=== PATIENT | female | born 1945 | race Caucasian/White ===

== ENCOUNTER 2018-02-12 21:34 | Emergency (ER) | payer OTHER, SELFPAY ==
[2018-02-03 10:49] VITALS: BMI 36.1
[2018-02-12 21:35] VITALS: BP 192/82; PULSE 92; RESP 23; TEMP 36.4; O2SAT 97; BMI 34.9
[2018-02-12 21:42] VITALS: PULSE 92; RESP 48; O2SAT 97
--- NOTE | 2018-02-12 21:53 | EKG12_ITS ---
Test Reason : PALPITATIONS Blood Pressure : / mmHG Vent. Rate : 086 BPM Atrial Rate : 086 BPM P-R Int : 160 ms QRS Dur : 092 ms QT Int : 368 ms P-R-T Axes : 036 021 067 degrees QTc Int : 440 ms Normal sinus rhythm Normal ECG Confirmed by ANEL TERRELL ([id number]), editor publications MICHAEL TAY ([id number]) on 02/15/2018 1:02:49 PM Referred By: ANGIE Confirmed By:ANEL TERRELL
[2018-02-12 22:05] VITALS: O2SAT 97
[2018-02-12 22:24] LABS: Absolute Lymphocyte Count 1.95 X10^3/ul (0.83-4.51); Absolute Neutrophil Count 3.9 X10^3/uL (2.0-7.7); Basophil# 0.03 X10^3/uL; Basophil% 0.4 % (0-1); Eosinophil# 0.37 X10^3/uL; Eosinophils% 5.4 % (0-5); Hematocrit 36.1 % (37-47); Hemoglobin 11.6 g/dl (12.0-15.0); Lymphocyte # 1.95 X10^3/ul (4.0); Lymphocyte % 28.5 % (19-41); Mean Corp Hgb Conc 32.1 g/gl (32-36); Mean Corpuscular Hgb 28.4 pg (27.0-32.0); Mean Corpuscular Volume 88.3 fL (81-99); Mean Platelet Vol. 9.9 fl (6.2-12.0); Monocyte# 0.64 X10^3/uL; Monocyte% 9.3 % (0-10); Neutrophil # 3.86 X10^3/uL (2.7-7.7); Neutrophil % 56.4 % (47-70); POSITIVE COUNT NO; POSITIVE DIFFERENTIAL NO; POSITIVE MORPHOLOGY NO; Platelet Count 215 K/mm3 (150-450); RBC Distribution Width SD 45.2 fl (35.1-43.9); Red Blood Count 4.09 M/mm3 (4.2-5.4); White Blood Count 6.9 K/mm3 (4.4-11.0)
[2018-02-12 22:40] LABS: Anion Gap 8 (5-15); BUN 35 mg/dL (7-18); BUN/Creat Ratio 29.4 RATIO (10-20); Calcium,Total 9.2 mg/dL (8.5-10.1); Chloride 106 mmol/L (98-107); Creatinine, Serum 1.19 mg/dL (0.55-1.02); EST Glomerular Filtration Rate 47 mL/min (>60); Est Glom Filt Rate - Afr Amer 57 mL/min (>60); Estimated Creatinine Clearance 42.17 ml/min; Glucose 139 mg/dL (74-106); Potassium 4.3 mmol/L (3.5-5.1); Sodium Level 138 mmol/L (136-145)
--- NOTE | 2018-02-12 23:18 | ED.DCSUM_ITS ---
- ER Visit Summary Date of Service: 02/12/18 Chief Complaint: Palpitations, weakness History of Present Illness: The patient is a 72 F who presents with the above symptoms. She has been feeling this way all day today. She went into atrial fibrillation which she has had in the past. She had an ablation done 9 years ago. She takes 1 pill of 120 mg of Cardizem per day. She did have some chest pain at home but now it is gone. She feels weak and run down which she attributes to her Cardizem as she is felt this way ever since she has been on it. She denies any shortness of breath. EMS was called because of her symptoms. She was found to be in atrial fibrillation with RVR. In route the patient converted to a sinus rhythm with no medications. Physical Examination: Vital signs reviewed. HEENT exam unremarkable. Heart is regular rate and rhythm without murmurs. Lungs are clear to auscultation. Abdomen is soft and nontender. Extremities reveal no edema. Skin exam normal. Neurologic exam feels that she is diffusely weak overall but there are no lateralizing symptoms. Test Results: EKG is now sinus rhythm with no ST changes. Hemoglobin 11.6. Creatinine 1.19. Troponin normal. Emergency Department Course and Treatment: The patient's rhythm maintained sinus throughout her ER stay. The rate was between 80 and 90. I discussed with Dr. Dewitt applications tester for Dr. Montelongo. He recommended increasing her Cardizem to 240 mg daily. I will write her a prescription with this. She will follow-up with Dr. Montelongo when he is back in [facility] Treatment Plan: [] Disposition: Discharge Impression: A. fib with RVR, resolved This note was generated with its learning dictation software. It may contain incorrect words, spelling, and punctuation that were not noted in review of the chart prior to signing ED Disposition - Plan for ED Patient: Chief Complaint: Palpitations Referrals: Kurt Moreno MD [Primary Care Provider] -
--- NOTE | 2018-02-12 23:19 | ED.DEP ---
ED Disposition - Plan for ED Patient: Disposition: Home or Assisted Living Chief Complaint: Palpitations Instructions: ED Afib Prescriptions: Diltiazem HCl [Cardizem Cd] 240 mg PO DAILY #30 cap.er.24h Referrals: Kurt Moreno MD [Primary Care Provider] -
[2018-02-12 23:27] VITALS: BP 136/64; PULSE 88; RESP 16; O2SAT 98
== END 2018-02-12 23:36 | disposition home or self-care (01) ==
PROVIDERS: Emergency Provider Emergency Medicine; Family Provider Family Medicine; PCP Family Medicine
DX: I48.91 Unspecified atrial fibrillation (principal); I47.1 Supraventricular tachycardia; I10 Essential (primary) hypertension; Z79.899 Other long term (current) drug therapy
CPT/HCPCS: 80048; 84484; 85025; 93005; 99285; A4216

== ENCOUNTER → 2018-12-08 13:16 | Outpatient (REF) | payer OTHER, SELFPAY ==
[2018-12-08 10:33] VITALS: BMI 32.1
== END ==
LOC: CVS 13:16
PROVIDERS: Family Provider Family Medicine; PCP Family Medicine; Referring Provider Nurse Practitioner Family; Visit Provider Nurse Practitioner Family
DX: I48.0 Paroxysmal atrial fibrillation (principal)
CPT/HCPCS: 93270

== ENCOUNTER 2019-02-01 19:08 | Emergency (ER) | payer OTHER, SELFPAY ==
[2018-12-28 14:19] VITALS: BMI 32.7
[2019-02-01 19:09] VITALS: BP 182/87; PULSE 125; RESP 16; TEMP 36.6; O2SAT 97; BMI 32.5
--- NOTE | 2019-02-01 19:17 | ED.RN ---
CALLED FOR EKG PER RN REQUEST, PULLED OLD EKGS FOR
--- NOTE | 2019-02-01 19:21 | EKG12_ITS ---
Test Reason : DYSRHYTHMIA Blood Pressure : / mmHG Vent. Rate : 120 BPM Atrial Rate : 120 BPM P-R Int : 160 ms QRS Dur : 092 ms QT Int : 310 ms P-R-T Axes : 065 034 062 degrees QTc Int : 438 ms Sinus tachycardia with Premature supraventricular complexes Otherwise normal ECG Confirmed by BOB MCGUIRE, JUDITH ([id number]), editor department MICHAEL TAY ([id number]) on 02/02/2019 11:22:38 AM Referred By: ANDRES Confirmed By:JUDITH ROJAS MD
--- NOTE | 2019-02-01 19:23 | RAD_ITS ---
STUDY: X-RAY CHEST REASON FOR EXAM: Female, 73 years old. Atrial fibrillation. TECHNIQUE: Single AP portable view of the chest. COMPARISON: None. FINDINGS: The lungs are clear and expanded. There is no demonstrated pleural abnormality. Normal size heart. Normal mediastinum and praveen. Normal visualized pulmonary arteries. There is atherosclerotic calcification of the aortic arch with tortuosity. Normal visualized thoracic spine. Normal visualized ribs, clavicles, and shoulders. There is no demonstrated abnormality of the visualized soft tissue structures of the upper abdomen. RAD/Chest 1 View (Portable) IMPRESSION: No definite acute or significant abnormality seen. Electronically Signed: Sanket Wyatt MD at 19:42 EST , Service support ,
--- NOTE | 2019-02-01 19:23 | ED.VIS.GEN ---
History of Present Illness Chief Complaint: Palpitations Informant: Patient Onset: Today Context: Gradual Onset Timing: Continuous Current Severity: Moderate Maximum Severity: Moderate Narrative: The patient is a 73-year-old female with medical history significant for paroxysmal atrial fibrillation status post ablation 9 years ago, [place] Subu cardiomyopathy, and hypertension who presents to the emergency department with palpitations. Patient states she felt like she went into A. fib at about noon today. States feeling her heart was racing. She states it will wax and wane, but is never fully gone away. She has been compliant with her diltiazem. She denies any chest pain. She does admit to some dyspnea with her heart rate. Prior similar symptoms: Yes Recent Illness/Hospitalization: No Past Medical History - Allergies and Home Meds Allergies/Adverse Reactions: Allergies latex Allergy (Verified 02/01/19 19:13) Unknown Penicillins Allergy (Verified 02/01/19 19:13) Unknown Primary Care Physician: Al Montelongo MD [STAFF PHYSICIAN] - Prior records reviewed: Yes Past Medical History: - - Paroxysmal A. fib, cardiomyopathy Surgical History: cholecystectomy, hysterectomy, - - ablation,tonsils, partial thyroidectemy due to nodules Smoking Status: Never smoker - Family History Maternal Family History: Family History (Last Reviewed 12/28/18 @ 14:54 by Al Montelongo MD) Mother CAD (coronary artery disease) Brother CAD (coronary artery disease) Sister CAD (coronary artery disease) Family History: Reports: Heart Disease Review of Systems General: Denies: Chills, Fever, Sweats Eyes: Denies: Visual changes - bilaterally, Diplopia ENT: Denies: Rhinorrhea, Sore throat Cardiovascular: Reports: Palpitations. Denies: Chest pain Respiratory: Denies: Dyspnea, Cough, Dyspnea on exertion Gastrointestinal: Denies: Abdominal pain, Nausea, Vomiting, Diarrhea, Melena, Hematochezia Genitourinary: Denies: Dysuria, Hematuria, Frequency Musculoskeletal: Denies: Back pain, Extremity Pain Skin: Denies: Rash, Wounds Neurological: Denies: Headache, Weakness, Numbness Physical Exam Vital Signs/Narrative: Vital Signs Temp Pulse Resp BP Pulse Ox 02/01/19 19:09 97.9 F 125 H 16 182/87 H 97 Inital Vital Signs reviewed: Yes General: Well nourished, Well developed, No Acute Distress Head: Normocephalic, Atraumatic Eyes: Perrl, EOMI ENT: Moist mucous membranes, No rhinorrhea Neck: Supple, Nontender Cardiovascular: Regular rhythm, No murmurs, Tachycardia Respiratory: No distress, CTA bilaterally, Chest nontender Abdomen: Soft, Nontender, Nondistended, Normal bowel sounds Back: Nontender, Normal Inspection Extremities: Nontender, No edema Skin: Normal color, No rash Neurological: Alert, Oriented x3, Cranial nerves II-XII grossly intact, Normal Strength, Normal Sensation Psychological: Normal affect, Normal Mood Diagnostic/Tx/Re-eval Chest X-Ray - ED: 1 View, Read by ED Physician, Read by Radiologist, Normal, Heart, Lungs, Mediastinum Clinical Impression(s) from Imaging Studies Chest X-Ray 02/01/19 19:23 IMPRESSION: No definite acute or significant abnormality seen. Electronically Signed: Sanket Wyatt MD at 19:42 EST , Service support , Abnormal Lab Results 02/01/19 02/01/19 19:40 19:40 WBC 8.8 RBC 4.58 Hgb 13.4 Hct 39.6 MCV 86.5 MCH 29.3 MCHC 33.8 RDW Std Deviation 42.8 RDW Coeff of Mehdi 13.7 Plt Count 209 MPV 10.4 Immature Gran % (Auto) 0.100 Neut % (Auto) 66.9 Lymph % (Auto) 22.4 [place] % (Auto) 9.7 Eos % (Auto) 0.8 Baso % (Auto) 0.1 Absolute Neuts (auto) 5.9 Absolute Lymphs (auto) 1.96 Nucleated RBC % 0 Sodium 132 L Potassium 4.5 Chloride 100 Carbon Dioxide 25.0 Anion Gap 7 BUN 22 H Creatinine 0.98 Estim Creat Clear Calc 46.69 Est GFR (MDRD) Af Amer 71 Est GFR (MDRD) Non-Af 59 L BUN/Creatinine Ratio 22.4 H Glucose 104 Calcium 9.2 Total Bilirubin 0.40 AST 30 ALT 27 Alkaline Phosphatase 81 Troponin I 0.031 Total Protein 8.5 H Albumin 3.7 Globulin 4.8 H Albumin/Globulin Ratio 0.8 L - Rhythm Strip Rhythm Strip: Sinus Tach Rate: 120 Ectopy: None - EKG Initial EKG Interpretation: No Acute Injury Pattern, Sinus Tachycardia, Non-Specific ST Changes Prior: Unchanged - Medical Decision Making The patient presents with symptomatic tachycardia. EKG was obtained. It demonstrates sinus rhythm. There is P waves before every QRS. She did have an occasional PAC. Given her history of A. fib, I did want to make sure that this was not a flutter through an apparent pathway especially since she is had an ablation. She was given 10 mg of diltiazem. Her heart rate had decreased to about 100 and there was still the same variability of the P waves. There was no definitive flutter. Metabolic work-up was pursued. Chest x-ray was unremarkable. Prior to discharge, the patient had spontaneously changed to a heart rate of 80. It still having normal P waves to QRS complex. I did discuss her care with Dr. Dewitt who is covering for Dr. Jaramillo. At this point, we are going to increase her diltiazem for rate control. She will be seen in the office. Impression 1. Palpitations-resolved ED Disposition - Plan for ED Patient: Instructions: Palpitations Referrals: Al Montelongo MD [STAFF PHYSICIAN] - Additional Instructions: Increase your diltiazem dose from 120 mg to 240 mg.
[2019-02-01] MEDS: dilTIAZem 25 MG/5 ML Vial 10 MG IV BOLUS (19:43)
[2019-02-01 19:58] LABS: Absolute Lymphocyte Count 1.96 X10^3/uL (0.83-4.51); Absolute Neutrophil Count 5.9 X10^3/uL (2.0-7.7); Basophil# 0.01 X10^3/uL; Basophil% 0.1 % (0-1); Eosinophil# 0.07 X10^3/uL; Eosinophils% 0.8 % (0-5); Hematocrit 39.6 % (37-47); Hemoglobin 13.4 g/dL (12.0-15.0); Lymphocyte # 1.96 X10^3/ul (4.0); Lymphocyte % 22.4 % (19-41); Mean Corp Hgb Conc 33.8 g/dL (32-36); Mean Corpuscular Hgb 29.3 pg (27.0-32.0); Mean Corpuscular Volume 86.5 fL (81-99); Mean Platelet Vol. 10.4 fl (6.2-12.0); Monocyte# 0.85 X10^3/uL; Monocyte% 9.7 % (0-10); NRBC Flagged by Analyzer 0 % (0-5); Neutrophil # 5.85 X10^3/uL (2.7-7.7); Neutrophil % 66.9 % (47-70); Platelet Count 209 K/mm3 (150-450); RBC Distribution Width CV 13.7 % (11.6-14.6); RBC Distribution Width SD 42.8 fl (35.1-43.9); Red Blood Count 4.58 M/mm3 (4.2-5.4); White Blood Count 8.8 K/mm3 (4.4-11.0)
[2019-02-01 20:13] VITALS: BMI 32.6
[2019-02-01 20:24] LABS: ALB/GLOB Ratio 0.8 RATIO (0.9-2.4); AST(SGOT) 30 U/L (15-37); Alanine Aminotransfer ALT/SGPT 27 U/L (13-56); Albumin, Serum 3.7 g/dL (3.2-5.0); Alkaline Phosphatase 81 U/L (45-117); Anion Gap 7 (5-15); BUN 22 mg/dL (7-18); BUN/Creat Ratio 22.4 RATIO (10-20); Calcium,Total 9.2 mg/dL (8.5-10.1); Chloride 100 mmol/L (98-107); Creatinine, Serum 0.98 mg/dL (0.55-1.02); EST Glomerular Filtration Rate 59 mL/min (>60); Est Glom Filt Rate - Afr Amer 71 mL/min (>60); Estimated Creatinine Clearance 46.69 ml/min; Globulin 4.8 g/dL (2.2-4.2); Glucose 104 mg/dL (74-106); Potassium 4.5 mmol/L (3.5-5.1); Protein, Total 8.5 g/dL (6.4-8.2); Sodium Level 132 mmol/L (136-145)
[2019-02-01] MEDS: dilTIAZem CD 240 MG Capsule PO (20:44)
[2019-02-01 21:10] VITALS: BP 152/80; PULSE 83; RESP 16; O2SAT 98
== END 2019-02-01 21:22 | disposition home or self-care (01) ==
LOC: ED 19:46
PROVIDERS: Emergency Provider Emergency Medicine; Family Provider Family Medicine; PCP Family Medicine
DX: R00.2 Palpitations (principal); I48.0 Paroxysmal atrial fibrillation; I42.9 Cardiomyopathy, unspecified; I10 Essential (primary) hypertension; Z79.899 Other long term (current) drug therapy
CPT/HCPCS: 71045; 80053; 84484; 85025; 93005; 96374; 99285; A4216

== ENCOUNTER → 2020-11-05 13:38 | Outpatient (CLI) | payer SELFPAY, OTHER ==
--- NOTE | 2020-11-05 13:41 | ECHOD_ITS ---
Reason For Study: Dyspnea/SOB Procedure This was a 2D Doppler, Color Flow transthoracic echocardiogram. Exam performed in department. Left Ventricle Normal LV size. Mild concentric left ventricular hypertrophy. Left ventricular systolic function is normal. The estimated ejection fraction is 60 %. No regional wall motion abnormalities noted. Right Ventricle Normal RV size. Normal systolic function. Atria Normal left atrium. Normal right atrium. Mitral Valve Normal mitral valve. Tricuspid Valve Normal tricuspid valve. Aortic Valve Normal aortic valve. Pulmonic Valve Normal pulmonic valve. Great Vessels Moderate atherosclerosis of the ascending aorta. The pulmonary artery is normal size. Normal inferior vena cava. Pericardium/Pleural No pericardial effusion. MMode/2D Measurements & Calculations LVIDd: 4.5 cm IVSd: 1.2 cm Ao root diam: 2.9 cm LVIDs: 3.0 cm LVPWd: 1.2 cm RVDd: 3.5 cm FS: 33.4 % LAV(MOD-bp): 43.1 ml LVAd ap4: 24.5 cm2 SV(MOD-sp4): 45.2 ml LAV(MOD-bp) Indexed: 21.9 ml/m2 LVLd ap4: 7.4 cm LAV(MOD-sp2): 38.9 ml EDV(MOD-sp4): 68.0 ml LAV(MOD-sp4): 41.6 ml EDV(sp4-el): 68.5 ml LVAs ap4: 12.9 cm2 LVLs ap4: 6.5 cm ESV(MOD-sp4): 22.9 ml ESV(sp4-el): 21.6 ml EF(MOD-sp4): 66.4 % EF(sp4-el): 68.5 % SV(sp4-el): 46.9 ml LA A4 area: 16.8 cm2 LA dimension(2D): 3.7 cm RA A4 area: 15.6 cm2 Doppler Measurements & Calculations MV E max miguel ángel: 84.9 cm/sec Lat Peak E' Miguel Ángel: 10.5 cm/sec Med Peak E' Miguel Ángel: 6.5 cm/sec MV A max miguel ángel: 68.7 cm/sec E/E' lat: 8.1 E/E' med: 13.2 MV E/A: 1.2 Ao V2 max: 156.3 cm/sec LV V1 max: 97.0 cm/sec PA V2 max: 80.9 cm/sec Ao max P.8 mmHg LV V1 max P.8 mmHg Ao V2 mean: 111.2 cm/sec Ao mean P.4 mmHg Ao V2 VTI: 38.6 cm TR max miguel ángel: 233.4 cm/sec TR max P.8 mmHg ECHO/Echo Complete Interpretation Summary Normal LV size. Left ventricular systolic function is normal. Mild concentric left ventricular hypertrophy. The estimated ejection fraction is 60 %. Moderate atherosclerosis of the ascending aorta. Ordering Physician: Rosmery Faustin Referring Physician: Rosmery Faustin Performed By: Luisa Bowen, REVA, RVT
== END ==
PROVIDERS: Referring Provider Nurse Practitioner Gerontology; Visit Provider Nurse Practitioner Gerontology
DX: I51.81 Takotsubo syndrome (principal); R06.02 Shortness of breath
CPT/HCPCS: 93306

== ENCOUNTER 2021-10-08 14:04 | Observation (INO) | payer OTHER, SELFPAY ==
[2021-10-08] VITALS (9 sets, daily range): BP systolic 122–194; BP diastolic 58–89; PULSE 62–113; RESP 16–30; TEMP 36.4–36.7; O2SAT 96–98; BMI 36.7; BMI 34.5
--- NOTE | 2021-10-08 14:32 | EKG12_ITS ---
Test Reason : REPEAT Blood Pressure : / mmHG Vent. Rate : 064 BPM Atrial Rate : 241 BPM P-R Int : 000 ms QRS Dur : 088 ms QT Int : 418 ms P-R-T Axes : 000 020 052 degrees QTc Int : 431 ms Probable Atrial Flutter Abnormal ECG Confirmed by BOB MCGUIRE, JUDITH ([id number]), magazine editor ELLA WILEY ([id number]) on 10/10/2021 10:05:22 AM Referred By: IVETH Confirmed By:JUDITH ROJAS MD
--- NOTE | 2021-10-08 14:58 | RAD_ITS ---
INDICATION: chest pain EXAMINATION/TECHNIQUE: X-RAY - XR Chest 1 View COMPARISON: 02/01/2019. FINDINGS: LINES/DEVICES: None. LUNGS: Peribronchial cuffing and mild perihilar prominence is seen that demonstrates no change in comparison to the prior study. No consolidation, edema or effusion. No pneumothorax. MEDIASTINUM AND CARDIOVASCULAR STRUCTURES: Cardiac silhouette not enlarged. BONES AND SOFT TISSUES: Degenerative changes.. RAD/Chest 1 View (Portable) IMPRESSION: No radiographic evidence of acute cardiopulmonary disease. Electronically Signed: Saul Crane MD at 15:27 EDT ,
--- NOTE | 2021-10-08 14:59 | EX.ED.DYSGE1 ---
HPI History of Present Illness Chief Complaint: Palpitations Narrative Narrative: Patient with past medical history of paroxysmal atrial fibrillation presents with palpitations and fatigue consistent with her previous atrial fibrillation episodes. She states this episode started this morning at 5 AM, and is more stubborn and not resolving. She relates history of remote ablation 9 years ago, but then started having atrial fibrillation episodes again. She is not on any anticoagulation. She denies any chest pain or shortness of breath but states she feels fatigued and her heart racing, which is typical of when she is in atrial fibrillation. She takes Cardizem daily. She took an extra dose this morning to see if it would resolve her symptoms. She denies any leg swelling. She did note that her blood pressure was excessively elevated when EMS was called. [facility] Medical History (Updated 10/08/21 @ 16:42 by Cesar Baltazar MD) Cardiomyopathy Edema leg Essential (primary) hypertension Hypothyroidism Obesity Paroxysmal atrial fibrillation Pure hypercholesterolemia Supraventricular tachycardia Takotsubo cardiomyopathy Home Medications thyroid (pork) 60 mg tablet 60 mg PO DAILY 06/16/13 [History Last Taken 10/08/21] diltiazem HCl 120 mg capsule,extended release 24 hr 120 mg PO DAILY heart #90 caps 03/11/21 [Rx Last Taken 10/08/21] soybean, fermented 50 mg capsule (Nattokinase) 100 mg PO DAILY 07/31/21 [History Last Taken 10/08/21] soybean, fermented 50 mg capsule (Nattokinase) 50 mg PO QHS 10/08/21 [History Last Taken 10/07/21] Allergy/AdvReac Type Severity Reaction Status Date / Time latex Allergy Unknown Verified 07/31/21 13:49 Penicillins Allergy Unknown Verified 07/31/21 13:49 Family History Mother CAD (coronary artery disease) Brother CAD (coronary artery disease) Sister CAD (coronary artery disease) Surgical History H/O cardiac radiofrequency ablation (12/29/07) History of hysterectomy History of left heart catheterization (06/23/07) Hx of cholecystectomy Social History Smoking Status: Never smoker alcohol intake: never ROS ROS ED ROS Narrative Constitutional: No fever, no chills. Positive fatigue HEENT: No sore throat. No neck pain. No loss of vision. No rhinorrhea. Cardiovascular: No chest pain. Positive palpitations. No pedal edema. Respiratory: No cough, no shortness of breath. Abdominal: No abdominal pain. No nausea. No vomiting. Genitourinary: No dysuria. No hematuria. Musculoskeletal: No myalgias. No arthralgias. Neurologic: No headaches. No dizziness. No lightheadedness. Skin: No rash. No change in color. Psychiatric: No depression. No anxiety. EXAM Physical Exam Narrative Exam Narrative: Afebrile. Vital signs noted. HEENT: Normocephalic. Atraumatic. PERRL, EOMI. Neck soft and supple. No point tenderness or step off. Cardiovascular: Irregularly irregular tachycardia in the 120s, no murmurs, rubs, or gallops appreciated. Respiratory: No tachypnea. Lungs clear to auscultation bilaterally. Gastrointestinal: Abdomen soft, nontender, with normoactive bowel sounds. No rebound or guarding. Neurological: Awake. Alert. Nonfocal, nonlateralizing. Skin: No rash. Normal color. No pallor. Musculoskeletal: No pedal edema. Full range of motion extremities. Const Vital Signs: 10/08/21 14:00 10/08/21 15:02 10/08/21 15:13 Temperature 97.6 F L Temperature Source Temporal Pulse Rate 113 H 82 68 Respiratory Rate 30 H 18 Blood Pressure 194/89 H 128/58 H Blood Pressure Mean 124 81 Pulse Ox 98 98 Oxygen Delivery Method Room Air Room Air 10/08/21 15:46 Temperature Temperature Source Pulse Rate 62 Respiratory Rate 17 Blood Pressure 122/69 H Blood Pressure Mean 86 Pulse Ox 96 Oxygen Delivery Method Room Air MDM MDM MDM Narrative Medical decision making narrative: I reviewed her prior records. In the past she had received diltiazem intravenously with good reduction in her heart rate. Her EKG here demonstrates what is being read as atrial flutter with AV block at 99 bpm, but on the monitor there are no flutter waves and her heart rate ranges from 1 15-1 26. Comprehensive work-up was pursued. She was administered 10 mg of intravenous Cardizem. Lab Data Labs: Laboratory Results - last 24 hr 10/08/21 10/08/21 14:22 14:22 WBC 7.1 RBC 4.75 Hgb 13.8 Hct 42.5 MCV 89.5 MCH 29.1 MCHC 32.5 RDW Std Deviation 48.1 H RDW Coeff of Mehdi 14.7 H Plt Count 211 MPV 10.1 Immature Gran % (Auto) 0.300 Neut % (Auto) 52.7 Lymph % (Auto) 35.7 [place] % (Auto) 9.0 Eos % (Auto) 1.7 Baso % (Auto) 0.6 Absolute Neuts (auto) 3.8 Absolute Lymphs (auto) 2.54 Nucleated RBC % 0 Sodium 137 Potassium 4.0 Chloride 109 H Carbon Dioxide 23.0 Anion Gap 5 BUN 26 H Creatinine 1.10 H Estim Creat Clear Calc 38.16 Est GFR (MDRD) Af Amer 62 Est GFR (MDRD) Non-Af 51 L BUN/Creatinine Ratio 23.6 H Glucose 121 H Calcium 9.9 Troponin I High Sens 78 H Radiography Diagnostic Testing: Clinical Impression(s) from Imaging Studies Chest X-Ray 10/08/21 14:58 IMPRESSION: No radiographic evidence of acute cardiopulmonary disease. Electronically Signed: Saul Crane MD at 15:27 EDT , Discharge Plan Dx/Rx/DC Orders Clinical Impression: Anemia requiring transfusions, Pneumonia, Neutropenia, Thrombocytopenia, Small cell carcinoma of lung Disposition Disposition: Acute Care Hospital [facility]
[2021-10-08] MEDS: dilTIAZem 25 MG/5 ML Vial 10 MG IV BOLUS (15:08)
[2021-10-08 15:11] LABS: Absolute Lymphocyte Count 2.54 X10^3/uL (0.83-4.51); Absolute Neutrophil Count 3.8 X10^3/uL (2.0-7.7); Basophil# 0.04 X10^3/uL; Basophil% 0.6 % (0-1); Eosinophil# 0.12 X10^3/uL; Eosinophils% 1.7 % (0-5); Hematocrit 42.5 % (37-47); Hemoglobin 13.8 g/dL (12.0-15.0); Lymphocyte # 2.54 X10^3/ul (0.83-4.51); Lymphocyte % 35.7 % (19-41); Mean Corp Hgb Conc 32.5 g/dL (32-36); Mean Corpuscular Hgb 29.1 pg (27.0-32.0); Mean Corpuscular Volume 89.5 fL (81-99); Mean Platelet Vol. 10.1 fl (6.2-12.0); Monocyte# 0.64 X10^3/uL; NRBC Flagged by Analyzer 0 % (0-5); Neutrophil # 3.76 X10^3/uL (2.7-7.7); Neutrophil % 52.7 % (47-70); Platelet Count 211 K/mm3 (150-450); RBC Distribution Width CV 14.7 % (11.6-14.6); RBC Distribution Width SD 48.1 fl (35.1-43.9); Red Blood Count 4.75 M/mm3 (4.2-5.4); White Blood Count 7.1 K/mm3 (4.4-11.0)
[2021-10-08 15:29] LABS: Anion Gap 5 (5-15); BUN 26 mg/dL (7-18); BUN/Creat Ratio 23.6 RATIO (10-20); Calcium,Total 9.9 mg/dL (8.5-10.1); Chloride 109 mmol/L (98-107); EST Glomerular Filtration Rate 51 mL/min (>60); Est Glom Filt Rate - Afr Amer 62 mL/min (>60); Estimated Creatinine Clearance 38.16 ml/min; Glucose 121 mg/dL (74-106); Sodium Level 137 mmol/L (136-145); Troponin-I HS 78 pg/mL (3.0-54.0)
--- NOTE | 2021-10-08 16:17 | EKG12_ITS ---
Test Reason : A-FIB Blood Pressure : / mmHG Vent. Rate : 099 BPM Atrial Rate : 249 BPM P-R Int : 000 ms QRS Dur : 086 ms QT Int : 338 ms P-R-T Axes : 000 034 071 degrees QTc Int : 433 ms Atrial flutter with variable A-V block Abnormal ECG Confirmed by BOB MCGUIRE, JUDITH ([id number]), health editor ELLA WILEY ([id number]) on 10/10/2021 10:05:37 AM Referred By: GENEVA Confirmed By:JUDITH ROJAS MD
--- NOTE | 2021-10-08 17:03 | NURSING ---
HOSPITALIST FOR DR LAZARO
--- NOTE | 2021-10-08 17:11 | NURSING ---
PCU OBS ZAHIRA ELEVATED TROP, ATRIAL FIBULATION
--- NOTE | 2021-10-08 17:33 | PCM.HP.STD ---
Documented by User: ZOHAIB Mcgee 10/08/21 17:51 HPI - General General Date of Admission: 10/08/21 Date of Service: 10/08/21 Chief Complaint: Chest Pain HPI Narrative VERONA TAY, is a 76 F who presents with complaints of chest pain and shortness of breath with exertion. Patient states that she has had chest pain and tightness since 5 AM this morning and decided that she needed to be seen. Patient states that she has a history of an ablation which kept her out of A. fib for approximately 9 years but she has no longer been effective. Patient also reports a medical history of hypothyroidism status post partial thyroidectomy and hyperlipidemia for which she takes a all-natural supplement. [facility] Medical History Cardiomyopathy Edema leg Essential (primary) hypertension Hypothyroidism Obesity Paroxysmal atrial fibrillation Pure hypercholesterolemia Stage 3a chronic kidney disease (CKD) Supraventricular tachycardia Takotsubo cardiomyopathy Home Medications thyroid (pork) 60 mg tablet 60 mg PO DAILY 06/16/13 [History Last Taken 10/08/21] diltiazem HCl 120 mg capsule,extended release 24 hr 120 mg PO DAILY heart #90 caps 03/11/21 [Rx Last Taken 10/08/21] soybean, fermented 50 mg capsule (Nattokinase) 100 mg PO DAILY 07/31/21 [History Last Taken 10/08/21] soybean, fermented 50 mg capsule (Nattokinase) 50 mg PO QHS 10/08/21 [History Last Taken 10/07/21] Allergy/AdvReac Type Severity Reaction Status Date / Time latex Allergy Unknown Verified 07/31/21 13:49 Penicillins Allergy Unknown Verified 07/31/21 13:49 Family History Mother CAD (coronary artery disease) Brother CAD (coronary artery disease) Sister CAD (coronary artery disease) Surgical History H/O cardiac radiofrequency ablation (12/29/07) History of hysterectomy History of left heart catheterization (06/23/07) Hx of cholecystectomy Social History (Updated 10/08/21 @ 20:[address] Joanne Melvin DO) household members: spouse housing: house current occupation: [employer] Smoking Status: Never smoker alcohol intake: never substance use type: does not use ROS Constitutional Constitutional: Denies anorexia, chills, fatigue, fever(s), malaise or weakness Cardiovascular Cardiovascular: Reports chest pain and palpitations; Denies edema Respiratory/Chest Respiratory/Chest: Reports shortness of breath with exertion; Denies cough, shortness of breath at rest or wheezing Gastrointestinal Gastrointestinal: Denies abdominal pain, constipation, diarrhea, nausea or vomiting Genitourinary Genitourinary: Denies dysuria Musculoskeletal Musculoskeletal: Denies back pain, extremity pain, joint pain or joint stiffness Integumentary Integumentary: Denies dry skin Neurologic Neurologic: Denies abnormal gait, abnormal speech, confusion, dizziness or focal weakness Psychiatric Psychiatric: Denies anxiety or depression Endocrine Endocrinology: Denies change in body appearance Hematologic/Lymphatic Hematologic/Lymphatic: Denies anemia Vital Signs Vital Signs Vital Signs: 10/08/21 14:00 10/08/21 15:02 10/08/21 15:13 Temperature 97.6 F L Temperature Source Temporal Pulse Rate 113 H 82 68 Respiratory Rate 30 H 18 Blood Pressure 194/89 H 128/58 H Blood Pressure Mean 124 81 Pulse Ox 98 98 Oxygen Delivery Method Room Air Room Air 10/08/21 15:46 10/08/21 17:32 Temperature 98 F Temperature Source Temporal Pulse Rate 62 73 Respiratory Rate 17 19 H Blood Pressure 122/69 H 152/67 H Blood Pressure Mean 86 95 Pulse Ox 96 98 Oxygen Delivery Method Room Air Room Air Weight Weight: 214 lb 1.102 oz Body Mass Index (BMI) 36.7 Physical Exam Const alert, oriented x3 and no apparent distress General Appearance: cooperative HEENT normocephalic, head/scalp atraumatic and moist oral mucous membranes Eyes conjunctivae normal and no scleral icterus Neck no lymphadenopathy and supple General: trachea midline Lymph Lymphatic: no lymphadenopathy noted Resp normal respiratory effort, normal air movement and clear to auscultation bilaterally Cardio S1 normal heart sound, S2 normal heart sound and peripheral pulses 2+ throughout Rhythm: abnormal rhythm GI normal to inspection, nondistended, normoactive bowel sounds, soft to palpation and non-tender Extremity normal capillary refill and no clubbing, cyanosis or edema Skin General Skin Exam: no breakdown Lesions: no lesions Rashes: no rashes Neuro oriented x3, moves all extremities, no focal motor deficits and no sensory deficits noted Sensorium / Orientation: awake and alert Speech: speech normal Results Lab / Micro Data Result Diagrams: 10/08/21 14:22 10/08/21 14:22 Labs: Laboratory Results - last 24 hr 10/08/21 14:22: Sodium 137, Potassium 4.0, Chloride 109 H, Carbon Dioxide 23.0, Anion Gap 5, BUN 26 H, Creatinine 1.10 H, Estim Creat Clear Calc 38.16, Est GFR (MDRD) Af Amer 62, Est GFR (MDRD) Non-Af 51 L, BUN/Creatinine Ratio 23.6 H, Glucose 121 H, Calcium 9.9, Troponin I High Sens 78 H 10/08/21 14:22: WBC 7.1, RBC 4.75, Hgb 13.8, Hct 42.5, MCV 89.5, MCH 29.1, MCHC 32.5, RDW Std Deviation 48.1 H, RDW Coeff of Mehdi 14.7 H, Plt Count 211, MPV 10.1, Immature Gran % (Auto) 0.300, Neut % (Auto) 52.7, Lymph % (Auto) 35.7, [place] % (Auto) 9.0, Eos % (Auto) 1.7, Baso % (Auto) 0.6, Absolute Neuts (auto) 3.8, Absolute Lymphs (auto) 2.54, Nucleated RBC % 0 Radiology Impression Chest X-Ray 10/08/21 14:58 IMPRESSION: No radiographic evidence of acute cardiopulmonary disease. Electronically Signed: Saul Crane MD at 15:27 EDT Reading Location ID and State: [facility] / MD Tel , Service support , Assessment & Plan Assessment/Plan (1) Elevated troponin: (2) Paroxysmal atrial fibrillation with RVR: (3) Stage 3a chronic kidney disease (CKD): PLAN: Plan 1. Elevated troponin secondary to paroxysmal atrial fibrillation -Admit to PCU -Trend cardiac enzymes -Cardiac diet -Case discussed with Dr. Ma, Cardizem increased from 120 mg daily to 120 mg twice daily -Echocardiogram ordered for a.m. -Oxygen protocol -CBC, BMP, magnesium, phosphorus, TSH ordered for a.m. -Patient not currently anticoagulated 2. Hypothyroidism secondary to partial thyroidectomy -Continue thyroid 60 mg p.o. daily -TSH ordered for a.m. 3. Hyperlipidemia -Continue fermented soybean nightly DVT prophylaxis-SCDs and subcu Lovenox This patient was seen by Violetta Villavicencio NP-C under the supervision of Dr. Melvin. 29 minutes spent in clinical coordination of patient's plan of care. Documented by User: Dr. Joanne Melvin DO 10/08/21 20:45 HPI - General General Date of Admission: 10/08/21 HPI Narrative Patient was seen in conjunction with Violetta Villavicencio NP. The following represents my independent history physical examination. Please see below for addendum the above. VERONA TAY, is a 76 F who presented to the emergency department [facility] on 10/08/2021 secondary to palpitations. Patient reported she has a history of atrial fibrillation which usually resolves on its own. She states her last episode was a few months ago and that lasted 5 hours but resolved. She reported that she woke up this morning at 5 AM and had some fluttering in her chest associated with fatigue and some shortness of breath with exertion. She waited a while as this usually resolves independently but this persisted for approximately 10 hours so she decided to present to the emergency department. She has history of ablation 9 years ago. She is anticoagulated at baseline with fermented soybean. She is on Cardizem 120 mg daily and has not missed any doses and in fact took an extra dose this morning. Vital signs on presentation showed a temperature of 97.6, documented heart rate was 113 however per discussion with the ER heart rates had been higher, blood pressure was 194/89 but improved to 128/58, respiratory rate was initially 30 but resolved to normal and oxygen saturation was 98% on room air. Her CBC is unremarkable. Chemistry panel shows mild CKD stage IIIa with a baseline serum creatinine anywhere from 0.9-1.2. Current serum creatinine is 1.1. Her initial troponin was 78. Her chest x-ray showed no acute cardiopulmonary disease. Initial EKG showed A. fib with RVR. The emergency department she was treated with IV Cardizem x1 dose 10 mg and eventually spontaneously converted out of A. fib with RVR. The case was discussed with with cardiology by the ER physician and given her troponin elevation we will admit her to make sure that this was just demand related from her tachycardia and trends down. [facility] Medical History Cardiomyopathy Edema leg Essential (primary) hypertension Hypothyroidism Obesity Paroxysmal atrial fibrillation Pure hypercholesterolemia Stage 3a chronic kidney disease (CKD) Supraventricular tachycardia Takotsubo cardiomyopathy Home Medications thyroid (pork) 60 mg tablet 60 mg PO DAILY 06/16/13 [History Last Taken 10/08/21] diltiazem HCl 120 mg capsule,extended release 24 hr 120 mg PO DAILY heart #90 caps 03/11/21 [Rx Last Taken 10/08/21] soybean, fermented 50 mg capsule (Nattokinase) 100 mg PO DAILY 07/31/21 [History Last Taken 10/08/21] soybean, fermented 50 mg capsule (Nattokinase) 50 mg PO QHS 10/08/21 [History Last Taken 10/07/21] Allergy/AdvReac Type Severity Reaction Status Date / Time latex Allergy Unknown Verified 07/31/21 13:49 Penicillins Allergy Unknown Verified 07/31/21 13:49 Family History Mother CAD (coronary artery disease) Brother CAD (coronary artery disease) Sister CAD (coronary artery disease) Surgical History H/O cardiac radiofrequency ablation (12/29/07) History of hysterectomy History of left heart catheterization (06/23/07) Hx of cholecystectomy Social History (Updated 10/08/21 @ 20:[address] Joanne Melvin DO) household members: spouse housing: house current occupation: [employer] Smoking Status: Never smoker alcohol intake: never substance use type: does not use ROS Constitutional Constitutional: Denies anorexia, change in weight, chills, fatigue, fever(s), malaise, night sweats, weakness, weight gain or weight loss Eyes Eyes: Denies blurry vision, change in vision, discharge from eye(s), double vision, erythema, eye pain, irritation or itchy eyes ENT HEENT: Denies abnormal hearing, dysphagia, ear pain, epistaxis, headache(s), hearing loss, loss taste/smell, nasal congestion, nasal discharge, post nasal drip, sinus pain, sinus pressure, sore throat or throat swelling Cardiovascular Cardiovascular: Reports chest pain, dyspnea, flutter in chest, irregular heart rhythm and palpitations; Denies edema Respiratory/Chest Respiratory/Chest: Reports shortness of breath with exertion; Denies cough, hemoptysis, shortness of breath at rest or wheezing Gastrointestinal Gastrointestinal: Denies abdominal pain, constipation, diarrhea, dyspepsia, hematemesis, hematochezia, melena, nausea or vomiting Genitourinary Genitourinary: Denies dysuria, hematuria, nocturia, oliguria, polyuria, urinary frequency, urinary hesitancy, urinary incontinence or urinary urgency Musculoskeletal Musculoskeletal: Denies back pain, extremity pain, joint pain, joint stiffness, joint swelling, limited range of motion, muscle weakness, neck pain or stiffness Integumentary Integumentary: Denies dry skin, jaundice, lesions, pruritus, rash or wounds Neurologic Neurologic: Denies abnormal gait, abnormal speech, confusion, dizziness, focal weakness, headache(s), lack of coordination, numbness, seizures, sensory deficit, tingling, tremor(s) or weakness Psychiatric Psychiatric: Denies anxiety, depression, homicidal ideation or suicidal ideation Endocrine Endocrinology: Denies change in body appearance, cold intolerance, heat intolerance, polydipsia or polyuria Hematologic/Lymphatic Hematologic/Lymphatic: Denies anemia, easy bleeding, easy bruising or lymphadenopathy Physical Exam Const alert, oriented x3, no apparent distress and well nourished Constitutional Narrative: Elderly white female sitting up in bed, at bedside, appears comfortable nontoxic General Appearance: cooperative HEENT normocephalic, head/scalp atraumatic and moist oral mucous membranes HEENT Narrative: Mallampati is 2-3, no thrush, dentition is poor Resp normal respiratory effort, normal air movement and clear to auscultation bilaterally Auscultation: Negative for rales, rhonchi, wheezes or diminished lung sounds Cardio regular rate, regular rhythm, S1 normal heart sound, S2 normal heart sound, no murmurs, no rub, no gallops and peripheral pulses 2+ throughout Cardio Narrative: Currently normal sinus rhythm with few ectopic beats Extremity normal capillary refill and no clubbing, cyanosis or edema Neuro CN's II-XII intact bilaterally, no focal motor deficits and no sensory deficits noted Neuro Narrative: Generalized weakness is mild and proximal greater than distal Speech: speech normal Motor Exam: general weakness Psych thought process normal, cooperative and affect normal Results Lab / Micro Data Attestation: I reviewed the patient's lab results. Result Diagrams: 10/08/21 14:22 10/08/21 14:22 Assessment & Plan Assessment/Plan (1) Elevated troponin: (2) Paroxysmal atrial fibrillation with RVR: (3) Stage 3a chronic kidney disease (CKD): PLAN: Plan Assessment: A. fib with RVR Troponin elevation Fatigue CKD stage IIIa History of Takotsubo cardiomyopathy Hypertension Hyperlipidemia Hypothyroidism Obesity Plan: -Discussed case with Dr. Ma and he recommended we increase her diltiazem from 125 mg daily to 125 mg twice daily -Was given 10 mg of diltiazem in the emergency department -Appears to now be in normal sinus rhythm -Patient is anticoagulated with natural soybean extract -Continue thyroid medication -Check a.m. TSH -Suspect troponin elevation is reactive secondary to her A. fib for an extended period of time -We will cycle -Check echocardiogram in a.m. Charges/Coding Visit Charges Inpatient E&M: 78177 Init Hosp L2
[2021-10-08 17:52] LABS: Troponin-I HS 75 pg/mL (3.0-54.0)
--- NOTE | 2021-10-08 18:05 | ECHOD_ITS ---
Reason For Study: ATRIAL FIB/FLUTTER Procedure This was a 2D Doppler, Color Flow transthoracic echocardiogram. Exam performed portable in patient room. Left Ventricle Normal LV size. Left ventricular systolic function is normal. The estimated ejection fraction is 55 %. Stage 2 diastolic dysfunction. No regional wall motion abnormalities noted. Right Ventricle Normal RV size. Normal systolic function. Atria Normal left atrium. Normal right atrium. Mitral Valve Normal mitral valve. Tricuspid Valve Normal tricuspid valve. Aortic Valve Normal aortic valve. Pulmonic Valve Normal pulmonic valve. Great Vessels Normal aortic root. The pulmonary artery is normal size. Normal inferior vena cava. Pericardium/Pleural No pericardial effusion. MMode/2D Measurements & Calculations LVIDd: 4.9 cm IVSd: 0.90 cm LVOT diam: 2.0 cm LVIDs: 3.4 cm LVPWd: 0.92 cm LVOT area: 3.2 cm2 RVDd: 3.5 cm FS: 29.9 % Ao root diam: 3.0 cm LAV(MOD-bp): 74.9 ml LA A4 area: 21.8 cm2 LAV(MOD-bp) Indexed: 38.0 ml/m2 LAV(MOD-sp2): 68.1 ml LAV(MOD-sp4): 75.3 ml LA dimension(2D): 3.3 cm RA A4 area: 14.6 cm2 Time Measurements MV dec time: 0.13 sec Doppler Measurements & Calculations MV E max miguel ángel: 89.6 cm/sec Lat Peak E' Miguel Ángel: 10.0 cm/sec Med Peak E' Miguel Ángel: 8.9 cm/sec MV A max miguel ángel: 58.9 cm/sec E/E' lat: 9.0 E/E' med: 10.0 MV E/A: 1.5 MV dec slope: 676.0 cm/sec2 Ao V2 max: 149.7 cm/sec LV V1 max: 93.0 cm/sec Ao max P.0 mmHg LV V1 max P.5 mmHg Ao V2 mean: 106.0 cm/sec LV V1 mean P.2 mmHg Ao mean P.0 mmHg LV V1 mean: 69.6 cm/sec Ao V2 VTI: 36.3 cm LV V1 VTI: 23.3 cm EDDI(I,D): 2.1 cm2 EDDI(V,D): 2.0 cm2 SV(LVOT): 74.7 ml PA V2 max: 73.6 cm/sec ECHO/Echo Complete Interpretation Summary Normal LV size. Left ventricular systolic function is normal. The estimated ejection fraction is 55 %. Stage 2 diastolic dysfunction. Ordering Physician: Joanne Melvin Referring Physician: Alec Fernandez Performed By: Lizeth Gotti REVA, RVT
[2021-10-08] MEDS: dilTIAZem CD 120 MG Capsule PO (21:14)
[2021-10-08 21:35] LABS: Troponin-I HS 77 pg/mL (3.0-54.0)
[2021-10-09] VITALS: BP 137/68; PULSE 68; RESP 14; TEMP 36.6; O2SAT 95
[2021-10-09 03:00] VITALS: PULSE 67
[2021-10-09 05:26] LABS: Absolute Lymphocyte Count 2.93 X10^3/uL (0.83-4.51); Absolute Neutrophil Count 2.8 X10^3/uL (2.0-7.7); Basophil# 0.04 X10^3/uL; Basophil% 0.6 % (0-1); Eosinophil# 0.22 X10^3/uL; Eosinophils% 3.3 % (0-5); Hematocrit 37.7 % (37-47); Hemoglobin 12.6 g/dL (12.0-15.0); Lymphocyte # 2.93 X10^3/ul (0.83-4.51); Lymphocyte % 44.3 % (19-41); Mean Corp Hgb Conc 33.4 g/dL (32-36); Mean Corpuscular Hgb 29.5 pg (27.0-32.0); Mean Corpuscular Volume 88.3 fL (81-99); Mean Platelet Vol. 10.3 fl (6.2-12.0); Monocyte# 0.62 X10^3/uL; Monocyte% 9.4 % (0-10); NRBC Flagged by Analyzer 0 % (0-5); Neutrophil % 42.2 % (47-70); Platelet Count 200 K/mm3 (150-450); RBC Distribution Width CV 14.8 % (11.6-14.6); RBC Distribution Width SD 47.8 fl (35.1-43.9); Red Blood Count 4.27 M/mm3 (4.2-5.4); White Blood Count 6.6 K/mm3 (4.4-11.0)
[2021-10-09 06:00] VITALS: BP 149/75; PULSE 67; RESP 16; TEMP 36.6; O2SAT 96
[2021-10-09 06:01] LABS: Anion Gap 4 (5-15); BUN 22 mg/dL (7-18); BUN/Creat Ratio 25.9 RATIO (10-20); Calcium,Total 8.9 mg/dL (8.5-10.1); Chloride 107 mmol/L (98-107); Creatinine, Serum 0.85 mg/dL (0.55-1.02); EST Glomerular Filtration Rate 69 mL/min (>60); Est Glom Filt Rate - Afr Amer 84 mL/min (>60); Estimated Creatinine Clearance 51.46 ml/min; Glucose 99 mg/dL (74-106); Phosphorus 3.1 mg/dL (2.5-4.9); Potassium 3.8 mmol/L (3.5-5.1); Sodium Level 138 mmol/L (136-145); Thyroid Stim Hormone (TSH) 3.16 uIU/mL (0.358-3.74)
[2021-10-09] MEDS: Thyroid 60 MG Tablet PO (06:24)
[2021-10-09 07:04] VITALS: PULSE 70
[2021-10-09 07:18] VITALS: O2SAT 94
[2021-10-09] MEDS: Enoxaparin 40 MG/0.4 ML Syringe SC (09:00)
[2021-10-09] MEDS: dilTIAZem CD 120 MG Capsule PO (09:00)
[2021-10-09 10:42] LABS: Mucous, Urine 0 SEEN /hpf (<or=2+); Red Blood Cells-Urine 0 SEEN /hpf (0-5)
[2021-10-09 10:47] LABS: Color, Urine Yellow (Yellow); Glucose, Dipstick Normal (Normal); Ketone-Dipstick Negative (Negative); Leukocyte Esterase-Dipstick 500 /ul (Negative); Nitrite-Dipstick Negative (Negative); Occult Blood-Urine 10 /ul (Negative); Protein-Dipstick Negative (Negative); Specific Gravity, Urine 1.005 (1.002-1.030); Urine Bilirubin Dipstick Negative (Negative); Urine Clarity Clear (Clear); Urine Urobilinogen Normal (Normal)
[2021-10-09 10:52] LABS: Bacteria 1+ /hpf (None Seen); Squamous Epithelial Cells - UA 0-5 SEEN /hpf (5-10); White Blood Cells 25-50 SEEN /hpf (0-5)
[2021-10-09 11:12] VITALS: BP 135/65; PULSE 64; RESP 18; TEMP 36.7; O2SAT 97
--- NOTE | 2021-10-09 14:12 | DCINST_ITS ---
Discharge Instructions Diet Discharge Diet: Low fat / Low cholesterol Activity Discharge Activity: Return to Normal Activity Dressing / Incision Call your doctor if you observe: Shortness of breath, Dizziness, Chest pain and Increased palpitations (irregular heartbeat) Follow Up Care Test Results: Test results from this visit will be discussed in further detail at your follow- up appointment, if applicable. Discharge Plan Admission Admit Date/Time: 10/08/21 17:15 Primary Reason for Your Visit: Chest Pain Attending Provider: Walter Dickson Primary Care Provider: Alec Fernandez Consulting Providers: Joanne Melvin Discharge Orders/Prescriptions Prescriptions: New sulfamethoxazole-trimethoprim 800-160 mg Tablet 1 tab PO BID 7 Days Qty: 14 0RF Continued Nattokinase 50 mg capsule 100 mg PO DAILY thyroid (pork) 60 MG tablet 60 mg PO DAILY Label Comments: thyroid Nattokinase 50 mg Capsule 50 mg PO QHS diltiazem HCl 120 mg capsule,extended release 24hr 120 mg PO DAILY Qty: 90 3RF Referrals / Follow Up: Steven SALMON [Other] Onofre Ma MD [Med Staff - Active Staff] - Within 2 Weeks Alec Fernandez PA [Primary Care Provider] - Within 2 Weeks Disposition Disposition (needs filled in before D/C Order can be placed): Home, Self Care
--- NOTE | 2021-10-09 14:16 | PCM.DC.SUM ---
Documented by User: ZOHAIB Mcgee 10/09/21 14:36 Providers Date of Admission: 10/08/21 Date of Discharge: 10/09/21 Primary Care Physician: ROSAURA Wilson Reason For Visit: AFIB WITH RVR Diagnosis Discharge Diagnosis (1) Elevated troponin: Status: Acute Code(s): R77.8 - Other specified abnormalities of plasma proteins (2) Paroxysmal atrial fibrillation with RVR: Status: Acute Code(s): I48.0 - Paroxysmal atrial fibrillation Plan 1. Elevated troponin secondary to paroxysmal atrial fibrillation -Admit to PCU -Trend cardiac enzymes -Cardiac diet -Case discussed with Dr. Ma, Cardizem increased from 120 mg daily to 120 mg twice daily -Echocardiogram ordered for a.m. -Oxygen protocol -CBC, BMP, magnesium, phosphorus, TSH ordered for a.m. -Patient not currently anticoagulated 2. Hypothyroidism secondary to partial thyroidectomy -Continue thyroid 60 mg p.o. daily -TSH ordered for a.m. 3. Hyperlipidemia -Continue fermented soybean nightly DVT prophylaxis-SCDs and subcu Lovenox This patient was seen by ZOHAIB Mcgee under the supervision of Dr. Melvin. 29 minutes spent in clinical coordination of patient's plan of care. Medications at Discharge Home Medications thyroid (pork) 60 mg tablet 60 mg PO DAILY 06/16/13 soybean, fermented 50 mg capsule (Nattokinase) 100 mg PO DAILY 07/31/21 soybean, fermented 50 mg capsule (Nattokinase) 50 mg PO QHS 10/08/21 diltiazem HCl 120 mg capsule,extended release 24 hr 120 mg PO BID heart #90 caps 10/09/21 sulfamethoxazole 800 mg-trimethoprim 160 mg tablet 1 tab PO BID 7 days #14 tabs 10/09/21 Hospital Course Operations None Procedures 2-D Echocardiogram Summary of Care Provided Minutes Spent on Discharge: 35 Hospital Course: Patient is a 76-year-old female who originally presented to the ER with chest pain which had started morning of presentation. Patient has a history of proximal atrial fibrillation and has a history of ablation however she said that a stopped working after approximately 9 years and she now has paroxysmal atrial fibrillation. Upon evaluation in ER it was noted that patient was in atrial fibrillation with RVR. Case was discussed with Dr. Ma who is patient's senior field engineer and he advised observing the patient overnight to ensure that her heart rate stays stable. Patient's heart rate is stable in the 60s to 70s overnight. Echocardiogram within normal limits and patient discharged home. Patient to follow-up with Dr. Ma and with patient's PCP. Physical Exam Const alert, oriented x3, no apparent distress and well nourished General Appearance: cooperative HEENT normocephalic, head/scalp atraumatic and moist oral mucous membranes Eyes conjunctivae normal and no scleral icterus Neck no lymphadenopathy and supple General: trachea midline Lymph Lymphatic: no lymphadenopathy noted Resp normal respiratory effort, normal air movement and clear to auscultation bilaterally Cardio regular rate, regular rhythm, S1 normal heart sound, S2 normal heart sound and peripheral pulses 2+ throughout Rhythm: abnormal rhythm GI normal to inspection, nondistended, normoactive bowel sounds, soft to palpation and non-tender Extremity normal capillary refill and no clubbing, cyanosis or edema Skin General Skin Exam: no breakdown Lesions: no lesions Rashes: no rashes Neuro oriented x3, moves all extremities, no focal motor deficits and no sensory deficits noted Sensorium / Orientation: awake and alert Speech: speech normal Motor Exam: general weakness Psych thought process normal, cooperative and affect normal Weight / BMI Weight Weight: 207 lb 10.807 oz Body Mass Index (BMI) 34.5 ABG / Lab / Microbiology Data Result Diagrams: 10/09/21 04:35 10/09/21 04:35 Laboratory: Laboratory Results - last 24 hr 10/08/21 14:22: Sodium 137, Potassium 4.0, Chloride 109 H, Carbon Dioxide 23.0, Anion Gap 5, BUN 26 H, Creatinine 1.10 H, Estim Creat Clear Calc 38.16, Est GFR (MDRD) Af Amer 62, Est GFR (MDRD) Non-Af 51 L, BUN/Creatinine Ratio 23.6 H, Glucose 121 H, Calcium 9.9, Troponin I High Sens 78 H 10/08/21 14:22: WBC 7.1, RBC 4.75, Hgb 13.8, Hct 42.5, MCV 89.5, MCH 29.1, MCHC 32.5, RDW Std Deviation 48.1 H, RDW Coeff of Mehdi 14.7 H, Plt Count 211, MPV 10.1, Immature Gran % (Auto) 0.300, Neut % (Auto) 52.7, Lymph % (Auto) 35.7, Bartholomew % (Auto) 9.0, Eos % (Auto) 1.7, Baso % (Auto) 0.6, Absolute Neuts (auto) 3.8, Absolute Lymphs (auto) 2.54, Nucleated RBC % 0 10/08/21 17:10: Troponin I High Sens 75 H 10/08/21 20:45: Troponin I High Sens 77 H 10/09/21 04:35: WBC 6.6, RBC 4.27, Hgb 12.6, Hct 37.7, MCV 88.3, MCH 29.5, MCHC 33.4, RDW Std Deviation 47.8 H, RDW Coeff of Mehdi 14.8 H, Plt Count 200, MPV 10.3, Immature Gran % (Auto) 0.200, Neut % (Auto) 42.2 L, Lymph % (Auto) 44.3 H, Bartholomew % (Auto) 9.4, Eos % (Auto) 3.3, Baso % (Auto) 0.6, Absolute Neuts (auto) 2.8, Absolute Lymphs (auto) 2.93, Nucleated RBC % 0 10/09/21 04:35: Sodium 138, Potassium 3.8, Chloride 107, Carbon Dioxide 27.0, Anion Gap 4 L, BUN 22 H, Creatinine 0.85, Estim Creat Clear Calc 51.46, Est GFR (MDRD) Af Amer 84, Est GFR (MDRD) Non-Af 69, BUN/Creatinine Ratio 25.9 H, Glucose 99, Calcium 8.9, Phosphorus 3.1, Magnesium 2.0, TSH 3.16 10/09/21 10:35: Urine Color Yellow, Urine Clarity Clear, Urine pH 7.0, Ur Specific [place] 1.005, Urine Protein Negative, Urine Glucose (UA) Normal, Urine Ketones Negative, Urine Occult Blood 10 H, Urine Nitrite Negative, Urine Bilirubin Negative, Urine Urobilinogen Normal, Ur Leukocyte Esterase 500 H, Urine RBC 0 SEEN, Urine WBC 25-50 SEEN, Ur Squamous Epith Cells 0-5 SEEN, Urine Bacteria 1+, Urine Mucus 0 SEEN Radiography Diagnostic Testing: Radiology Impression Chest X-Ray 10/08/21 14:58 IMPRESSION: No radiographic evidence of acute cardiopulmonary disease. Electronically Signed: Saul Crane MD at 15:27 EDT , D/C Instructions Discharge Diet: Low fat / Low cholesterol Call your doctor if you observe: Shortness of breath, Dizziness, Chest pain and Increased palpitations (irregular heartbeat) Meaningful Use Info Meaningful Use Diagnoses (Choose all that apply): None applicable Discharge Plan Admission Admit Date/Time: 10/08/21 17:15 Primary Reason for Your Visit: Chest Pain Attending Provider: Walter Dickson Primary Care Provider: Alec Fernandez Consulting Providers: Joanne Melvin Discharge Orders/Prescriptions Prescriptions: New sulfamethoxazole-trimethoprim 800-160 mg Tablet 1 tab PO BID 7 Days Qty: 14 0RF Continued Nattokinase 50 mg capsule 100 mg PO DAILY thyroid (pork) 60 MG tablet 60 mg PO DAILY Label Comments: thyroid Nattokinase 50 mg Capsule 50 mg PO QHS Changed diltiazem HCl 120 mg capsule,extended release 24hr 120 mg PO BID Qty: 90 3RF Referrals / Follow Up: Steven SALMON [Other] Onofre Ma MD [Med Staff - Active Staff] - Within 2 Weeks Alec Fernandez PA [Primary Care Provider] - Within 2 Weeks Disposition Disposition (needs filled in before D/C Order can be placed): Home, Self Care Documented by User: Dr. Walter Dickson DO 10/09/21 14:55 Providers Date of Admission: 10/08/21 Reason For Visit: AFIB WITH RVR Diagnosis Discharge Diagnosis (1) Elevated troponin: Status: Acute Code(s): R77.8 - Other specified abnormalities of plasma proteins (2) Paroxysmal atrial fibrillation with RVR: Status: Acute Code(s): I48.0 - Paroxysmal atrial fibrillation Medications at Discharge Home Medications thyroid (pork) 60 mg tablet 60 mg PO DAILY 06/16/13 soybean, fermented 50 mg capsule (Nattokinase) 100 mg PO DAILY 07/31/21 soybean, fermented 50 mg capsule (Nattokinase) 50 mg PO QHS 10/08/21 diltiazem HCl 120 mg capsule,extended release 24 hr 120 mg PO BID heart #90 caps 10/09/21 sulfamethoxazole 800 mg-trimethoprim 160 mg tablet 1 tab PO BID 7 days #14 tabs 10/09/21 ABG / Lab / Microbiology Data Result Diagrams: 10/09/21 04:35 10/09/21 04:35 Discharge Plan Admission Admit Date/Time: 10/08/21 17:15 Primary Reason for Your Visit: Chest Pain Attending Provider: Walter Dickson Primary Care Provider: Alec Fernandez Consulting Providers: Joanne Melvin Discharge Orders/Prescriptions Prescriptions: New sulfamethoxazole-trimethoprim 800-160 mg Tablet 1 tab PO BID 7 Days Qty: 14 0RF Continued Nattokinase 50 mg capsule 100 mg PO DAILY thyroid (pork) 60 MG tablet 60 mg PO DAILY Label Comments: thyroid Nattokinase 50 mg Capsule 50 mg PO QHS Changed diltiazem HCl 120 mg capsule,extended release 24hr 120 mg PO BID Qty: 90 3RF Referrals / Follow Up: Steven SALMON [Other] Onofre Ma MD [Med Staff - Active Staff] - Within 2 Weeks Alec Fernandez PA [Primary Care Provider] - Within 2 Weeks Disposition Disposition (needs filled in before D/C Order can be placed): Home, Self Care Charges/Coding Addendum Addendum: Patient seen and examined independently. Data and vitals reviewed. I agree with the above note by the nurse practitioner. This is a 76-year-old female presents with atrial fibrillation with RVR. She had previously had ablations about 9 years prior. Heart rate improved and patient was observed overnight given elevated troponins. Patient remained stable and had an echocardiogram that was within normal limits. Patient was discharged home. Physical exam: Patient is no acute distress and afebrile. Heart rate regular rate and rhythm plus S1-S2 with a murmurs Rubs. Lungs Are Clear to Auscultation Bilaterally. Visit Charges OBSV E&M: [id number] Observation care discharge
--- NOTE | 2021-10-09 14:34 | PHA.DC.MC ---
Pharmacy Service has performed discharge medication reconciliation and counseling for this patient. 1. BACTRIM DS 1T PO BID X 7 DAYS The patient's discharge medication list was reviewed for discrepancies and discrepancies were resolved. Home Medications thyroid (pork) 60 mg tablet 60 mg PO DAILY 06/16/13 soybean, fermented 50 mg capsule (Nattokinase) 100 mg PO DAILY 07/31/21 soybean, fermented 50 mg capsule (Nattokinase) 50 mg PO QHS 10/08/21 diltiazem HCl 120 mg capsule,extended release 24 hr 120 mg PO BID heart #90 caps 10/09/21 sulfamethoxazole 800 mg-trimethoprim 160 mg tablet 1 tab PO BID 7 days #14 tabs 10/09/21 The patient was counseled on the following discharge medications and changes in medications for homegoing were reviewed. The Reason for Use, instructions for use, and potential side effects were reviewed for all new medications. The patient's questions regarding all of their medications were answered. The patient was able to verbally demonstrate an understanding of their discharge medications. Patient counseled by manager pharmacyWyatt.
--- NOTE | 2021-10-09 14:51 | CHAPLAIN ---
Type of Pastoral Visit _x__ Initial Visit ___ Follow-up Visit ___ On-call Visit ___ General Patient Visit ___ Spiritual Assessment ___ Family Conference ___ Bereavement ___ Rapid Response ___ Code Blue ___ Other (describe below) Pastoral Care Referral From _x__ Patient ___ Family ___ Nurse ___ Physician ___ Label Operator ___ Physics And Astronomy Professor ___ Other (describe below) Sacrament/Intervention _x__ Active listening ___ Anointing ___ Alevism ___ Bereavement ___ Communion ___ Bailey exploration ___ ___ Life review _x__ Prayer ___ Reconciliation ___ Sacrament of Sick _x__ Supportive presence ___ Wedding ___ Other (describe below) Pastoral Comments patient was here for testing and will be discharged today; pt had asked for spiritual care support and questioned why there were no Bibles in the rooms; 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
== END 2021-10-09 14:15 | disposition home or self-care (01) ==
LOC: ED 16:42 → PCU 17:30
PROVIDERS: Nurse Practitioner Family; Admitting Provider Internal Medicine; Emergency Provider Emergency Medicine; PCP Physician Assistant
DX: I48.0 Paroxysmal atrial fibrillation (principal); C34.90 Malignant neoplasm of unspecified part of unspecified bronchus or lung; D70.9 Neutropenia, unspecified; I42.9 Cardiomyopathy, unspecified; I48.92 Unspecified atrial flutter; D69.6 Thrombocytopenia, unspecified; N18.31 Chronic kidney disease, stage 3a; E03.9 Hypothyroidism, unspecified; R77.8 Other specified abnormalities of plasma proteins; I12.9 Hypertensive chronic kidney disease with stage 1 through stage 4 chronic kidney disease, or unspecified chronic kidney disease; I44.30 Unspecified atrioventricular block; E78.00 Pure hypercholesterolemia, unspecified; R53.83 Other fatigue; E66.9 Obesity, unspecified; Z68.36 Body mass index [BMI] 36.0-36.9, adult; Z79.899 Other long term (current) drug therapy; Z79.890 Hormone replacement therapy
CPT/HCPCS: 36415; 71045; 80048; 81001; 83735; 84100; 84443; 84484; 85025; 87086; 87088; 87186; 93005; 93306; 96372; 96374; 99218; 99285; A4216; G0378

== ENCOUNTER 2023-06-12 02:00 | Emergency (ER) | payer OTHER, SELFPAY ==
[2023-06-12 02:03] VITALS: BP 202/81; PULSE 80; RESP 16; TEMP 36.4; O2SAT 98; BMI 35.9
--- NOTE | 2023-06-12 02:05 | EKG12_ITS ---
Test Reason : DYSRHYTHMIA Blood Pressure : / mmHG Vent. Rate : 075 BPM Atrial Rate : 075 BPM P-R Int : 174 ms QRS Dur : 094 ms QT Int : 382 ms P-R-T Axes : 043 024 066 degrees QTc Int : 426 ms Sinus rhythm with occasional Premature ventricular complexes Otherwise normal ECG Confirmed by BOB MCGUIRE, JUDITH ([id number]), editorial writer MADY ORELLANA ([id number]) on 06/12/2023 8:23:44 AM Referred By: Confirmed By:JUDITH ROJAS MD
--- NOTE | 2023-06-12 02:31 | EX.ED.DYSGE1 ---
HPI History of Present Illness Chief Complaint: Palpitations Informant: patient, spouse/S.O. and EMS Narrative Narrative: Patient is a 78-year-old female with past medical history of paroxysmal atrial fibrillation and hypertension and Takotsubo cardiomyopathy. She previously underwent an ablation in 2007 at [facility]. She states that she has been getting bouts of an elevated heart rate and sensation of fatigue that will occur during the daytime or at night and will typically last 10 to 15 minutes. She states that she is on Cardizem secondary to this. She reports that she woke this evening with a sensation of a elevated heart rate. She reported fatigue with this but denied any chest pain shortness of breath nausea vomiting or diaphoresis. She states she took an extra Cardizem but the symptoms were lasting longer than her standard 10 to 15 minutes and therefore she called EMS. She does state that by the time EMS arrived the symptoms had spontaneously resolved [facility] Medical History Edema leg Essential (primary) hypertension Hypothyroidism Obesity Paroxysmal atrial fibrillation Pure hypercholesterolemia Stage 3a chronic kidney disease (CKD) Supraventricular tachycardia Takotsubo cardiomyopathy Home Medications thyroid (pork) 60 mg tablet 60 mg PO DAILY 06/16/13 [History Last Taken 10/08/21] diltiazem HCl 120 mg capsule,extended release 24 hr 120 mg PO DAILY heart #90 caps 09/05/22 [Rx Last Taken Unknown] Allergy/AdvReac Type Severity Reaction Status Date / Time latex Allergy Unknown Verified 06/01/23 10:11 Penicillins Allergy Unknown Verified 06/01/23 10:11 Family History Mother CAD (coronary artery disease) Brother CAD (coronary artery disease) Sister CAD (coronary artery disease) Surgical History H/O cardiac radiofrequency ablation (12/29/07) History of hysterectomy History of left heart catheterization (06/23/07) Hx of cholecystectomy Social History household members: spouse housing: house 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 Smoking Status: Never smoker alcohol intake: never substance use type: does not use ROS ROS ED Constitutional Constitutional ED: Reports other Details: Positive fatigue ; Denies chills or fever(s) Eyes Eyes: Denies blurry vision or change in vision ENT ENT ED: Denies sore throat Cardiovascular Cardiovascular: Reports palpitations and racing heartbeat; Denies chest pain Respiratory/Chest Respiratory/Chest: Denies cough or dyspnea Gastrointestinal Gastrointestinal: Denies abdominal pain, diarrhea, nausea or vomiting Genitourinary Genitourinary ED: Denies dysuria Musculoskeletal Musculoskeletal: Denies myalgias Integumentary Denies rash Neurologic Neurologic: Denies headache(s) Hematologic/Lymphatic Hematologic/Lymphatic: Denies easy bleeding or easy bruising EXAM Physical Exam Const Vital Signs: 06/12/23 02:03 06/12/23 02:06 06/12/23 02:57 Temperature 97.6 F L Temperature Source Temporal Pulse Rate 80 78 Respiratory Rate 16 19 H Respiratory Effort Normal Non-Labored Blood Pressure 202/81 H 151/134 H Blood Pressure Mean 121 139 Pulse Ox 98 99 Oxygen Delivery Method Room Air Positive well nourished, well developed and obese General Appearance ED: well developed; Negative for pallor Nutritional Appearance: obese HEENT HEENT Narrative: Normocephalic atraumatic Eyes PERRL and EOMs intact bilaterally General Eye ED: Negative for pale conjunctiva or scleral icterus Neck supple and no JVD Neck Narrative: No nuchal rigidity or meningeal signs Chest Wall palpation of chest normal Resp normal respiratory effort and clear to auscultation bilaterally Cardio regular rate and regular rhythm Rate: other Other Details: Heart is regular rate and rhythm Radial and carotid pulses are equal and symmetric GI normal to inspection, nondistended, normoactive bowel sounds, non-tender, non-distended and no masses GI Narrative: No pulsatile mass or fluid wave noted Auscultation: normoactive bowel sounds Palpation: soft Extremity Extremity Narrative: +1-2 pitting edema to the bilateral lower extremities that is equal and symmetric. This is also chronic per patient Negative Homans' sign bilaterally Neuro oriented x3, CN's II-XII intact bilaterally and no sensory deficits noted Sensorium / Orientation: alert Motor Exam: strength 5/5 throughout Psych mental status grossly normal Skin no rashes or lesions noted, no wounds and skin turgor normal General Skin Exam: Negative for jaundice or pallor MDM MDM MDM Narrative Medical decision making narrative: Patient arrived to the ER hypertensive otherwise with stable vitals and had spontaneous resolution of her reported elevated heart rate. History confirmed she has known paroxysmal atrial fibrillation but she states this resolved with her ablation in 2007. Based on this history and her report of symptoms this is most likely breakthrough A-fib. In order to assure there is no secondary cause for it such as acute blood loss anemia or electrolyte abnormality or acute kidney injury basic labs were obtained. Labs revealed no clinically significant findings. Patient was kept on the professor of theater and there was an occasional PVC but no true cardiac dysrhythmia. Therefore at this time as she does not have an active cardiac dysrhythmia no need for electrolyte supplementation/replacement and no signs of endorgan damage based on her hypertension status there is no need for further workup and she is otherwise safe for discharge. History & Record Review Discussion w/independent historian: Patient and Significant other Lab Data Attestation: I reviewed the patient's lab results. Labs: Laboratory Results - last 24 hr 06/12/23 02:30 WBC 6.3 RBC 4.30 Hgb 12.3 Hct 37.9 MCV 88.1 MCH 28.6 MCHC 32.5 RDW Std Deviation 46.5 H RDW Coeff of Mehdi 14.5 Plt Count 214 MPV 10.1 Immature Gran % (Auto) 0.300 Neut % (Auto) 39.7 L Lymph % (Auto) 40.1 Weld % (Auto) 11.8 H Eos % (Auto) 7.3 H Baso % (Auto) 0.8 Absolute Neuts (auto) 2.5 Absolute Lymphs (auto) 2.51 Nucleated RBC % 0 Sodium 138 Potassium 4.1 Chloride 107 Carbon Dioxide 27.0 Anion Gap 4 L BUN 30 H Creatinine 0.99 Estim Creat Clear Calc 55.14 Est GFR (MDRD) Af Amer 70 Est GFR (MDRD) Non-Af 58 L BUN/Creatinine Ratio 30.2 H Glucose 118 H Calcium 9.7 Magnesium 2.3 TSH 3.31 Discharge Plan Triage Chief Complaint: Palpitations ED Provider: Juan Franco Dx/Rx/DC Orders Clinical Impression: Heart palpitations, Essential (primary) hypertension, PVC (premature ventricular contraction) Instructions: ED About Arrhythmias, ED Palpitations Prescriptions: No Action diltiazem HCl 120 mg capsule,extended release 24hr 120 mg PO DAILY Qty: 90 3RF thyroid (pork) 60 MG tablet 60 mg PO DAILY Patient Comments: thyroid Primary Care Provider: Alec Fernandez Referrals: Alec Fernandez PA [Primary Care Provider] - Activity Restrictions/Additional Instructions: Your history indicates you are having breakthrough bouts of atrial fibrillation and therefore continue your Cardizem to keep your heart rate under control. Keep the Holter monitor on as directed to further assess for any abnormal heart rhythms. Follow-up with your family doctor and/or bench worker apprentice for repeat evaluation. Also if you have breakthrough events follow your action plan as directed by your bench worker apprentice and return to the ER should you have any further concerns. Disposition Disposition: Home, Self Care
[2023-06-12] MEDS: hydrALAZINE 20 MG/ML Vial 10 MG IV (02:34)
[2023-06-12 02:35] LABS: Absolute Lymphocyte Count 2.51 X10^3/uL (0.83-4.51); Absolute Neutrophil Count 2.5 X10^3/uL (2.0-7.7); Basophil# 0.05 X10^3/uL; Basophil% 0.8 % (0-1); Eosinophil# 0.46 X10^3/uL; Eosinophils% 7.3 % (0-5); Hematocrit 37.9 % (37-47); Hemoglobin 12.3 g/dL (12.0-15.0); Lymphocyte # 2.51 X10^3/ul (0.83-4.51); Lymphocyte % 40.1 % (19-41); Mean Corp Hgb Conc 32.5 g/dL (32-36); Mean Corpuscular Hgb 28.6 pg (27.0-32.0); Mean Corpuscular Volume 88.1 fL (81-99); Mean Platelet Vol. 10.1 fl (6.2-12.0); Monocyte# 0.74 X10^3/uL; Monocyte% 11.8 % (0-10); NRBC Flagged by Analyzer 0 % (0-5); Neutrophil # 2.48 X10^3/uL (2.7-7.7); Neutrophil % 39.7 % (47-70); Platelet Count 214 K/mm3 (150-450); RBC Distribution Width CV 14.5 % (11.6-14.6); RBC Distribution Width SD 46.5 fl (35.1-43.9); White Blood Count 6.3 K/mm3 (4.4-11.0)
[2023-06-12 02:57] VITALS: BP 151/134; PULSE 78; RESP 19; O2SAT 99
[2023-06-12 03:00] LABS: Anion Gap 4 (5-15); BUN 30 mg/dL (7-18); BUN/Creat Ratio 30.2 RATIO (10-20); Calcium,Total 9.7 mg/dL (8.5-10.1); Chloride 107 mmol/L (98-107); Creatinine, Serum 0.99 mg/dL (0.55-1.02); EST Glomerular Filtration Rate 58 mL/min (>60); Est Glom Filt Rate - Afr Amer 70 mL/min (>60); Estimated Creatinine Clearance 55.14 ml/min; Glucose 118 mg/dL (74-106); Magnesium 2.3 mg/dL (1.6-2.6); Potassium 4.1 mmol/L (3.5-5.1); Sodium Level 138 mmol/L (136-145); Thyroid Stim Hormone (TSH) 3.31 uIU/mL (0.358-3.74)
[2023-06-12 03:27] VITALS: BP 174/77; PULSE 80; RESP 20; TEMP 36.3; O2SAT 97
== END 2023-06-12 03:55 | disposition home or self-care (01) ==
PROVIDERS: Emergency Provider Emergency Medicine; PCP Physician Assistant; Visit Provider Emergency Medicine
DX: I49.3 Ventricular premature depolarization (principal); I48.0 Paroxysmal atrial fibrillation; N18.30 Chronic kidney disease, stage 3 unspecified; I12.9 Hypertensive chronic kidney disease with stage 1 through stage 4 chronic kidney disease, or unspecified chronic kidney disease; E66.9 Obesity, unspecified; Z68.36 Body mass index [BMI] 36.0-36.9, adult; Z79.899 Other long term (current) drug therapy
CPT/HCPCS: 80048; 83735; 84443; 85025; 93005; 96374; 99283; A4216

== ENCOUNTER → 2023-06-12 | Outpatient (REF) | payer OTHER, SELFPAY | LOC: CVS 03:07 | PROVIDERS: PCP Physician Assistant; Visit Provider Physician Assistant Medical | DX: I48.0 Paroxysmal atrial fibrillation (principal) | CPT/HCPCS: 93225; 93226 ==

== ENCOUNTER 2024-08-11 01:44 | Emergency (ER) | payer OTHER, SELFPAY ==
[2024-08-11 01:45] VITALS: BP 171/106; PULSE 117; RESP 16; TEMP 36.6; O2SAT 95
--- NOTE | 2024-08-11 01:50 | EKG12_ITS ---
Test Reason : DYSRHYTHMIA Blood Pressure : */* mmHG Vent. Rate : 93 BPM Atrial Rate : * BPM P-R Int : * ms QRS Dur : 90 ms QT Int : 344 ms P-R-T Axes : * 14 51 degrees QTcB Int : 427 ms Atrial fibrillation Nonspecific ST abnormality Abnormal ECG Confirmed by QUYEN MCGUIRE, DONNY ([id number]), editor continuity and script MADY ORELLANA ([id number]) on 08/12/2024 1:03:09 PM Referred By: EL Confirmed By: DONNY NAPIER MD
[2024-08-11 02:48] VITALS: BP 152/107; PULSE 88; RESP 17; TEMP 36.7; O2SAT 95
[2024-08-11 02:52] LABS: Absolute Lymphocyte Count 3.66 X10^3/uL (0.83-4.51); Absolute Neutrophil Count 2.8 X10^3/uL (2.0-7.7); Basophil# 0.05 X10^3/uL; Basophil% 0.6 % (0-1); Eosinophils% 6.4 % (0-5); Hematocrit 37.3 % (37-47); Hemoglobin 12.7 g/dL (12.0-15.0); Lymphocyte # 3.66 X10^3/ul (0.83-4.51); Lymphocyte % 47.2 % (19-41); Mean Corpuscular Hgb 28.9 pg (27.0-32.0); Mean Corpuscular Volume 84.8 fL (81-99); Mean Platelet Vol. 9.8 fl (6.2-12.0); Monocyte# 0.72 X10^3/uL; Monocyte% 9.3 % (0-10); NRBC Flagged by Analyzer 0 % (0-5); Neutrophil # 2.82 X10^3/uL (2.7-7.7); Neutrophil % 36.4 % (47-70); Platelet Count 202 K/mm3 (150-450); RBC Distribution Width CV 14.4 % (11.6-14.6); RBC Distribution Width SD 44.6 fl (35.1-43.9); White Blood Count 7.8 K/mm3 (4.4-11.0)
--- OUTSIDE RECORDS SUMMARY | 2024-08-11 03:17 | XMS RPT_ITS | CCD ---
Author Organization [facility] CliniSynm Care Team Providers Care Oxygen Equipment Preparer Name Role Phone RITESH Lopes, Diana Hinton Unavailable Unavailabl e DeFinis, Harumi Y Unavailable Unavailable RITESH Lopes, Diana Hinton Unavailable Unavailabl e Jun, Harumi Y Unavailable Unavailable RITESH Lopes, Diana Hinton Unavailable Unavailcasper Lopes RN, Diana Hinton Unavailable UnavailDr. Kurt Painter Referring Provider Ramin HAND COLLATOR, HAND COLLATORJose Botello Attending Provider Care Physician, No Primary Primary Care Provider Unavailable Unavailable Primary Care Provider Unavailcasper Aiken PA-C, Alec Luna Unavailable [phone] Jeni MCGUIRE, Dr. Wyatt Unavailable Candi SWING DRIVER, Malou Unavailable Saundra Hunt PA-C Unavailable Santiago MCGUIRE, David Wolf Unavailable Jaky Castillo MA Unavailable Unavailable Gogoi (scribe), Hemanta Unavailable Unavailbairon Moreno MD, Kurt Henriquez Unavailable Attila AWAD, Eliz Blanchard Unavailable Unavail able Isrrael MORALES, Margret Unavailable Unavailable Jt VASQUEZN, Kellee Unavailable Unavailable Kyleigh AWAD, Adela Henriquez Unavailable Unavaila ble Van SWING DRIVER, Horacio Unavailable Unavailable [place]augh SWING DRIVER, Autumn K Unavailable Unavai kortney Sifuentes (Scribe), Garrett Unavailable Unavailab le Frank SWING DRIVER, Vandana Hinton Unavailable Unavailab le [place] SWING DRIVER, Nhung Epperson Unavailable Unavailab mackenzie Feliciano MA, Kellee Unavailable Unavailable Tam Fuller MD Unavailable Claudia VASQUEZN, Dorota Unavailable UnavailAlondra Regalado LPN Unavailable Unavaila ble Unavailable Unavailable ROSAURA Aiken Luhuey Primary Care Provider [phone] ROSAURA Aiken Referring Provider ROSAURA Damon Attending Provider Attila, Luke Primary Care Unavailable Juan Franco Attending Unavailable Attila, Luke Primary Care Unavailable Kellee Damon Attending Unavail able Attila, Luke Primary Care Unavailable Kellee Damon Attending Unavail able Kellee Damon Referring Unavail able Attila, Luke Referring Unavailable Attila, Luke Primary Care Unavailable Tam Bowen NP Attending Unavailable Attila, Luke Referring Unavailable Attila, Luke Primary Care Unavailable Kellee Damon Attending Unavail able Kellee Damon Referring Unavail able Al Montelongo Attending Unavailable Attila, Luke Referring Unavailable Attila, Luke Primary Care Unavailable Kellee Damon Attending Unavail able Attila, Luke Primary Care Unavailable Kellee Damon Attending Unavail able Attila, Luke Referring Unavailable NEVILLE SANTIAGO Admitting Unavailable NEVILLE SANTIAGO Primary Care Unavailable NEVILLE SANTIAGO Attending Unavailable ATTILA, LUKE E Consulting Unavailable ATTILA, LUKE E Referring Unavailable PROVIDER, UNKNOWN Consulting Unavailable ATTILA, LUKE E Consulting Unavailable ATTILA, LUKE E Attending Unavailable ATTILA, LUKE E Admitting Unavailable ATTILA, LUKE E Primary Care Unavailable PROVIDER, UNKNOWN Consulting Unavailable ATTILA, LUKE E Consulting Unavailable ATTILA, LUKE E Attending Unavailable ATTILA, LUKE E Admitting Unavailable ATTILA, LUKE E Primary Care Unavailable PROVIDER, UNKNOWN Consulting Unavailable CHEYENNE COOK MD Admitting Unavailable CHEYENNE COOK MD Primary Care Unavailable CHEYENNE COOK MD Attending Unavailable ATTILA, LUKE E Referring Unavailable TATILA, LUKE E Consulting Unavailable PROVIDER, UNKNOWN Consulting Unavailable Allergies Allergy Classification Reported Allergen(s) Allergy Type Date of Onset Reaction(s) Facility Penicillins (antibiotic) (1 source) Amoxicillin Drug Allergy [facility] (6 sources) penicillin drug allergy 05-13-2010 Joint aches [facility] Work Phone: (6 sources) simvastatin drug allergy 05-13-2010 Nausea [facility] Work Phone: (4 sources) Latex Allergy to substance 01-07-2006 Rash [facility] Work Phone: (5 sources) Penicillins; Translations: [Penicillins] Allergy to substance 07-14-2006 Intolerance [facility] Work Phone: (20 sources) Amoxicillin Drug Allergy [employer] [employer] [employer] (1 source) Latex Drug allergy (disorder) 01-27-2024 [facility] Repository (1 source) Penicillins Drug allergy (disorder) [facility] Repository Medications Current Medications Medication Drug Class(es) Dates Sig (Normalized) Sig (Original) 24 hr dilTIAZem hydrochloride 240 mg extended release oral capsule (20 sources) Calcium Channel Ameya Start: 06-18-2023 take 240 mg by mouth once daily Diltiazem Hcl Active 240 MG PO DAILY June 18, 2023 2:21pm Start: 09-05-2022 End: 06-18-2023 take 120 mg by mouth once daily Diltiazem Hcl Discontinued 120 MG PO DAILY September 05, 2022 1:36pm June 18, 2023 2:21pm Start: 10-09-2021 End: 09-05-2022 take 120 mg by mouth twice daily Diltiazem Hcl Discontinued 120 MG PO TWICE A DAY October 09, 2021 2:23pm September 05, 2022 1:13pm Start: 02-01-2019 End: 10-09-2021 take 120 mg by mouth once daily Diltiazem Hcl Discontinued 120 MG PO DAILY March 11, 2021 11:00am October 09, 2021 2:23pm Start: 02-12-2018 End: 02-24-2018 take 240 mg by mouth once daily Diltiazem Hcl Discontinued 240 MG PO DAILY February 12, 2018 1:00am February 24, 2018 5:20pm Start: 02-03-2018 End: 12-28-2018 take 120 mg by mouth once daily Diltiazem Hcl Discontinued 120 MG PO DAILY December 08, 2018 10:53am December 28, 2018 3:57pm Thyroid (Pork) (2 sources) Start: 06-16-2013 take 60 mg by mouth once daily Thyroid (Pork) Active 60 MG PO DAILY June 16, 2013 12:00am thyroid (retirement) 60 mg oral tablet (20 sources) Start: 06-03-2024 [place] Thyroid 60 mg tablet ; 1 (one) Tablet daily for 0 days Quantity: 90 {Tablet} Refills: 0 Ordered: 03-Jun-2024 REYES Aiken Start: 03-Jun-2024 Start: 05-23-2024 [place] Thyroid 60 mg tablet ; 1 (one) Tablet daily for 0 days Quantity: 90 {Tablet} Refills: 0 Ordered: 23-May-2024 REYES Aiken Start: 23-May-2024 Start: 11-30-2023 [place] Thyroid 60 mg tablet ; 1 (one) Tablet daily for 0 days Quantity: 90 {Tablet} Refills: 1 Ordered: 30-Nov-2023 REYES Aiken Start: 30-Nov-2023 Start: 08-28-2023 [place] Thyroid 60 mg tablet ; 1 (one) Tablet daily for 0 days Quantity: 90 {Tablet} Refills: 1 Ordered: 28-Aug-2023 REYES Aiken Start: 28-Aug-2023 Start: 08-25-2023 [place] Thyroid 60 mg tablet ; 1 (one) Tablet daily for 0 days Quantity: 90 {Tablet} Refills: 0 Ordered: 25-Aug-2023 REYES Aiken Start: 25-Aug-2023 Start: 06-02-2023 [place] Thyroid 60 mg tablet ; 1 (one) Tablet daily for 0 days Quantity: 90 {Tablet} Refills: 0 Ordered: 02-Jun-2023 REYES Aiken Start: 02-Jun-2023 Start: 11-28-2011 take 1 tablet by ivana once daily thyroid, pork, (ARMOUR THYROID) 60 mg tab Indications: Hypothyroidism, postsurgical Take 1 tablet by mouth once daily. 90 tablet 0 10/10/2014 Active Comment on above: Take 1 tablet by [facility] once daily. Completed/Discontinued Medications Medication Drug Class(es) Dates Sig (Normalized) Sig (Original) acetaminophen 325 mg / oxyCODONE hydrochloride 5 mg oral tablet (20 sources) Opioid Agonist Start: 12-25-2021 End: 09-22-2022 Percocet 5 mg-325 mg tablet ; 1 (one) Tablet Q 6 hours PRN pain for 0 days Quantity: 10 {Tablet} Refills: 0 Ordered: 22-Sep-2022 RITESH Arizmendi Start: 25-Dec-2021 End: 22-Sep-2022 Status: Inactive Comments: No OARRS acute treatment Comment on above: No OARRS acute treat ment [id number] 200 actuat albuterol 0.09 mg/actuat metered dose inhaler (20 sources) beta2-Adrenergic Agonist Start: 01-23-2023 End: 01-01-2024 take 2 puff(s) by inhalation every four to six hours as needed for cough albuterol sulfate HFA 90 mcg/actuation aerosol inhaler ; 2 (two) puffs Q4-6 hours PRN cough/wheeze for 0 days Quantity: 1 {Each} Refills: 0 Ordered: 01-Jan-2024 RITESH Arizmendi Start: 23-Jan-2023 End: 01-Jan-2024 Status: Inactive Comments: inhaler Comment on above: inhaler amLODIPine 5 mg oral tablet (12 sources) Dihydropyridine Calcium Channel Ameya Start: 06-29-2012 End: 12-28-2012 take 1 tablet by mouth once daily NORVASC 5 MG TABS One tablet by mouth daily AMLODIPINE BESYLATE [id number] Al Montelongo MD Ascorbic Acid (1 source) Vitamin C ASCORBIC ACID (VITAMIN C ORAL) Take by mouth once daily. 0 Active Comment on above: Take by mouth once d aily. aspirin 81 mg delayed release oral tablet (19 sources) Nonsteroidal Anti-inflammatory Drug Start: 02-25-2018 End: 06-10-2018 Aspirin (Adult Low Dose Aspirin) 81 mg tablet,delayed release (DR/EC) Discontinued 81 MG PO DAILY February 25, 2018 1:00am June 10, 2018 12:06pm Start: 11-28-2011 End: 08-15-2016 take 1 tablet by mouth once daily ASPIRIN 81 MG TABS One tablet by mouth daily ASPIRIN [id number] Kellee Matos PA-C Start: 06-04-2009 End: 08-15-2016 take 1 tablet by mouth once daily ASPIRIN 81 MG TABS One tablet by mouth daily ASPIRIN [id number] Kellee Matos PA-C Comment on above: Take one(1) tablet d aily. azithromycin 250 mg oral tablet (20 sources) Macrolide Antimicrobial Start: 01-23-2023 End: 01-28-2023 azithromycin 250 mg tablet ; 2 (two) tablet on day 1 then 1 tablet daily on days 2-5 for 5 days Quantity: 6 {Tablet} Refills: 0 Ordered: 23-Jan-2023 REYES Aiken Start: 23-Jan-2023 End: 28-Jan-2023 Status: Inactive Start: 02-06-2020 End: 02-14-2020 Azithromycin 250 MG Oral Tab let ; 2 (two) Tablets today 1/dx4d for 0 days Quantity: 6 {Tablet} Refills: 0 Ordered: 14-Feb-2020 JAQUELINE Waters Start: 06-Feb-2020 End: 14-Feb-2020 Status: Inactive Start: 02-01-2018 End: 03-10-2018 take 1 tablet by mouth once daily Azithromycin 500 MG Oral Tablet ; 1 (one) Tablet daily for 0 days Quantity: 3 {Tablet} Refills: 0 Ordered: 10-Mar-2018 JAQUELINE Delgado Nhung Epperson Start: 01-Feb-2018 End: 10-Mar-2018 Status: Inactive calcium, elemental, Tab (1 source) Start: 03-24-2012 take 1 tablet by mouth once daily calcium, elemental, Tab Take 1 tablet by mouth once daily. 0 03/24/2012 Active Comment on above: Take 1 tablet by ivana once daily. cephalexin 500 mg oral capsule (7 sources) Cephalosporin Antibacterial Start: 02-29-2024 End: 03-10-2024 cephALEXin 500 mg capsule ; 2 (two) capsule bid for 10 days Quantity: 40 {Capsule} Refills: 0 Ordered: 29-Feb-2024 MD David Henderson Start: 29-Feb-2024 End: 10-Mar-2024 Status: Inactive ciprofloxacin 250 mg oral tablet (20 sources) Quinolone Antimicrobial Start: 06-26-2015 End: 07-03-2015 take 1 tablet by mouth twice daily CIPROFLOXACIN HCL, 250MG (Oral Tablet) ; 1 (one) Tablet two times daily for 7 days Quantity: 14 {Tablet} Refills: 0 Ordered: 26-Jun-2015 MD Kurt Moreno Start: 26-Jun-2015 End: 03-Jul-2015 Status: Inactive codeine phosphate 2 mg/ml / promethazine hydrochloride 1.25 mg/ml oral solution (20 sources) Opioid Agonist, Phenothiazine Start: 02-06-2020 End: 12-04-2020 take 10 mL by mouth once daily at bedtime Promethazine-Codei ne 6.25-10 MG/5ML Oral Solution ; 10 Milliliter qhs for 0 days Quantity: 70 {Milliliter} Refills: 0 Ordered: 04-Dec-2020 JAQUELINE Waters Start: 06-Feb-2020 End: 04-Dec-2020 Status: Inactive Start: 02-01-2018 End: 02-06-2018 take 1 mL by mouth every four hours as needed for cough Promethazine-Codeine 6.25-10 MG/5ML Oral Syrup ; 10(ten) Milliliter every four hours prn cough for 5 days Quantity: 120 {Milliliter} Refills: 0 Ordered: 01-Feb-2018 MD Kurt Moreno Start: 01-Feb-2018 End: 06-Feb-2018 Status: Inactive Comments: Premier Comment on above: Premier DOCOSAHEXANOIC ACID/EPA (FISH OIL ORAL) (1 source) DOCOSAHEXANOIC A MICHELLE/EPA (FISH OIL ORAL) Take by mouth twice daily. 0 Active Comment on above: Take by mouth twice daily. furosemide 20 mg oral tablet (20 sources) Loop Diuretic Start: 2017 End: 2018 take 1 tablet by mouth once daily as needed Furosemide 20 MG Oral Tablet ; 1 (one) Tablet daily PRN swelling for 0 days Quantity: 30 {Tablet} Refills: 2 Ordered: 27-Jul-2018 JAQUELINE Delgado Nhung Epperson Start: 27-Oct-2017 End: 27-Jul-2018 Status: Inactive Garlic preparation (1 source) Non-Standardized Food Allergenic Extract take 4 tablets by mouth twice daily Garlic tab Take 4 tablets by mouth twice daily. Forever living Garlic Time capsule. Has other ingredients with garlic. 0 Active Comment on above: Take 4 tablets by mo uth twice daily. Forever living Garlic Time capsule. Has other ingredients with garlic. hydroCHLOROthiazide 25 mg oral tablet (1 source) Thiazide Diuretic Start: 2014 take 1 tablet by mouth once daily hydrochlorothiazide (HYDRODIURIL, ESIDRIX) 25 mg tablet Take 1 tablet by mouth once daily. 90 tablet 1 03/03/2014 Active Comment on above: Take 1 tablet by ivana th once daily. lisinopril 10 mg oral tablet (20 sources) Angiotensin Converting Enzyme Inhibitor Start: 2013 End: 2020 take 1 tablet by mouth once daily Lisinopril 10 MG Oral Tablet ; 1 (one) Tablet Tablet once daily for 0 days Quantity: 90 {Tablet} Refills: 3 Ordered: 05-Aug-2016 JAQUELINE Delgado Start: 25-Dec-2014 End: 05-Aug-2016 Status: Inactive Start: 11-28-2011 End: 01-01-2012 take 1 tablet by mouth once daily LISINOPRIL 10 MG TABS One tablet by mouth daily LISINOPRIL [id number] Nhung Andres RN Comment on above: Take 1 tablet by ivana once daily. losartan potassium 50 mg oral tablet (20 sources) Angiotensin 2 Receptor Ameya Start: 02-03-2018 End: 12-28-2018 take 50 mg by mouth once daily Losartan Discontinued 50 MG PO DAILY December 08, 2018 12:00am December 28, 2018 3:57pm Start: 01-01-2012 End: 06-29-2012 take 1 tablet by mouth once daily LOSARTAN POTASSIUM 50 MG TABS One tablet by mouth daily LOSARTAN POTASSIUM [id number] DENI JacksonC metoprolol tartrate 25 mg oral tablet (20 sources) beta-Adrenergic Ameya Start: 08-14-2016 take 1 tablet by mouth twice daily METOPROLOL TARTRATE 25 MG TABS One half tablet by mouth twice daily METOPROLOL TARTRATE [id number] Diana Lopes RN Start: 07-22-2016 End: 02-03-2018 take 12.5 mg by mouth twice daily Metoprolol Tartrate Discontinued 12.5 MG PO TWICE A DAY July 22, 2016 12:00am February 03, 2018 12:57pm take 0.5 tablet by m outh twice daily Metoprolol Tartrate 25 MG Oral Tablet ; 1/2 tab two times daily (25 MG) Status: Inactive nitrofurantoin, macrocrystals 25 mg / nitrofurantoin, monohydrate 75 mg oral capsule (20 sources) Nitrofuran Antibacterial Start: 11-01-2021 End: 09-05-2022 take 100 mg by mouth twice daily Nitrofurantoin Monohyd/M-Cryst Discontinued 100 MG PO TWICE A DAY November 01, 2021 12:00am September 05, 2022 1:12pm Start: 10-24-2021 End: 10-29-2021 take 1 capsule by mouth twice daily Nitrofurantoin Monohyd Macro 100 MG Oral Capsule ; 1 (one) Capsule twice a day for 5 days Quantity: 10 {Capsule} Refills: 0 Ordered: 24-Oct-2021 REYES Aiken Start: 24-Oct-2021 End: 29-Oct-2021 Status: Inactive omeprazole 20 mg delayed release oral capsule (20 sources) Proton Pump Inhibitor Start: 07-27-2018 End: 08-26-2018 take 1 capsule by mouth once daily Omeprazole 20 MG Oral Capsule Delayed Release ; 1 (one) Capsule qd for 30 days Quantity: 30 {Capsule} Refills: 0 Ordered: 27-Jul-2018 MD David Henderson Start: 27-Jul-2018 End: 26-Aug-2018 Status: Inactive ondansetron 4 mg oral tablet (1 source) Serotonin-3 Receptor Antagonist Start: 06-27-2013 take 1 tablet by mouth every eight hours as needed ondansetron 4 mg tablet Take 1 tablet by mouth every 8 hours as needed. 20 tablet 0 06/27/2013 Active Comment on above: Take 1 tablet by ivana every 8 hours as needed. OTC PRODUCT (1 source) Start: 07-14-2006 OTC PRODUCT he rbal laxative with cascaria, 1 capsule daily 0 07/14/2006 Active Comment on above: herbal laxative with cascaria, 1 capsule daily Soybean, Fermented (Nattokinase) 50 mg capsule (5 sources) Start: 09-05-2022 End: 06-01-2023 take 1 capsule by mouth twice daily Soybean, Fermented (Nattokinase) 50 mg capsule Discontinued 150 MG PO TWICE A DAY September 05, 2022 1:13pm June 01, 2023 10:13am Start: 07-31-2021 End: 09-05-2022 take 1 capsule by mouth once daily Soybean, Fermented (Nattokinase) 50 mg capsule Discontinued 100 MG PO DAILY July 31, 2021 12:00am September 05, 2022 1:13pm Start: 07-31-2021 take 1 capsule by mo uth once daily Soybean, Fermented (Nattokinase) 50 mg capsule Active 100 MG PO DAILY July 31, 2021 12:00am Soybean, Fermented (Nattokinase) 50 mg Capsule (3 sources) Start: 10-08-2021 End: 09-05-2022 take 1 capsule by mouth at bedtime Soybean, Fermented (Nattokinase) 50 mg Capsule Discontinued 50 MG PO AT BEDTIME October 08, 2021 12:00am September 05, 2022 1:13pm Start: 10-08-2021 take 1 capsule by mo uth at bedtime Soybean, Fermented (Nattokinase) 50 mg Capsule Active 50 MG PO AT BEDTIME October 08, 2021 12:00am sulfamethoxazole 800 mg / trimethoprim 160 mg oral tablet (20 sources) Dihydrofolate Reductase Inhibitor Antibacterial, Sulfonamide Antimicrobial Start: 01-04-2024 End: 01-09-2024 sulfamethoxazole 800 mg-trimethoprim 160 mg tablet ; 1 (one) tablet two times daily for 5 days Quantity: 10 {Tablet} Refills: 0 Ordered: 04-Jan-2024 JAQUELINE Araujo Start: 04-Jan-2024 End: 09-Jan-2024 Status: Inactive Start: 09-26-2022 End: 10-01-2022 Bactrim DS 800 mg-160 mg tab let ; 1 Tab two times daily for 5 days Quantity: 10 {Tablet} Refills: 0 Ordered: 26-Sep-2022 REYES Hunt Start: 26-Sep-2022 End: 01-Oct-2022 Status: Inactive Start: 10-09-2021 End: 11-01-2021 take 1 tablet by mouth twice daily Sulfamethoxazole-Trimethoprim Discontinued 1 TABLET PO TWICE A DAY 14 7 October 09, 2021 12:00am November 01, 2021 2:19pm thyroxine (6 sources) l-Thyroxine Start: 05-13-2010 take 1 tablet by mouth once daily LEVOTHROID 100 MCG TABS One tablet by mouth daily LEVOTHYROXINE SODIUM [id number] Yoselin Reddy Vitamin B Complex (1 source) Start: 08-21-2008 vitamin b comp mirtha(B COMPLEX-VITAMIN B12 TAB) Take one(1) tablet daily. 0 08/21/2008 Active Comment on above: Take one(1) tablet d aily. Problems Active Problems Problem Classification Problem Date Documented Da te Episodic/Chronic Abdominal hernia (20 sources) Hiatal hernia; Translations: [Diaphragmatic hernia without obstruction or gangrene] 01-23-2023 Episodic Acute bronchitis (20 sources) Acute bronchitis; Translations: [Acute bronchitis, unspecified] 02-06-2020 Episodic Administrative/social admission (20 sources) Issue of repeat prescriptions 03-22-2016 Episodic Cardiac dysrhythmias (20 sources) Paroxysmal atrial fibrillation; Translations: [Supraventricular tachycardia] Onset: 1 08-14-2016 Chronic Cardiac dysrhythmias (20 sources) Palpitations - rapid; Translations: [Palpitations] Onset: 4 Episodic Chronic kidney disease (2 sources) Chronic kidney disease stage 3A ; Translations: [Stage 3a chronic kidney disease] 10-08-2021 Chronic Chronic obstructive pulmonary disease and bronchiectasis (20 sources) Bronchitis; Translations: [Bronchitis, not specified as acute or chronic] 01-23-2023 Episodic Complications of surgical procedures or medical care (1 source) Postoperative hypothyroidism; Translations: [Postprocedural hypothyroidism] Onset: 0 03-23-2009 Chronic Coronary atherosclerosis and other heart disease (20 sources) Old myocardial infarction 01-23-2023 Chronic Disorders of lipid metabolism (4 sources) Pure hypercholesterolemia; Translations: [Pure hypercholesterolemia, unspecified] Chronic Essential hypertension (20 sources) Hypertensive disorder; Translations: [Essential hypertension] Onset: 7 08-14-2016 Chronic Genitourinary symptoms and ill-defined conditions (20 sources) Urinary symptoms ; Translations: [Unspecified symptoms and signs involving the genitourinary system] 01-23-2023 Episodic Heart valve disorders (20 sources) Heart murmur; Translations: [Cardiac murmur, unspecified] 01-23-2023 Episodic Malaise and fatigue (3 sources) Fatigue; Translations: [Other fatigue] 10-22-2020 Episodic Nonspecific chest pain (4 sources) Chest pain; Translations: [Chest pain, unspecified] Episodic Osteoarthritis (20 sources) Arthritis; Translations: [Unspecified osteoarthritis, unspecified site] 01-23-2023 Chronic Other aftercare (20 sources) Post-discharge follow-up; Translations: [Encounter for follow-up examination after completed treatment for conditions other than malignant neoplasm] 09-22-2022 Episodic Other and ill-defined heart disease (3 sources) Takotsubo cardiomyopathy; Translations: [Takotsubo syndrome] 12-27-2018 Chronic Other and ill-defined heart disease (4 sources) Takotsubo syndrome; Translations: [Takotsubo syndrome] Onset: Chronic Other ear and sense organ disorders (20 sources) Impacted cerumen; Translations: [Impacted cerumen, unspecified ear] 01-23-2023 Episodic Other ear and sense organ disorders (20 sources) Pain in pinna; Translations: [Otalgia, right ear] 01-23-2023 Episodic Other ear and sense organ disorders (20 sources) Tinnitus; Translations: [Tinnitus, unspecified ear] 01-23-2023 Episodic Other hematologic conditions (3 sources) Raised cardiac enzyme or marker; Translations: [Other specified abnormalities of plasma proteins] 10-17-2021 Episodic Other hematologic conditions (1 source) Other specified abnormalities of plasma proteins; Translations: [Other abnormal blood chemistry] Episodic Other infections; including parasitic (20 sources) Personal history of other infectious and parasitic diseases 01-23-2023 Episodic Other injuries and conditions due to external causes (20 sources) At risk for falls ; Translations: [History of falling] 01-23-2023 Episodic Other lower respiratory disease (3 sources) Dyspnea on exertion; Translations: [Shortness of breath] 10-22-2020 Episodic Other lower respiratory disease (20 sources) Cough; Translations: [Cough] 01-23-2023 Episodic Other nervous system disorders (20 sources) Paresthesia of left upper limb; Translations: [Paresthesia of skin] 01-23-2023 Episodic Other non-traumatic joint disorders (20 sources) Pain of left wrist; Translations: [Pain in left wrist] 01-23-2023 Episodic Other nutritional; endocrine; and metabolic disorders (6 sources) Body mass index (BMI) 34.0-34.9, adult; Translations: [Body mass index (BMI) 34.0-34.9, adult] Onset: 3 12-28-2012 Chronic Other nutritional; endocrine; and metabolic disorders (20 sources) Obesity; Translations: [Obesity, unspecified] 01-23-2023 Chronic Other nutritional; endocrine; and metabolic disorders (20 sources) Morbid obesity; Translations: [Morbid (severe) obesity due to excess calories] 10-27-2017 Chronic Iveth-; endo-; and myocarditis; cardiomyopathy (9 sources) Cardiomyopathy in diseases classified elsewhere; Translations: [Cardiomyopathy] Onset: 3 06-29-2012 Chronic Phlebitis; thrombophlebitis and thromboembolism (20 sources) Thrombophlebitis of superficial vein of right lower limb; Translations: [Phlebitis and thrombophlebitis of superficial vessels of right lower extremity] 09-14-2015 Episodic Prolapse of female genital organs (20 sources) Midline cystocele; Translations: [Cystocele, midline] 01-23-2023 Chronic Residual codes; unclassified (3 sources) Edema of lower extremity; Translations: [Localized edema] 02-03-2018 Episodic Residual codes; unclassified (20 sources) Influenza vaccination declined; Translations: [Immunization not carried out because of patient refusal] 01-23-2023 Episodic Residual codes; unclassified (20 sources) Edema of foot; Translations: [Localized edema] 01-23-2023 Episodic Residual codes; unclassified (18 sources) Edema of right lower limb; Translations: [Localized edema] 01-25-2024 Episodic Screening and history of mental health and substance abuse codes (20 sources) Patient encounter status; Translations: [Encounter for screening for depression] 08-09-2019 Episodic Spondylosis; intervertebral disc disorders; other back problems (20 sources) Lumbar radiculopathy; Translations: [Radiculopathy, lumbar region] 01-23-2023 Episodic Thyroid disorders (20 sources) Non-toxic multinodular goiter; Translations: [Nontoxic multinodular goiter] Onset: 9 08-21-2008 Chronic Unclassified (20 sources) Number of Children 10-24-2021 Comment on above: 6. Unclassified (20 sources) Number of Pregnancies 10-24-2021 Comment on above: 7. Unclassified (20 sources) Vaginal deliveries 10-24-2021 Comment on above: 6. Unclassified (20 sources) Follow up for multiple chronic conditions - The patient is here for follow-up of a-fib, arthritis, hypertension, hypothyroidism and obesity. The patient always takes the prescribed medications. No side effects noted. The patient engages in regular exercise program 1-3 times per week. The patient states that the disease has no overall impact. Note for Multiple chronic conditions follow-up: Patient notes mild discomfort of her external right ear persistent for several weeks. Patient admits to scratching the ear resulting in a scab formation which she believes may have started her current symptoms. Patient denies internal ear pain, ear discharge, and difficulty hearing. 01-08-2023 Unclassified (11 sources) Transition into care - The patient is transitioning into care from an emergency room and a summary of care was reviewed. 12-25-2021 Unclassified (11 sources) [ADDITIONAL REASON] Follow up from hospital stay - Name of Hospital: [facility]. Date of Admission: 12/22/21. Date of Discharge: 12/22/21. The patient was hospitalized for left wrist pain. New medications include percocet and prednisone. No post hospital therapies were ordered. Patient was discharged to home. Note for Follow up from hospital stay: pain is tolerable with the pain pills 12-25-2021 Unclassified (20 sources) Follow up consultation - The patient is here to follow-up after Emergency Room/Urgent Care (pt was in ER for AFIB) on : (10/08/2021). Follow up visit with no current symptoms. Note for Consultation follow-up: wants left ear checked uti? 10-24-2021 Unclassified (11 sources) Transition into care - The patient is transitioning into care from another physician (cardio 10/22/20) and a summary of care was reviewed. 12-04-2020 Unclassified (11 sources) [ADDITIONAL REASON] Follow up for multiple chronic conditions - The patient is here for follow-up of a-fib, arthritis, hypertension, hypothyroidism and obesity. The patient always takes the prescribed medications. No side effects noted. The patient engages in regular exercise program 1-3 times per week (rides bike). The patient's out of office blood pressure checks occur occasionally (pt says its good 130/70-80) and dietary compliance is fairly good usually adhering to recommendations (pt said she tries to eat healthy but does cheat at times). The patient states that there is no recent angina or dyspnea, weight has increased (up 10 lbs) and headaches are rarely noted. Note for Multiple chronic conditions follow-up: last tsh 12/201912-04-2020 Unclassified (20 sources) [facility] Routine follow-up - The patient is here for follow-up of hypertension, obesity, arthritis, a-fib and hypothyroidism. The patient always takes the prescribed medications. No side effects noted. The patient has low activity level and no regular program (not much now). The patient's out of office blood pressure checks occur rarely (she normally does- but has not recently) and dietary compliance is fairly good usually adhering to recommendations (pt tries to eat healthy). The patient states that there is no recent angina or dyspnea, weight has increased (up 2 lbs) and headaches are rarely noted (not often and if so its a dull ache- she thinksits normally due to sinuses). Note for Routine chronic follow-up: ALLISON 02/06/20LROV 08/15/19last labs 01/06/20 tsh10/2017 [facility] 02-14-2020 Unclassified (20 sources) Follow Up for Multiple Chronic Conditions - The patient is here for follow-up of a-fib, arthritis, hypertension, hypothyroidism and obesity. The patient always takes the prescribed medications. No side effects noted (does not need refills). The patient engages in regular exercise program 3-5 times per week (strengthening and stretching exercises.). The patient's out of office blood pressure checks occur rarely and dietary compliance is fairly good usually adhering to recommendations. The patient states that there is no recent angina or dyspnea, weight has decreased (down 4 pounds) and headaches are rarely noted. Note for Multiple chronic conditions follow-up: Last routine office visit 12/2018. Last TSH 10/2018. 08-15-2019 Unclassified (20 sources) [facility] Routine follow-up - The patient is here for follow-up of hypertension, a-fib, hypothyroidism and morbid obesity. The patient always takes the prescribed medications. No side effects noted. The patient has an active lifestyle but no regular program. The patient's out of office blood pressure checks occur occasionally (been kind of [id number] at home last time) and dietary compliance is fairly good usually adhering to recommendations. The patient states that there is no recent angina or dyspnea, weight has decreased (down 9 lbs) and they are still having trouble sleeping. Note for Routine chronic follow-up: allison 07/27/18last labs 10/27/18 tsh10/30/17 bmpp[facility] is having sciatica pain 01-06-2019 Unclassified (20 sources) [facility] Routine Follow up - The patient is here for follow-up of hypertension, obesity, a-fib and hypothyroidism. The patient always takes the prescribed medications. No side effects noted. The patient has an active lifestyle but no regular program. The patient's out of office blood pressure checks occur rarely and dietary compliance is fairly good usually adhering to recommendations. The patient states that there is no recent angina or dyspnea, there are no vision changes or weakness, weight has increased (13 pounds) and they do not have headaches. Note for Routine chronic follow-up: ALLISON 08/05/16. Last TSH 06/2016. 10-27-2017 Unclassified (20 sources) Follow up consultation - The patient is here to follow-up after hospitalization ([facility] with diagnosis of Atrial fibrillation) on : (07-20-16 to 07-22-16). Note for Consultation follow-up: Has occasional palpitations and continues with fatigue. 08-05-2016 Unclassified (20 sources) New Patient 12-26-2014 Unclassified (20 sources) [ADDITIONAL REASON] [facility] Routine Follow up - The patient is here for follow-up of hypertension, arthritis and hypothyroidism. The patient always takes the prescribed medications. No side effects noted. The patient engages in regular program 1-3 time(s) per week. The patient's out of office blood pressure checks occur occasionally and dietary compliance is fairly good usually adhering to recommendations. The patient states that breathing effort is stable, there is no recent angina or dyspnea, there are no vision changes or weakness (Patient does have cataracts.), mood is unchanged, they are still having trouble sleeping (on occasion) and they do not have headaches. Note for Routine chronic follow-up: Patient declines flu shot. 12-26-2014 Unclassified (15 sources) Follow up from hospital stay - Name of Hospital: [facility]. Date of Admission: 12/22/21. Date of Discharge: 12/22/21. The patient was hospitalized for left wrist pain. New medications include percocet and prednisone. No post hospital therapies were ordered. Patient was discharged to home. Note for Follow up from hospital stay: pain is tolerable with the pain pills 12-25-2021 Unclassified (15 sources) [ADDITIONAL REASON] Transition into care - The patient is transitioning into care from an emergency room and a summary of care was reviewed. 12-25-2021 Unclassified (15 sources) Follow up for multiple chronic conditions - The patient is here for follow-up of a-fib, arthritis, hypertension, hypothyroidism and obesity. The patient always takes the prescribed medications. No side effects noted. The patient engages in regular exercise program 1-3 times per week (rides bike). The patient's out of office blood pressure checks occur occasionally (pt says its good 130/70-80) and dietary compliance is fairly good usually adhering to recommendations (pt said she tries to eat healthy but does cheat at times). The patient states that there is no recent angina or dyspnea, weight has increased (up 10 lbs) and headaches are rarely noted. Note for Multiple chronic conditions follow-up: last tsh 12/201912-04-2020 Unclassified (15 sources) [ADDITIONAL REASON] Transition into care - The patient is transitioning into care from another physician (cardio 10/22/20) and a summary of care was reviewed. 12-04-2020 Unclassified (16 sources) Rapid heart rate - The rapid heart rate has been occurring in an episodic pattern for 1 day. Each episode lasts minutes. The course has been recurrent. The rapid heart rate is characterized as skipped beats, short bursts of rapid beating and increased awareness of heart beats. There have been no precipitating factors. The symptoms have no aggravating factors. The symptoms are relieved by rest. The symptoms have been associated with chest pain (she currently has a dull ache of the left side of the chest, is decreasing today.) and weakness (she feels very tired and exhausted), but have not been associated with syncope. Note for Rapid heart rate: Patient states that in the past she was diagnosed with AFib. 01-01-2024 Unclassified (2 sources) [facility] Routine Follow up - The patient is here for follow-up of hypertension, arthritis and hypothyroidism. The patient always takes the prescribed medications. No side effects noted. The patient engages in regular program 1-3 time(s) per week. The patient's out of office blood pressure checks occur occasionally and dietary compliance is fairly good usually adhering to recommendations. The patient states that breathing effort is stable, there is no recent angina or dyspnea, there are no vision changes or weakness (Patient does have cataracts.), mood is unchanged, they are still having trouble sleeping (on occasion) and they do not have headaches. Note for Routine chronic follow-up: Patient declines flu shot. 12-26-2014 Unclassified (2 sources) [ADDITIONAL REASON] New Patient 12-26-2014 Urinary tract infections (20 sources) Urinary tract infectious disease; Translations: [Urinary tract infection, site not specified] 06-26-2015 Episodic Past or Other Problems Problem Classification Problem Date Documented Da te Episodic/Chronic Other bone disease and musculoskeletal deformities (1 source) Disorder of skeletal system; Translations: [Disorder of bone, unspecified] Onset: 04-07-2007 04-07-2007 Episodic Other connective tissue disease (1 source) Calcaneal spur; Translations: [Calcaneal spur, unspecified foot] Onset: 07-27-2006 07-27-2006 Episodic Unclassified (20 sources) Cold Symptoms - Symptoms include nasal congestion, runny nose, sore throat (did have but has improved), dry cough, productive cough, wheezing (very wheezy last night, last night she felt very full in her chest and heart went wild, heart was racing. Denies chest pain. Chest feels sore from coughing so much), fever (possibly did have, did not check temp), chills (did have chills, did not check her temp), general malaise (body aches), headache and facial pain, but do not include ear pain. The onset was 1 week(s) ago. The symptoms occur constantly. The patient describes this as unchanged (she feels worse at night). Current treatment includes Elderberry cough syrup, Vicks rub, Garlic jose (SuperTonic). The patient has been exposed to an individual with an upper respiratory infection (thanksgiving). Medical history includes tonsillectomy, but patient denies history of seasonal allergies, recurrent sinusitis or asthma. 01-23-2023 Unclassified (20 sources) UTI - Symptoms include dysuria, urinary frequency, urinary urgency (she feels that she can not empty bladder completely), malodorous urine and back pain (lower back on the right side currently but wonders if related to sciatica), but do not include hematuria, dark urine, flank pain or abdominal pain. The pain is located in the back. There is no radiation. The patient describes the pain as dull. Onset was gradual 2 month(s) ago. There is no known event that preceded symptom onset. The symptoms occur frequently. The patient describes this as mild and unchanged (Azo cranberry supplement helps to relieve symptoms but patient does not feel that her symptoms are fully going away. Symptoms return if she does not take Azo.). Associated symptoms include urinary incontinence (at night when she wakes up), but do not include fever, chills, nausea, vomiting, urethral discharge or vaginal discharge. Note for UTI: She had a complete hysterectomy years ago.She would like to have pelvic area checked today, she feels there is protruding of the vaginal area. She has noted this for the last week. 09-22-2022 Unclassified (20 sources) Cold Symptoms - Symptoms include nasal congestion, runny nose, productive cough, fever and general malaise, but do not include ear pain or sore throat (mild at onset). The onset was gradual 10 day(s) ago. The patient describes this as moderate in severity and worsening. Current treatment includes home remedies. Risk factors do not include smoking. The patient has not been exposed to secondhand smoke. Note for Upper respiratory infection: -States spouse hospitalized with covid 19 in November and she had same sx at that time but was not tested. 02-06-2020 Unclassified (20 sources) Abdominal pain - The onset of the abdominal pain has been acute and has been occurring in an intermittent pattern for 2 weeks. The course has been recurrent. The pain is described as a moderate cramping. The pain is located in the epigastrium and radiates to the right upper quadrant and left upper quadrant. The symptoms have no aggravating factors. The symptoms have been associated with constipation (occasionally) and nausea, while the symptoms have not been associated with vomiting. Note for Abdominal pain: Had gallbladder 40 years ago. reviewed by [facility] 07-27-2018 Unclassified (20 sources) Cold Symptoms - Symptoms include sneezing, sore throat (Last week.), productive cough, fever (did not take temperature but felt like she was running a fever.) and chills, but do not include nasal congestion, runny nose, ear pain, ear fullness, general malaise or headache. The onset was sudden 1 week(s) ago. The symptoms occur constantly. The patient describes this as moderate in severity and unchanged. The patient is not currently being treated for this problem. 02-01-2018 Unclassified (20 sources) Leg pain - The leg pain began suddenly and has been occurring for 1 week. The symptoms have been occurring in an increasing pattern. The symptoms are described as a burning sensation and dull ache and are moderate in severity. The symptoms occur on exertion. There is involvement of the right calf. There are no precipitating factors. Aggravating factors include exertion. Relief is provided by rest. The symptoms have been associated with calf swelling. 09-14-2015 Unclassified (20 sources) UTI - Symptoms include dysuria, urinary frequency, urinary urgency and back pain. The pain is located in the back. There is no radiation. The patient describes the pain as dull and aching. Onset was gradual 1 week(s) ago. There is no known event that preceded symptom onset. The symptoms occur intermittently. The patient describes this as moderate in severity and improving. Symptoms are relieved by cranberry juice (home remedies). Associated symptoms include fever (resolved) and chills (resolved), but do not include nausea or vomiting. 06-26-2015 Unclassified (9 sources) Edema - The edema has been occurring in a persistent pattern for 3 days . The edema is characterized as severe , and the course of the edema has been increasing. It affects the right lower extremity. The symptoms have not been relieved by any method. Note for Edema: Patient was recently in hospital for wrist pain, given prednisone and has noted increased swelling of the right lower extremity since. Patient of the lower extremity start within the past 3 days and she notes an area of warmth and tenderness along the medial aspect, patient does indicate pain throughout the entirety of the lower leg. Patient notes a history of phlebitis but denies history of DVT. Patient denies recent trauma or travel. 01-25-2024 Results Test Name Value Interpretation Reference Range Facility CBC + DIFFon 03-12-2024 Baso # 0.03 x10EE3/UL Normal 0.00 - 0.10 [facility] Comment on above: Performed By: #### 2 [id number] #### [facility],[address] [place] [address] Basophils/100 WBC (Bld) 0.3 % Normal 0.0 - 2.0 [facility] Comment on above: Performed By: #### 2 [id number] #### [facility],[address] [place] [address] CBC + DIFF Normal [facility] Comment on above: Result Comment: CBC- COMPLETE BLOOD COUNT Performed By: #### 2 03329 #### [facility],[address] [place] [address] EO # 0.04 x10EE3/UL Normal 0.00 - 0.50 [facility] Comment on above: Performed By: #### 2 16043 #### [facility],[address] [place], [place] [id number] Eosinophils/100 WBC (Bld) 0.4 % Normal 0.0 - 7.0 [facility] Comment on above: Performed By: #### 2 93982 #### [facility],[address] [place], [place] [id number] Erythrocyte distribution width (RBC) [Ratio] 13.9 % Normal 12.0 - 15.6 [facility] Comment on above: Performed By: #### 2 35988 #### [facility],[address] [place] [address] Hematocrit (Bld) [Volume fraction] 42.7 % Normal 34.0 - 46.0 [facility] Comment on above: Performed By: #### 2 39989 #### [facility],[address] [place] [address] 21756 Hemoglobin (Bld) [Mass/Vol] 14.4 g/dL Normal 12.0 - 16.0 [facility] Comment on above: Performed By: #### 2 56141 #### [facility],[address] [place] [address] 60395 Lymph # 4.65 x10EE3/UL High 0.80 - 2.80 [facility] Comment on above: Performed By: #### 2 77918 #### [facility],[address] [place], [place] [id number] Lymphocytes/100 WBC (Bld) 47.8 % High 20.0 - 45.0 [facility] Comment on above: Performed By: #### 2 97618 #### [facility],[address] [place] [address] 98053 MANUAL DIFF N/A Normal [facility] Comment on above: Performed By: #### 2 58128 #### [facility],[address] [place] [address] 65653 MCH (RBC) [Entitic mass] 30 pg Normal 27 - 33 [facility] Comment on above: Performed By: #### 2 69639 #### [facility],[address] [place] [address] 11506 MCHC 34 X10 3 Normal 32 - 36 [facility] Comment on above: Performed By: #### 2 63294 #### [facility],[address] [place] [address] 09972 MCV (RBC) [Entitic vol] 87 fL Normal 80 - 99 [facility] Comment on above: Performed By: #### 2 99304 #### [facility],[address] [place] [address] 29706 [place] # 0.77 x10EE3/UL Normal 0.20 - 1.00 [facility] Comment on above: Performed By: #### 2 76878 #### [facility],[address] [place] [address] 33364 MONOS % 8.0 % Normal 0.0 - 10.0 [facility] Comment on above: Performed By: #### 2 37468 #### [facility],[address] [place] [address] 90907 Morphology Landry (Bld) [Interp] N/A Normal [facility] Comment on above: Performed By: #### 2 73651 #### [facility],[address] [place] [address] 92693 Neut # 4.25 x10EE3/UL Normal 1.50 - 7.10 [facility] Comment on above: Performed By: #### 2 16043 #### [facility],[address] [place] [address] 54899 Neutrophils/100 WBC (Bld) 43.6 % Low 46.0 - 76.0 [facility] Comment on above: Performed By: #### 2 78697 #### [facility],[address] [place] [address] 65391 PLATELET 215 x10EE3/UL Normal 150 - 450 [facility] Comment on above: Performed By: #### 2 33199 #### [facility],[address] [place] [address] 14460 Platelet mean volume (Bld) [Entitic vol] 7.9 fL Normal 6.6 - 10.5 [facility] Comment on above: Result Comment: AUTO MATED DIFFERENTIAL Performed By: #### 2 26557 #### [facility],[address] [place] [address] 80899 RBC 4.88 x 10EE6/UL Normal 4.10 - 5.30 [facility] Comment on above: Performed By: #### 2 25479 #### [facility],[address] [place] [address] 70018 WBC 9.7 x 10EE3/UL Normal 4.5 - 10.8 [facility] Comment on above: Performed By: #### 2 43440 #### [facility],[address] [place] [address] 50335 CMP with eGFRon 03-12-2024 AGE 79 years Normal [facility] Comment on above: Performed By: #### 2 04471 #### [facility],[address] [place] [address] 84677 Albumin [Mass/Vol] 2.7 g/dL Low 3.4 - 5.0 [facility] Comment on above: Performed By: #### 2 72692 #### [facility],[address] [place] [address] 86970 Albumin/Globulin [Mass ratio] 0.6 {ratio} Low 0.9 - 1.6 [facility] Comment on above: Performed By: #### 2 05404 #### [facility],[address] [place] [address] 70005 ALK PHOS 79 U/L Normal 46 - 116 [facility] Comment on above: Performed By: #### 2 49081 #### [facility],[address] [place] [address] 01579 ALT [Catalytic activity/Vol] 15 U/L Low 16 - 63 [facility] Comment on above: Performed By: #### 2 45735 #### [facility],[address] [place] [address] 71011 Anion gap [Moles/Vol] 11 mmol/L Normal 10 - 20 [facility] Comment on above: Performed By: #### 2 29465 #### [facility],[address] [place] [address] 19275 AST [Catalytic activity/Vol] 26 U/L Normal 13 - 39 [facility] Comment on above: Performed By: #### 2 97564 #### [facility],[address] [place] [address] 40437 B/C RATIO 11 ratio Normal 0 - 30 [facility] Comment on above: Performed By: #### 2 01668 #### [facility],[address] [place] [address] 09752 Bilirubin [Mass/Vol] 0.4 mg/dL Normal 0.2 - 1.0 [facility] Comment on above: Performed By: #### 2 21295 #### [facility],[address] [place] [address] 71468 Calcium [Mass/Vol] 8.9 mg/dL Normal 8.5 - 10.1 [facility] Comment on above: Performed By: #### 2 59280 #### [facility],[address] [place] [address] 77250 Chloride [Moles/Vol] 100 mmol/L Normal 98 - 107 [facility] Comment on above: Performed By: #### 2 78145 #### [facility],[address] [place] [address] 39860 CMP with eGFR Normal [facility] Comment on above: Result Comment: COMP REHENSIVE METABOLIC PANEL Performed By: #### 2 60395 #### [facility],[address] [place] [address] 98710 CO2 [Moles/Vol] 28.1 mmol/L Normal 21.0 - 32.0 [facility] Comment on above: Performed By: #### 2 06307 #### [facility],[address] [place] [address] 78521 Creatinine [Mass/Vol] 0.89 mg/dL Normal 0.55 - 1.02 [facility] Comment on above: Performed By: #### 2 04876 #### [facility],[address] [place] [address] 14487 GFR/1.73 sq M.predicted among non-blacks MDRD (S/P/Bld) [Vol rate/Area] mL/min/{1.73_m2} Normal 60 - 999 [facility] Comment on above: Performed By: #### 2 00809 #### [facility],[address] [place] [address] 88068 Result Comment: ACCO RDING TO THE NATIONAL KIDNEY DISEASE EDUCATION PROGRAM(NKDE), A NORMAL eGFR IS A VALUE GREATER THAN OR EQUAL TO 60 ML/MIN/1.73 SQ METERS. CHRONIC KIDNEY DISEASE: <60mL/MIN/1.73 SQ METERS KIDNEY FAILURE: <15mL/MIN/1.73 SQ METERS THIS TEST SHOULD ONLY BE USED FOR PATIENTS 18 YEARS OF AGE AND OLDER. Globulin (S) [Mass/Vol] 4.3 g/dL High 1.5 - 3.8 [facility] Comment on above: Performed By: #### 2 84745 #### [address] [address] Glucose [Mass/Vol] 99 mg/dL Normal 74 - 106 [facility] Comment on above: Performed By: #### 2 94648 #### [address] [address] Potassium [Moles/Vol] 3.9 mmol/L Normal 3.5 - 5.1 [facility] Comment on above: Performed By: #### 2 35531 #### [facility],[address] [place] [address] 40536 Protein [Mass/Vol] 7.0 g/dL Normal 6.4 - 8.2 [facility] Comment on above: Performed By: #### 2 77142 #### [facility],[address] [place] [address] 65147 Sodium [Moles/Vol] 135 mmol/L Low 136 - 145 [facility] Comment on above: Performed By: #### 2 71912 #### [facility],[address] [place] [address] 51872 Urea nitrogen [Mass/Vol] 10 mg/dL Normal 7 - 18 [facility] Comment on above: Performed By: #### 2 12097 #### [facility],[address] [place] [address] 18986 ED MED ADMINISTRATION DETAIL on 03-12-2024 ED MED ADMINISTRATION DETAIL Post Framer Medication Administration Record [facility] [address] [place] [address] [id number] 03/11/2024 Patient: JANET TAY Sex: Female : 1945 Age: 79y MEASUREMENTS: Wt: 92.1 kg, Ht/Cedrick: 64.0 in, BMI: 34.84 ALLERGIES: Penicillins Medication Ordered Medication Administration Date/Time IV NS 0.9 % 1000 12:03/11 IV NS 0.9 % 1000 mL started in bag#1 1000 mL at Started mL at 999 mL/hr 999 mL/hr via Site# 1. Allergies verified and confirmed 5 rights. Via 12:03/11/2024 (NOW x1) IV pump. IV patency established. IV site checked: no pain, redness, Varsha Light R.N. or swelling. IV flushed thoroughly pre-medication administration. Stopped Information reviewed with patient including reason for taking this 13:03/11/2024 medication, signs of allergic reaction and precautions. Verbalizes Varsha Light R.N. understanding. - 12:23 Varsha Light R.N. Scanned 13:03/11 Medication Discontinued: bag #1 infused. Total amount infused: 1000 mL. IV patency established. IV site checked: no pain, redness, or swelling. IV flushed thoroughly post-medication administration. - 13:19 Varsha Light R.N. 1 of 2 Post Framer Medication Ordered Medication Administration Date/Time cefTRIAXone 15:03/11 cefTRIAXone (Rocephin) IVPB 1gm/50ml NS 1 g Started (Rocephin) IVPB started at 100 mL/hr diluted in sodium chloride IVPB 0.9 % 15:03/11/2024 1gm/50ml NS 1 g Minibag+ 50 mL via Site# 1. Allergies verified and confirmed 5 Varsha Light R.N. diluted in sodium rights. Via IV pump. IV patency established. IV site checked: no Stopped chloride IVPB 0.9 % pain, redness, or swelling. IV flushed thoroughly pre-medication 15:41 03/11/2024 Minibag+ 50 mL at administration. Information reviewed with patient including reason Varsha Light R.N. 100 mL/hr (NOW x1) for taking this medication, signs of allergic reaction and precautions. Scanned Verbalizes understanding. - 15:07 Varsha Light R.N. 15:41 03/11 Medication Discontinued: IV infused. Total amount infused: 50 mL. IV patency established. IV site checked: no pain, redness, or swelling. IV flushed thoroughly post-medication administration. - 15:41 Varsha Light R.N. Azithromycin 15:07 03/11 Azithromycin (Zithromax) IVPB 500 mg started at 250 Started (Zithromax) IVPB mL/hr diluted in dextrose 5 % in water IVPB 250 mL and VIAL 15:03/11/2024 500 mg diluted in MATE 1 ea via Site# 1. Allergies verified and confirmed 5 rights. Via Varsha Light R.N. dextrose 5 % in IV pump. IV patency established. IV site checked: no pain, redness, Scanned water IVPB 250 mL, or swelling. IV flushed thoroughly pre-medication administration. VIAL MATE 1 ea at Information reviewed with patient including reason for taking this 250 mL/hr (NOW x1) medication, signs of allergic reaction and precautions. Verbalizes understanding. - 15:08 Varsha Light R.N. 16:42 03/11 Medication Continued: upon admission at the rate of 250 mL/hr. 100 mL remaining in bag. IV patency established. IV site checked: no pain, redness, or swelling. - 16:42 Varsha Light R.N. Tamiflu PO 75 mg 15:36 03/11 Tamiflu PO 75 mg given. Allergies verified and Given (NOW x1) confirmed 5 rights. Information reviewed with patient including 15:36 03/11/2024 reason for taking this medication, signs of allergic reaction and Varsha Light R.N. precautions. Verbalizes understanding. - 15:38 Varsha Light R.N. Scanned 2 of 2 Normal [facility] ED NURSES CLINICAL NOTEon ED NURSES CLINICAL NOTE Nurse Narrative Nurse Clinical [address] [place] [address] [phone] 03/11/2024 [id number] Sex: Female : 1945 Age: 79y Disposition: Admit to [facility] Disposition Decision Time: 16:00 03/11/2024 Departure Time: 16:30 03/11/2024 TRIAGE Arrived by EMS. Historian: patient. Patient has a primary care physician. Primary physician (Alec). Triage time: 11:29 03/11/2024. Acuity: LEVEL 3. Chief Complaint: NAUSEA, VOMITING and DIARRHEA and FEVER. ( Pt has complaints of a bad cough as well). SEPSIS SCREEN: NEGATIVE. SIRS criteria negative. No possible sources of infection. -- 11:35 03/11/24 JOSELINE Macias R.N. 11:34 03/11/24. BP: 142/76 MAP: 98. HR: 78. RR: 18. O2 saturation: 89% on room air. Temperature: 98.2 F. Pain level now 0/10. -- 11:35 03/11/24 JOSELINE Macias R.N. Measurements: 11:34 03/11/24 Wt: 92.1 kg, Ht/Cedrick: 64.0 in, BMI: 34.84 -- 11:34 03/11/24 JOSELINE Macias R.N. Medications: diltiazem CD 240 mg capsule,extended release 24 hr: TAKE ONE CAPSULE BY MOUTH DAILY FOR heart -- 11:39 03/11/24 JOSELINE Macias R.N. [place] Thyroid 60 mg tablet: TAKE ONE TABLET BY MOUTH ONCE DAILY -- 11:39 03/11/24 JOSELINE Macias R.N. 1 of 4 Nurse Narrative Allergies: Penicillins -- 11:32 03/11/24 JOSELINE Macias R.N. Problems: Atrial Fibrillation -- 11:32 03/11/24 JOSELINE Macias R.N. Hypothyroidism -- 11:33 03/11/24 JOSELINE Macias R.N. ADDITIONAL SURGERIES: Hysterectomy -- 11:32 03/11/24 JOSELINE Macias R.N. Thyroidectomy -- 11:32 03/11/24 JOSELINE Macias R.N. Tonsillectomy Adenoidectomy -- 11:32 03/11/24 JOSELINE Macias R.N. History 11:03/11/24. SOCIAL HX: Never smoker. No alcohol use or drug use. The patient has not traveled outside the [place] Infectious disease exposure: No infectious disease exposure. ABUSE ASSESSMENT: The patient answered yes to the question(s) Do you feel safe in your home? and no to the question(s) Are you afraid to go home?. SELF HARM ASSESSMENT: Self harm assessment was performed. The patient answered no to the question(s) Have you recently felt down, depressed, or hopeless? and Do you have thoughts of harming or killing yourself?. FALL RISK ASSESSMENT: Fall risk assessment completed. Risk factors identified include patient age greater than 65 years. Fall interventions initiated. Side rails up x2. Bed in low position. Brakes on. Patient identified as a fall risk. -- 11:03/11/24 JOSELINE Macias R.N. Interventions 11:03/11/24. Advanced care plan discussed with patient. Patient does not have advanced directive. -- 11:03/11/24 JOSELINE Macias R.N. 2 of 4 Nurse Narrative PHYSICAL ASSESSMENT 11:03/11/24. GENERAL / NEURO / PSYCH: Alert. Oriented X 4. Appears in no acute distress. RESPIRATORY: Mild respiratory distress (Intermittent SOB). The patient can speak in full sentences. Cough productive of yellow sputum. Expiratory wheezes in the right mid-lung anteriorly and upper lung anteriorly. CVS: Normal sinus rhythm noted. Capillary refill less than 2 seconds. GI / : The patient has had nausea. Bilious emesis noted. (yesterday). Abdomen soft and nontender. Bowel sounds within normal limits. EXTREMITIES: Bilateral 2+ edema of the lower extremities involving both lower legs. SKIN: Skin is warm and dry. -- 12:03/11/24 JOSELINE Light R.N. 11:40 03/11/24. Pain level now 0/10. -- 12:03/11/24 JOSELINE Light R.N. NURSING PROGRESS NOTES 11:40 03/11/24. Patient ID band checked. Flu swab obtained by nurse via nasal swab. Labeled in the presence of the patient and sent to lab. Patient ID band checked. COVID-19 specimen obtained by nurse via nasal specimen. Labeled in the presence of the patient. -- 12:16 03/11/24 JOSELINE Light R.N. 12:10 03/11/24. Site #1 started via IV in the left antecubital space with a 20g angiocath with aseptic technique, ultrasound guidance and good blood return; 1 attempt. Blood drawn: rainbow set tube(s). Labeled in the presence of the patient and sent to the lab. Saline lock flushed with 5 mL saline. -- 12:15 03/11/24 JOSELINE Light R.N. 12:22 03/11/24. IV NS 0.9 % 1000 mL started in bag#1 1000 mL at 999 mL/hr via Site# 1. Allergies verified and confirmed 5 rights. Via IV pump. IV patency established. IV site checked: no pain, redness, or swelling. IV flushed thoroughly pre-medication administration. Information reviewed with patient including reason for taking this medication, signs of allergic reaction and precautions. Verbalizes understanding. -- 12:23 03/11/24 JOSELINE Light R.N. 12:03/11/24. 12-LEAD EKG: EKG time: (12:29 03/11/2024). 12-Lead EKG was ordered, performed by me and shown to the ED physician. NSR. -- 12:31 03/11/24 Tanja Barrientos (more content not included)... Normal [facility] ED ORDER SHEET ([facility] ONLY)on 03-12-2024 ED ORDER SHEET ([facility] ONLY) Order Sheet Order Sheet [facility] [address] [place] [address]. [place] [address] [phone] 03/11/2024 Patient: JANET TAY Sex: Female : 1945 Age: 79y MEASUREMENTS: Wt: 92.1 kg, Ht/Cedrick: 64.0 in, BMI: 34.84 ALLERGIES: Penicillins MEDICATION/IV/DRIP/FLUI D ORDERS Order Description Priority Entered Acknowledged Completed IV NS 0.9 %1000 mL at 999 11:50 03/11/2024 12:14 12:23 mL/hr (NOW x1) Isaiah Mayorga M.D. 03/11/2024 03/11/2024 Varsha Deras, R.N. R.N. cefTRIAXone (Rocephin) IVPB 14:55 03/11/2024 14:57 15:07 1gm/50ml NS1 g diluted in Isaiah Mayorga M.D. 03/11/2024 03/11/2024 sodium chloride IVPB 0.9 % Varsha Deras, Minibag+ 50 mL at 100 mL/hr R.N. R.N. (NOW x1) Reason for ordering with alerts: Clinical consideration given --14:55 03/11/2024 Isaiah Mayorga M.D. Azithromycin (Zithromax) 14:55 03/11/2024 14:57 15:08 [id number] mg diluted in dextrose 5 Isaiah Mayorga M.D. 03/11/2024 03/11/2024 % in water IVPB 250 mL, VIAL Varsha Deras, MATE 1 ea at 250 mL/hr (NOW R.N. R.N. x1) Tamiflu PO75 mg (NOW x1) 15:13 03/11/2024 15:15 15:38 Isaiah Mayorga M.D. 03/11/2024 03/11/2024 Varsha Deras, 1 of 3 Order Sheet R.N. R.N. LAB ORDERS Order Description Priority Entered Acknowledged Collected Completed CBC w Diff Stat Stat 11:50 03/11/2024 12:13 03/11/2024 12:16 03/11/2024 Varsha Salinas Katelyn Horst, M.D. R.N. R.N. CMP Stat Stat 11:50 03/11/2024 12:13 03/11/2024 12:16 03/11/2024 Varsha Salinas Katelyn Horst, M.D. R.N. R.N. Lipase Stat Stat 11:50 03/11/2024 12:13 03/11/2024 12:16 03/11/2024 Isaiah ShVarsha laguna Katelyn Horst, M.D. R.N. R.N. EKG - ED Stat Stat 11:50 03/11/2024 12:13 03/11/2024 12:29 03/11/2024 Varsha Salinas Katelyn Horst, M.D. R.N. R.N. Troponin-I Stat Stat 13:54 03/11/2024 14:11 03/11/2024 14:11 03/11/2024 Varsha Salinas Katelyn Horst, M.D. R.N. R.N. Flu Swab (Influenzae Stat 13:54 03/11/2024 14:11 03/11/2024 14:11 03/11/2024 AAg) Stat Varsha Salinas Katelyn Horst, M.D. R.N. R.N. Rapid COVID (SARS) Stat 13:54 03/11/2024 14:11 03/11/2024 14:11 03/11/2024 ANTIGEN TEST Stat Varsha Salinas Katelyn Horst, M.D. R.N. R.N. 2 of 3 Order Sheet D-Dimer Stat Stat 13:55 03/11/2024 14:11 03/11/2024 14:11 03/11/2024 Varsha Salinas Katelyn Horst, M.D. R.N. R.NLinda DIAGNOSTIC STUDY ORDERS Order Description Priority Entered Acknowledged Completed Chest 1V Stat Stat 13:54 03/11/2024 14:11 14:57 Isaiah Mayorga M.D. 03/11/2024 03/11/2024 Varsha Deras, R.N. R.N. Reason for Study: Shortness of Breath STAFF ORDERS Order Description Priority Entered Acknowledged Collected Completed [Electronically signed by Isaiah Mayorga M.D. (03/12/2024 11:16 EST)] 3 of 3 Normal [facility] ED PHYSICIAN CLINICAL REPORT on 03-12-2024 ED PHYSICIAN CLINICAL REPORT Narrative Physician Clinical Narrative [address] [place] [address] [phone] 03/11/2024 [id number] Sex: Female : 1945 Age: 79y Disposition: Admit to [facility] Disposition Decision Time: 16:00 03/11/2024 Departure Time: 16:30 03/11/2024 Measurements Wt: 92.1 kg, Ht/Cedrick: 64.0 in, BMI: 34.84 Initial Vital Sign Measured Time BP MAP HR RR O2Sat ETCO2 Temp Pain GCS RTS 11:30 03/11/2024 91% Time Seen: late entry - 12:03 03/11/2024. HISTORY OF PRESENT ILLNESS Chief Complaint: DYSPNEA. The patient has had sputum production, a cough and chills. No fever or wheezing. (Patient presents from home with progressively worsening shortness of breath over the last few days. She was found to be hypoxic on evaluation by EMS and placed on oxygen. When she was transitioned to our oxygen her level already dropped to 89% no fast heart rate. No previous leg swelling. States she has had viral symptoms never had a history of a blood clot. No recent long distance travel. She has had progressively worsening symptoms but they immediately improved with oxygen. States she feels much better now. Has felt short of breath and she does not usually have this. It is with ambulation but then developed also when she was just laying down. She has had a mildly productive cough. No one else at home is sick. No reported high fevers.). REVIEW OF SYSTEMS See HPI. 1 of 14 Narrative PAST HISTORY See nurses notes. Atrial Fibrillation Hypothyroidism Surgeries: Hysterectomy Thyroidectomy Tonsillectomy Adenoidectomy Medications: [place] Thyroid 60 mg tablet: TAKE ONE TABLET BY MOUTH ONCE DAILY diltiazem CD 240 mg capsule,extended release 24 hr: TAKE ONE CAPSULE BY MOUTH DAILY FOR heart Allergies: Penicillins ADDITIONAL NOTES The nursing notes have been reviewed. PHYSICAL EXAM Vital Signs: Have been reviewed. ENT: Nose normal. Pharynx normal. No nasal discharge. The mucous membranes are not dry. CVS: Normal heart rate and rhythm. Heart sounds normal. Pulses normal. Respiratory: No respiratory distress. Painless inspiration. Breath sounds normal. No accessory muscle use, retractions, wheezes, crackles or rhonchi. Abdomen: Soft and nontender. Skin: Skin warm. Normal skin color. Normal skin turgor. Extremities: Extremities exhibit normal ROM. No lower extremity edema. Neuro: Oriented X 3. No weakness. Sensory deficit noted. LABS, X-RAYS, AND EKG 2 of Narrative 12-LEAD EKG: Rhythm is sinus with 1 P wave for every QRS 1 QRS for every P wave. CO, QRS, QT intervals are unremarkable. No axis deviation noted. No ST segment elevation or depression. Unremarkable T waves. Unremarkable EKG. Laboratory Tests: CBC + DIFF Final DAVID: 03/11/2024 12:10:00 EST MsgRcvd: 03/11/2024 12:58 EST Lab Test Result Reference Status Received Comments 03/11/2024 12:58 CBC-COMPLETE CBC + DIFF Final EST BLOOD COUNT 03/11/2024 12:58 WBC 8.3 x 10/UL 4.5 - 10.8 Final EST 03/11/2024 12:58 RBC 5.11 x 10/UL 4.10 - 5.30 Final EST 03/11/2024 12:58 HEMOGLOBIN 14.8 g/dl 12.0 - 16.0 Final EST 03/11/2024 12:58 HEMATOCRIT 44.3 % 34.0 - 46.0 Final EST 03/11/2024 12:58 MCV 87 fl 80 - 99 Final EST 03/11/2024 12:58 MCH 29 pg 27 - 33 Final EST 03/11/2024 12:58 MCHC 33 X10 3 32 - 36 Final EST 03/11/2024 12:58 RDW/CV 14.1 % 12.0 - 15.6 Final EST 03/11/2024 12:58 PLATELET 217 x10/UL 150 - 450 Final EST 3 of 14 Narrative 03/11/2024 12:58 AUTOMATED MPV 7.6 fl 6.6 - 10.5 Final EST DIFFERENTIAL 03/11/2024 12:58 NEUT % 68.4 % 46.0 - 76.0 Final EST 03/11/2024 12:58 LYMPH % 21.8 % 20.0 - 45.0 Final EST 03/11/2024 12:58 MONOS % 9.1 % 0.0 - 10.0 Final EST 03/11/2024 12:58 EO % 0.5 % 0.0 - 7.0 Final EST 03/11/2024 12:58 BASO % 0.3 % 0.0 - 2.0 Final EST 03/11/2024 12:58 Lymph # 1.81 x10/UL 0.80 - 2.80 Final EST 03/11/2024 12:58 Neut # 5.68 x10/UL 1.50 - 7.10 Final EST 03/11/2024 12:58 [place] # 0.76 x10/UL 0.20 - 1.00 Final EST 03/11/2024 12:58 EO # 0.04 x10/UL 0.00 - 0.50 Final EST 03/11/2024 12:58 Baso # 0.02 x10/UL 0.00 - 0.10 Final EST 03/11/2024 12:58 MANUAL DIFF N/A New Order EST 03/11/2024 12:58 MORPHOLOGY N/A New Order EST CMP with eGFR Final Narrative DAVID: 03/11/2024 12:10:00 EST MsgRcvd: 03/11/2024 12:58 EST Lab Test Result Reference Status Received Comments COMPREHENSIVE 03/11/2024 CMP with eGFR Final METABOLIC 12:58 EST PANEL 134 mmol/l 03/11/2024 SODIUM 136 - 145 Final Below low normal 12:58 EST 03/11/2024 POTASSIUM 3.6 mmol/L 3.5 - 5.1 Final 12:58 EST 93 mmol/L 03/11/2024 CHLORIDE 98 - 107 Final Below low normal 12:58 EST 03/11/2024 CO2 29.3 mmol/L 21.0 (more content not included)... Normal [facility] ED SUPER BILLon 03-12-2024 ED SUPER BILL [place] [address] [place] [address] [phone] 03/11/2024 Patient: JANET TAY Sex: Female : 1945 Age: 79y Item Facility Professional Category Description Code Code Quantity Fee Total Nurse/E/M EMERGENCY 990510 1 $0.00 $0.00 DEPARTMENT VISIT HIGH/URGENT SEVERITY (82359-74) Nurse/IV/IM/Infusions Drip/IVPB 712949 1 $0.00 $0.00 concurrent (64081) Nurse/IV/IM/Infusions Drip/IVPB initial 592213 1 $0.00 $0.00 (43588) Nurse/IV/IM/Infusions Hydration 080699 1 $0.00 $0.00 additional hour (15117) Grand Total $0.00 Providers Isaiah Mayorga M.D. 1 of 2 Superbill Chief Complaint DYSPNEA. Principal Diagnosis Pneumonia, Influenza A. 2 of 2 Normal [facility] ED VISIT SUMMARYon ED VISIT SUMMARY Visit Overview Visit Overview [facility] [address] [place] [address] [phone] 03/11/2024 Patient: JANET TAY Sex: Female : 1945 Age: 79y 03/12/2024 11:16 AM EST ED Arrival:11:26 03/11/2024 EST Status: Recent Travel:no Language:eng Adv Directive:No Isolation Status: Ethnicity:N Fall Risk:risk Infectious Disease Exposure:no Measurements:5'4 / 162.6 Self-Harm Status:risk Sepsis Screen:negative cm 203.0 lb / 92.1 kg Chief Complaint:DIARRHEA, FEVER, NAUSEA, VOMITING, (Luke), and (Pt has complaints of a bad cough as well) ALLERGIES Penicillins HOME MEDICATIONS [place] Thyroid 60 mg tablet: TAKE ONE TABLET BY MOUTH ONCE DAILY diltiazem CD 240 mg capsule,extended release 24 hr: TAKE ONE CAPSULE BY MOUTH DAILY FOR heart 1 of 3 Visit Overview PAST MEDICAL HISTORY / PROBLEMS Atrial Fibrillation Hypothyroidism See nurses notes PAST SURGICAL HISTORY Hysterectomy Thyroidectomy Tonsillectomy Adenoidectomy SOCIAL HISTORY Smoking status: No Alcohol use: No Drug use: No ED COURSE MEDICATIONS GIVEN IN EMERGENCY DEPARTMENT 12:22 03/11/24 IV NS 0.9 % 1000 mL 999 mL/hr cefTRIAXone (Rocephin) IVPB 1gm/50ml NS 1 g diluted in sodium chloride IVPB 0.9 % 15:05 03/11/24 Minibag+ 50 mL 100 mL/hr Azithromycin (Zithromax) IVPB 500 mg diluted in dextrose 5 % in water IVPB 250 mL 15:07 03/11/24 and VIAL MATE 1 ea 250 mL/hr 15:36 03/11/24 Tamiflu PO 75 mg IV SITE INFORMATION 12:10 03/11/24 Site #1 left AC, 20g. Saline lock. INTAKE OUTPUT REASSESMENT (most recent) 12:59 03/11/24. ( Ambulated patient to restroom. SpO2 decreased to 87% on room air with exertion. Patient placed back on 2L NC and SpO2 increased to 92%.). VITAL SIGNS 2 of 3 Visit Overview First Vitals Last Vitals Temp 11:30 03/11/24 Temp 16:30 03/11/24 BP 11:30 03/11/24 BP 16:30 03/11/24 HR 11:30 03/11/24 HR 16:30 03/11/24 74 RR 11:30 03/11/24 RR 16:30 03/11/24 O2 Sat 11:30 03/11/24 91% O2 Sat 16:30 03/11/24 95% Pain 11:30 03/11/24 Pain 16:30 03/11/24 ETCO2 11:30 03/11/24 ETCO2 16:30 03/11/24 GCS 11:30 03/11/24 GCS 16:30 03/11/24 RTS 11:30 03/11/24 RTS 16:30 03/11/24 PROCEDURES NURSING INTERVENTIONS LABS / STUDIES LABS / STUDIES ORDERED CBC w Diff Chest 1V CMP D-Dimer EKG - ED Flu Swab (Influenzae AAg) Lipase Rapid COVID (SARS) ANTIGEN TEST Troponin-I CLINICAL IMPRESSION 3 of 3 Normal [facility] ED VITALS FLOW SHEETon 03-12 ED VITALS FLOW SHEET Vitals Vital Sign Flow Sheet [address] [place] [address] [phone] 03/11/2024 Patient: JANET TAY Sex: Female : 1945 Age: 79y Measurements Wt: 92.1 kg, Ht/Cedrick: 64.0 in, BMI: 34.84 Measured Time BP MAP HR RR O2Sat ETCO2 Temp Pain GCS RTS 16:30 03/11/2024 74 95% 16:25 03/11/2024 71 93% 16:20 03/11/2024 71 94% 16:18 03/11/2024 151/68 91 72 16:15 03/11/2024 70 93% 16:10 03/11/2024 87 94% 16:05 03/11/2024 86 94% 16:03 03/11/2024 169/78 98 90 16:00 03/11/2024 86 95% 15:55 03/11/2024 75 95% 15:50 03/11/2024 72 94% 15:48 03/11/2024 172/76 91 74 15:45 03/11/2024 75 95% 15:40 03/11/2024 82 97% 15:35 03/11/2024 73 95% 1 of 4 Vitals Measured Time BP MAP HR RR O2Sat ETCO2 Temp Pain GCS RTS 15:33 03/11/2024 158/69 98 71 15:30 03/11/2024 73 95% 15:25 03/11/2024 70 95% 15:20 03/11/2024 71 94% 15:18 03/11/2024 165/72 103 74 15:15 03/11/2024 74 93% 15:10 03/11/2024 76 94% 15:05 03/11/2024 73 95% 15:02 03/11/2024 156/79 104 75 15:00 03/11/2024 74 92% 14:55 03/11/2024 79 95% 14:50 03/11/2024 72 93% 14:48 03/11/2024 148/65 115 71 14:45 03/11/2024 69 90% 14:40 03/11/2024 71 91% 14:35 03/11/2024 75 94% 14:33 03/11/2024 160/70 105 69 14:30 03/11/2024 73 93% 14:25 03/11/2024 72 90% 14:24 03/11/2024 159/76 100 71 14:20 03/11/2024 74 88% 14:00 03/11/2024 71 94% 13:55 03/11/2024 65 92% 13:50 03/11/2024 67 94% 13:45 03/11/2024 73 93% 2 of 4 Vitals Measured Time BP MAP HR RR O2Sat ETCO2 Temp Pain GCS RTS 13:40 03/11/2024 71 95% 13:35 03/11/2024 68 94% 13:30 03/11/2024 70 96% 13:25 03/11/2024 68 91% 13:20 03/11/2024 76 96% 13:15 03/11/2024 71 95% 13:10 03/11/2024 68 95% 13:05 03/11/2024 72 94% 13:00 03/11/2024 71 93% 12:50 03/11/2024 67 92% 12:45 03/11/2024 71 94% 12:40 03/11/2024 72 94% 12:35 03/11/2024 70 93% 12:30 03/11/2024 75 94% 12:25 03/11/2024 74 93% 12:15 03/11/2024 75 93% 12:05 03/11/2024 75 92% 12:00 03/11/2024 76 90% 11:55 03/11/2024 74 94% 11:47 03/11/2024 133/70 100 76 11:45 03/11/2024 77 94% 11:40 03/11/2024 78 92% 11:40 03/11/2024 0 11:35 03/11/2024 80 89% 11:34 03/11/2024 142/76 98 78 18 89% RA 98.2 F 0 3 of 4 Vitals Measured Time BP MAP HR RR O2Sat ETCO2 Temp Pain GCS RTS 11:32 03/11/2024 142/76 97 79 11:30 03/11/2024 91% 4 of 4 Normal [facility] CBC + DIFFon 03-11-2024 Baso # 0.02 x10EE3/UL Normal 0.00 - 0.10 [facility] Comment on above: Performed By: #### 2 [id number] #### [facility],[address] [place] [address] Basophils/100 WBC (Bld) 0.3 % Normal 0.0 - 2.0 [facility] Comment on above: Performed By: #### 2 [id number] #### [facility],[address] [place] [address] CBC + DIFF Normal [facility] Comment on above: Result Comment: CBC- COMPLETE BLOOD COUNT Performed By: #### 2 [id number] #### [facility],[address] [place] [id number] EO # 0.04 x10EE3/UL Normal 0.00 - 0.50 [facility] Comment on above: Performed By: #### 2 [id number] #### [facility],[address] [place], [place] [id number] Eosinophils/100 WBC (Bld) 0.5 % Normal 0.0 - 7.0 [facility] Comment on above: Performed By: #### 2 32952 #### [place] [address] Erythrocyte distribution width (RBC) [Ratio] 14.1 % Normal 12.0 - 15.6 [facility] Comment on above: Performed By: #### 2 [id number] #### [facility],[address] [place] [address] Hematocrit (Bld) [Volume fraction] 44.3 % Normal 34.0 - 46.0 [facility] Comment on above: Performed By: #### 2 [id number] #### [facility],[address] [place] [address] Hemoglobin (Bld) [Mass/Vol] 14.8 g/dL Normal 12.0 - 16.0 [facility] Comment on above: Performed By: #### 2 [id number] #### [facility],[address] [place] [address]46 Lymph # 1.81 x10EE3/UL Normal 0.80 - 2.80 [facility] Comment on above: Performed By: #### 2 36243 #### [facility],[address] [place] [address] Lymphocytes/100 WBC (Bld) 21.8 % Normal 20.0 - 45.0 [facility] Comment on above: Performed By: #### 2 60276 #### [facility],[address] [place] [address] MANUAL DIFF N/A Normal [facility] Comment on above: Performed By: #### 2 [id number] #### [facility],[address] [place] [address] MCH (RBC) [Entitic mass] 29 pg Normal 27 - 33 [facility] Comment on above: Performed By: #### 2 [id number] #### [facility],[address] [place] [address] MCHC 33 X10 3 Normal 32 - 36 [facility] Comment on above: Performed By: #### 2 [id number] #### [facility],[address] [place] [address] MCV (RBC) [Entitic vol] 87 fL Normal 80 - 99 [facility] Comment on above: Performed By: #### 2 11394 #### [facility],[address] [place] [address] [place] # 0.76 x10EE3/UL Normal 0.20 - 1.00 [facility] Comment on above: Performed By: #### 2 25491 #### [facility],[address] [place] [address] MONOS % 9.1 % Normal 0.0 - 10.0 [facility] Comment on above: Performed By: #### 2 63512 #### [facility],[address] [place] [address] Morphology [place] (Bld) [Interp] N/A Normal [facility] Comment on above: Performed By: #### 2 [id number] #### [facility],[address] [place] [address] Neut # 5.68 x10EE3/UL Normal 1.50 - 7.10 [facility] Comment on above: Performed By: #### 2 [id number] #### [facility],[address],[place] [address] Neutrophils/100 WBC (Bld) 68.4 % Normal 46.0 - 76.0 [facility] Comment on above: Performed By: #### 2 [id number] #### [facility],[address] [place] [address] PLATELET 217 x10EE3/UL Normal 150 - 450 [facility] Comment on above: Performed By: #### 2 55763 #### [facility],[address] [place] [address] 10124 Platelet mean volume (Bld) [Entitic vol] 7.6 fL Normal 6.6 - 10.5 [facility] Comment on above: Result Comment: AUTO MATED DIFFERENTIAL Performed By: #### [id number] #### [facility],[address] [place] [address] [id number] RBC 5.11 x 10EE6/UL Normal 4.10 - 5.30 [facility] Comment on above: Performed By: #### [id number] #### [facility],[address] [place] [id number] WBC 8.3 x 10EE3/UL Normal 4.5 - 10.8 [facility] Comment on above: Performed By: #### [id number] #### [facility],[address] [place] [id number] CHEST 1 VIEWon 03-11-2024 CHEST 1 VIEW [place] [address] Patient: JANET TAY Phone#: : 1945 Age: 79 Gender: F Pt. Type: ER Account: [id number] Location: [facility] Ordering: DR. ISAIAH MAYORGA Exam Date: 03/11/2024/13:56 Family Phys: ALEC AIKEN Charge Code: 690752 Physician: Harney Order #: [id number] Dose#: PROCEDURE: X-RAY CHEST 1 VIEW COMPARISON: None. INDICATIONS: Shortness of breath. FINDINGS: LUNGS: Right infrahilar infiltrate VASCULATURE: Normal. Unremarkable pulmonary vasculature. CARDIAC: Cardiomegaly MEDIASTINUM: Aortic arch calcification PLEURA: Normal. No effusion or pleural thickening. BONES: Ossification adjacent to the left humeral head may represent calcific . Degenerative changes of the spine tendinitis or calcific bursitis OTHER: Negative. CONCLUSION: 1. Right infrahilar infiltrate Dictated by: Jordyn Johnson MD on 03/11/2024 at 14:19 Approved by: Jordyn Johnson MD on 03/11/2024 at 14:21 Normal [facility] CMP with eGFRon 03-11-2024 AGE 79 years Normal [facility] Comment on above: Performed By: #### 2 63145 #### [facility],[address] [place] [address] 01898 Albumin [Mass/Vol] 3.3 g/dL Low 3.4 - 5.0 [facility] Comment on above: Performed By: #### 2 83578 #### [facility],[address] [place] [address] 67579 Albumin/Globulin [Mass ratio] 0.7 {ratio} Low 0.9 - 1.6 [facility] Comment on above: Performed By: #### 2 92981 #### [facility],[address] [place] [address] 59778 ALK PHOS 94 U/L Normal 46 - 116 [facility] Comment on above: Performed By: #### 2 16679 #### [facility],[address] [place] [address] 24198 ALT [Catalytic activity/Vol] 25 U/L Normal 16 - 63 [facility] Comment on above: Performed By: #### 2 31366 #### [facility],[address] [place] [address] 77045 Anion gap [Moles/Vol] 15 mmol/L Normal 10 - 20 [facility] Comment on above: Performed By: #### 2 45344 #### [facility],[address] [place] [address] 38411 AST [Catalytic activity/Vol] 31 U/L Normal 13 - 39 [facility] Comment on above: Performed By: #### 2 52188 #### [facility],[address] [place] [address] 01105 B/C RATIO 11 ratio Normal 0 - 30 [facility] Comment on above: Performed By: #### 2 41675 #### [facility],[address] [place] [address] 35039 Bilirubin [Mass/Vol] 0.5 mg/dL Normal 0.2 - 1.0 [facility] Comment on above: Performed By: #### 2 85950 #### [facility],[address] [place] [address] 44146 Calcium [Mass/Vol] 9.5 mg/dL Normal 8.5 - 10.1 [facility] Comment on above: Performed By: #### 2 04031 #### [facility],[address] [place] [address] 72701 Chloride [Moles/Vol] 93 mmol/L Low 98 - 107 [facility] Comment on above: Performed By: #### 2 17888 #### [facility],[address] [place] [address] 30490 CMP with eGFR Normal [facility] Comment on above: Result Comment: COMP REHENSIVE METABOLIC PANEL Performed By: #### 2 07583 #### [facility],[address] [place] [address] 25673 CO2 [Moles/Vol] 29.3 mmol/L Normal 21.0 - 32.0 [facility] Comment on above: Performed By: #### 2 85444 #### [facility],[address] [place] [address] 82084 Creatinine [Mass/Vol] 1.12 mg/dL High 0.55 - 1.02 [facility] Comment on above: Performed By: #### 2 41813 #### [facility],[address] [place] [address] 44485 eGFR 47 ML/MINUTE Low 60 - 999 [facility] Comment on above: Performed By: #### 2 42347 #### [facility],[address] [place] [address] 75222 eGFR(AA) 57 ML/MINUTE Low 60 - 999 [facility] Comment on above: Result Comment: ACCO RDING TO THE NATIONAL KIDNEY DISEASE EDUCATION PROGRAM(NKDE), A NORMAL eGFR IS A VALUE GREATER THAN OR EQUAL TO 60 ML/MIN/1.73 SQ METERS. CHRONIC KIDNEY DISEASE: <60mL/MIN/1.73 SQ METERS KIDNEY FAILURE: <15mL/MIN/1.73 SQ METERS THIS TEST SHOULD ONLY BE USED FOR PATIENTS 18 YEARS OF AGE AND OLDER. Performed By: #### 2 57676 #### [facility],[address] [place] [address] 34202 Globulin (S) [Mass/Vol] 5.0 g/dL High 1.5 - 3.8 [facility] Comment on above: Performed By: #### 2 42482 #### [facility],[address] [place] [address] 81087 Glucose [Mass/Vol] 113 mg/dL High 74 - 106 [facility] Comment on above: Performed By: #### 2 99393 #### [facility],[address] [place] [address] 60116 Potassium [Moles/Vol] 3.6 mmol/L Normal 3.5 - 5.1 [facility] Comment on above: Performed By: #### 2 60842 #### [facility],[address] [place] [address] 67461 Protein [Mass/Vol] 8.3 g/dL High 6.4 - 8.2 [facility] Comment on above: Performed By: #### 2 34469 #### [facility],[address] [place] [address] 72521 Sodium [Moles/Vol] 134 mmol/L Low 136 - 145 [facility] Comment on above: Performed By: #### 2 33779 #### [facility],[address] [place] [address] Urea nitrogen [Mass/Vol] 12 mg/dL Normal 7 - 18 [facility] Comment on above: Performed By: #### 2 91252 #### [facility],[address] [place] [address] CORONAVIRUS (SARS) ANTIGEN T ESTon 03-11-2024 EXTERNAL QC DONE? YES Normal [facility] Comment on above: Performed By: #### 2 62656 #### [facility],[address] [place] [address] INTERNAL CONTROL PASS Normal [facility] Comment on above: Performed By: #### 2 62730 #### [facility],[address] [place] [address] SARS ANTIGEN Negative Normal NORMAL: NEGATIVE [facility] Comment on above: Performed By: #### 2 73032 #### [facility],[address] [place] [address] SEND TO ? NO Normal [facility] Comment on above: Result Comment: SARS -CoV-2 THIS TEST IS BEING USED UNDER THE FDA EUA PROCEDURE. THIS ASSAY HAS BEEN VALIDATED AT [facility] FOR USE WITH NASAL AND NASOPHARYNGEAL SWAB SPECIMENS. INTERPRETIVE DATA TEST RESULTS SHOULD ALWAYS BE CONSIDERED IN THE CONTEXT OF CLINICAL OBSERVATIONS AND EPIDEMIOLOGICAL DATA IN MAKING FINAL DIAGNOSIS AND PATIENT MANAGEMENT DECISIONS. PATIENT MANAGEMENT SHOULD FOLLOW CURRENT CDC GUIDELINES. THE DOREEN SARS ANTIGEN AUGUSTIN DOES NOT DIFFERENTIATE BETWEEN SARS-CoV & SARS-CoV-2. A POSITIVE TEST RESULT INDICATES THE PRESENCE OF SARS-CoV-2 NUCLEOCAPSID PROTEIN ANTIGEN, AND THE PATIENT IS INFECTED WITH THE VIRUS AND PRESUMED TO BE CONTAGIOUS. A NEGATIVE TEST RESULT FOR THIS TEST MEANS THAT SARS-CoV-2 NUCLEOCAPSID PROTEIN ANTIGEN WAS NOT PRESENT IN THE SPECIMEN ABOVE THE LIMIT OF DETECTION. HOWEVER, A NEGATIVE RESULT DOES NOT RULE OUT COVID-19 AND SHOULD NOT BE USED THE SOLE BASIS FOR TREATMENT OR PATIENT MANAGEMENT DECISIONS. A NEGATIVE RESULT DOES NOT EXCLUDE THE POSSIBILITY OF COVID-19. NEGATIVE RESULTS, FROM PATIENTS WITH SYMPTOM ONSET BEYOND FIVE DAYS, SHOULD BE TREATED PRESUMPTIVE AND CONFIRMATION WITH A MOLECULAR ASSAY, IF NECESSARY, FOR PATIENT MANAGEMENT, MAY BE PERFORMED. WHEN DIAGNOSTIC TESTING IS NEGATIVE, THE POSSIBLILTY OF A FALSE NEGATIVE RESULT SHOULD BE CONSIDERED IN THE CONTEXT OF A PATIENT'S RECENT EXPOSURES AND THE PRESENCE OF CLINICAL SIGNS AND SYMPTOMS CONSISTENT WITH COVID-19. THE POSSIBILITY OF A FALSE NEGATIVE RESULT SHOULD ESPECIALLY BE CONSIDERED IF THE PATIENT'S RECENT EXPOSURES OR CLINICAL PRESENTATION INDICATE THAT COVID-19 IS LIKELY, AND DIAGNOSTIC TESTS FOR OTHER CAUSES OF ILLNESS (e.g., OTHER RESPIRATORY ILLNESS) ARE NEGATIVE. IF COVID-19 IS STILL SUSPECTED BASED ON EXPOSURE HISTORY TOGETHER WITH OTHER CLINICAL FINDINGS, RE-TESTING SHOULD BE CONSIDERED BY HEALTHCARE PROVIDERS IN CONSULTATION WITH PUBLIC HEALTH AUTHORITIES. Performed By: #### 2 59385 #### [facility],[address] [place] [address] 64376 D-DIMER, QUANTITATIVEon 02-23 D-DIMER QUANT 420 ng/ml High 0 - 230 [facility] Comment on above: Performed By: #### 2 44914 #### [facility],[address] [place] [address] 71998 D-DIMER, QUANTITATIVE Normal [facility] Comment on above: Result Comment: EDWIN T D-DIMER Performed By: #### 2 55090 #### [facility],[address] [place] [address] 03246 INFLUENZA VIRUS RAPID A/Bon 03-11-2024 INFLUENZA VIRUS RAPID A/B INFLUENZA A POSITIVE INFLUENZA B NEGATIVE INTERNAL NEG QC PASS INTERNAL POS QC PASS EXTERNAL QC DONE? YES SEND TO IC? YES A NEGATIVE TEST RESULT DOES NOT EXCLUDE INFECTION WITH INFLUENZA A OR B. THEREFORE, THE RESULTS OBTAINED FROM THIS FLU TEST SHOULD BE USED IN CONJUCTION WITH CLINICAL FINDINGS TO MAKE AN ACCURATE DIAGNOSIS. A POSITIVE RESULT DOES NOT RULE OUT CO-INFECTIONS WITH OTHER PATHOGENS OR IDENTIFY ANY SPECIFIC INFLUENZA A VIRUS SUBTYPE.CO-INFECTION WITH INFLUENZA A AND B IS RARE. IT IS RECOMMENDED THAT DUAL POSITIVE RESULTS BE CONFIRMED BY VIRAL CULTURE OR AN FDA-CLEARED INFLUENZA A AND B MOLECULAR ASSAY. INDIVIDUALS WHO HAVE RECEIVED NASALLY ADMINISTERED INFLUENZA A VACCINE MAY TEST POSITIVE IN COMMERCIALLY AVAILABLE INFLUENZA RAPID DIAGNOSTIC TESTS FOR UP TO THREE DAYS. RESULT CRITICAL? YES { CALLED TO .RN { READ BACK BY .RN Normal [facility] Comment on above: Performed By: #### 2 39616 #### [facility],[address] [place], [place] [id number] LIPASEon 03-11-2024 Lipase [Catalytic activity/Vol] 18.0 U/L Normal 15.0 - 78.0 [facility] Comment on above: Result Comment: *PLE ASE NOTE THAT RANGES FOR LIPASE HAVE CHANGED OF 02/20/23 DUE TO AN ASSAY UPDATE BY THE TABULAR TYPIST.THE NEW ASSAY RANGE IS 6-250 U/L, WITH A REFERENCE RANGE OF 16-77 U/L. Performed By: #### 2 92697 #### [place] [id number] TROPONINon 03-11-2024 HS TROPONIN 48.1 pg/mL Normal 0.0 - 51.4 [facility] Comment on above: Performed By: #### 2 01556 #### [facility],[address] [place], [place] [id number] Cardiology Visit Reporton Cardiology Visit Report [facility] [address] [place] [address] OFFICE VISIT Date of Service: 01/27/24 MR#: [id number] Acct: [id number] Name: JANET TAY Rep #: [id number] : 1945 Provider: ZOHAIB wolf Age/Sex: 78/F Location: [facility] Status: Signed HPI HPI History of Present Illness Details: JANET TAY, is a 78 F who presents to the office today for a cardiovascular outpatient follow-up. She has a history of paroxysmal atrial fibrillation/flutter status post radiofrequency ablation on 12/29/2007 at [facility] with Dr. Day. She also has a history of hypertension as well as stress- induced cardiomyopathy/Takotsub o cardiomyopathy. Her echocardiogram done in September 2021 demonstrated an ejection fraction of 55% with stage II diastolic dysfunction. She denies chest, arm, jaw, or neck discomfort. She continues with palpitations. This is unchanged from previous and does not affect her activity. She denies bilateral lower extremity edema. She denies claudication. She states shortness of breath with activity such as going up stairs. She denies shortness of breath at rest, orthopnea, or PND. She denies chronic cough. She denies significant, sudden weight gain. She denies lightheadedness, dizziness, near-syncope, or syncope. She denies blood in urine, blood in stool, or epistaxis. He denies fever with chills. She denies myalgia. She states fatigue. Her exercise level has remained stable. Intake Vital Signs 08/18/23 10:25 01/27/24 10:59 Height 5 ft 5 in 5 ft 5 in Weight: 214 lb 211 lb BMI 35.6 35.1 BP 163/84 H 160/81 H Blood Pressure Location Lt brachial Lt brachial Position Sitting Sitting Respiration 20 H 16 Pulse 74 71 Pulse Source Monitor NIBP Pulse Oximetry (%) 97 Intake Visit Reasons: 6 M [employer] Required: No Accompanied by: Is patient in pain?: No Allergies latex Allergy (Verified 01/27/24 11:08) Unknown Penicillins Allergy (Verified 01/27/24 11:08) Unknown Medications ???Medication ???Instructions ???Recorded ???Confirmed ???Type thyroid (pork) 60 mg tablet 60 mg PO DAILY 06/16/13 01/27/24 History diltiazem HCl 240 mg 240 mg PO DAILY heart #90 caps 06/18/23 01/27/24 Rx capsule,extended release 24 hr Ejection fraction %: 55 Have you fallen in the past year?: No PFSH Medical History Stage 3a chronic kidney disease (CKD) Obesity Takotsubo cardiomyopathy Hypothyroidism Essential (primary) hypertension Edema leg Supraventricular tachycardia Paroxysmal atrial fibrillation Pure hypercholesterolemia Surgical History History of left heart catheterization (06/23/07) Hx of cholecystectomy History of hysterectomy H/O cardiac radiofrequency ablation (12/29/07) Family History Mother CAD (coronary artery disease) Brother CAD (coronary artery disease) Sister CAD (coronary artery disease) Social History household members: spouse housing: house current occupation: [employer] Smoking Status: Never smoker alcohol intake: never substance use type: does not use ROS Const Const: Positive for fatigue (Relates to recent course of prednisone 40 mg); Negative for weakness Eyes Eyes: Negative for change in vision ENT ENT: Negative for dizziness or balance problems Cardio Chest Pain: No Palpitations: Yes feels like its: fast Edema: Bilateral (Right greater than left. Relates to prednisone ) Resp Respiratory: Positive for SOB with activity (Only with stairs); Negative for SOB at rest or SOB orthopnea SOB lying down GI GI: Negative nausea or heartburn Musc Musc: Negative for balance problems Neuro Neuro: Negative for dizziness, lightheadedness, near syncope, syncope or weakness Endo Endo: Positive for fatigue (Relates to recent course of prednisone 40 mg) Supplemental Info Supplemental Information ECHOCARDIOGRAM 10/09/2021 Interpretation Summary Normal LV size. Left ventricular systolic function is normal. The estimated ejection fraction is 55 %. Stage 2 diastolic dysfunction. ??? ECHOCARDIOGRAM 11/05/2020: Interpretation Summary Normal LV size. Left ventricular systolic function is normal. Mild concentric left ventricular hypertrophy. The estimated ejection fraction is 60 %. Moderate atherosclerosis of the ascending aorta. Assessment and Plan Assessment and Plan (1) Paroxysmal atrial fibrillation: Status: Chronic Comment: Status post radiofrequency ablation on 12/29/2007 Plan: Her last Holter monitor showed no atrial fibrillation in May 2023. At this time we will continue diltiazem and continue to monitor. If reoccurring atrial fibrilla (more content not included)... Normal [facility] CV VENOUS LEG RTon CV VENOUS LEG RT [address] [address] Patient: JANET TAYLinda Phone#: : 1945 Age: 78 Gender: F Pt. Type: Out Account: [id number] Location: [facility] Ordering: ALEC AIKEN Exam Date: 01/25/2024/13:46 Family Phys: Charge Code: [id number] Physician: Harney Order #: [id number] Dose#: PROCEDURE: VENOUS DOPPLER RT LEG COMPARISON: None. INDICATIONS: EDEMA, pain TECHNIQUE: Color duplex Doppler ultrasound evaluation analysis was performed in the usual manner. LASER CUTTER: DOROTA CARRILLO RISK FACTORS FOR VENOUS DISEASE: Varicose veins EXAMINATION: RIGHT +Present -Reduced o Absent LEFT SPONT PHASIC AUG REFLUX COMP SPONT PHASIC AUG REFLUX COMP + + + o + CFV + SFJ + + + o + FV (prox) + FV (mid) + FV (dist) + + + o + POP V + + + o + T/P TRUNK + + + o + PTV + + + o + PERONEAL V + GSV GASTROC SOLEAL V LASER CUTTER'S NOTES: Multiple thrombus filled varicosities are noted in the right medial calf. FINDINGS: THROMBI: No deep vein thrombus. Thrombosed varicosities in the right medial calf. Continued Report - Page 2 of 2 Patient: JANET TAY Phone#: : 1945 Age: 78 Gender: F Pt. Type: Out Account: [id number] Location: [facility] Ordering: ALEC AIKEN Exam Date: 01/25/2024/13:46 Family Phys: Charge Code: 100953 Physician: Harney Order #: [id number] Dose#: COMPRESSIBILITY: Deep veins are compressible. Noncompressible varicosities of the right medial calf. OTHER: Negative. CONCLUSION: 1. No deep vein thrombus 2. Thrombosed varicosities of the right medial calf Dictated by: Jordyn Johnson MD on 01/25/2024 at 16:28 Approved by: Jordyn Johnson MD on 01/25/2024 at 16:30 Normal [facility] C-REACTIVE PROTEINon 024 CRP 1.40 mg/dl High 0.00 - 0.90 [facility] Comment on above: Performed By: #### 2 99092 #### [facility],[address] [place] [address] CBC + DIFFon 01-03-2024 Baso # 0.05 x10EE3/UL Normal 0.00 - 0.10 [facility] Comment on above: Performed By: #### 2 34447 #### [facility],[address] [place] [address] Basophils/100 WBC (Bld) 0.7 % Normal 0.0 - 2.0 [facility] Comment on above: Performed By: #### 2 49465 #### [facility],[address] [place] [address] CBC + DIFF Normal [facility] Comment on above: Result Comment: CBC- COMPLETE BLOOD COUNT Performed By: #### 2 99382 #### [place] [address] EO # 0.07 x10EE3/UL Normal 0.00 - 0.50 [facility] Comment on above: Performed By: #### 2 26908 #### [place] [address] Eosinophils/100 WBC (Bld) 1.0 % Normal 0.0 - 7.0 [facility] Comment on above: Performed By: #### 2 08661 #### [place] [address] Erythrocyte distribution width (RBC) [Ratio] 14.0 % Normal 12.0 - 15.6 [facility] Comment on above: Performed By: #### 2 15730 #### [place] [address] Hematocrit (Bld) [Volume fraction] 40.7 % Normal 34.0 - 46.0 [facility] Comment on above: Performed By: #### 2 33642 #### [place] [address] Hemoglobin (Bld) [Mass/Vol] 14.0 g/dL Normal 12.0 - 16.0 [facility] Comment on above: Performed By: #### 2 01155 #### [facility],[address] [place] [address] Lymph # 2.43 x10EE3/UL Normal 0.80 - 2.80 [facility] Comment on above: Performed By: #### 2 95327 #### [facility],[address] [place] [address] Lymphocytes/100 WBC (Bld) 33.5 % Normal 20.0 - 45.0 [facility] Comment on above: Performed By: #### 2 93339 #### [facility],[address] [place] [address] MANUAL DIFF N/A Normal [facility] Comment on above: Performed By: #### 2 43534 #### [place] [address] MCH (RBC) [Entitic mass] 30 pg Normal 27 - 33 [facility] Comment on above: Performed By: #### 2 28697 #### [place] [address] MCHC 34 X10 3 Normal 32 - 36 [facility] Comment on above: Performed By: #### 2 41041 #### [place] [address] MCV (RBC) [Entitic vol] 88 fL Normal 80 - 99 [facility] Comment on above: Performed By: #### 2 84258 #### [facility],[address] [place] [address] [place] # 0.59 x10EE3/UL Normal 0.20 - 1.00 [facility] Comment on above: Performed By: #### 2 29560 #### [place] [address] MONOS % 8.2 % Normal 0.0 - 10.0 [facility] Comment on above: Performed By: #### 2 00129 #### [facility],[address] [place] [address] Morphology [place] (Bld) [Interp] N/A Normal [facility] Comment on above: Performed By: #### 2 71647 #### [facility],[address] [place] [address] 07696 Neut # 4.11 x10EE3/UL Normal 1.50 - 7.10 [facility] Comment on above: Performed By: #### 2 79343 #### [facility],[address] [place] [address] Neutrophils/100 WBC (Bld) 56.7 % Normal 46.0 - 76.0 [facility] Comment on above: Performed By: #### 2 75810 #### [facility],[address] [place] [address] PLATELET 193 x10EE3/UL Normal 150 - 450 [facility] Comment on above: Performed By: #### 2 51653 #### [facility],[address] [place] [address] Platelet mean volume (Bld) [Entitic vol] 8.0 fL Normal 6.6 - 10.5 [facility] Comment on above: Result Comment: AUTO MATED DIFFERENTIAL Performed By: #### 2 18826 #### [facility],[address] [place] [address] RBC 4.64 x 10EE6/UL Normal 4.10 - 5.30 [facility] Comment on above: Performed By: #### 2 96593 #### [facility],[address] [place], [place] [id number] WBC 7.3 x 10EE3/UL Normal 4.5 - 10.8 [facility] Comment on above: Performed By: #### 2 27866 #### [facility],[address] [place], [place] [id number] CMP with eGFRon 01-03-2024 AGE 78 years Normal [facility] Comment on above: Performed By: #### 2 41167 #### [facility],[address],[place] [address] Albumin [Mass/Vol] 3.5 g/dL Normal 3.4 - 5.0 [facility] Comment on above: Performed By: #### 2 91440 #### [facility],[address] [place] [address] 19112 Albumin/Globulin [Mass ratio] 0.7 {ratio} Low 0.9 - 1.6 [facility] Comment on above: Performed By: #### 2 35146 #### [facility],[address] [place] [address] 56602 ALK PHOS 95 U/L Normal 46 - 116 [facility] Comment on above: Performed By: #### 2 33694 #### [facility],[address] [place] [address] 86236 ALT [Catalytic activity/Vol] 26 U/L Normal 16 - 63 [facility] Comment on above: Performed By: #### 2 86236 #### [facility],[address] [place] [address] 93477 Anion gap [Moles/Vol] 12 mmol/L Normal 10 - 20 [facility] Comment on above: Performed By: #### 2 98789 #### [facility],[address] [place] [address] 38006 AST [Catalytic activity/Vol] 21 U/L Normal 13 - 39 [facility] Comment on above: Performed By: #### 2 62350 #### [facility],[address] [place] [address] 09052 B/C RATIO 23 ratio Normal 0 - 30 [facility] Comment on above: Performed By: #### 2 73702 #### [facility],[address] [place] [address] 21695 Bilirubin [Mass/Vol] 0.4 mg/dL Normal 0.2 - 1.0 [facility] Comment on above: Performed By: #### 2 38751 #### [facility],[address] [place] [address] 73995 Calcium [Mass/Vol] 9.6 mg/dL Normal 8.5 - 10.1 [facility] Comment on above: Performed By: #### 2 59353 #### [facility],[address] [place] [address] 23058 Chloride [Moles/Vol] 101 mmol/L Normal 98 - 107 [facility] Comment on above: Performed By: #### 2 50954 #### [facility],[address] [place] [address] 56082 CMP with eGFR Normal [facility] Comment on above: Result Comment: COMP REHENSIVE METABOLIC PANEL Performed By: #### 2 05333 #### [facility],[address] [place] [address] 66444 CO2 [Moles/Vol] 29.5 mmol/L Normal 21.0 - 32.0 [facility] Comment on above: Performed By: #### 2 79355 #### [facility],[address] [place] [address] 11220 Creatinine [Mass/Vol] 1.05 mg/dL High 0.55 - 1.02 [facility] Comment on above: Performed By: #### 2 74497 #### [facility],[address] [place] [address] 25809 eGFR 51 ML/MINUTE Low 60 - 999 [facility] Comment on above: Performed By: #### 2 17117 #### [facility],[address] [place] [address] 56809 GFR/1.73 sq M.predicted among non-blacks MDRD (S/P/Bld) [Vol rate/Area] mL/min/{1.73_m2} Normal 60 - 999 [facility] Comment on above: Result Comment: ACCO RDING TO THE NATIONAL KIDNEY DISEASE EDUCATION PROGRAM(NKDE), A NORMAL eGFR IS A VALUE GREATER THAN OR EQUAL TO 60 ML/MIN/1.73 SQ METERS. CHRONIC KIDNEY DISEASE: <60mL/MIN/1.73 SQ METERS KIDNEY FAILURE: <15mL/MIN/1.73 SQ METERS THIS TEST SHOULD ONLY BE USED FOR PATIENTS 18 YEARS OF AGE AND OLDER. Performed By: #### 2 96649 #### [facility],[address] [place] [address] 08288 Globulin (S) [Mass/Vol] 5.0 g/dL High 1.5 - 3.8 [facility] Comment on above: Performed By: #### 2 59377 #### [facility],[address] [place] [address] 90079 Glucose [Mass/Vol] 107 mg/dL High 74 - 106 [facility] Comment on above: Performed By: #### 2 35011 #### [facility],[address] [place] [address] 85977 Potassium [Moles/Vol] 4.3 mmol/L Normal 3.5 - 5.1 [facility] Comment on above: Performed By: #### 2 88479 #### [facility],[address] [place] [address] 87989 Protein [Mass/Vol] 8.5 g/dL High 6.4 - 8.2 [facility] Comment on above: Performed By: #### 2 48502 #### [facility],[address] [place] [address] 57208 Sodium [Moles/Vol] 138 mmol/L Normal 136 - 145 [facility] Comment on above: Performed By: #### 2 00606 #### [facility],[address] [place] [address] 20966 Urea nitrogen [Mass/Vol] 24 mg/dL High 7 - 18 [facility] Comment on above: Performed By: #### 2 32605 #### [facility],[address] [place] [address] 18676 CULTURE, URINE, ROUTINEon CULTURE, URINE, ROUTINE SEE NOTE Abnormal [facility] Comment on above: Result Comment: CULTURE, URINE, ROUTINE Micro Number: [id number] Test Status: Final Specimen Source: Urine Specimen Quality: Adequate Result: Greater than 100,000 CFU/mL of Escherichia coli E.coli INT BRETT AMOX/CLAVULANATE S <=2 AMPICILLIN S <=2 AMP/SULBACTAM S <=2 CEFAZOLIN NR <=4 2 CEFEPIME S <=1 CEFTAZIDIME S <=1 CEFTRIAXONE S <=1 CIPROFLOXACIN S <=0.25 GENTAMICIN S <=1 IMIPENEM S <=0.25 LEVOFLOXACIN S <=0.12 NITROFURANTOIN S 32 PIP/TAZOBACTAM S <=4 TOBRAMYCIN S <=1 TRIMETHOPRIM/SULFA S <=20 S = Susceptible I = Intermediate R = Resistant NS = Not susceptible SDD = Susceptible Dose Dependent * = Not Tested NR = Not Reported NN = See Therapy Comments THERAPY COMMENTS Note 1: For infections other than uncomplicated UTI caused by E. coli, K. pneumoniae or P. mirabilis: Cefazolin is resistant if BRETT > or = 8 mcg/mL. (Distinguishing susceptible versus intermediate for isolates with BRETT < or = 4 mcg/mL requires additional testing.) Note 2: For uncomplicated UTI caused by E. coli, K. pneumoniae or P. mirabilis: Cefazolin is susceptible if BRETT <32 mcg/mL and predicts susceptible to the oral agents cefaclor, cefdinir, cefpodoxime, cefprozil, cefuroxime, cephalexin and loracarbef. Performed By: #### 3 95 #### [facility] [address], [address] [place] [phone] [employer] [facility] Specialists: Chris Beck MD ED MED ADMINISTRATION DETAIL on 01-03-2024 ED MED ADMINISTRATION DETAIL Post Framer Medication Administration Record [address] [place] [id number] 01/03/2024 Patient: JANET TAY Sex: Female : 1945 Age: 78y MEASUREMENTS: Wt: 93.4 kg, Ht/Cedrick: 65.0 in, BMI: 34.28 ALLERGIES: Penicillins Medication Ordered Medication Administration Date/Time Fentanyl IVP 25 11:09 01/02 Fentanyl IVP 25 mcg given via Site# 1. Allergies Given mcg (NOW x1, HIGH verified and confirmed 5 rights. IV patency established. IV site 11:01/03/2024 ALERT checked: no pain, redness, or swelling. IV flushed thoroughly Jose Salcedo R.N. MEDICATION) pre-medication administration. IVP given by nurse. Information Scanned reviewed with patient including sedative warning. Verbalizes understanding. Medication Wastage: 75 mcg wasted. - 11: Sonia MurrayN. Ondansetron IVP 4 11:01/02 Ondansetron IVP 4 mg given via Site# 1. Allergies Given mg (NOW x1) verified and confirmed 5 rights. IV patency established. IV site 11:01/03/2024 checked: no pain, redness, or swelling. IV flushed thoroughly Jose Salcedo R.N. pre-medication administration. IVP given by nurse. Information Scanned reviewed with patient. Verbalizes understanding. - 11: Sonia MurrayNLinda Fentanyl IVP 50 12:01/02 Fentanyl IVP 50 mcg given via Site# 1. Allergies Given mcg (NOW x1, HIGH verified and confirmed 5 rights. IV patency established. IV site 12:01/03/2024 ALERT checked: no pain, redness, or swelling. IV flushed thoroughly Jose Salcedo R.N. MEDICATION) pre-medication administration. IVP given by nurse. Information Scanned reviewed with patient. Verbalizes understanding. Medication Wastage: 50 mcg wasted. - 12:00 Jose Salcedo R.N. 1 of 2 Post Framer Medication Ordered Medication Administration Date/Time Ondansetron IVP 4 12:01/02 Ondansetron IVP 4 mg given via Site# 1. Allergies Given mg (NOW x1) verified and confirmed 5 rights. IV patency established. IV site 12:01/03/2024 checked: no pain, redness, or swelling. IV flushed thoroughly Jose Salcedo R.N. pre-medication administration. IVP given by nurse. Information Scanned reviewed with patient. Verbalizes understanding. - 12:00 Jose Salcedo R.N. PredniSONE PO 40 12:34 01/02 PredniSONE PO 40 mg given. Allergies verified and Given mg confirmed 5 rights. Information reviewed with patient. Verbalizes 12:34 01/03/2024 understanding. - 12:35 Shira Murray R.N. Scanned 2 of 2 Normal [facility] ED NURSES CLINICAL NOTEon ED NURSES CLINICAL NOTE Nurse Narrative Nurse Clinical Narrative [place] [address] [place] [address] [phone] 01/03/2024 Patient: JANET TAY Sex: Female : 1945 Age: 78y Disposition: Discharge to Home Disposition Decision Time: 12:38 01/03/2024 Departure Time: 13:07 01/03/2024 TRIAGE Arrived by private vehicle. Historian: patient. Accompanied by family. Primary physician (Alec Aiken). Triage time: 09:59 01/03/2024. Acuity: LEVEL 3. Chief Complaint: RIGHT UPPER EXTREMITY PAIN and SWELLING. Alert. No acute distress. An injury may have occurred. Onset. (Thursday). ( Patient had a blood draw at the Dr's office on Thursday and since then has had swelling and pain to her right wrist around the site of the draw.). The patient has had swelling. SEPSIS SCREEN: NEGATIVE. SIRS criteria negative. No possible sources of infection. -- 10:01/03/24 JOSELINE Segal R.N. 09:59 01/03/24. BP: 177/84 MAP: 115. HR: 80. RR: 16. O2 saturation: 98% Temperature: 98.4 F. Pain level now 10. Describes the pain as sharp. -- :01/03/24 JOESLINE Segal R.N. Measurements: 01/03/24 Wt: 93.4 kg, Ht/Cedrick: 65.0 in, BMI: 34.28 -- 01/03/24 JOSELINE Segal R.N. Medications: dilTIAZem CD 240 mg capsule,extended release 24 hr -- 10:05 01/03/24 JOSELINE Segal R.N. 1 of 4 Nurse Narrative Allergies: Penicillins -- 10:02 01/03/24 JOSELINE Segal R.N. Problems: Atrial Fibrillation -- 10:04 01/03/24 JOSELINE Segal R.N. ADDITIONAL SURGERIES: Hysterectomy -- 10:02 01/03/24 JOSELINE Segal R.N. Thyroidectomy -- 10:03 01/03/24 JOSELINE Segal R.N. Tonsillectomy Adenoidectomy -- 10:03 01/03/24 JOSELINE Segal R.N. History 09:59 01/03/24. SOCIAL HX: Never smoker. No alcohol use or drug use. The patient has not traveled outside the [place] Infectious disease exposure: No infectious disease exposure. ABUSE ASSESSMENT: The patient answered yes to the question(s) Do you feel safe in your home? and no to the question(s) Are you afraid to go home?, Are you afraid of your partner or someone close to you?, Has your partner or someone close to you emotionally, physically, or sexually assaulted you?, Has your partner or someone close to you threatened to harm/ kill you?, Did your partner or someone close to you cause the presenting injury(s)?, Has your partner or someone close to you ever used a weapon towards you?, Have children witnessed violence in the home? and Has your partner or someone close to you physically abused children?. No report of abuse. SELF HARM ASSESSMENT: Self harm assessment was performed. The patient answered no to the question(s) Have you recently felt down, depressed, or hopeless?, Do you have thoughts of harming or killing yourself?, Do you have a plan for harming or killing yourself?, Have you recently had thoughts about harming or killing others?, Do you have any dangerous items in your possession?, Have you noticed less interest or pleasure in doing things?, Are you here because you tried to hurt yourself? and Have you ever tried to hurt yourself before today?. NUTRITIONAL RISK ASSESSMENT: The nutritional risk assessment revealed no deficiencies. FUNCTIONAL ASSESSMENT: Functional assessment: no impairments noted. 2 of 4 Nurse Narrative LEARNING NEEDS ASSESSMENT: The learning needs assessment revealed no barriers. FALL RISK ASSESSMENT: Fall risk assessment completed. No risk factors identified. SKIN INTEGRITY ASSESSMENT: Skin integrity risk assessment completed. No skin integrity risk identified. -- 10:02 01/03/24 JOSELINE Segal R.N. Assessment 09:59 01/03/24. The patient states feels the same. -- 10:02 01/03/24 JOSELINE Segal R.N. Interventions 09:59 01/03/24. Identification band on patient. To treatment room. Advanced care plan (FULL CODE). -- 10:01/03/24 JOSELINE Segal R.N. PHYSICAL ASSESSMENT 11:18 01/03/24. Ambulatory to room. GENERAL / NEURO / PSYCH: Oriented X 4. Alert. Appears in no acute distress. EXTREMITIES: Erythema on the extremities. Right wrist: tenderness and swelling. Limited ROM secondary to pain (diminished flexion and extension). SKIN: Skin is warm and dry. -- 11:18 01/03/24 JOSELINE Salcedo R.N. NURSING PROGRESS NOTES 10:50 01/03/24. Site #1 started via IV in the left antecubital space with a 20g angiocath with aseptic technique, ultrasound guidance and good blood return; 1 attempt. Blood drawn: rainbow set tube(s). Labeled in the presence of the patient and sent to the lab. Saline lock flushed with 5 mL saline. -- 11:08 01/03/24 JOSELINE Salcedo R.N. 11:09 01/03/24. Fentanyl IVP 25 mcg given via Site# 1. Allergies verified and confirmed 5 rights. IV patency established. IV site checked: no pain, redness, or swelling. (more content not included)... Normal [facility] ED ORDER SHEET ([facility] ONLY)on 01-03-2024 ED ORDER SHEET ([facility]OE ONLY) Order Sheet Order Sheet [address] [place] [address] [id number] 01/03/2024 Patient: JANET TAY Sex: Female : 1945 Age: 78y MEASUREMENTS: Wt: 93.4 kg, Ht/Cedrick: 65.0 in, BMI: 34.28 ALLERGIES: Penicillins MEDICATION/IV/DRIP/FLUI D ORDERS Order Description Priority Entered Acknowledged Completed Fentanyl IVP25 mcg (NOW x1, 10:17 01/03/2024 10:20 11:09 HIGH ALERT MEDICATION) Neville Santiago M.D. 01/03/2024 01/03/2024 Jose Murray, Shira R.NLinda Reason for ordering with alerts: Clinical consideration given --10:17 01/03/2024 Neville Santiago M.D. Ondansetron IVP4 mg (NOW x1) 10:17 01/03/2024 10:20 11:10 Neville Santiago M.D. 01/03/2024 01/03/2024 Jose Murray, Shira RPorter Fentanyl IVP50 mcg (NOW x1, 11:49 01/03/2024 11:50 12:00 HIGH ALERT MEDICATION) Neville Santiago M.D. 01/03/2024 01/03/2024 Jose Murray R.N. RLindaNLinda Reason for ordering with alerts: Clinical consideration given --11:49 01/03/2024 Neville Santiago M.D. Ondansetron IVP4 mg (NOW x1) 11:49 01/03/2024 11:50 12:00 Neville Santiago M.D. 01/03/2024 01/03/2024 Jose Murray, 1 of 3 Order Sheet R.N. R.NLinda Reason for ordering with alerts: Clinical consideration given --11:49 01/03/2024 Neville Santiago M.D. PredniSONE PO40 mg 12:24 01/03/2024 12:24 12:35 Neville Santiago M.D. 01/03/2024 01/03/2024 Jose Murray, Tanja.NLinda R.NLinda LAB ORDERS Order Description Priority Entered Acknowledged Collected Completed CBC w Diff Stat Stat 10:17 01/03/2024 10:20 01/03/2024 11:03 01/03/2024 Paul Bartholomew Jamie Burgett, R.N. R.NLinda CMP Stat Stat 10:17 01/03/2024 10:20 01/03/2024 11:03 01/03/2024 Paul Bartholomew Jamie Burgett, R.N. R.Andrew CRP Stat Stat 10:17 01/03/2024 10:20 01/03/2024 11:03 01/03/2024 Paul Bartholomew Jamie Burgett, R.N. R.Andrew Uric Acid Stat Stat 12:24 01/03/2024 12:24 01/03/2024 12:25 01/03/2024 Paul Bartholomew Jamie Burgett, R.NLinda R.Andrew DIAGNOSTIC STUDY ORDERS Order Description Priority Entered Acknowledged Completed Wrist R 3V Stat Stat 10:17 01/03/2024 10:20 11:03 Neville Santiago M.D. 01/03/2024 01/03/2024 Jose Murray R.N. R.NLinda Reason for Study: Pain STAFF ORDERS 2 of 3 Order Sheet Order Description Priority Entered Acknowledged Collected Completed IV Saline Lock 10:17 01/03/2024 10:20 01/03/2024 11:03 01/03/2024 Paul Bartholomew Jamie Burgett, R.N. R.NLinda [Electronically signed by Neville Santiago M.D. (01/03/2024 15:08 EST)] 3 of 3 Normal [facility] ED PHYSICIAN CLINICAL REPORT on 01-03-2024 ED PHYSICIAN CLINICAL REPORT Narrative Physician Clinical [address] [address] [id number] 01/03/2024 Patient: JANET TAY Sex: Female : 1945 Age: 78y Disposition: Discharge to Home Disposition Decision Time: 12:38 01/03/2024 Departure Time: 13:07 01/03/2024 Measurements Wt: 93.4 kg, Ht/Cedrick: 65.0 in, BMI: 34.28 Initial Vital Sign Measured Time BP MAP HR RR O2Sat ETCO2 Temp Pain GCS RTS 09:57 01/03/2024 177/84 115 80 16 98% 98.4 F 10 Time Seen: 10:07 01/03/2024. Arrived- By private vehicle. Historian- patient. HISTORY OF PRESENT ILLNESS Chief Complaint: UPPER EXTREMITY PAIN and SWELLING. Severity is described as being severe. It has become recently worse. The quality is noted to be burning and aching. This started about 2 days and is still present and worsening. (since blood drawn from wrist 2 days ago). Modifying factors- worsened by movement of wrist and fingers. Made better by not moving. Symptoms located in the area of the right wrist. No chest pain, difficulty breathing, sensory loss, motor loss or repetitive hand use at work. The patient has had mild redness and swelling. Similar symptoms previously. None. REVIEW OF SYSTEMS All other systems reviewed and are negative. 1 of 9 Narrative PAST HISTORY See nurses notes. Atrial Fibrillation Surgeries: Hysterectomy Thyroidectomy Tonsillectomy Adenoidectomy Medications: dilTIAZem CD 240 mg capsule,extended release 24 hr Allergies: Penicillins SOCIAL HISTORY Does not use tobacco. No drug use. Marital status: . Orthodoxy and culture: (Druze). Advanced care plan. ADDITIONAL NOTES The nursing notes have been reviewed. PHYSICAL EXAM Vital Signs: Have been reviewed. Appearance: Alert. Oriented X3. Appears to be in pain. Eyes: Eyes normal inspection. ENT: Nose normal. Pharynx normal. Neck: Normal inspection. Neck supple. CVS: Normal heart rate and rhythm. Heart sounds normal. Respiratory: No respiratory distress. Skin: Skin warm and dry. Normal skin color. Extremities: No signs of infection present in the upper extremities. No upper extremity pulse deficit present. Upper extremity capillary refill not prolonged. No upper extremity edema. Right wrist: ecchymosis, mild erythema and swelling and moderate tenderness. Limited ROM secondary to pain. (Along proximal right thenar 2 of 9 Narrative eminence and volar aspect of wrist.). No laceration, abrasion, small ecchymosis, puncture wound or foreign body. No deformity. No avulsion. Extremities otherwise negative. Neuro: Oriented X 3. LABS, X-RAYS, AND EKG Rt Wrist X-ray: No fracture. (degenerative changes). Technique: good. The X-rays were independently viewed by me. Laboratory Tests: C-REACTIVE PROTEIN Final DAVID: 01/03/2024 10:50:00 EST MsgRcvd: 01/03/2024 11:24 EST Lab Test Result Reference Status Received Comments 1.40 mg/dl 01/03/2024 11:24 CRP 0.00 - 0.90 Final Above high normal EST CBC + DIFF Final DAVID: 01/03/2024 10:50:00 EST MsgRcvd: 01/03/2024 11:09 EST Lab Test Result Reference Status Received Comments 01/03/2024 11:09 CBC-COMPLETE CBC + DIFF Final EST BLOOD COUNT 01/03/2024 11:09 WBC 7.3 x 10/UL 4.5 - 10.8 Final EST 01/03/2024 11:09 RBC 4.64 x 10/UL 4.10 - 5.30 Final EST 01/03/2024 11:09 HEMOGLOBIN 14.0 g/dl 12.0 - 16.0 Final EST 01/03/2024 11:09 HEMATOCRIT 40.7 % 34.0 - 46.0 Final EST 3 of 9 Narrative 01/03/2024 11:09 MCV 88 fl 80 - 99 Final EST 01/03/2024 11:09 MCH 30 pg 27 - 33 Final EST 01/03/2024 11:09 MCHC 34 X10 3 32 - 36 Final EST 01/03/2024 11:09 RDW/CV 14.0 % 12.0 - 15.6 Final EST 01/03/2024 11:09 PLATELET 193 x10/UL 150 - 450 Final EST 01/03/2024 11:09 AUTOMATED MPV 8.0 fl 6.6 - 10.5 Final EST DIFFERENTIAL 01/03/2024 11:09 NEUT % 56.7 % 46.0 - 76.0 Final EST 01/03/2024 11:09 LYMPH % 33.5 % 20.0 - 45.0 Final EST 01/03/2024 11:09 MONOS % 8.2 % 0.0 - 10.0 Final EST 01/03/2024 11:09 EO % 1.0 % 0.0 - 7.0 Final EST 01/03/2024 11:09 BASO % 0.7 % 0.0 - 2.0 Final EST 01/03/2024 11:09 Lymph # 2.43 x10/UL 0.80 - 2.80 Final EST 01/03/2024 11:09 Neut # 4.11 x10/UL 1.50 - 7.10 Final EST 01/03/2024 11:09 [place] # 0.59 x10/UL 0.20 - 1.00 Final EST 4 of 9 Narrative 01/03/2024 11:09 EO # 0.07 x10/UL 0.00 - 0.50 Final EST 01/03/2024 11:09 Baso # 0.05 x10/UL 0.00 - 0.10 Final EST 01/03/2024 11:09 MANUAL DIFF N/A New Order EST 01/03/2024 11:09 MORPHOLOGY N/A New Order EST CMP with eGFR Final DAVID: 01/03/2024 10:50:00 EST MsgRcvd: 01/03/2024 11:24 EST Lab Test Result Reference Status Received Comments COMPREHENSIVE 01/03/2024 CMP with eGFR Final METABOLIC 11:24 EST PANEL 01/03/2024 (more content not included)... Normal [facility] ED SUPER BILLon 01-03-2024 ED [place] [address] [place] [address] [id number] 01/03/2024 Patient: JANET TAY Sex: Female : 1945 Age: 78y Item Facility Professional Category Description Code Code Quantity Fee Total Nurse/E/M EMERGENCY 361761 1 $0.00 $0.00 DEPARTMENT VISIT HIGH/URGENT SEVERITY (46833-11) Nurse/IV/IM/Infusions IVP additional 523929 1 $0.00 $0.00 push (39825) Nurse/IV/IM/Infusions IVP initial 177768 1 $0.00 $0.00 (12611) Nurse/IV/IM/Infusions IVP same med 724455 2 $0.00 $0.00 (31 min apart) (61166) Grand Total $0.00 Providers Neville Santiago M.D. Chief Complaint 1 of 2 [facility] UPPER EXTREMITY PAIN and SWELLING. Principal Diagnosis Acute upper extremity pain involving the right wrist (arthritis flare vs hematoma). ICD-10 Codes M25.531: Pain in right wrist 2 of 2 Normal [facility] ED VISIT SUMMARYon ED VISIT SUMMARY Visit Overview Visit Overview [facility] [address] [place] [address] [id number] 01/03/2024 Patient: JANET TAY Sex: Female : 1945 Age: 78y 01/03/2024 03:08 PM EST ED Arrival:09:48 01/03/2024 EST Status: Recent Travel:no Language:eng Adv Directive: Isolation Status: Ethnicity:N Fall Risk:no risk Infectious Disease Exposure:no Measurements:5'5 / 165.1 Self-Harm Status:risk Sepsis Screen:negative cm 206.0 lb / 93.4 kg Chief Complaint:RIGHT UPPER EXTREMITY PAIN, RIGHT UPPER EXTREMITY SWELLING, (Thursday), (Alec Aiken), and (Patient had a blood draw at the Dr's office on Thursday and since then has had swelling and pain to her right wrist around the site of the draw.) ALLERGIES Penicillins HOME MEDICATIONS 1 of 3 Visit Overview dilTIAZem CD 240 mg capsule,extended release 24 hr PAST MEDICAL HISTORY / PROBLEMS Atrial Fibrillation See nurses notes PAST SURGICAL HISTORY Hysterectomy Thyroidectomy Tonsillectomy Adenoidectomy SOCIAL HISTORY Nutritional assessment: No deficits Functional assessment: No impairments Learning needs: No barriers Smoking status: No Alcohol use: No Drug use: No ED COURSE MEDICATIONS GIVEN IN EMERGENCY DEPARTMENT 11:09 01/03/24 Fentanyl IVP 25 mcg 11:01/03/24 Ondansetron IVP 4 mg 12:00 01/03/24 Ondansetron IVP 4 mg 12:00 01/03/24 Fentanyl IVP 50 mcg 12:34 01/03/24 PredniSONE PO 40 mg IV SITE INFORMATION INTAKE OUTPUT REASSESMENT (most recent) 2 of 3 Visit Overview 11:18 01/03/24. Ambulatory to room. GENERAL / NEURO / PSYCH: Oriented X 4. Alert. Appears in no acute distress. EXTREMITIES: Erythema on the extremities. Right wrist: tenderness and swelling. Limited ROM secondary to pain (diminished flexion and extension). SKIN: Skin is warm and dry. VITAL SIGNS First Vitals Last Vitals Temp 09:57 01/03/24 98.4 F Temp 13:02 01/03/24 BP 09:57 11/10/24 177/84 BP 13:02 01/03/24 HR 09:57 01/03/24 80 HR 13:02 01/03/24 RR 09:57 01/03/24 16 RR 13:02 01/03/24 O2 Sat 09:57 01/03/24 98% O2 Sat 13:02 01/03/24 Pain 09:57 01/03/24 10 Pain 13:02 01/03/24 6 ETCO2 09:57 01/03/24 ETCO2 13:02 01/03/24 GCS 09:57 01/03/24 GCS 13:02 01/03/24 RTS 09:57 01/03/24 RTS 13:02 01/03/24 PROCEDURES NURSING INTERVENTIONS Splint LABS / STUDIES LABS / STUDIES ORDERED CBC w Diff CMP CRP Uric Acid Wrist R 3V CLINICAL IMPRESSION ACUTE UPPER EXTREMITY PAIN INVOLVING THE RIGHT WRIST (ARTHRITIS FLARE VS HEMATOMA) 3 of 3 Normal [facility] ED VITALS FLOW SHEETon 01-02 ED VITALS FLOW SHEET Vitals Vital Sign Flow Sheet [address] [place] [address] [id number] 01/03/2024 Patient: JANET TAY Sex: Female : 1945 Age: 78y Measurements Wt: 93.4 kg, Ht/Cedrick: 65.0 in, BMI: 34.28 Measured Time BP MAP HR RR O2Sat ETCO2 Temp Pain GCS RTS 13:02 01/03/2024 6 12:59 01/03/2024 69 97% 12:55 01/03/2024 186/81 118 68 12:54 01/03/2024 68 97% 12:49 01/03/2024 71 97% 12:44 01/03/2024 70 97% 12:40 01/03/2024 181/82 115 70 12:39 01/03/2024 71 97% 12:34 01/03/2024 70 95% 12:29 01/03/2024 69 98% 12:25 01/03/2024 186/81 116 71 12:24 01/03/2024 75 98% 12:19 01/03/2024 70 97% 12:14 01/03/2024 68 95% 09:59 01/03/2024 177/84 115 80 16 98% 98.4 F 10 1 of 2 Vitals Measured Time BP MAP HR RR O2Sat ETCO2 Temp Pain GCS RTS 09:57 01/03/2024 177/84 115 80 16 98% 98.4 F 10 2 of 2 Normal [facility] URIC ACIDon 01-03-2024 Urate [Mass/Vol] 3.8 mg/dL Normal 2.6 - 6.0 [facility] Comment on above: Performed By: #### 2 [id number] #### [facility],[address] [place], [place] [id number] WRIST COMPLETE RTon 01-03-20 24 WRIST COMPLETE RT [place] [address] Patient: JANET TAY Phone#: : 1945 Age: 78 Gender: F Pt. Type: ER Account: [id number] Location: [facility] Ordering: NEVILLE SANTIAGO Exam Date: 01/03/2024/10:23 Family Phys: ALEC AIKEN Charge Code: 795907 Physician: Harney Order #: [id number] Dose#: PROCEDURE: X-RAY WRIST RT COMPLETE MIN 3 VIEWS COMPARISON: None. INDICATIONS: Pain. FINDINGS: BONES: Degenerative changes are present at the 1st carpometacarpal joint. SOFT TISSUES: Chondrocalcinosis is present. EFFUSION: None visible. OTHER: Negative. CONCLUSION: 1. There is no evidence of acute bone abnormality. Degenerative changes are present. Dictated by: Isa Ness MD on 01/03/2024 at 17:51 Approved by: Isa Ness MD on 01/03/2024 at 17:52 Normal [facility] TSHon 01-02-2024 TSH Qn 2.25 m[IU]/L Normal 0.40-4.50 [facility] Comment on above: Performed By: #### 8 99 #### [facility] [address], [address] [place] [phone] [employer] [facility] Specialists: Chris Beck MD Laboratory - Chemistry and C hemistry - challengeon 01-01-2024 Bilirubin Ql (U) Negative [facility] [employer]. Ketones Ql (U) Negative Normal [facility] [employer], [employer]. pH (U) 7.0 [pH] Normal [facility] [employer].; [employer]. Specific gravity (U) [Rel density] 1.020 Normal [employer]. TSH Qn 2.25 m[IU]/L Normal 0.40 - 4.50 {mIU/L} [facility] [employer] Urobilinogen Qn (U) 0.2 mg/dL Normal [facility] [employer]. Laboratory - Hematology and Cell countson 01-01-2024 Hemoglobin Ql (U) trace, intact Normal [facility] [employer]. Laboratory - Specimen inform ationon 01-01-2024 Appearance (U) cloudy Abnormal [facility] [employer]. Color (U) Yellow Normal [employer]. Laboratory - Urinalysison Glucose Test strip (U) [Mass/Vol] Negative Normal [place] [employer]. Leukocyte esterase Test strip Ql (U) large Abnormal [employer]. Nitrite Ql (U) Positive Abnormal [facility] [employer]. Protein Ql (U) Negative Normal [facility] [employer]. No Panel Informationon 12-31 CULTURE, URINE, ROUTINE SEE NOTE Abnormal [employer]. Cardiology Visit Reporton Cardiology Visit Report [facility] [address] [place] [address]. [address] [place], [place] [address] OFFICE VISIT Date of Service: 08/18/23 MR#: [id number] Acct: [id number] Name: JANET TAY Rep #: [id number] : 1945 Provider: ROSAURA Rob Age/Sex: 78/F Location: [facility] Status: Signed [facility] History of Present Illness Details: JANET TAY is a 78 F who presents to the office today for a cardiovascular outpatient follow-up. She has a history of paroxysmal atrial fibrillation/flutter status post radiofrequency ablation on 12/29/2007 at [facility] with Dr. Day. She also has a history of hypertension as well as stress- induced cardiomyopathy/Takotsub o cardiomyopathy. Her most recent echocardiogram done in September 2021 demonstrated an ejection fraction of 55% with stage II diastolic dysfunction. She feels better since we adjusted her Pt was in the office a few weeks ago with concerns of faster HRs. Holter monitor did not demonstrate any episodes of atrial fibrillation. We had increased her Cardizem. She states that since her last office visit she does feel much better. Intake Vital Signs 06/18/23 13:51 08/18/23 10:25 08/18/23 10:46 Height 5 ft 5 in 5 ft 5 in Weight: 212 lb 214 lb BMI 35.2 35.6 BP 160/85 H 163/84 H 130/80 H Blood Pressure Location Lt brachial Lt brachial Position Sitting Sitting Respiration 20 H 20 H Pulse 81 74 Pulse Source Monitor Monitor Pulse Oximetry (%) 97 97 Intake Visit Reasons: 2 M [employer] Work[employer] Required: No Is patient in pain?: No Allergies latex Allergy (Verified 08/18/23 10:25) Unknown Penicillins Allergy (Verified 08/18/23 10:25) Unknown Medications ???Medication ???Instructions ???Recorded ???Confirmed ???Type thyroid (pork) 60 mg tablet 60 mg PO DAILY 06/16/13 08/18/23 History diltiazem HCl 240 mg 240 mg PO DAILY heart #90 caps 06/18/23 08/18/23 Rx capsule,extended release 24 hr Have you fallen in the past year?: Yes PFSH Medical History Stage 3a chronic kidney disease (CKD) Obesity Takotsubo cardiomyopathy Hypothyroidism Essential (primary) hypertension Edema leg Supraventricular tachycardia Paroxysmal atrial fibrillation Pure hypercholesterolemia Surgical History History of left heart catheterization (06/23/07) Hx of cholecystectomy History of hysterectomy H/O cardiac radiofrequency ablation (12/29/07) Family History Mother CAD (coronary artery disease) Brother CAD (coronary artery disease) Sister CAD (coronary artery disease) Social History household members: spouse housing: house current occupation: [employer] Smoking Status: Never smoker alcohol intake: never substance use type: does not use ROS Const Const: Negative for fatigue, weakness, fever(s) or headache(s) Eyes Eyes: Negative for blind spots, loss of peripheral vision or transient loss of vision ENT ENT: Negative for headache(s), dizziness, tinnitus, Nosebleed/epistaxis or balance problems Cardio Chest Pain: No Palpitations: Yes Edema: None Muscle aches with walking: None Resp Respiratory: Negative for SOB with activity, SOB at rest, SOB orthopnea SOB lying down or Cough GI GI: Negative nausea, vomiting, heartburn or vomiting blood/hematemesis : Negative for hematuria Musc Musc: Negative for muscle aches/ myalgia, muscle weakness, joint pain or balance problems Neuro Neuro: Negative for dizziness, lightheadedness, near syncope, syncope, orthostatic symptoms, headache(s) or weakness Brennon Hematologic/Lymphatic: Negative for easy bleeding Endo Endo: Negative for fatigue Cardiology Exam Const Appearance: cooperative, no acute distress and well developed Orientation: alert, awake and oriented x3 Head Head: normocephalic and atraumatic Mouth: moist mucous membranes Eyes General: appearance normal, both eyes and all related structures Conjunctivae: conjunctivae normal Pupils: PERRL EOM: EOM intact bilaterally Neck Neck: normal visual inspection, no lymphadenopathy and no JVD Carotids: Negative bruit Neck Mass: Negative Neck mass Chest Chest inspection: normal inspection of the chest and symmetric chest movement Auscultation: Bilateral: Clear to Auscultation Cardio Palpation: normal PMI Rate: regular rate Rhythm: regular rhythm and ectopic beats Heart sounds: S1 normal and S2 normal; Negative rub, gallop or murmur GI GI: normal to inspection, soft, no hepatosplenomegaly and bowel sounds present; Negative tender Neuro General: patient alert, patient awake, patient oriented x3, CN's II-XI (more content not included)... Normal [facility] Cardiology Visit Reporton Cardiology Visit Report [facility] [address] [place] [address] OFFICE VISIT Date of Service: 06/18/23 MR#: [id number] Acct: [id number] Name: JANET TAY Rep #: [id number] : 1945 Provider: ROSAURA Rob Age/Sex: 78/F Location: [facility] Status: Signed [facility] History of Present Illness Details: JANET TAY, is a 78 F who presents to the office today for a cardiovascular outpatient follow-up. She has a history of paroxysmal atrial fibrillation/flutter status post radiofrequency ablation on 12/29/2007 at [facility] with Dr. Day. She also has a history of hypertension as well as stress- induced cardiomyopathy/Takotsub o cardiomyopathy. Her most recent echocardiogram done in September 2021 demonstrated an ejection fraction of 55% with stage II diastolic dysfunction. Pt was in the office a few weeks ago with concerns of faster HRs. She had a HM done. Results are pending. She was then in the ER last week for palpitations and an elevated Bp readings. Since then she has been tired. She does still feel her heart racing. She does not have any chest pain or SOB. She does not have any edema. Intake Vital Signs 06/12/23 02:03 06/18/23 13:51 Height 5 ft 5 in 5 ft 5 in Weight: 212 lb BMI 35.2 BP 160/85 H Blood Pressure Location Lt brachial Position Sitting Respiration 20 H Pulse 81 Pulse Source Monitor Pulse Oximetry (%) 97 Intake Visit Reasons: ER visit, wore 48 hour holter [employer] Required: No Is patient in pain?: No Allergies latex Allergy (Verified 06/18/23 13:51) Unknown Penicillins Allergy (Verified 06/18/23 13:51) Unknown Medications thyroid (pork) 60 mg tablet 60 mg PO DAILY 06/16/13 [History Confirmed 06/18/23] diltiazem HCl 240 mg capsule,extended release 24 hr 240 mg PO DAILY heart #90 caps 06/18/23 [Rx Confirmed 06/18/23] PFSH Medical History Edema leg Essential (primary) hypertension Hypothyroidism Obesity Paroxysmal atrial fibrillation Pure hypercholesterolemia Stage 3a chronic kidney disease (CKD) Supraventricular tachycardia Takotsubo cardiomyopathy Surgical History H/O cardiac radiofrequency ablation (12/29/07) History of hysterectomy History of left heart catheterization (06/23/07) Hx of cholecystectomy Family History Mother CAD (coronary artery disease) Brother CAD (coronary artery disease) Sister CAD (coronary artery disease) Social History household members: spouse housing: house current occupation: [employer] Smoking Status: Never smoker alcohol intake: never substance use type: does not use ROS Const Const: Positive for fatigue and weakness; Negative for fever(s) or headache(s) Eyes Eyes: Negative for blind spots, loss of peripheral vision or transient loss of vision ENT ENT: Negative for headache(s), dizziness, tinnitus, Nosebleed/epistaxis or balance problems Cardio Chest Pain: No Palpitations: Yes Edema: None Muscle aches with walking: None Resp Respiratory: Negative for SOB with activity, SOB at rest, SOB orthopnea SOB lying down or Cough GI GI: Negative nausea, vomiting, heartburn or vomiting blood/hematemesis : Negative for hematuria Musc Musc: Negative for muscle aches/ myalgia, muscle weakness, joint pain or balance problems Neuro Neuro: Positive for weakness; Negative for dizziness, lightheadedness, near syncope, syncope, orthostatic symptoms or headache(s) Brennon Hematologic/Lymphatic: Negative for easy bleeding Endo Endo: Positive for fatigue Cardiology Exam Const Appearance: cooperative, no acute distress and well developed Orientation: alert, awake and oriented x3 Head Head: normocephalic and atraumatic Mouth: moist mucous membranes Eyes General: appearance normal, both eyes and all related structures Conjunctivae: conjunctivae normal Pupils: PERRL EOM: EOM intact bilaterally Neck Neck: normal visual inspection, no lymphadenopathy and no JVD Carotids: Negative bruit Neck Mass: Negative Neck mass Chest Chest inspection: normal inspection of the chest and symmetric chest movement Auscultation: Bilateral: Clear to Auscultation Cardio Palpation: normal PMI Rate: regular rate Rhythm: regular rhythm and ectopic beats Heart sounds: S1 normal and S2 normal; Negative rub, gallop or murmur GI GI: normal to inspection, soft, no hepatosplenomegaly and bowel sounds present; Negative tender Neuro General: patient alert, patient awake, patient oriented x3, CN's II-XI intact bilaterally and moves all extremities Extremities Pulses: Normal: R (more content not included)... Normal [facility] 12 Lead EKGon 06-12-2023 12 Lead EKG [facility] [address] [place] [address] 12 Lead EKG 06/12/23 0205 MR#: [id number] Acct: [id number] Name: JANET TAY Rep #: [id number] : 1945 78 From: Al Montelongo MD Attending Dr: Status: DEP ER Ordering Dr: Juan Franco DO Date: 06/12/23 Location: ED Sex: F C Admitted: Test Reason : DYSRHYTHMIA Blood Pressure : / mmHG Vent. Rate : 075 BPM Atrial Rate : 075 BPM P-R Int : 174 ms QRS Dur : 094 ms QT Int : 382 ms P-R-T Axes : 043 024 066 degrees QTc Int : 426 ms Sinus rhythm with occasional Premature ventricular complexes Otherwise normal ECG Confirmed by AL MONTELONGO MD ([id number]), editorial specialist MADY ORELLANA ([id number]) on 06/12/2023 8:23:44 AM Referred By: Confirmed By:AL MONTELONGO MD 06/12/23 0823 Date Al Montelongo MD CC: Juan Franco DO; ROSAURA Wilson Signed Normal [facility] Absolute lymphocyte countOrd ered By: Juan Franco on 06-12-2023 Lymphocytes Auto (Unsp spec) [#/Vol] 2.51 10*3/uL 0.83-4.51 [facility] Automated lymphocyte count a s percentage of total leukocytesOrdered By: Juan Franco on 06-12-2023 Lymphocytes/100 WBC Auto (Unsp spec) 40.1 % 19-41 [facility] Basic Metabolic Profile (BMP )on 06-12-2023 BUN/CRE 30.2 RATIO High 10-20 [facility] Comment on above: Performed By: #### L 100.0100, L500.2500, L501.5200, L501.9520 #### [facility] [address] [place], [address] CA,Total 9.7 mg/dL Normal 8.5-10.1 [facility] Comment on above: Performed By: #### L 100.0100, L500.2500, L501.5200, [id number] #### [facility] [address] [place], [address] ECRCL 55.14 ml/min Normal [facility] Comment on above: Performed By: #### L 100.0100, L500.2500, L501.5200, [id number] #### [facility] [address] [place], [address] EST GFR - AA 70 mL/min Normal >60 [facility] Comment on above: Result Comment: Afri can Montserratian GFR Calc Performed By: #### L 100.0100, L500.2500, L501.5200, [id number] #### [facility] [address] [place], [address] GAP 4 Low 5-15 [facility] Comment on above: Performed By: #### L 100.0100, L500.2500, L501.5200, [id number] #### [facility] [address] [place], [address] GFR/1.73 sq M.predicted among non-blacks MDRD (S/P/Bld) [Vol rate/Area] 58 mL/min/{1.73_m2} Low >60 [facility] Comment on above: Result Comment: Non- GFR Calc Performed By: #### L 100.0100, L500.2500, L501.5200, L501.9520 #### [facility] [address] [place], [address] Basic Metabolic Profile (BMP )Ordered By: Juan Franco on 06-12-2023 CO2 [Moles/Vol] 27.0 mmol/L Normal 21.0-32.0 [facility] Comment on above: Performed By: #### L 100.0100, L500.2500, L501.5200, L501.9520 #### [facility] [address] [place], [address] Basophil percentageOrdered B y: Juan Franco on 06-12-2023 Basophils/100 WBC (Bld) 0.8 % 0-1 [facility] Chloride [Moles/Vol] 107 mmol/L Normal 98-107 [facility] Comment on above: Performed By: #### L 100.0100, L500.2500, L501.5200, L501.9520 #### [facility] [address] [place], [address] Eosinophils/100 WBC (Bld) 7.3 % 0-5 [facility] Glucose [Mass/Vol] 118 mg/dL High 74-106 [facility] Comment on above: Fasting Glucose resu lt from 100 to 125 mg/dL suggests IMPAIRED HOMEOSTASIS per A.D.A. criteria. Result Comment: Fast ing Glucose result from 100 to 125 mg/dL suggests IMPAIRED HOMEOSTASIS per A.D.A. criteria. Performed By: #### L 100.0100, L500.2500, L501.5200, L501.9520 #### [facility] [address] [place], [address] Hemoglobin (Bld) [Mass/Vol] 12.3 g/dL 12.0-15.0 [facility] Monocytes/100 WBC (Bld) 11.8 % 0-10 [facility] Neutrophils (Bld) [#/Vol] 2.5 10*3/uL 2.0-7.7 [facility] Neutrophils/100 WBC (Bld) 39.7 % 47-70 [facility] Potassium [Moles/Vol] 4.1 mmol/L Normal 3.5-5.1 [facility] Comment on above: Performed By: #### L 100.0100, L500.2500, L501.5200, L501.9520 #### [facility] [address] [place], [address] Sodium [Moles/Vol] 138 mmol/L Normal 136-145 [facility] Comment on above: Performed By: #### L 100.0100, L500.2500, L501.5200, L501.9520 #### [facility] [address] [place], [address] WBC (Bld) [#/Vol] 6.3 10*3/uL 4.4-11.0 [facility] CBC W/Diff, Automatedon 05-24 Absolute Lymph 2.51 X10 3/uL Normal 0.83-4.51 [facility] Comment on above: Performed By: #### L 100.0100, L500.2500, L501.5200, L501.9520 #### [facility] [address] [place], [address] Absolute Neut 2.5 X10 3/uL Normal 2.0-7.7 [facility] Comment on above: Performed By: #### L 100.0100, L500.2500, L501.5200, L501.9520 #### [facility] [address] [place], [address] Basophils/100 WBC (Bld) 0.8 % Normal 0-1 [facility] Comment on above: Performed By: #### L 100.0100, L500.2500, L501.5200, L501.9520 #### [facility] [address] [place], [address] Eosinophils/100 WBC (Bld) 7.3 % High 0-5 [facility] Comment on above: Performed By: #### L 100.0100, L500.2500, L501.5200, L501.9520 #### [facility] [address] [place], [address] Erythrocyte distribution width (RBC) [Ratio] 14.5 % Normal 11.6-14.6 [facility] Comment on above: Performed By: #### L 100.0100, L500.2500, L501.5200, L501.9520 #### [facility] [address] [place], [address] Hematocrit (Bld) [Volume fraction] 37.9 % Normal 37-47 [facility] Comment on above: Performed By: #### L 100.0100, L500.2500, L501.5200, L501.9520 #### [facility] [address] [place], [address] Hemoglobin (Bld) [Mass/Vol] 12.3 g/dL Normal 12.0-15.0 [facility] Comment on above: Performed By: #### L 100.0100, L500.2500, L501.5200, L501.9520 #### [facility] [address] [place], [address] IG% 0.300 Normal 0.0-0.9 [facility] Comment on above: Result Comment: IG% - Immature Granulocytes (promyelocytes, myelocytes and metamyelocytes) > 1% indicates that a LEFT SHIFT is Present. Performed By: #### L 100.0100, L500.2500, L501.5200, L501.9520 #### [facility] [address] [place], [address] Lymphocytes/100 WBC (Bld) 40.1 % Normal 19-41 [facility] Comment on above: Performed By: #### L 100.0100, L500.2500, L501.5200, L501.9520 #### [facility] [address] [place], [address] MCH (RBC) [Entitic mass] 28.6 pg Normal 27.0-32.0 [facility] Comment on above: Performed By: #### L 100.0100, L500.2500, L501.5200, L501.9520 #### [facility] [address] [place], [address] MCHC (RBC) [Mass/Vol] 32.5 g/dL Normal 32-36 [facility] Comment on above: Performed By: #### L 100.0100, L500.2500, L501.5200, L501.9520 #### [facility] [address] [place], [address] MCV (RBC) [Entitic vol] 88.1 fL Normal 81-99 [facility] Comment on above: Performed By: #### L 100.0100, L500.2500, L501.5200, L501.9520 #### [facility] [address] [place], [address] Monocytes/100 WBC (Bld) 11.8 % High 0-10 [facility] Comment on above: Performed By: #### L 100.0100, L500.2500, L501.5200, L501.9520 #### [facility] [address] [place], [address] Neutrophils/100 WBC (Bld) 39.7 % Low 47-70 [facility] Comment on above: Performed By: #### L 100.0100, L500.2500, L501.5200, L501.9520 #### [facility] [address] [place], [address] Nucleated RBC (Bld) [#/Vol] 0 10*3/uL Normal 0-5 [facility] Comment on above: Performed By: #### L 100.0100, L500.2500, L501.5200, L501.9520 #### [facility] [address] [place], [address] Platelet mean volume (Bld) [Entitic vol] 10.1 fL Normal 6.2-12.0 [facility] Comment on above: Performed By: #### L 100.0100, L500.2500, L501.5200, L501.9520 #### [facility] [address] [place], [address] Platelets (Bld) [#/Vol] 214 10*3/uL Normal 150-450 [facility] Comment on above: Performed By: #### L 100.0100, L500.2500, L501.5200, L501.9520 #### [facility] [address] [place], [address] RBC (Bld) [#/Vol] 4.30 10*6/uL Normal 4.2-5.4 [facility] Comment on above: Performed By: #### L 100.0100, L500.2500, L501.5200, L501.9520 #### [facility] [address] [place], [address] RDW SD 46.5 fl High 35.1-43.9 [facility] Comment on above: Performed By: #### L 100.0100, L500.2500, L501.5200, L501.9520 #### [facility] [address] [place], [address] WBC (Bld) [#/Vol] 6.3 10*3/uL Normal 4.4-11.0 [facility] Comment on above: Performed By: #### L 100.0100, L500.2500, L501.5200, L501.9520 #### [facility] [address] [place], [address] Determination of erythrocyte mean corpuscular volume (MCV)Ordered By: Juan Franco on 06-12-2023 MCV (RBC) [Entitic vol] 88.1 fL 81-99 [facility] Emergency Department Summary on 06-12-2023 Emergency Department Summary [facility] Medical Records Department [address] [place] [address] Emergency Department Summary 06/12/23 MR#: [id number] Acct: [id number] Name: JANET TAY Rep #: [id number] : 1945 78 From: Juan Franco DO PCP: ROSAURA Wilson Status:REG ER Location: ED HPI History of Present Illness Chief Complaint: Palpitations Informant: patient, spouse/S.O. and EMS Narrative Narrative: Patient is a 78-year-old female with past medical history of paroxysmal atrial fibrillation and hypertension and Takotsubo cardiomyopathy. She previously underwent an ablation in 2007 at [facility]. She states that she has been getting bouts of an elevated heart rate and sensation of fatigue that will occur during the daytime or at night and will typically last 10 to 15 minutes. She states that she is on Cardizem secondary to this. She reports that she woke this evening with a sensation of a elevated heart rate. She reported fatigue with this but denied any chest pain shortness of breath nausea vomiting or diaphoresis. She states she took an extra Cardizem but the symptoms were lasting longer than her standard 10 to 15 minutes and therefore she called EMS. She does state that by the time EMS arrived the symptoms had spontaneously resolved [facility] Medical History Edema leg Essential (primary) hypertension Hypothyroidism Obesity Paroxysmal atrial fibrillation Pure hypercholesterolemia Stage 3a chronic kidney disease (CKD) Supraventricular tachycardia Takotsubo cardiomyopathy Home Medications thyroid (pork) 60 mg tablet 60 mg PO DAILY 06/16/13 [History Last Taken 10/08/21] diltiazem HCl 120 mg capsule,extended release 24 hr 120 mg PO DAILY heart #90 caps 09/05/22 [Rx Last Taken Unknown] Allergy/AdvReac Type Severity Reaction Status Date / Time latex Allergy Unknown Verified 06/01/23 10:11 Penicillins Allergy Unknown Verified 06/01/23 10:11 Family History Mother CAD (coronary artery disease) Brother CAD (coronary artery disease) Sister CAD (coronary artery disease) Surgical History H/O cardiac radiofrequency ablation (12/29/07) History of hysterectomy History of left heart catheterization (06/23/07) Hx of cholecystectomy Social History household members: spouse housing: house current occupation: [employer] Smoking Status: Never smoker alcohol intake: never substance use type: does not use ROS ROS ED Constitutional Constitutional ED: Reports other Details: Positive fatigue ; Denies chills or fever(s) Eyes Eyes: Denies blurry vision or change in vision ENT ENT ED: Denies sore throat Cardiovascular Cardiovascular: Reports palpitations and racing heartbeat; Denies chest pain Respiratory/Chest Respiratory/Chest: Denies cough or dyspnea Gastrointestinal Gastrointestinal: Denies abdominal pain, diarrhea, nausea or vomiting Genitourinary Genitourinary ED: Denies dysuria Musculoskeletal Musculoskeletal: Denies myalgias Integumentary Denies rash Neurologic Neurologic: Denies headache(s) Hematologic/Lymphatic Hematologic/Lymphatic: Denies easy bleeding or easy bruising EXAM Physical Exam Const Vital Signs: 06/12/23 02:03 06/12/23 02:06 06/12/23 02:57 Temperature 97.6 F L Temperature Source Temporal Pulse Rate 80 78 Respiratory Rate 16 19 H Respiratory Effort Normal Non-Labored Blood Pressure 202/81 H 151/134 H Blood Pressure Mean 121 139 Pulse Ox 98 99 Oxygen Delivery Method Room Air Positive well nourished, well developed and obese General Appearance ED: well developed; Negative for pallor Nutritional Appearance: obese HEENT HEENT Narrative: Normocephalic atraumatic Eyes PERRL and EOMs intact bilaterally General Eye ED: Negative for pale conjunctiva or scleral icterus Neck supple and no JVD Neck Narrative: No nuchal rigidity or meningeal signs Chest Wall palpation of chest normal Resp normal respiratory effort and clear to auscultation bilaterally Cardio regular rate and regular rhythm Rate: other Other Details: Heart is regular rate and rhythm Radial and carotid pulses are equal and symmetric GI normal to inspection, nondistended, normoactive bowel sounds, non-tender, non-distended and no masses GI Narrative: No pulsatile mass or fluid wave noted Auscultation: normoactive bowel sounds Palpation: soft Extremity Extremity Narrative: +1-2 pitting edema to the bilateral lower extremities that is equal and symmetric. This is also chronic per patient Negative Homans' sign bilaterally Neuro oriente (more content not included)... Normal [facility] Erythrocyte distribution wid th ratioOrdered By: Juan Franco on 06-12-2023 Erythrocyte distribution width (RBC) [Ratio] 14.5 % 11.6-14.6 [facility] Erythrocyte distribution wid th standard deviationOrdered By: Juan Franco on 06-12-2023 Erythrocyte distribution width (RBC) [Entitic vol] 46.5 fL 35.1-43.9 [facility] Hematocrit Auto (Bld) [Volum e fraction]Ordered By: Juan Franco on 06-12-2023 Hematocrit (Bld) [Volume fraction] 37.9 % 37-47 [facility] Immature granulocytes/100 WB C Auto (Bld)Ordered By: Juan Franco on 06-12-2023 Immature granulocytes/100 WBC (Bld) 0.300 % 0.0-0.9 [facility] Comment on above: IG% - Immature Granu locytes (promyelocytes, myelocytes and metamyelocytes) > 1% indicates that a LEFT SHIFT is Present. Laboratory - Chemistry and C hemistry - challengeOrdered By: Juan Franco on 06-12-2023 Urea nitrogen/Creatinine [Mass ratio] 30.2 mg/mg 10-20 [facility] - Hematology and Cell countsOrdered By: Juan Franco on 06-12-2023 MCH (RBC) [Entitic mass] 28.6 pg 27.0-32.0 [facility] MCHC (RBC) [Mass/Vol] 32.5 g/dL 32-36 [facility] Nucleated RBC/100 WBC (Bld) [Ratio] 0 % 0-5 [facility] Platelet mean volume (Bld) [Entitic vol] 10.1 fL 6.2-12.0 [facility] Platelets (Bld) [#/Vol] 214 10*3/uL 150-450 [facility] MagnesiumOrdered By: Juan Franco on 06-12-2023 Magnesium [Mass/Vol] 2.3 mg/dL Normal 1.6-2.6 [facility] Comment on above: Performed By: #### L 100.0100, L500.2500, L501.5200, L501.9520 #### [facility] [address] [place], [address] No Panel InformationOrdered By: Juan Franco on 06-12-2023 Estimated Creatinine Clearance Calc 55.14 ml/min [facility] Estimated GFR (MDRD) Amer 70 mL/min >60 [facility] Comment on above: GFR Calc Estimated GFR (MDRD) Non-Af Amer 58 mL/min >60 [facility] Comment on above: Non- GFR Calc RBC Auto (Bld) [#/Vol]Ordere d By: Juan Franco on 06-12-2023 RBC (Bld) [#/Vol] 4.30 10*6/uL 4.2-5.4 [facility] Serum or plasma calcium darren urement (mass/volume)Ordered By: Juan Franco on 06-12-2023 Calcium [Mass/Vol] 9.7 mg/dL 8.5-10.1 [facility] Serum or plasma creatinine m easurement (mass/volume)Ordered By: Juan Franco on 06-12-2023 Creatinine [Mass/Vol] 0.99 mg/dL Normal 0.55-1.02 [facility] Comment on above: The validity of the calculated GFR & GFRAA in patients over 70 years has not been determined. Clinical correlation is essential. Result Comment: The validity of the calculated GFR GFRAA in patients over 70 years has not been determined. Clinical correlation is essential. Performed By: #### L 100.0100, L500.2500, L501.5200, L501.9520 #### [facility] [address] [place], [address] Serum or plasma thyroid stim ulating hormone (TSH) measurement (units/volume)Ordered By: Juan Franco on 06-12-2023 TSH Qn 3.31 uIU/mL 0.358-3.74 [facility] Serum or plasma urea nitroge n measurement (mass/volume)Ordered By: Juan Franco on 06-12-2023 Urea nitrogen [Mass/Vol] 30 mg/dL High 7-18 [facility] Comment on above: Performed By: #### L 100.0100, L500.2500, L501.5200, L501.9520 #### [facility] [address] [place], [address] Thin prep Papanicolaou smear with manual screeningOrdered By: Juna Franco on 06-12-2023 Thin prep Papanicolaou smear with manual screening 4 5-15 [facility] Thyroid Stim Hormone (TSH)on 06-12-2023 TSH 3.31 uIU/mL Normal 0.358-3.74 [facility] Comment on above: Performed By: #### L 100.0100, L500.2500, L501.5200, L501.9520 #### [facility] [address] [place], [address] Cardiology Visit Reporton Cardiology Visit Report [facility] [address] [place] [address] OFFICE VISIT Date of Service: 06/01/23 MR#: [id number] Acct: [id number] Name: JANET TAY Rep #: [id number] : 1945 Provider: ROSAURA Rob Age/Sex: 78/F Location: [facility] – [place] Status: Signed HPI HPI History of Present Illness Details: JANET TAY, is a 78 F who presents to the office today for a cardiovascular outpatient follow-up. She has a history of paroxysmal atrial fibrillation/flutter status post radiofrequency ablation on 12/29/2007 at [facility] with Dr. Day. She also has a history of hypertension as well as stress- induced cardiomyopathy/Takotsub o cardiomyopathy. Her most recent echocardiogram done in September 2021 demonstrated an ejection fraction of 55% with stage II diastolic dysfunction. Pt notes that she does have faster HRs. These can occur at night or during the day. This is almost daily. They for approx 15 minutes. She does does not have any lightheadedness/dizzine ss. She does not have any chest pain or SOB. She does not have any edema. Intake Vital Signs 09/05/22 13:05 06/01/23 10:11 06/01/23 10:51 Height 5 ft 5 in 5 ft 5 in Weight: 212 lb 210 lb BMI 35.2 34.9 BP 140/77 H 171/95 H 170/85 H Blood Pressure Location Lt brachial Lt brachial Position Sitting Sitting Respiration 16 18 Pulse 75 78 Pulse Source Monitor Monitor Pulse Oximetry (%) 97 Intake Visit Reasons: 6 M [employer] Required: No Is patient in pain?: No Allergies latex Allergy (Verified 06/01/23 10:11) Unknown Penicillins Allergy (Verified 06/01/23 10:11) Unknown Medications thyroid (pork) 60 mg tablet 60 mg PO DAILY 06/16/13 [History Confirmed 06/01/23] diltiazem HCl 120 mg capsule,extended release 24 hr 120 mg PO DAILY heart #90 caps 09/05/22 [Rx Confirmed 06/01/23] PFSH Medical History Edema leg Essential (primary) hypertension Hypothyroidism Obesity Paroxysmal atrial fibrillation Pure hypercholesterolemia Stage 3a chronic kidney disease (CKD) Supraventricular tachycardia Takotsubo cardiomyopathy Surgical History H/O cardiac radiofrequency ablation (12/29/07) History of hysterectomy History of left heart catheterization (06/23/07) Hx of cholecystectomy Family History Mother CAD (coronary artery disease) Brother CAD (coronary artery disease) Sister CAD (coronary artery disease) Social History household members: spouse housing: house current occupation: [employer] Smoking Status: Never smoker alcohol intake: never substance use type: does not use ROS Const Const: Negative for fatigue, weakness, fever(s) or headache(s) Eyes Eyes: Negative for blind spots, loss of peripheral vision or transient loss of vision ENT ENT: Negative for headache(s), dizziness, tinnitus, Nosebleed/epistaxis or balance problems Cardio Chest Pain: No Palpitations: Yes Edema: None Muscle aches with walking: None Resp Respiratory: Negative for SOB with activity, SOB at rest, SOB orthopnea SOB lying down or Cough GI GI: Negative nausea, vomiting, heartburn or vomiting blood/hematemesis : Negative for hematuria Musc Musc: Negative for muscle aches/ myalgia, muscle weakness, joint pain or balance problems Neuro Neuro: Negative for dizziness, lightheadedness, near syncope, syncope, orthostatic symptoms, headache(s) or weakness Brennon Hematologic/Lymphatic: Negative for easy bleeding Endo Endo: Negative for fatigue Cardiology Exam Const Appearance: cooperative, no acute distress and well developed Orientation: alert, awake and oriented x3 Head Head: normocephalic and atraumatic Mouth: moist mucous membranes Eyes General: appearance normal, both eyes and all related structures Conjunctivae: conjunctivae normal Pupils: PERRL EOM: EOM intact bilaterally Neck Neck: normal visual inspection, no lymphadenopathy and no JVD Carotids: Negative bruit Neck Mass: Negative Neck mass Chest Chest inspection: normal inspection of the chest and symmetric chest movement Auscultation: Bilateral: Clear to Auscultation Cardio Palpation: normal PMI Rate: regular rate Rhythm: regular rhythm and ectopic beats Heart sounds: S1 normal and S2 normal; Negative rub, gallop or murmur GI GI: normal to inspection, soft, no hepatosplenomegaly and bowel sounds present; Negative tender Neuro General: patient alert, patient awake, patient oriented x3, CN's II-XI intact bilaterally and moves all extremities Extremities Pulses: Normal: Right Posterior Tibial Pulse, Left Posterior (more content not included)... Normal [facility] TSHon 01-07-2023 TSH Qn 2.31 m[IU]/L Normal 0.40-4.50 [facility] Comment on above: Performed By: #### 8 [id number] #### [facility] [address], [address] [place] [phone] [employer]: Chris Beck MD Laboratory - Chemistry and C hemistry - challengeon 01-06-2023 TSH Qn 2.31 m[IU]/L Normal 0.40 - 4.50 {mIU/L} [facility]. CULTURE, URINE, ROUTINEon CULTURE, URINE, ROUTINE SEE NOTE Abnormal [facility] Comment on above: Result Comment: CULTURE, URINE, ROUTINE Micro Number: [id number] Test Status: Final Specimen Source: Not given Specimen Quality: Adequate Result: Greater than 100,000 CFU/mL of Escherichia coli E.coli INT BRETT AMOX/CLAVULANATE S 4 AMPICILLIN R >=32 AMP/SULBACTAM S 4 CEFAZOLIN NR <=4 2 CEFEPIME S <=1 CEFTAZIDIME S <=1 CEFTRIAXONE S <=1 CIPROFLOXACIN S <=0.25 GENTAMICIN S <=1 IMIPENEM S <=0.25 LEVOFLOXACIN S <=0.12 NITROFURANTOIN S <=16 PIP/TAZOBACTAM S <=4 TOBRAMYCIN S <=1 TRIMETHOPRIM/SULFA S <=20 S=Susceptible I=Intermediate R=Resistant * = Not Tested NR = Not Reported NN = See Therapy Comments THERAPY COMMENTS Note 1: For infections other than uncomplicated UTI caused by E. coli, K. pneumoniae or P. mirabilis: Cefazolin is resistant if BRETT > or = 8 mcg/mL. (Distinguishing susceptible versus intermediate for isolates with BRETT < or = 4 mcg/mL requires additional testing.) Note 2: For uncomplicated UTI caused by E. coli, K. pneumoniae or P. mirabilis: Cefazolin is susceptible if BRETT <32 mcg/mL and predicts susceptible to the oral agents cefaclor, cefdinir, cefpodoxime, cefprozil, cefuroxime, cephalexin and loracarbef. Performed By: #### 3 95 #### [facility] [address], [address] [place] [address] [employer]: Chris Beck MD Laboratory - Chemistry and C hemistry - challengeon 09-22-2022 Bilirubin Ql (U) Negative Normal [employer] [facility] [employer], [employer]. Ketones Ql (U) Negative Normal [facility] [employer], [employer]. pH (U) 6.0 [pH] Normal [employer]. Specific gravity (U) [Rel density] 1.015 Normal [employer]. Urobilinogen Qn (U) 0.2 mg/dL Normal [facility] [employer].; [employer]. Laboratory - Hematology and Cell countson 09-22-2022 Hemoglobin Ql (U) small Abnormal [employer] Laboratory - Specimen inform ationon 09-22-2022 Appearance (U) cloudy Abnormal [facility] [employer].; [employer]. Color (U) yellow Normal [employer] Laboratory - Urinalysison Glucose Test strip (U) [Mass/Vol] Negative Normal [employer].; [employer], [employer]. Leukocyte esterase Test strip Ql (U) large Abnormal [employer].; [employer], [employer]. Nitrite Ql (U) Negative Normal [facility] [employer].; [employer]. Protein Ql (U) trace Normal [employer].; [employer], [employer]. No Panel Informationon 09-22 CULTURE, URINE, ROUTINE SEE NOTE Abnormal [employer]. Alia 12-23-2021 BERKLEYN Telephone (WALKWA) JANET TAY ([id number]) 1945 F Date Time Provider Department 12/23/21 BELEN MIRAMONTES During your visit today, we recorded the following information about you: Lynette Burnett 12/23/2021 11:28 AM Signed Received labs from Dr. Diego. Placed in provider's inbox for review. Route to MA scanning. Allergies As of Date: 12/23/2021 Noted Allergy Reaction LATEX 01/07/2006 2 - Rash PENICILLINS 07/14/2006 5 - Intolerance Comments: states ached all over and very sick when she took, denies rash, GI or SOB Date Reviewed: 06/27/2013 Reviewed by: Aida Escamilla Cma - Fully Assessed Reason for Visit: Outside Lab Results [753] Cmt: Dr. Arnulfo Diego [place], [place] Prescriptions as of 12/23/2021 - thyroid, pork, (ARMOUR THYROID) 60 mg tab Take 1 tablet by mouth once daily. - hydrochlorothiazide (HYDRODIURIL, ESIDRIX) 25 mg tablet Take 1 tablet by mouth once daily. - lisinopril (PRINIVIL) 10 mg tablet Take 1 tablet by mouth once daily. - ondansetron 4 mg tablet Take 1 tablet by mouth every 8 hours as needed. - DOCOSAHEXANOIC ACID/EPA (FISH OIL ORAL) Take by mouth twice daily. - ASCORBIC ACID (VITAMIN C ORAL) Take by mouth once daily. - Garlic tab Take 4 tablets by mouth twice daily. [employer] Garlic Time capsule. Has other ingredients with garlic. - calcium, elemental, Tab Take 1 tablet by mouth once daily. - ASPIRIN 81 MG TAB Take one(1) tablet daily. - vitamin b complex(B COMPLEX-VITAMIN B12 TAB) Take one(1) tablet daily. 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] 08/21/2008 Tracey Thyroiditis 01/09/2009 Hypothyroidism, Postsurgical [E89.0] 03/23/2009 Encounter Status:Closed by LYNETTE BURNETT on 12/23/21 Normal [facility] CULTURE, URINE, ROUTINEon CULTURE, URINE, ROUTINE SEE NOTE Abnormal [facility] Comment on above: Result Comment: CULTURE, URINE, ROUTINE Micro Number: [id number] Test Status: Final Specimen Source: Urine Specimen Quality: Adequate Result: Greater than 100,000 CFU/mL of Escherichia coli E.coli INT BRETT AMOX/CLAVULANATE S <=2 AMPICILLIN S <=2 AMP/SULBACTAM S <=2 CEFAZOLIN NR <=4 2 CEFEPIME S <=1 CEFTAZIDIME S <=1 CEFTRIAXONE S <=1 CIPROFLOXACIN R >=4 GENTAMICIN S <=1 IMIPENEM S <=0.25 LEVOFLOXACIN R >=8 NITROFURANTOIN S <=16 PIP/TAZOBACTAM S <=4 TOBRAMYCIN S <=1 TRIMETHOPRIM/SULFA R >=320 S=Susceptible I=Intermediate R=Resistant * = Not Tested NR = Not Reported NN = See Therapy Comments THERAPY COMMENTS Note 1: For infections other than uncomplicated UTI caused by E. coli, K. pneumoniae or P. mirabilis: Cefazolin is resistant if BRETT > or = 8 mcg/mL. (Distinguishing susceptible versus intermediate for isolates with BRETT < or = 4 mcg/mL requires additional testing.) Note 2: For uncomplicated UTI caused by E. coli, K. pneumoniae or P. mirabilis: Cefazolin is susceptible if BRETT <32 mcg/mL and predicts susceptible to the oral agents cefaclor, cefdinir, cefpodoxime, cefprozil, cefuroxime, cephalexin and loracarbef. Performed By: #### 3 95 #### [facility] [address], [address] [place] [phone] [employer]: Chris Beck MD Laboratory - Chemistry and C hemistry - challengeon 10-24-2021 Bilirubin Ql (U) Negative Normal [facility] Ketones Ql (U) Negative Normal [facility] [employer]. pH (U) 7.0 [pH] Normal [place] [employer]. Specific gravity (U) [Rel density] 1.015 Normal [place] [employer].; [employer] Urobilinogen Qn (U) 0.2 mg/dL Normal [facility] [employer] [facility].; [employer]. Laboratory - Hematology and Cell countson 10-24-2021 Hemoglobin Ql (U) Negative Normal [place] [employer]. Laboratory - Specimen inform ationon 10-24-2021 Appearance (U) Cloudy Abnormal [facility]; [facility] [employer] Color (U) yellow Normal [facility]; [employer]. Laboratory - Urinalysison Glucose Test strip (U) [Mass/Vol] Negative Normal [place] [employer]; [employer]. Leukocyte esterase Test strip Ql (U) moderate Abnormal [place] [employer].; [employer]. Nitrite Ql (U) Negative Normal [facility] [employer].; [employer]. Protein Ql (U) Negative Normal [facility] [employer].; [employer]. No Panel Informationon 10-24 CULTURE, URINE, ROUTINE SEE NOTE Abnormal [place] [employer] [facility].; [employer] Absolute lymphocyte counton 10-08-2021 Lymphocytes Auto (Unsp spec) [#/Vol] 2.54 10*3/uL 0.83-4.51 [facility] Work Phone: Basophil percentageon 2021 Basophils/100 WBC (Bld) 0.6 % 0-1 [facility] Work Phone: [phone] Chloride [Moles/Vol] 109 mmol/L 98-107 [facility] Work Phone: Eosinophils/100 WBC (Bld) 1.7 % 0-5 [facility] Work Phone: Glucose [Mass/Vol] 121 mg/dL 74-106 [facility] Work Phone: [phone] Comment on above: Fasting Glucose resu lt from 100 to 125 mg/dL suggests IMPAIRED HOMEOSTASIS per A.D.A. criteria. Neutrophils (Bld) [#/Vol] 3.8 10*3/uL 2.0-7.7 [facility] Work Phone: Neutrophils/100 WBC (Bld) 52.7 % 47-70 [facility] Work Phone: Potassium [Moles/Vol] 4.0 mmol/L 3.5-5.1 [facility] Work Phone: Comment on above: Slight Hemolysis, Re sult may be falsely increased. Sodium [Moles/Vol] 137 mmol/L 136-145 [facility] Work Phone: WBC (Bld) [#/Vol] 7.1 10*3/uL 4.4-11.0 [facility] Work Phone: Blood erythrocytes count (nu mber/volume)on 10-08-2021 RBC (Bld) [#/Vol] 4.75 10*6/uL 4.2-5.4 [facility] Work Phone: Blood hemoglobin measurement (mass/volume)on 10-08-2021 Hemoglobin (Bld) [Mass/Vol] 13.8 g/dL 12.0-15.0 [facility] Work Phone: Blood lymphocytes/100 leukoc yteson 10-08-2021 Lymphocytes/100 WBC (Bld) 35.7 % 19-41 [facility] Work Phone: [phone] Blood monocytes/100 leukocyt eson 10-08-2021 Monocytes/100 WBC (Bld) 9.0 % 0-10 [facility] Work Phone: [phone] Blood platelet mean volumeon 10-08-2021 Platelet mean volume (Bld) [Entitic vol] 10.1 fL 6.2-12.0 [facility] Work Phone: Determination of erythrocyte mean corpuscular volume (MCV)on 10-08-2021 MCV (RBC) [Entitic vol] 89.5 fL 81-99 [facility] Work Phone: Hematocrit Auto (Bld) [Volum e fraction]on 10-08-2021 Hematocrit (Bld) [Volume fraction] 42.5 % 37-47 [facility] Work Phone: Laboratory - Chemistry and C hemistry - challengeon 10-08-2021 CO2 [Moles/Vol] 23.0 mmol/L 21.0-32.0 [facility] Work Phone: Urea nitrogen/Creatinine [Mass ratio] 23.6 mg/mg 10-20 [facility] Work Phone: Laboratory - Hematology and Cell countson 10-08-2021 Erythrocyte distribution width (RBC) [Entitic vol] 48.1 fL 35.1-43.9 [facility] Work Phone: Erythrocyte distribution width (RBC) [Ratio] 14.7 % 11.6-14.6 [facility] Work Phone: Immature granulocytes/100 WBC (Bld) 0.300 % 0.0-0.9 [facility] Work Phone: Comment on above: IG% - Immature Granu locytes (promyelocytes, myelocytes and metamyelocytes) > 1% indicates that a LEFT SHIFT is Present. MCH (RBC) [Entitic mass] 29.1 pg 27.0-32.0 [facility] Work Phone: Nucleated RBC/100 WBC (Bld) [Ratio] 0 % 0-5 [facility] Work Phone: MCHC Auto (RBC) [Mass/Vol]on 10-08-2021 MCHC (RBC) [Mass/Vol] 32.5 g/dL 32-36 [facility] Work Phone: No Panel Informationon 10-08 Troponin I High Sensitivity 75 pg/mL 3.0-54.0 [facility] Work Phone: Comment on above: Please Note: New Jenna t Units and Gender Specific Reference Ranges. For more information see Policy Stat Procedure [place] High Sensitivity Troponin (TNIH) and attachments. Estimated Creatinine Clearance Calc 38.16 ml/min [facility] Work Phone: Estimated GFR (MDRD) Amer 62 mL/min >60 [facility] Work Phone: Comment on above: GFR Calc Estimated GFR (MDRD) Non-Af Amer 51 mL/min >60 [facility] Work Phone: Comment on above: Non- GFR Calc Platelets bldon 10-08-2021 Platelets (Bld) [#/Vol] 211 10*3/uL 150-450 [facility] Work Phone: Serum or plasma calcium darren urement (mass/volume)on 10-08-2021 Calcium [Mass/Vol] 9.9 mg/dL 8.5-10.1 [facility] Work Phone: Serum or plasma creatinine m easurement (mass/volume)on 10-08-2021 Creatinine [Mass/Vol] 1.10 mg/dL 0.55-1.02 [facility] Work Phone: Comment on above: The validity of the calculated GFR & GFRAA in patients over 70 years has not been determined. Clinical correlation is essential. Serum or plasma urea nitroge n measurement (mass/volume)on 10-08-2021 Urea nitrogen [Mass/Vol] 26 mg/dL 7-18 [facility] Work Phone: Thin prep Papanicolaou smear with manual screeningon 10-08-2021 Thin prep Papanicolaou smear with manual screening 5 5-15 [facility] Work Phone: No Panel Informationon 12-04 TSH W/REFLEX TO FT4 2.14 {mIU/L} Normal 0.40 - 4 .50 {mIU/L} [facility], [employer]. Laboratory - Chemistry and C hemistry - challengeon 01-06-2020 TSH Qn 2.17 m[IU]/L Normal 0.35 - 3.74 {uIU/ml} [place] [employer]. Laboratory - Chemistry and C hemistry - challengeon 11-02-2018 TSH Qn 2.24 m[IU]/L Normal 0.34 - 5.60 {uIU/ml} [place] [employer]. Laboratory - Chemistry and C hemistry - challengeon 10-30-2017 Anion gap [Moles/Vol] 13 mmol/L Normal 10 - 2 0 mmol/L [place] [employer].; [employer]. Basic metabolic 2000 panel BMP with eGFR Normal [place] [employer].; [employer], [employer]. Calcium [Mass/Vol] 9.9 mg/dL Normal 8.6 - 10. 2 mg/dL [place] [employer].; [employer]. Chloride [Moles/Vol] 104 mmol/L Normal 98 - 10 7 mmol/L [place] [employer].; [employer], [employer]. CO2 [Moles/Vol] 24.2 mmol/L Normal 21.0 - 31.0 mmol/L [place] [employer] [facility].; [employer], [employer]. Creatinine [Mass/Vol] 1.0 mg/dL Normal 0.6 - 1.2 mg/dL [place] [employer].; [employer], [employer]. GFR/1.73 sq M.predicted among blacks MDRD (S/P/Bld) [Vol rate/Area] mL/min/{1.73_m2} Normal 60 - 999 {ML/MINUTE} [place] [employer] [facility] [employer] GFR/1.73 sq M.predicted MDRD (S/P/Bld) [Vol rate/Area] 55 {ML/MINUTE} Abnormal 60 - 999 {ML/MINUTE} [employer] Glucose [Mass/Vol] 91 mg/dL Normal 74 - 106 mg/dL [employer].; [employer] Potassium [Moles/Vol] 3.9 mmol/L Normal 3.5 - 5.1 mmol/L [employer]; [employer] Sodium [Moles/Vol] 137 mmol/L Normal 136 - 145 mmol/L [employer]; [employer] TSH Qn 1.94 m[IU]/L Normal 0.34 - 5.60 {uIU/ml} [employer]; [employer] Urea nitrogen [Mass/Vol] 32 mg/dL Abnormal 6 - 20 mg/dL [employer]; [employer] No Panel Informationon 10-30 AGE 72 {years} Normal [employer]; [employer]. Lab Report: Basic Metabolic Profile (BMP)on 08-15-2016 Anion gap 7 mmol/L Invalid Interpretation Code - [employer] Work Phone: [phone] Anion gap molar conc 7 mmol/L 5- [employer] Work Phone: [phone] BUN/Creatinine Ratio 21.1 RATIO High 10-20 [employer] Work Phone: [phone] Calcium 9.5 mg/dL Invalid Interpretation Code 8.5-10.1 [employer] Work Phone: [phone] Chloride 104 mmol/L Invalid Interpretation Code 98-107 [employer] Work Phone: [phone] CO2 27.0 mmol/L Invalid Interpretation Code 21.0-32.0 [employer] Work Phone: [phone] CO2 ppres (BldV) 27.0 mmol/L 21.0-32.0 [employer] Work Phone: [phone] Creatinine 0.76 mg/dL Invalid Interpretation Code 0.55-1.02 [employer] Work Phone: [phone] eGFR (non-black) 80 mL/min/{1.73_m2} Invalid Interpretation Code >60 [employer] [facility] Work Phone: [phone] eGFR (non-black) 97 mL/min/{1.73_m2} Invalid Interpretation Code >60 [employer] [facility] Work Phone: [phone] EST GFR - AA 97 mL/min >60 [employer] [facility] Work Phone: [phone] Glucose 87 mg/dL Invalid Interpretation Code 70-110 [facility] Work Phone: [phone] Glucose mass conc 87 mg/dL 70-110 [facility] Work Phone: [phone] Potassium 3.8 mmol/L Invalid Interpretation Code 3.5-5.1 [facility] Work Phone: [phone] Sodium 138 mmol/L Invalid Interpretation Code 136-145 [facility] Work Phone: [phone] Urea nitrogen 16 mg/dL Invalid Interpretation Code 7-18 [facility] Work Phone: [phone] Lab Report: CBC W/Diff, Auto matedon 08-15-2016 Basophils/100 leukocytes 0.3 % Invalid Interpretation Code 0-1 [facility] Work Phone: [phone] Basophils/100 WBC (Bld) 0.3 % 0-1 [employer] Work Phone: [phone] Eosinophils/100 leukocytes 3.0 % Invalid Interpretation Code 0-5 [facility] Work Phone: [phone] Eosinophils/100 WBC (Bld) 3.0 % 0-5 [facility] Work Phone: [phone] Erythrocyte distribution width Ratio (RBC) 46.0 fL High 35.1-43.9 [facility] Work Phone: [phone] Erythrocyte distribution width Ratio (RBC) 13.9 % 11.6-14.6 [employer] Work Phone: [phone] Erythrocytes (RBC) 4.38 10*6/uL Invalid Interpretation Code 4.2-5.4 [facility] Work Phone: [phone] Hematocrit (HCT) 39.5 % Invalid Interpretation Code 37-47 [facility] Work Phone: [phone] Hematocrit Volume Fraction (Bld) 39.5 % 37-47 [facility] Work Phone: [phone] Hemoglobin (HGB) 12.9 g/dL Invalid Interpretation Code 12.0-15.0 [employer] Work Phone: [phone] Immature granulocytes #/vol (Bld) 0.000 % 0.0-0.9 [facility] Work Phone: [phone] immature granulocytes, percentage of total cells, blood 0.000 % Invalid Interpretation Code 0.0-0.9 [facility] Work Phone: [phone] Lymphocytes 3.02 X10 3/UL Invalid Interpretation Code 0.83-4.51 [facility] Work [phone] Lymphocytes #/vol (Bld) 3.02 X10 3/UL 0.83-4.51 [facility] Work Phone: [phone] Lymphocytes/100 leukocytes 41.0 % Invalid Interpretation Code 19-41 [facility] Work [phone] Lymphocytes/100 WBC (Bld) 41.0 % 19-41 [facility] Work Phone: [phone] MCH 29.5 pg Invalid Interpretation Code 27.0-32.0 [facility] Work Phone: [phone] MCH Entitic mass (RBC) 29.5 pg 27.0-32.0 [facility] Work Phone: [phone] MCHC 32.7 G/GL Invalid Interpretation Code 32-36 [facility] Work Phone: [phone] MCHC mass conc (RBC) 32.7 G/GL 32-[address] [facility] [address] [facility] Work [phone] MCV 90.2 fL Invalid Interpretation Code 81-99 [facility] Work [phone] MCV Entitic volume (RBC) 90.2 fL 81-99 [facility] Work Phone: [phone] Monocytes/100 leukocytes 9.4 % Invalid Interpretation Code 0-10 [facility] Work Phone: [phone] Monocytes/100 WBC (Bld) 9.4 % 0-10 [facility] Work Phone: [phone] neutrophil count, blood 3.4 X10 3/UL Invalid Interpretation Code 2.0-7.7 [facility] Work Phone: [phone] Neutrophils #/vol (Bld) 3.4 X10 3/UL 2.0-7.7 [facility] Work Phone: [phone] Neutrophils/100 leukocytes 46.3 % Low 47-70 [facility] Work Phone: [phone] Neutrophils/100 WBC (Bld) 46.3 % Low 47-70 [facility] Work Phone: [phone] Platelet mean volume Entitic volume (Bld) 10.2 fL 6.2-12.0 [facility] Work Phone: [phone] Platelets 223 10*3/mm3 Invalid Interpretation Code 150-450 [facility] Work Phone: [phone] Platelets #/vol (Bld) 223 10*3/mm3 150-450 [facility] Work Phone: [phone] PMV by Reese 10.2 fL Invalid Interpretation Code 6.2-12.0 [facility] Work Phone: [phone] RBC #/vol (Bld) 4.38 10*6/uL 4.2-5.4 [facility] Work Phone: [phone] RDW-CA 13.9 % Invalid Interpretation Code 11.6-14.6 [facility] Work Phone: [phone] red blood cell distribution width, size density 46.0 fL High 35.1-43.9 [facility] Work Phone: [phone] WBC #/vol (Bld) 7.4 10*3/uL 4.4-11.0 [facility] Work Phone: [phone] WBC (Leukocytes) 7.4 10*3/uL Invalid Interpretation Code 4.4-11.0 [facility] Work Phone: [phone] Office Visiton 08-15-2016 Dietary management education, guidance, and counseling (procedure) yes Invalid Interpretation Code [facility] Work Phone: [phone] Documentation of current medications (procedure) Done Invalid Interpretation Code [facility] Work Phone: [phone] Fall risk assessment No Invalid Interpretation Code [facility] Work Phone: [phone] Protein mass conc Done [facility] Work Phone: [phone] Clinical Lists Update: [employer] 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 08-14-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 Left ventricular Ejection fraction 60 % Invalid Interpretation Code [facility] Work Phone: [phone] Clinical Lists 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: [employer]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 Anion gap 12 mmol/L Invalid Interpretation Code [facility] Work Phone: [phone] Anion gap molar conc 12 mmol/L [facility] Work Phone: [phone] Calcium 9.7 mg/dL Invalid Interpretation Code [facility] Work Phone: [phone] Chloride 102 mmol/L Invalid Interpretation Code [facility] Work Phone: [phone] CO2 27.4 mmol/L Invalid Interpretation Code [facility] Work Phone: [phone] CO2 ppres (BldV) 27.4 mmol/L [facility] Work Phone: [phone] Creatinine 0.9 mg/dL Invalid Interpretation Code [facility] Work Phone: [phone] Glucose 91 mg/dL Invalid Interpretation Code [facility] Work Phone: [phone] Glucose mass conc 91 mg/dL [facility] Work Phone: [phone] Potassium 4.7 mmol/L Invalid Interpretation Code [facility] Work Phone: [phone] Sodium 137 mmol/L Invalid Interpretation Code [facility] Work Phone: [phone] Urea nitrogen 24 mg/dL High [facility] Work Phone: [phone] Laboratory - Chemistry and C hemistry - challengeon 10-31-2015 TSH Qn 1.42 m[IU]/L Normal 0.34 - 5.60 {uIU/ml} [employer] Laboratory - Chemistry and C hemistry - challengeon 06-26-2015 Bilirubin [facility]l (U) Negative [facility] [employer]. Ketones Ql (U) Negative [facility] [employer] pH (U) 5.5 [pH] Normal [employer]. Specific gravity (U) [Rel density] 1.015 Normal [employer]. Urobilinogen Qn (U) 0.2 mg/dL Normal [facility] [employer] Laboratory - Hematology and Cell countson 06-26-2015 Hemoglobin Ql (U) trace-lysed Normal [facility] [employer] Laboratory - Specimen inform ationon 06-26-2015 Appearance (U) cloudy Abnormal [facility] [employer] Color (U) yellow Normal [employer]; [employer] Laboratory - Urinalysison Glucose Test strip (U) [Mass/Vol] Negative Normal [employer]. Leukocyte esterase Test strip Ql (U) moderate Abnormal [facility] [employer]. Protein Ql (U) Negative Normal [facility] [employer] Laboratory - UrinalysisOrder ed By: Alondra Alcazar on 06-26-2015 Nitrite Ql (U) Positive Abnormal [facility] [employer] Office Visiton 12-28-2012 Documentation of current medications (procedure) Done Invalid Interpretation Code [facility] Work Phone: [phone] Protein mass conc Done [facility] Work Phone: [phone] EKG Report: [facility] ECG Obse rvationson 06-29-2012 GE use only - for [employer] import when terms are not otherwise specified 399 ms Invalid Interpretation Code [facility] Work Phone: [phone] QTc Herman 399 ms [facility] Work Phone: [phone] Replaced Document: [facility] E CG Observationson 06-29-2012 EKG QRS axis 7 deg [facility] Work Phone: [phone] electrocardiogram interpretation Sinus Rhythm WITHIN NORMAL LIMITS Invalid Interpretation Code [facility] Work Phone: [phone] Interpretation Sinus Rhythm WITHIN NORMAL LIMITS [facility] Work Phone: [phone] P Waggoner 56 deg [facility] Work Phone: [phone] P wave axis, electrocardiogram 56 deg Invalid Interpretation Code [facility] Work Phone: [phone] CO Interval 156 ms [facility] Work Phone: [phone] CO interval, electrocardiogram 156 ms Invalid Interpretation Code [facility] Work Phone: [phone] Pulse (Heart Rate) 72 /min Invalid Interpretation Code [facility] Work Phone: [phone] Pulse (Heart Rate) 400 ms Invalid Interpretation Code [facility] Work Phone: [phone] QRS axis, electrocardiogram 7 deg Invalid Interpretation Code [facility] Work Phone: [phone] QRS Duration 102 ms [facility] Work Phone: [phone] QRS duration, electrocardiogram 102 ms Invalid Interpretation Code [facility] Work Phone: [phone] QT Interval new path ms [facility] Work Phone: [phone] QT interval, electrocardiogram new path ms Invalid Interpretation Code [facility] Work Phone: [phone] T Waggoner 19 deg [facility] Work Phone: [phone] T wave axis, electrocardiogram 19 deg Invalid Interpretation Code [facility] Work Phone: [phone] Office Visiton 11-28-2011 Tobacco smoking status NHIS never smoker [facility] Work Phone: [phone] Tobacco use [facility] never smoker Invalid Interpretation Code [facility] Work Phone: [phone] Vital Signs Date Time Vital Sign Value Performing Clinician Facility 01-25-2024 09:59-0500 Body height 160.02 cm Horacio rAaujo LPN [facility], [facility].; [employer] [facility], [facility]. 01-25-2024 09:59-0500 Body mass index (BMI) [Ratio] 37.2 kg/m2 Horacio Araujo LPN [facility], [facility].; [facility], [facility]. 01-25-2024 09:59-0500 Body surface area Derived from formula 1.97 m2 Horacio Araujo LPN [facility], [facility]; [employer] [facility], [facility]. 01-25-2024 09:59-0500 Body temperature 98.3 [degF] Horacio Araujo LPN [facility], [facility].; [employer] [facility], [facility]. 01-25-2024 09:59-0500 Body weight 95.26 kg Horacio Araujo [employer] [facility].; [facility]. 01-25-2024 09:59-0500 Diastolic blood pressure 73 mm[Hg] Horacio Araujo LPN [facility].; [facility], [facility]. Comment on above: Patient Position: Sitting; Cuff Location : Left Arm; Cuff Size: Standard 01-25-2024 09:59-0500 Heart rate 70 /min Horacio Araujo SW[employer] DR[employer] [facility], [facility].; [facility], [facility]. Comment on above: Pattern: Regular 01-25-2024 09:59-0500 Inhaled oxygen concentration 21 % Horacio Van [facility], [facility].; [facility], [facility]. Comment on above: Room air 01-25-2024 09:59-0500 SaO2% (BldA) [Mass fraction] 98 % Horaciorosalia Araujo [facility], [facility].; [facility], [facility]. 01-25-2024 09:59-0500 Systolic blood pressure 131 mm[Hg] Horacio Araujo LPN [facility], [facility].; [facility], [facility]. Comment on above: Patient Position: Sitting; Cuff Location : Left Arm; Cuff Size: Standard 01-01-2024 09:29-0500 Body height 160.02 cm Adela Arizmendi RN [facility], [facility].; [facility]. 01-01-2024 09:29-0500 Body mass index (BMI) [Ratio] 37.73 kg/m2 Adela Arizmendi RN [facility], [facility].; [facility], [facility]. 01-01-2024 09:29-0500 Body surface area Derived from formula 1.99 m2 Adela Arizmendi RN [facility], [facility].; [facility], [facility]. 01-01-2024 09:29-0500 Body temperature 97.8 [degF] Adela Arizmendi RN [facility], [facility].; [place] [employer] [facility], [employer]. Comment on above: Method: Tympanic 01-01-2024 09:29-0500 Body weight 96.62 kg Adela Arizmendi RN [facility], [facility].; [facility]. 01-01-2024 09:29-0500 Diastolic blood pressure 74 mm[Hg] Adela Arizmendi RN [facility].; [facility]. Comment on above: Patient Position: Sitting; Cuff Location : Left Arm; Cuff Size: Standard 01-01-2024 09:29-0500 Heart rate 70 /min Adela Arizmendi RN [facility].; [facility]. Comment on above: Pattern: Regular 01-01-2024 09:29-0500 Systolic blood pressure 130 mm[Hg] Adela Arizmendi RN [facility].; [facility]. Comment on above: Patient Position: Sitting; Cuff Location : Left Arm; Cuff Size: Standard 06-18-2023 13:51-0400 Body height 165.1 cm PA Luke Attila Work Phone: [facility] 06-18-2023 13:51-0400 Body mass index (BMI) [Ratio] 35.2 kg/m2 PA Luke Attila Work Phone: [facility] 06-18-2023 13:51-0400 Body weight 96.16 kg PA Luke Attila Work Phone: [facility] 06-18-2023 13:51-0400 Diastolic blood pressure 85 mm[Hg] PA Luke Attila Work Phone: [facility] 06-18-2023 13:51-0400 Heart rate 81 /min PA Luke Attila Work Phone: [facility] 06-18-2023 13:51-0400 Respiratory rate 20 /min PA Luke Attila Work Phone: [facility] 06-18-2023 13:51-0400 SaO2% (BldA) [Mass fraction] 97 % PA Luke Attila Work Phone: [facility] 06-18-2023 13:51-0400 Systolic blood pressure 160 mm[Hg] PA Luke Attila Work Phone: [facility] 06-12-2023 03:27-0400 Body temperature 97.4 [degF] PA Luke Attila Work Phone: [facility] 06-12-2023 03:27-0400 Diastolic blood pressure 77 mm[Hg] PA Luke Attila Work Phone: [facility] 06-12-2023 03:27-0400 Heart rate 80 /min PA Luke Attila Work Phone: [facility] 06-12-2023 03:27-0400 Respiratory rate 20 /min PA Luke Attila Work Phone: [facility] 06-12-2023 03:27-0400 SaO2% (BldA) [Mass fraction] 97 % PA Luke Attila Work Phone: [facility] 06-12-2023 03:27-0400 Systolic blood pressure 174 mm[Hg] PA Luke Attila Work Phone: [facility] 06-12-2023 02:03-0400 Body height 165.1 cm PA Luke Attila Work Phone: [facility] 06-12-2023 02:03-0400 Body mass index (BMI) [Ratio] 35.9 kg/m2 PA Luke Attila Work Phone: [facility] 06-12-2023 02:03-0400 Body weight 98 kg PA Luke Attila Work Phone: [facility] 06-01-2023 10:51-0400 Diastolic blood pressure 85 mm[Hg] PA Luke Attila Work Phone: [facility] 06-01-2023 10:51-0400 Systolic blood pressure 170 mm[Hg] PA Luke Attila Work Phone: [facility] 06-01-2023 10:11-0400 Body mass index (BMI) [Ratio] 34.9 kg/m2 PA [employer] Work Phone: [facility] 06-01-2023 10:11040 Body weight 95.25 kg PA [employer] Work Phone: [facility] 06-01-2023 10:110400 Heart rate 78 /min PA [employer] Work Phone: [facility] 06-01-2023 10:11-0400 Respiratory rate 18 /min PA [employer] Work Phone: [facility] 06-01-2023 10:110400 SaO2% (BldA) [Mass fraction] 97 % PA [employer] Work Phone: [facility] 01-23-2023 10:40-0500 Body height 160.02 cm Adela Arizmendi RN [facility], [facility].; [place] [employer] [facility] [employer] [facility]. 01-23-2023 10:40-0500 Body mass index (BMI) [Ratio] 37.2 kg/m2 Adela Arizmendi RN [facility].; [employer] [facility] [employer] [facility]. 01-23-2023 10:40-0500 Body surface area Derived from formula 1.97 m2 Adela Arizmendi RN [facility].; [employer] [facility] [facility]. 01-23-2023 10:40-0500 Body temperature 98.4 [degF] Adela Arizmendi RN [place] [employer] [facility] [facility].; [employer] [facility] [facility] Comment on above: Method: Tympanic 01-23-2023 10:40-0500 Body weight 95.26 kg Adela Arizmendi RN [facility].; [place] [employer] [facility] [facility]. 01-23-2023 10:40-0500 Diastolic blood pressure 79 mm[Hg] Adela Arizmendi RN [facility].; [employer] [facility] [facility]. Comment on above: Patient Position: Sitting; Cuff Location : Left Arm; Cuff Size: Standard 01-23-2023 10:40-0500 Heart rate 78 /min Adela Arizmendi RN [facility], [employer] [facility] [facility]. Comment on above: Pattern: Regular 01-23-2023 10:40-0500 Inhaled oxygen concentration 21 % Adela Arizmendi RN [facility], [facility].; [employer] Comment on above: Room air 01-23-2023 10:40-0500 SaO2% (BldA) [Mass fraction] 97 % Adela Arizmendi RN [facility], [facility].; [employer] [facility]. 01-23-2023 10:40-0500 Systolic blood pressure 139 mm[Hg] Adela Arizmendi RN [facility].; [employer] [facility] [facility] Comment on above: Patient Position: Sitting; Cuff Location : Left Arm; Cuff Size: Standard 01-06-2023 09:57-0500 Body weight 96.16 kg Horacio Araujo LPN [facility], [employer].; [employer] 01-06-2023 09:57-0500 Diastolic blood pressure 83 mm[Hg] Horacio Araujo LPN [facility], [employer].; [employer]. Comment on above: Patient Position: Sitting; Cuff Location : Left Arm; Cuff Size: Standard 01-06-2023 09:57-0500 Heart rate 78 /min Horacio Araujo LPN [facility], [employer].; [employer]. Comment on above: Pattern: Regular 01-06-2023 09:57-0500 Systolic blood pressure 135 mm[Hg] Horacio Araujo LPN [facility], [employer].; [employer]. Comment on above: Patient Position: Sitting; Cuff Location : Left Arm; Cuff Size: Standard 09-22-2022 09:06-0400 Body height 160.02 cm Adela Arizmendi RN [facility], [employer].; [employer] 09-22-2022 09:06-0400 Body mass index (BMI) [Ratio] 37.2 kg/m2 Adela Arizmendi RN [facility].; [employer] 09-22-2022 09:06-0400 Body surface area Derived from formula 1.97 m2 Adela Arizmendi RN [facility].; [employer] [facility] [facility]. 09-22-2022 09:06-0400 Body temperature 97.4 [degF] Adela Arizmendi RN [facility].; [employer] Comment on above: Method: Tympanic 09-22-2022 09:060400 Body weight 95.26 kg Adela Arizmendi RN [facility].; [employer] 09-22-2022 09:06-0400 Diastolic blood pressure 73 mm[Hg] Adela Arizmendi RN [place] [employer] [facility] [employer] [facility].; [employer] Comment on above: Patient Position: Sitting; Cuff Location : Left Arm; Cuff Size: Large 09-22-2022 09:06-0400 Heart rate 73 /min Adela Arizmendi RN [facility].; [employer] Comment on above: Pattern: Regular 09-22-2022 09:06-0400 Systolic blood pressure 128 mm[Hg] Adela Arizmendi RN [place] [employer] [facility] [employer] [facility].; [employer] Comment on above: Patient Position: Sitting; Cuff Location : Left Arm; Cuff Size: Large 12-25-2021 14:280400 Body height 160.02 cm Kellee Feliciano MA [facility].; [employer] 12-25-2021 14:280400 Body mass index (BMI) [Ratio] 37.55 kg/m2 Kellee Feliciano MA [place] [employer] [facility] [employer] [facility].; [employer] 12-25-2021 14:280400 Body surface area Derived from formula 1.98 m2 Kellee Feliciano MA [place] [employer] [facility] [employer] [facility].; [employer] [facility]. 12-25-2021 14:28040 Body weight 96.16 kg Kellee Feliciano MA [facility].; [employer] 12-25-2021 14:28-0400 Diastolic blood pressure 70 mm[Hg] Kellee Feliciano MA [place] [employer] [facility] [employer] Comment on above: Patient Position: Sitting; Cuff Location : Right Arm; Cuff Size: Large 12-25-2021 14:28-0400 Heart rate 69 /min Kellee Feliciano MA [facility].; [place] [employer] Comment on above: Pattern: Regular 12-25-2021 14:28-0400 Systolic blood pressure 130 mm[Hg] Kellee Feliciano MA [facility].; [employer] Comment on above: Patient Position: Sitting; Cuff Location : Right Arm; Cuff Size: Large 10-24-2021 14:02-0400 Body weight 95.85 kg Margret Arcos MA [facility].; [employer] 10-24-2021 14:02-0400 Diastolic blood pressure 80 mm[Hg] Margret Arcos MA [facility].; [employer]. Comment on above: Patient Position: Sitting; Cuff Location : Left Arm; Cuff Size: Standard 10-24-2021 14:02-0400 Heart rate 71 /min Margret Arcos MA [facility].; [employer] Comment on above: Pattern: Regular 10-24-2021 14:02-0400 Systolic blood pressure 136 mm[Hg] Margret Arcos MA [place] [employer] [facility] [facility].; [employer] Comment on above: Patient Position: Sitting; Cuff Location : Left Arm; Cuff Size: Standard 10-08-2021 17:32-0400 Body temperature 98 [degF] Dr. Kurt Moreno Work Phone: [facility] Work Phone: 10-08-2021 17:32-0400 Diastolic blood pressure 67 mm[Hg] Dr. Kurt Moreno Work Phone: [facility] Work Phone: 10-08-2021 17:32-0400 Heart rate 73 /min Dr. Kurt Moreno Work Phone: [facility] Work Phone: 10-08-2021 17:32-0400 Respiratory rate 19 /min Dr. Kurt Moreno Work Phone: [facility] Work Phone: 10-08-2021 17:32-0400 SaO2% (BldA) [Mass fraction] 98 % Dr. Kurt Moreno Work Phone: [facility] Work Phone: 10-08-2021 17:32-0400 Systolic blood pressure 152 mm[Hg] Dr. Kurt Moreno Work Phone: [facility] Work Phone: 10-08-2021 14:00-0400 Body height 162.[address] Kurt Moreno Work Phone: [facility] Work Phone: 10-08-2021 14:00-0400 Body mass index (BMI) [Ratio] 36.7 kg/m2 Dr. Kurt Moreno Work Phone: [facility] Work Phone: 10-08-2021 14:00-0400 Body weight 97.[address] Kurt Moreno Work Phone: [facility] Work Phone: 07-31-2021 13:32-0400 Body mass index (BMI) [Ratio] 34.3 kg/m2 Dr. Kurt Moreno Work Phone: [facility] Work Phone: 07-31-2021 13:32-0400 Body weight 96.[address] Kurt Moreno Work Phone: [facility] Work Phone: 07-31-2021 13:32-0400 Diastolic blood pressure 88 mm[Hg] Dr. Kurt Moreno Work Phone: [facility] Work Phone: 07-31-2021 13:32-0400 Heart rate 71 /min Dr. Kurt Moreno Work Phone: [facility] Work Phone: 07-31-2021 13:32-0400 Respiratory rate 18 /min Dr. Kurt Moreno Work Phone: [facility] Work Phone: 07-31-2021 13:32-0400 SaO2% (BldA) [Mass fraction] 97 % Dr. Kurt Moreno Work Phone: [facility] Work Phone: 07-31-2021 13:32-0400 Systolic blood pressure 115 mm[Hg] Dr. Kurt Moreno Work Phone: [facility] Work Phone: 12-04-2020 15:05-0400 Body height 160.02 cm Kellee Waters LPN [facility], [facility].; [facility], [facility]. 12-04-2020 15:05-0400 Body mass index (BMI) [Ratio] 36.85 kg/m2 Kellee Waters LPN [facility], [facility].; [place] [employer] [facility], [facility]. 12-04-2020 15:05-0400 Body surface area Derived from formula 1.97 m2 Kellee Waters LPN [facility], [facility].; [employer] [facility], [facility]. 12-04-2020 15:05-0400 Body weight 94.35 kg Kellee Waters LPN [facility], [facility].; [employer], [facility]. 12-04-2020 15:05-0400 Diastolic blood pressure 79 mm[Hg] Kellee Waters LPN [facility], [facility].; [employer], [employer]. Comment on above: Patient Position: Sitting; Cuff Location : Left Arm; Cuff Size: Standard 12-04-2020 15:05-0400 Heart rate 68 /min Kellee Waters LPN [facility], [facility].; [employer] Comment on above: Pattern: Regular 12-04-2020 15:05-0400 Systolic blood pressure 133 mm[Hg] Kellee Waters LPN [facility], [facility].; [employer], [employer]. Comment on above: Patient Position: Sitting; Cuff Location : Left Arm; Cuff Size: Standard 02-14-2020 14:24-0500 Body height 160.02 cm Kellee Waters LPN [facility], [facility].; [employer] 02-14-2020 14:24-0500 Body mass index (BMI) [Ratio] 35.07 kg/m2 Kellee Waters LPN [facility], [facility].; [employer]. 02-14-2020 14:24-0500 Body surface area Derived from formula 1.93 m2 Kellee Waters LPN [facility], [facility].; [employer]. 02-14-2020 14:24-0500 Body weight 89.81 kg Kellee Waters LPN [facility].; [employer]. 02-14-2020 14:24-0500 Diastolic blood pressure 74 mm[Hg] Kellee Waters LPN [place] [employer] [facility], [facility].; [employer]. Comment on above: Patient Position: Sitting; Cuff Location : Left Arm; Cuff Size: Standard 02-14-2020 14:24-0500 Heart rate 86 /min Kellee Waters LPN [facility], [facility].; [employer]. Comment on above: Pattern: Regular 02-14-2020 14:24-0500 Systolic blood pressure 126 mm[Hg] Kellee Waters LPN [facility].; [employer]. Comment on above: Patient Position: Sitting; Cuff Location : Left Arm; Cuff Size: Standard 02-06-2020 16:30-0500 Body height 160.02 cm [facility] Work Phone: [place] [employer] [facility] [employer] [facility].; [employer] Work Phone: 02-06-2020 16:30-0500 Body mass index (BMI) [Ratio] 34.72 kg/m2 [facility] Work Phone: [place] [employer] [facility] [employer] [facility].; [employer] Work Phone: 02-06-2020 16:30-0500 Body surface area Derived from formula 1.92 m2 [facility] Work Phone: [place] [employer] [facility] Work Phone: 02-06-2020 16:30-0500 Body temperature 100.6 [degF] Malou Christopher LPN Work Phone: [employer]; [employer] Work Phone: Comment on above: Method: Tympanic 02-06-2020 16:30-0500 Body weight 88.91 kg Malou Christopher SWING DRIVER Work Phone: [employer]; [employer]. Work Phone: 02-06-2020 16:30-0500 Diastolic blood pressure 78 mm[Hg] Malou Christopher SWING DRIVER Work Phone: [employer]; [employer] Work Phone: Comment on above: Patient Position: Sitting; Cuff Location : Left Arm; Cuff Size: Standard 02-06-2020 16:30-0500 Heart rate 98 /min Malou Christopher LPN Work Phone: [employer]; [employer] Work Phone: Comment on above: Pattern: Regular 02-06-2020 16:30-0500 Inhaled oxygen concentration 21 % Malou Christopher SWING DRIVER Work Phone: [employer]; [employer] Work Phone: Comment on above: Room air 02-06-2020 16:30-0500 SaO2% (BldA) [Mass fraction] 95 % Malou Christopher SWING DRIVER Work Phone: [employer]; [employer] Work Phone: 02-06-2020 16:30-0500 Systolic blood pressure 161 mm[Hg] Malou Bealy SWING DRIVER Work Phone: [employer]; [employer] Work Phone: Comment on above: Patient Position: Sitting; Cuff Location : Left Arm; Cuff Size: Standard 08-15-2019 13:22-0400 Body height 160.02 cm Kurt Moreno MD Work Phone: [employer] 08-15-2019 13:22-0400 Body mass index (BMI) [Ratio] 35.78 kg/m2 Kurt Moreno MD Work Phone: [employer] 08-15-2019 13:22-0400 Body surface area Derived from formula 1.94 m2 Kurt Moreno MD Work Phone: [employer] 08-15-2019 13:22-0400 Body weight 91.63 kg Kurt Moreno MD Work Phone: [employer] 08-15-2019 13:22-0400 Diastolic blood pressure 72 mm[Hg] Kurt Mroeno MD Work Phone: [employer]. Comment on above: Patient Position: Sitting; Cuff Location : Left Arm; Cuff Size: Large 08-15-2019 13:22-0400 Heart rate 71 /min Kurt Moreno MD Work Phone: [employer]. Comment on above: Pattern: Regular 08-15-2019 13:22-0400 Systolic blood pressure 134 mm[Hg] Kurt Moreno MD Work Phone: [employer]. Comment on above: Patient Position: Sitting; Cuff Location : Left Arm; Cuff Size: Large 01-06-2019 13:17-0500 Body height 160.02 cm Kurt Moreno MD Work Phone: [employer] 01-06-2019 13:17-0500 Body mass index (BMI) [Ratio] 36.49 kg/m2 Kurt Moreno MD Work Phone: [employer] 01-06-2019 13:17-0500 Body surface area Derived from formula 1.96 m2 Kurt Moreno MD Work Phone: [employer]. 01-06-2019 13:17-0500 Body weight 93.44 kg Kurt Moreno MD Work Phone: [place] [employer]. 01-06-2019 13:17-0500 Diastolic blood pressure 82 mm[Hg] Kurt Moreno MD Work Phone: [place] [employer]. Comment on above: Patient Position: Sitting; Cuff Location : Left Arm; Cuff Size: Standard 01-06-2019 13:17-0500 Heart rate 82 /min Kurt Moreno MD Work Phone: [employer]. Comment on above: Pattern: Regular 01-06-2019 13:17-0500 Systolic blood pressure 156 mm[Hg] Kurt Moreno MD Work Phone: [employer]. Comment on above: Patient Position: Sitting; Cuff Location : Left Arm; Cuff Size: Standard 07-27-2018 13:20-0400 Body height 160.02 cm Nhung Delgado [facility] [employer] [facility], Inc.; [employer] 07-27-2018 13:20-0400 Body mass index (BMI) [Ratio] 38.09 kg/m2 AshleyZeenat Delgado [facility] [employer] [facility], Inc.; [employer] 07-27-2018 13:20-0400 Body surface area Derived from formula 1.99 m2 Ashley Danny [facility] [employer] [facility], [employer].; [employer]. 07-27-2018 13:20-0400 Body temperature 98.8 [degF] AshleyZeenat Delgado [facility] [employer]. Comment on above: Method: Tympanic 07-27-2018 13:20-0400 Body weight 97.52 kg Nhung Gomezuckey SWING DRIVER [place] [employer] [facility], Inc.; [employer] 07-27-2018 13:20-0400 Diastolic blood pressure 84 mm[Hg] Nhung Delgado LPN [facility], Inc.; [employer]. Comment on above: Patient Position: Sitting; Cuff Location : Left Arm; Cuff Size: Large 07-27-2018 13:20-0400 Heart rate 83 /min Nhung Delgado LPN [facility], Inc.; [employer], [employer]. Comment on above: Pattern: Regular 07-27-2018 13:20-0400 Systolic blood pressure 167 mm[Hg] Nhung Delgado [facility], Inc.; [employer], [employer]. Comment on above: Patient Position: Sitting; Cuff Location : Left Arm; Cuff Size: Large 02-01-2018 14:49-0500 Body height 160.02 cm Nhung Delgado [facility], Inc.; [employer], [employer]. 02-01-2018 14:49-0500 Body mass index (BMI) [Ratio] 38.44 kg/m2 Ashley Danny [facility], Inc.; [employer], [employer] 02-01-2018 14:49-0500 Body surface area Derived from formula 2 m2 Nhung Delgado [facility], Inc.; [employer], [employer]. 02-01-2018 14:49-0500 Body temperature 97.9 [degF] Nhung Delgado [facility], Inc.; [employer], [employer]. Comment on above: Method: Tympanic 02-01-2018 14:49-0500 Body weight 98.43 kg Nhung Delgado [facility], Inc.; [employer] 02-01-2018 14:49-0500 Diastolic blood pressure 85 mm[Hg] Nhung Delgado [facility], Inc.; [employer], [employer]. Comment on above: Patient Position: Sitting; Cuff Location : Left Arm; Cuff Size: Large 02-01-2018 14:49-0500 Heart rate 83 /min Nhung Delgado [facility], Inc.; [employer]. Comment on above: Pattern: Regular 02-01-2018 14:49-0500 Inhaled oxygen concentration 21 % Nhung Delgado [facility], Inc.; [employer], [employer]. Comment on above: Room air 02-01-2018 14:49-0500 SaO2% (BldA) [Mass fraction] 96 % Nhung Delgado [facility], Inc.; [employer], [employer] 02-01-2018 14:49-0500 Systolic blood pressure 171 mm[Hg] Nhung Delgado [facility] [employer], [employer]. Comment on above: Patient Position: Sitting; Cuff Location : Left Arm; Cuff Size: Large 10-27-2017 11:37-0400 Body height 160.02 cm Autumn Lisette Mutersbaugh SWING DRIVER [employer], [employer] 10-27-2017 11:37-0400 Body mass index (BMI) [Ratio] 40.03 kg/m2 Autumn K Mutersbaugh SWING DRIVER [place] [employer], [employer] 10-27-2017 11:37-0400 Body surface area Derived from formula 2.04 m2 Autumn K Mutersbaugh SWING DRIVER [employer], [employer]. 10-27-2017 11:37-0400 Body weight 102.51 kg Autumn K Mutersbaugh SWING DRIVER [employer], [employer] 10-27-2017 11:37-0400 Diastolic blood pressure 70 mm[Hg] Autumn K Mutersbaugh SWING DRIVER [employer], [employer]. Comment on above: Patient Position: Sitting; Cuff Location : Left Arm; Cuff Size: Standard 10-27-2017 11:37-0400 Heart rate 75 /min Autumn K Mutersbaugh SWING DRIVER [employer], [employer]. Comment on above: Pattern: Regular 10-27-2017 11:37-0400 Systolic blood pressure 137 mm[Hg] Autumn K Mutersbaugh SWING DRIVER [employer], [employer]. Comment on above: Patient Position: Sitting; Cuff Location : Left Arm; Cuff Size: Standard 08-15-2016 13:12-0400 BMI (Body Mass Index) 34.54 kg/m2 [facility] Work Phone: 08-15-2016 13:12-0400 BP Diastolic 80 mm[Hg] [facility] Work Phone: 08-15-2016 13:12-0400 BP Systolic 172 mm[Hg] RIT[facility] Work Phone: 08-15-2016 13:12-0400 Height 167.64 cm [facility]IT[facility] Work Phone: 08-15-2016 13:12-0400 Pulse (Heart Rate) 58 /min [facility]IT[facility] Work Phone: 08-15-2016 13:12-0400 Respiratory Rate 18 /min [facility] Work Phone: 08-15-2016 13:12-0400 Weight 97.07 kg RITESH [facility] Work Phone: 08-05-2016 11:15-0400 Body height 160.02 cm Nhung Delgado SWING DRIVER [facility], Inc.; [employer] [facility], Inc. 08-05-2016 11:15-0400 Body mass index (BMI) [Ratio] 37.73 kg/m2 [facility] Danny SWING DRIVER [facility], Inc.; [facility], Inc. 08-05-2016 11:15-0400 Body surface area Derived from formula 1.99 m2 Nhung Delgado LPN [facility], Inc.; [employer] [facility], Inc. 08-05-2016 11:15-0400 Body weight 96.62 kg Nhung Delgado SWING DRIVER [facility], Inc.; [place] [employer] [facility], Inc. 08-05-2016 11:15-0400 Diastolic blood pressure 80 mm[Hg] Nhung Delgado SWING DRIVER [facility], Inc.; [employer] [facility], Inc. Comment on above: Patient Position: Sitting; Cuff Location : Left Arm; Cuff Size: Large 08-05-2016 11:15-0400 Heart rate 60 /min Nhnug Delgado SWING DRIVER [employer]. Comment on above: Pattern: Regular 08-05-2016 11:15-0400 Systolic blood pressure 139 mm[Hg] Nhugn Delgado SWING DRIVER [employer], [employer]. Comment on above: Patient Position: Sitting; Cuff Location : Left Arm; Cuff Size: Large 09-13-2015 10:40-0400 Body height 160.02 cm Autumn K Mutersbaugh SWING DRIVER [employer] 09-13-2015 10:40-0400 Body mass index (BMI) [Ratio] 37.2 kg/m2 Autumn K Mutersbaugh SWING DRIVER [employer], [employer] 09-13-2015 10:40-0400 Body surface area Derived from formula 1.97 m2 Autumn K Mutersbaugh SWING DRIVER [employer], [employer]. 09-13-2015 10:40-0400 Body weight 95.26 kg Autumn K Mutersbaugh SWING DRIVER [employer], [employer].; [employer]. 09-13-2015 10:40-0400 Diastolic blood pressure 81 mm[Hg] Autumn K Mutersbaugh SWING DRIVER [employer], [employer].; [employer]. Comment on above: Patient Position: Sitting; Cuff Location : Left Arm; Cuff Size: Standard 09-13-2015 10:40-0400 Heart rate 76 /min Uatumn K Mutersbaugh SWING DRIVER [employer], [employer].; [employer]. Comment on above: Pattern: Regular 09-13-2015 10:40-0400 Systolic blood pressure 172 mm[Hg] Autumn K Mutersbaugh SWING DRIVER [employer].; [employer]. Comment on above: Patient Position: Sitting; Cuff Location : Left Arm; Cuff Size: Standard 06-26-2015 09:51-0400 Body height 160.02 cm Kurt Moreno MD Work Phone: [employer]; [employer] 06-26-2015 09:51-0400 Body mass index (BMI) [Ratio] 36.85 kg/m2 Kurt Moreno MD Work Phone: [employer]; [employer] 06-26-2015 09:51-0400 Body surface area Derived from formula 1.97 m2 Kurt Moreno MD Work Phone: [employer] 06-26-2015 09:51-0400 Body temperature 97.5 [degF] Kurt Moreno MD Work Phone: [employer]; [employer]. Comment on above: Method: Tympanic 06-26-2015 09:51-0400 Body weight 94.35 kg Kurt Moreno MD Work Phone: [employer]; [employer]. 06-26-2015 09:51-0400 Diastolic blood pressure 90 mm[Hg] Kurt Moreno MD Work Phone: [employer]; [employer]. Comment on above: Patient Position: Sitting; Cuff Location : Right Arm; Cuff Size: Large 06-26-2015 09:51-0400 Heart rate 72 /min Kurt Moreno MD Work Phone: [employer]; [employer]. Comment on above: Pattern: Regular 06-26-2015 09:51-0400 Systolic blood pressure 166 mm[Hg] Kurt Moreno MD Work Phone: [employer] Comment on above: Patient Position: Sitting; Cuff Location : Right Arm; Cuff Size: Large 12-25-2014 14:52-0500 Body height 160.02 cm Kurt Moreno MD Work Phone: [employer] 12-25-2014 14:52-0500 Body mass index (BMI) [Ratio] 38.26 kg/m2 Kurt Moreno MD Work Phone: [employer] 12-25-2014 14:52-0500 Body surface area Derived from formula 2 m2 Kurt Moreno MD Work Phone: [employer]; [employer] 12-25-2014 14:52-0500 Body weight 97.98 kg Kurt Moreno MD Work Phone: [employer] 12-25-2014 14:52-0500 Diastolic blood pressure 82 mm[Hg] Kurt Moreno MD Work Phone: [employer]. Comment on above: Patient Position: Sitting; Cuff Location : Right Arm; Cuff Size: Large 12-25-2014 14:52-0500 Heart rate 75 /min Kurt Moreno MD Work Phone: [employer]; [employer]. Comment on above: Pattern: Regular 12-25-2014 14:52-0500 Systolic blood pressure 170 mm[Hg] Kurt Moreno MD Work Phone: [employer]. Comment on above: Patient Position: Sitting; Cuff Location : Right Arm; Cuff Size: Large 12-28-2012 13:04-0500 BMI (Body Mass Index) 34.34 kg/m2 [facility] [employer] Work Phone: 12-28-2012 13:04-0500 BP Diastolic 80 mm[Hg] Harumi DeFinis [facility] Work Phone: 12-28-2012 13:04-0500 BP Systolic 152 mm[Hg] Harumi DeFinis [facility] Work Phone: 12-28-2012 13:04-0500 Pulse (Heart Rate) 64 /min Harumi DeFinis [facility] Work Phone: 12-28-2012 13:04-0500 Respiratory Rate 20 /min Harumi DeFinis [facility] Work Phone: 12-28-2012 13:04-0500 Weight 96.16 kg Gama Barahona [employer] [facility] Work Phone: 06-29-2012 10:11-0400 Heart rate 72 /min Diana Lopes RN [facility] Work Phone: 06-29-2012 10:11-0400 Heart rate 400 ms Diana Lopes RN [facility] [employer] Work Phone: 11-28-2011 11:42-0400 Height 167.64 cm Gama [employer] [employer] [facility] Work Phone: Encounters Encounter Date Encounter Type Care Provider Facility Start: 03-14-2024 Review Alec magallanes PA-C [facility] [employer] Start: 03-11-[facility] Start: 03-11-2024 End: 03-13-2024 ambulatory CHEYENNE MCGUIRE [facility] Start: 02-29-2024 End: 02-29-2024 Medication Amandake Attila PA-C Work [facility] [employer] [facility] Start: 01-27-2024 End: 01-27-2024 ambulatory Alec Aiekn Facility:[facility] Start: 01-25-2024 End: 01-25-2024 [facility] Start: 01-25-2024 End: 01-25-2024 Office outpatient visit 15 minutes Alec Aiken PA-C Work Phone: [employer] Start: 01-04-2024 End: 01-04-2024 Telephone follow-up Alec Aiken PA-C Work Phone: [employer] Start: 01-04-2024 End: 01-04-2024 Medication Alec Mosquedaetler PA-C Work Phone: [employer] Start: 01-03-2024 End: 01-03-2024 Emergency department patient visit NEVILLE SANTIAGO [facility] Start: 01-01-2024 Review Luhuey Mosquedaetl er PA-C [facility] [employer] [facility] Start: 01-01-2024 End: 01-01-2024 Office outpatient visit 25 minutes Alec Kaiserler PA-C Work Phone: [facility] [facility] Start: 01-01-2024 Review Amandake Yenetl er PA-C Work Phone: [facility] Start: 08-18-2023 End: 08-18-2023 ambulatory Luhuey MirandaAttila Facility:[facility] Start: 06-18-2023 Patient encounter procedure PA Alec Aiken Work Phone: [facility] Work Phone: Start: 06-18-2023 End: 06-18-2023 ambulatory Alec Mosquedaetler Facility:[facility] Start: 06-15-2023 End: 06-15-2023 Telephone follow-up Alec Aiken PA-C [facility] Start: 06-12-2023 End: 06-12-2023 ambulatory PA Alec Aiken Work Phone: [facility] Work Phone: Start: 06-12-2023 End: 06-12-2023 Departed Referred PA Alec Aiken Work Phone: [facility] Work Phone: Start: 06-12-2023 Registered Referred PA Alec starr Work Phone: [facility] Work Phone: Start: 06-12-2023 End: 06-12-2023 Emergency department patient visit ROSAURA Aiken Work Phone: [facility] Work Phone: Start: 06-12-2023 End: 06-12-2023 ambulatory Luke Attila Facility:[facility] Start: 06-01-2023 End: 06-01-2023 Patient encounter procedure PA Luke Attila Work Phone: [facility] Work Phone: Start: 06-01-2023 End: 06-01-2023 ambulatory Luke Attila Facility:[facility] Start: 01-23-2023 End: 01-23-2023 Office outpatient visit 15 minutes Luke Attila PA-C Work Phone: [employer] Start: 01-08-2023 End: 01-08-2023 Orders Luke Attila PA-C Work Phone: [employer]. Start: 01-06-2023 End: 01-08-2023 Patient encounter procedure Luke Attila PA-C Work Phone: [employer]. Start: 09-26-2022 End: 09-26-2022 Medication Luke Attila PA-C Work Phone: [employer] Start: 09-22-2022 End: 09-22-2022 Office outpatient visit 15 minutes Luke Attila PA-C Work Phone: [employer]. Start: 12-25-2021 End: 12-25-2021 Office outpatient visit 25 minutes Luke Attila PA-C Work Phone: [employer]. Start: 12-23-2021 Telephone encounter Belen Miramontes MD Work Phone: [facility] Comment on above: Outside Lab Results (Dr. Arnulfo Najera, [place]) Start: 10-24-2021 End: 10-24-2021 Office outpatient visit 25 minutes Luke Attila PA-C Work Phone: [employer] Start: 10-08-2021 Evaluation and management of inpatient Dr. Kurt Moreno Work Phone: [facility] Start: 07-31-2021 End: 07-31-[address] Kurt Moreno Work Phone: [facility] Start: 12-05-2020 End: 12-05-2020 Phone Encounter Luke Attila PA-C Work Phone: [employer] Start: 12-04-2020 End: 12-04-2020 Office outpatient visit 15 minutes Luke Attila PA-C Work Phone: [employer]. Start: 02-14-2020 End: 02-14-2020 Office outpatient visit 15 minutes Luke Attila PA-C Work Phone: [employer] Start: 02-06-2020 End: 02-06-2020 Patient encounter procedure Luke Attila PA-C Work Phone: [employer]. Start: 08-15-2019 End: 08-15-2019 Office outpatient visit 15 minutes Luke Attila PA-C Work Phone: [employer]. Start: 02-02-2019 End: 02-02-2019 Telephone follow-up Luke Attila PA-C Work Phone: [employer]. Start: 01-06-2019 End: 01-06-2019 Office outpatient visit 25 minutes Luke Attila PA-C Work Phone: [employer]. Start: 10-28-2018 End: 10-28-2018 Orders Luke Attila PA-C Work Phone: [employer]. Start: 10-04-2018 End: 10-05-2018 Orders Luke Attila PA-C Work Phone: [employer]. Start: 07-27-2018 End: 07-27-2018 Office outpatient visit 15 minutes Luke Attila PA-C Work Phone: [employer]. Start: 02-18-2018 End: 02-18-2018 Telephone follow-up Luke Attila PA-C Work Phone: [employer]. Start: 02-01-2018 End: 02-01-2018 Office outpatient visit 15 minutes Luke Attila PA-C Work Phone: [employer]. Start: 10-27-2017 End: 10-27-2017 Office outpatient visit 15 minutes Luke Attila PA-C Work Phone: [employer]. Start: 08-05-2016 End: 08-05-2016 Office outpatient visit 15 minutes Luke Attila PA-C Work Phone: [employer] Start: 03-22-2016 End: 03-22-2016 Office outpatient visit 15 minutes Luke Attila PA-C Work Phone: [employer] Start: 10-30-2015 End: 10-30-2015 Orders Luke Attila PA-C Work Phone: [employer]. Start: 09-13-2015 End: 09-14-2015 Patient encounter procedure Luke Attila PA-C Work Phone: [employer]. Start: 06-26-2015 End: 06-26-2015 Office outpatient visit 15 minutes Luke Attila PA-C Work Phone: [employer]. Start: 12-25-2014 End: 12-26-2014 Office outpatient new 30 minutes Luke Attila PA-C Work Phone: [employer]. Start: 12-22-2014 End: 12-22-2014 Historical Summary Luke Attila PA-C Work Phone: [employer]. Start: 11-07-2014 End: 11-07-2014 Medication Luke Attila PA-C Work Phone: [facility]. Procedures Date Procedure Procedure Detail Performing Clinician Start: 01-25-2024 End: 01-26-2024 Dup-scan lxtr art/artl bpgs uni/lmtd study Luke E Attila PA-C Work Phone: Start: 01-01-2024 End: 01-01-2024 Ecg routine ecg w/least 12 lds w/i&r Luke E Attila PA-C Work Phone: Start: 01-06-2023 End: 01-09-2023 Ecg routine ecg w/least 12 lds w/i&r Luke E Attila PA-C Work Phone: Start: 10-08-2021 Plain chest X-ray Dr. Tanja Moreno Work Phone: Start: 12-04-2020 End: 12-04-2020 Removal impacted cerumen instrumentation unilat Luke E Attila PA-C Work Phone: Start: 02-14-2020 End: 02-14-2020 Flu imm no admin doc monty uKrt Soares Work Phone: Start: 01-06-2019 End: 01-06-2019 Flu imm no admin doc monty Kurt Soares Work Phone: Start: 10-27-2017 End: 10-27-2017 Pt falls assess docd w/o fall/injury past year Kurt Moreno MD Work Phone: Start: 10-27-2017 End: 10-27-2017 Scr dep neg, no plan reqd Kurt Moreno MD Work Phone: Start: 10-27-2017 End: 10-27-2017 Falls risk assessment documented Kurt Moreno MD Work Phone: Start: 10-27-2017 End: 10-27-2017 Depression screen annual Kurt Soares Work Phone: Start: 08-15-2016 End: 08-15-2016 Dietary management education, guidance, and counseling Diana Lopes RN Start: 08-15-2016 End: 08-15-2016 *BMP Al Montelongo MD Start: 08-15-2016 End: 08-15-2016 *CBC with Differential Al Montelongo MD Start: 08-15-2016 End: 08-15-2016 Follow Up Appt 6 months Mary Jane Frausto Start: 08-15-2016 End: 08-15-2016 Follow Up Appt Other Al Montelongo MD Start: 12-28-2012 End: 12-28-2012 ELECTRICIAN CRANE MAINTENANCE Al Montelongo MD Start: 12-28-2012 End: 12-28-2012 Follow Up Appt 1 year Al Montelongo MD Start: 06-29-2012 End: 06-29-2012 E[employer]RICIAN [employer] MAINTENANCE Kellee Matos PA-C Work Phone: Start: 06-29-2012 End: 07-30-2012 Echocardiography Kellee Matos PA-C Work Phone: Start: 06-29-2012 End: 06-29-2012 Electrocardiogram, complete Kellee Howard PA-C Work Phone: Start: 06-29-2012 End: 06-29-2012 Follow Up Appt 6 months Kellee pacheco PA-C Work Phone: Start: 11-28-2011 End: 11-28-2011 Follow Up Appt 6 months Mary Jane Frausto Start: 02-23-2011 End: 02-23-2011 Subtotal thyroidectomy Adela Johnson in RN Comment on above: half removed Start: 02-23-2009 End: 02-23-2009 Cardiac Ablation Adela Arizmendi RN Comment on above: [facility] Start: 02-23-1990 End: 02-23-1990 Hysterectomy Adela Arizmendi RN Start: 02-23-1957 End: 02-23-1957 Tonsillectomy Adela Arizmendi RN Laparoscopy Adela duarte RN Laparoscopy Adela duarte RN Plan of Treatment Date Care Activity Detail Author Start: 01-25-2024 End: 01-25-2024 Dup-scan lxtr art/artl bpgs uni/lmtd study Venous Doppler Lower Extremity, RIGHT ([id number]) Date: 25-Jan-2024 [employer] [facility]; [employer] Start: 01-01-2024 Culture bacterial quanttative colony count urine Urine Culture ([id number]) Start: 01-Jan-2024 12:05-05:00 Request [employer]; [place] Start: 01-01-2024 Assay of thyroid stimulating hormone tsh TSH (THYROID STIMULATING HORMONE) ([id number]) Start: 01-Jan-2024 10:58-05:00 Request [employer]; [place] Start: 06-12-2023 [facility] Start: 06-12-2023 Ambulatory ECG [facility] Start: 10-24-2021 Influenza vaccination INFLUENZA (#1) [facility] Start: 10-08-2021 Verification routine [facility] Work Phone: Start: 10-08-2021 Admission procedure [facility] Work Phone: Start: 10-08-2021 [facility] Work Phone: Start: 02-23-2021 ADVANCE DIRECTIVE DISCUSSION ADVANCE DIRECTIVE DISCUSSION [facility] Start: 02-23-2021 DEPRESSION ASSESSMENT DEPRESSION ASSESSMENT [facility] Start: 05-24-2018 LIPID SCREEN LIPID SCREEN [facility] Start: 02-06-2017 End: 02-06-2017 Appointment [facility] Work Phone: Start: 08-15-2016 End: 08-15-2016 Appointment Appointment [facility] Work Phone: Start: 08-15-2016 End: 08-15-2016 *BMP *BMP [facility] Work Phone: Start: 08-15-2016 End: 08-15-2016 *CBC with Differential *CBC with Differential [facility] Work Phone: Start: 08-15-2016 End: 08-15-2016 Follow Up Appt 6 months Follow Up Appt 6 months [facility] Work Phone: Start: 08-15-2016 End: 08-15-2016 Follow Up Appt Other Follow Up Appt Other [facility] Work Phone: Start: 05-24-2016 DIABETES SCREEN DIABETES SCREEN [facility] Start: 07-28-2013 COLORECTAL CANCER SCREENING COLORECTAL CANCER SCREENING [facility] Start: 07-28-2013 FECAL OCCULT BLOOD FECAL OCCULT BLOOD [facility] Start: 12-28-2012 End: 12-28-2012 ELECTRICIAN CRANE MAINTENANCE ELECTRICIAN CRANE MAINTENANCE [facility] Work Phone: Start: 12-28-2012 End: 12-28-2012 Follow Up Appt 1 year Follow Up Appt 1 year [facility] Work Phone: Start: 06-29-2012 End: 06-29-2012 ELECTRICIAN CRANE MAINTENANCE ELECTRICIAN CRANE MAINTENANCE [facility] Work Phone: Start: 06-29-2012 End: 06-29-2012 Echocardiography Echocardiogram (complete) [facility] Work Phone: Start: 06-29-2012 End: 06-29-2012 Electrocardiogram, complete EKG (In office) [facility] Work Phone: Start: 06-29-2012 End: 06-29-2012 Follow Up Appt 6 months Follow Up Appt 6 months [facility] Work Phone: Start: 11-28-2011 End: 11-28-2011 Follow Up Appt 6 months Follow Up Appt 6 months [facility] Work Phone: Start: 2011 PNEUMOCOCCAL: 65+ (1 - PCV) PNEUMOCOCCAL: 65+ (1 - PCV) [facility] Start: 02-17-1996 SHINGRIX VACCINE (1 of 2) SHINGRIX VACCINE (1 of 2) [facility] Start: 1991 COLOGUARD (FIT-DNA) COLOGUARD (FIT-DNA) [facility] Start: 1991 Colonoscopy COLONOSCOPY [facility] Start: [address] COLONOGRAPHY [facility] Start: 1991 SIGMOIDOSCOPY SIGMOIDOSCOPY [facility] Start: 1965 Urine microalbumin profile DTAP,TDAP,TD (1 - Tdap) [facility] Start: 02-17-1964 HEPATITIS C SCREENING HEPATITIS C SCREENING [facility] Start: 1945 COVID-19 VACCINE (#1) COVID-19 VACCINE (#1) [facility] Lipid 1996 panel - S paramjit or Plasma [facility] Work Phone: Patient Education ED About Arrhy thmias ED Palpitations [facility] Work Phone: Patient referral [facility] Work Phone: Payers Date Payer Category Payer Self-pay [id number] 2022 Unknown [id number] 1945 Unknown [id number] 2.16.8 [id number] 1945 Unknown [id number] 2.16.8 [id number] 1945 Unknown [id number] 2.16.8 [id number] 1945 Unknown [id number] 2.16.8 [id number] Unknown [id number] 2.16.8 [id number] Unknown [id number] 2.16.8 [id number] Unknown [id number] 2.16.8 [id number] Unknown [id number] 2.16.8 [id number] Unknown [id number] 2.16.8 [id number] Unknown [id number] 2.16.8 [id number] Unknown [id number] 2.16.8 [id number] Unknown [id number] 2.16.8 [id number] Unknown [id number] Social History Date Type Detail Facility Start: 10-08-2021 End: 06-12-2023 Tobacco smoking status NHIS Unknown if ever smoked [facility] Start: 07-21-2016 None [facility] Start: 07-21-2016 Spouse/ Signif icant Other [facility] Start: 09-25-2020 Non-smoker [facility] Start: 1945 Sex Assigned At Female [facility] Tobacco smoking status DEIS Never smoked tobacco [facility] Start: 06-20-2013 Alcohol intake 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, [employer] Tobacco Use: Tobacco Use: ; N ever smoker. [employer], [employer] Tobacco/Smoke Exposure: Tobacco/Smoke Exposure: ; Frequent. [employer] Frequent [facility], [employer] Work Phone: Mental Status Date Assessment Result Facility 06-12-2023 Cognitive function Voice/Name [facility] Work Phone: 10-08-2021 Cognitive function Level Of Cons ciousness Awake;Alert [facility] Work Phone: Clinical Note 03-12-2024 Note Date & Type Note Facility 03-12-2024 Note Discharge Instructio ns Discharge Summary [facility] [address] [place] [address] [id number] 03/11/2024 Patient: JANET TAY Sex: Female : 1945 Age: 79y Thank you for visiting [facility]. You have been evaluated today by Isaiah Mayorga M.D. for the following condition(s): Principal Diagnosis Pneumonia, Influenza A. Patient Signature Facility Quality Control Analyst Date/Time General Instructions with [address] [address] [id number] 03/11/2024 Patient: JANET TAY Sex: Female : 1945 Age: 79y Thank you for visiting [facility]. You have been evaluated today by Isaiah Mayorga M.D. for the following condition(s): 1 of 2 Discharge Instructions Principal Diagnosis Pneumonia, Influenza A. 2 of 2 [facility] Clinical Note 01-03-2024 Note Date & Type Note Facility 01-03-2024 Note Discharge Instructio ns Discharge Summary [address] [address] [id number] 01/03/2024 Patient: JANET TAY Sex: Female : 1945 Age: 78y Thank you for visiting [facility]. You have been evaluated today by Neville Santiago M.D. for the following condition(s): Principal Diagnosis Acute upper extremity pain involving the right wrist (arthritis flare vs hematoma). INSTRUCTIONS Wear cock-up splint until better (r wrist). Prescription Medications: Medications prescribed: Prednisone. OTC Medications: Take acetaminophen (Tylenol) and ibuprofen (such as Advil, Motrin or Nuprin) according to label instructions. Available over the counter. Follow-up: Follow up with your healthcare provider in two if not better. You have been given the following additional information: Osteoarthritis Patient Signature 1 of 4 Discharge Instructions Facility Quality Control Analyst Date/Time General Instructions with [address] [address] [id number] 01/03/2024 Patient: JANET TAY Sex: Female : 1945 Age: 78y Thank you for visiting [facility]. You have been evaluated today by Neville Santiago M.D. for the following condition(s): Principal Diagnosis Acute upper extremity pain involving the right wrist (arthritis flare vs hematoma). INSTRUCTIONS Wear cock-up splint until better (r wrist). Prescription Medications: Medications prescribed: Prednisone. OTC Medications: Take acetaminophen (Tylenol) and ibuprofen (such as Advil, Motrin or Nuprin) according to label instructions. Available over the counter. Follow-up: Follow up with your healthcare provider in two if not better. ADDITIONAL INFORMATION 2 of 4 Discharge Instructions Osteoarthritis Osteoarthritis happens when the cartilage in a joint becomes damaged and worn. This may be from age, wear and tear, overuse of the joint, obesity, or other problems. Osteoarthritis can affect any joint. But it's most common in hands, knees, spine, hips, and feet. Symptoms include joint stiffness, and pain. It's also called degenerative joint disease. Home care When a joint is more sore than usual, rest it for a day or two. Heat can help relieve stiffness. Take a hot bath or apply a heating pad for up to 30 minutes at a time. If symptoms are worse in the morning, using heat just after awakening can help relax the muscle and soothe the joints. Ice helps relieve pain. It's often used after activity. Use a cold pack wrapped in a thin cloth on the joint for 10 to 15 minutes at a time. Alternating hot and cold can also help relieve pain. Try this for 20 minutes at a time, several times per day. Exercise helps prevent the muscles and ligaments around the joint from becoming weak. It also helps maintain function in the joint. Be as active as you can. Talk to your healthcare provider about what activity program is best for you. Excess weight puts a lot of extra strain on weight-bearing joints of the lower back, hips, knees, feet and ankles. If you are overweight, talk to your healthcare provider about a safe and effective weight loss program. Use anti-inflammatory medicines as prescribed for pain. This includes acetaminophen or NSAIDs such as ibuprofen or naproxen. Don't take NSAIDs if your healthcare provider has told you that you can't take NSAIDS because of other health problems If needed, topical or injected medicines may be recommended. Talk with your healthcare provider if these options are not enough to manage your pain. Follow the directions on all [id number] medicines. Talk with your healthcare provider about devices that might help improve your function and reduce pain. Talk with you healthcare provider about physical therapy to help strengthen your joints and the surrounding muscles. Follow-up care Follow up with your healthcare provider, or as advised. 3 of 4 Discharge Instructions When to seek medical advice Call your healthcare provider right away if any of these occur: Redness or swelling of a painful joint Discharge or pus from a painful joint Fever of 100.4F (38C) or higher, or as directed by your healthcare provider Worsening joint pain Decreased ability to move the joint or bear weight on the joint 4 of 4 [facility] Note 12-23-2021 Telephone Encounter - Lynette Burnett - 12/23/2021 11:23 AM EDT Note Date & Type Note Facility 12-23-2021 Miscellaneous Notes Formattin g of this note might be different from the original. Received labs from Dr. Diego. Placed in provider's inbox for review. Route to MA scanning. documented in this encounter [facility] History of Past illness Narrative 04-22-2005 Note Date & Type Note Facility 04-22-2005 History of Past i llness Narrative Problem Noted Date Resolved Date Open wound(s) (multiple) of unspecified site(s), without mention of complication 04/22/2005 11/05/2010 documented as of this encounter (statuses as of 12/23/2021) [facility] Discharge summary Note Date & Type Note Facility Discharge summary Note Date/Time June 12, 2023 2:35am [facility] Medical Records Department [address] [place] [address] Emergency Department Summary 06/12/23 MR#: [id number] Acct: [id number] Name: JANET TAY Rep #:[id number] : 1945 78 From: Juan Franco DO PCP: ROSAURA Wilson Status:REG E R Location: ED HPI History of Present Illness Chief Complaint: Palpitations Informant: patient, spouse/S.O. and EMS Narrative Narrative: Patient is a 78-year-old female with past medical history of paroxysmal atrial fibrillation and hypertension and Takotsubo cardiomyopathy. She previously underwent an ablation in 2007 at [facility]. She states that she has been getting bouts of an elevated heart rate and sensation of fatigue that will occur during the daytime or at night and will typically last 10 to 15 minutes. She states that she is on Cardizem secondary to this. She reports that she woke this evening with a sensation of a elevated heart rate. She reported fatigue with this but denied any chest pain shortness of breath nausea vomiting or diaphoresis. She states she took an extra Cardizem but the symptomswere lasting longer than her standard 10 to 15 minutes and therefore she called EMS. She does state that by the time EMS arrived the symptoms had spontaneouslyresolved [facility] Medical History Edema leg Essential (primary) hypertension Hypothyroidism Obesity Paroxysmal atrial fibrillation Pure hypercholesterolemia Stage 3a chronic kidney disease (CKD) Supraventricular tachycardia Takotsubo cardiomyopathy Home Medications thyroid (pork) 60 mg tablet 60 mg PO DAILY 06/16/13 [History Last Taken 10/08/21] diltiazem HCl 120 mg capsule,extended release 24 hr 120 mg PO DAILY heart #90 caps 09/05/22 [Rx Last Taken Unknown] Allergy/AdvReac Type Severity Reaction Status Date / Time latex Allergy Unknown Verified 06/01/23 10:11 Penicillins Allergy Unknown Verified 06/01/23 10:11 Family History Mother CAD (coronary artery disease) Brother CAD (coronary artery disease) Sister CAD (coronary artery disease) Surgical History H/O cardiac radiofrequency ablation (12/29/07) History of hysterectomy History of left heart catheterization (06/23/07) Hx of cholecystectomy Social History household members: spouse housing: house current occupation: [employer] Smoking Status: Never smoker alcohol intake: never substance use type: does not use ROS ROS ED Constitutional Constitutional ED: Reports other Details: Positive fatigue ; Denies chills or fever(s) Eyes Eyes: Denies blurry vision or change in vision ENT ENT ED: Denies sore throat Cardiovascular Cardiovascular: Reports palpitations and racing heartbeat; Denies chest pain Respiratory/Chest Respiratory/Chest: Denies cough or dyspnea Gastrointestinal Gastrointestinal: Denies abdominal pain, diarrhea, nausea or vomiting Genitourinary Genitourinary ED: Denies dysuria Musculoskeletal Musculoskeletal: Denies myalgias Integumentary Denies rash Neurologic Neurologic: Denies headache(s) Hematologic/Lymphatic Hematologic/Lymphatic: Denies easy bleeding or easy bruising EXAM Physical Exam Const Vital Signs: 06/12/23 02:03 06/12/23 02:06 06/12/23 02:57 Temperature 97.6 F L Temperature Source Temporal Pulse Rate 80 78 Respiratory Rate 16 19 H Respiratory Effort Normal Non-Labored Blood Pressure 202/81 H 151/134 H Blood Pressure Mean 121 139 Pulse Ox 98 99 Oxygen Delivery Method Room Air Positive well nourished, well developed and obese General Appearance ED: well developed; Negative for pallor Nutritional Appearance: obese HEENT HEENT Narrative: Normocephalic atraumatic Eyes PERRL and EOMs intact bilaterally General Eye ED: Negative for pale conjunctiva or scleral icterus Neck supple and no JVD Neck Narrative: No nuchal rigidity or meningeal signs Chest Wall palpation of chest normal Resp normal respiratory effort and clear to auscultation bilaterally Cardio regular rate and regular rhythm Rate: other Other Details: Heart is regular rate and rhythm Radial and carotid pulses are equal and symmetric GI normal to inspection, nondistended, normoactive bowel sounds, non-tender, non-distended and no masses GI Narrative: No pulsatile mass or fluid wave noted Auscultation: normoactive bowel sounds Palpation: soft Extremity Extremity Narrative: +1-2 pitting edema to the bilateral lower extremities that is equal and symmetric. This is also chronic per patient Negative Homans' sign bilaterally Neuro oriented x3, CN's II-XII intact bilaterally and no sensory deficits noted Sensorium / Orientation: alert Motor Exam: strength 5/5 throughout Psych mental status grossly normal Skin no rashes or lesions noted, no wounds and skin turgor normal General Skin Exam: Negative for jaundice or pallor MDM MDM MDM Narrative Medical decision making narrative: Patient arrived to the ER hypertensive otherwise with stable vitals and had spontaneous resolution of her reported elevated heart rate. History confirmed she has known paroxysmal atrial fibrillation but she states this resolved with her ablation in 2007. Based on this history and her report of symptoms this is most likely breakthrough A-fib. In order to assure there is no secondary cause for it such as acute blood loss anemia or electrolyte abnormality or acute kidney injury basic labs were obtained. Labs revealed no clinically significantfindings. Patient was kept on the range aid and there was an occasional PVC but no true cardiac dysrhythmia. Therefore at this time as she does not have an active cardiac dysrhythmia no need for electrolyte supplementation/replacement and no signs of endorgan damage based on her hypertension status there is no need for further workup and she is otherwise safe for discharge. History & Record Review Discussion w/independent historian: Patient and Significant other Lab Data Attestation: I reviewed the patient's lab results. Labs: Laboratory Results - last 24 hr 06/12/23 02:30 WBC 6.3 RBC 4.30 Hgb 12.3 Hct 37.9 MCV 88.1 MCH 28.6 MCHC 32.5 RDW Std Deviation 46.5 H RDW Coeff of Mehdi 14.5 Plt Count 214 MPV 10.1 Immature Gran % (Auto) 0.300 Neut % (Auto) 39.7 L Lymph % (Auto) 40.1 [place] % (Auto) 11.8 H Eos % (Auto) 7.3 H Baso % (Auto) 0.8 Absolute Neuts (auto) 2.5 Absolute Lymphs (auto) 2.51 Nucleated RBC % 0 Sodium 138 Potassium 4.1 Chloride 107 Carbon Dioxide 27.0 Anion Gap 4 L BUN 30 H Creatinine 0.99 Estim Creat Clear Calc 55.14 Est GFR (MDRD) Af Amer 70 Est GFR (MDRD) Non-Af 58 L BUN/Creatinine Ratio 30.2 H Glucose 118 H Calcium 9.7 Magnesium 2.3 TSH 3.31 Discharge Plan Triage Chief Complaint: Palpitations ED Provider: Juan Franco Dx/Rx/DC Orders Clinical Impression: Heart palpitations, Essential (primary) hypertension, PVC (premature ventricular contraction) Instructions: ED About Arrhythmias, ED Palpitations Prescriptions: No Action diltiazem HCl 120 mg capsule,extended release 24hr 120 mg PO DAILY Qty: 90 3RF thyroid (pork) 60 MG tablet 60 mg PO DAILY Patient Comments: thyroid Primary Care Provider: Alec Aiken Referrals: Alec Aiken PA [Primary Care Provider] - Activity Restrictions/Additional Instructions: Your history indicates you are having breakthrough bouts of atrial fibrillation and therefore continue your Cardizem to keep your heart rate under control. Keep the Holter monitor on as directed to further assess for any abnormal heart rhythms. Follow-up with your family doctor and/or web engineer for repeat evaluation. Also if you have breakthrough events follow your action plan as directed by your web engineer and return to the ER should you have any further concerns. Disposition Disposition: Home, Self Care What to do if you have Problems For any increased pain, shortness of breath, bleeding, nausea or vomiting, chestpain, or any unexpected problems, contact your Primary Care Provider. Call [facility] ([phone]) or report to the closest Emergency Room. Call 911 if necessary. 06/12/23 [id number] <Electronically signed by Juan Franco DO> Cosigner Signature (if applicable): CC: ROSAURA Wilson ~ Signed [facility] Work Phone: Evaluation note Note Date & Type Note Facility Evaluation note Diagnosis Onset Date Chest pain acute Essential (primary) hypertension chronic Paroxysmal atrial fibrillation chronic Pure hypercholesterolemia ch ronic Takotsubo cardiomyopathy res olved Elevated troponin acute Rapid palpitations acute Paroxysmal atrial fibrillation chronic [facility] Work Phone: Evaluation note Note Date & Type Note Facility Evaluation note Diagnosis Onset Date Paroxysmal atrial fibrillation chronic Takotsubo cardiomyopathy res olved [facility] Work Phone: Chief Complaint and Reason for Visit Chief Complaint 6 M FU AFIB WITH RVR Reason for Visit Chest pain Essential (primary) hypertension Paroxysmal atrial fibrillation Pure hypercholesterolemia Takotsubo cardiomyopathy Elevated troponin Rapid palpitations Paroxysmal atrial fibrillation Chief Complaint 6 M FU palpitations I48.0 - Paroxysmal atrial fibrillation Reason for Visit Paroxysmal atrial fi brillation Takotsubo cardiomyopathy Chief Complaint 6 M FU palpitations I48.0 - Paroxysmal atrial fibrillation ER visit, wore 48 hour holter Reason for Visit Paroxysmal atrial fi brillation Takotsubo cardiomyopathy Family History Relationship Condition Age at Onset Recorded Date/T guicho mother Coronary artery disease Unknown brother Coronary artery disease Unknown sister Coronary artery disease Unknown Cerebrovascular Accident Status:Active Comment s:Father. Coronary Artery Disease Status:Active Comments :Mother. Hypertension Status:Active Hypothyroidism Status:Active Cerebrovascular Accident Status:Active Comment s:Father. Coronary Artery Disease Status:Active Comments :Mother. Hypertension Status:Active Hypothyroidism Status:Active Cerebrovascular Accident Status:Active Comment s:Father. Coronary Artery Disease Status:Active Comments :Mother. Hypertension Status:Active Hypothyroidism Status:Active Cerebrovascular Accident Status:Active Comment s:Father. Coronary Artery Disease Status:Active Comments :Mother. Hypertension Status:Active Hypothyroidism Status:Active Cerebrovascular Accident Status:Active Comment s:Father. Coronary Artery Disease Status:Active Comments :Mother. Hypertension Status:Active Hypothyroidism Status:Active Cerebrovascular Accident Status:Active Comment s:Father. Coronary Artery Disease Status:Active Comments :Mother. Hypertension Status:Active Hypothyroidism Status:Active Cerebrovascular Accident Status:Active Comment s:Father. Coronary Artery Disease Status:Active Comments :Mother. Hypertension Status:Active Hypothyroidism Status:Active Cerebrovascular Accident Status:Active Comment s:Father. Coronary Artery Disease Status:Active Comments :Mother. Hypertension Status:Active Hypothyroidism Status:Active Cerebrovascular Accident Status:Active Comment s:Father. Coronary Artery Disease Status:Active Comments :Mother. Hypertension Status:Active Hypothyroidism Status:Active Cerebrovascular Accident Status:Active Comment s:Father. Coronary Artery Disease Status:Active Comments :Mother. Hypertension Status:Active Hypothyroidism Status:Active Cerebrovascular Accident Status:Active Comment s:Father. Coronary Artery Disease Status:Active Comments :Mother. Hypertension Status:Active Hypothyroidism Status:Active Cerebrovascular Accident Status:Active Comment s:Father. Coronary Artery Disease Status:Active Comments :Mother. Hypertension Status:Active Hypothyroidism Status:Active Cerebrovascular Accident Status:Active Comment s:Father. Coronary Artery Disease Status:Active Comments :Mother. Hypertension Status:Active Hypothyroidism Status:Active Cerebrovascular Accident Status:Active Comment s:Father. Coronary Artery Disease Status:Active Comments :Mother. Hypertension Status:Active Hypothyroidism Status:Active Cerebrovascular Accident Status:Active Comment s:Father. Coronary Artery Disease Status:Active Comments :Mother. Hypertension Status:Active Hypothyroidism Status:Active Cerebrovascular Accident Status:Active Comment s:Father. Coronary Artery Disease Status:Active Comments :Mother. Hypertension Status:Active Hypothyroidism Status:Active Cerebrovascular Accident Status:Active Comment s:Father. Coronary Artery Disease Status:Active Comments :Mother. Hypertension Status:Active Hypothyroidism Status:Active Cerebrovascular Accident Status:Active Comment s:Father. Coronary Artery Disease Status:Active Comments :Mother. Hypertension Status:Active Hypothyroidism Status:Active Cerebrovascular Accident Status:Active Comment s:Father. Coronary Artery Disease Status:Active Comments :Mother. Hypertension Status:Active Hypothyroidism Status:Active Cerebrovascular Accident Status:Active Comment s:Father. Coronary Artery Disease Status:Active Comments :Mother. Hypertension Status:Active Hypothyroidism Status:Active Cerebrovascular Accident Status:Active Comment s:Father. Coronary Artery Disease Status:Active Comments :Mother. Hypertension Status:Active Hypothyroidism Status:Active Cerebrovascular Accident Status:Active Comment s:Father. Coronary Artery Disease Status:Active Comments :Mother. Hypertension Status:Active Hypothyroidism Status:Active Cerebrovascular Accident Status:Active Comment s:Father. Coronary Artery Disease Status:Active Comments :Mother. Hypertension Status:Active Hypothyroidism Status:Active Cerebrovascular Accident Status:Active Comment s:Father. Coronary Artery Disease Status:Active Comments :Mother. Hypertension Status:Active Hypothyroidism Status:Active Cerebrovascular Accident Status:Active Comment s:Father. Coronary Artery Disease Status:Active Comments :Mother. Hypertension Status:Active Hypothyroidism Status:Active Cerebrovascular Accident Status:Active Comment s:Father. Coronary Artery Disease Status:Active Comments :Mother. Hypertension Status:Active Hypothyroidism Status:Active Advance Directives Advance Directive Response Recorded Date/ Time Living Will No October 08 2:02pm Power of Engineering Psychologist No October 08 022 2:02pm Advance Directive Response Recorded Date/ Time Living Will No June 12, 2023 2:03am Power of Engineering Psychologist No June 11 24 2:03am Summary Purpose Additional Source Comments Goals (unrecognized section and content) Goals may be documented in a n alternate sectionGoals may be documented in an alternate sectionGoals may be documented in an alternate section Source Comments (unrecognize d section and content) In the event this informatio n is protected by the Federal Confidentiality of Alcohol and Drug Abuse Patient Records regulations: The Federal rules restrict any use of the information to criminally investigate or prosecute any alcohol or drug abuse patient.[facility] [place] Reason for Visit (unrecogniz ed section and content) Reason Comments Outside Lab Results Dr. Arnulfo Pettit [place], [place] INFORMATION SOURCE (unrecogn ized section and content) DATE CREATED AUTHOR 12/24/2021 [facility] DATE CREATED AUTHOR AUTHOR'S ORGANIZ ATION 09/26/2022 [facility] DATE CREATED AUTHOR AUTHOR'S ORGANIZ ATION 01/04/2024 [facility] DATE CREATED AUTHOR AUTHOR'S ORGANIZ ATION 01/28/2024 [facility] DATE CREATED AUTHOR AUTHOR'S ORGANIZ ATION 03/14/2024 [facility] Care Teams (unrecognized sec tion and content) Team Status: Active Member Role Status Dates Dr. Kurt Moreno MD Family Provider Active ROSAURA Wilson Primary Care Provider Active Team Status: Inactive Member Role Status Dates ROSAURA Wilson Primary Care Provider, Referring Provider Active ROSAURA Kapoor Attending Provider Active Team Status: Inactive Member Role Status Dates ROSAURA Wilson Primary Care Provider Active Dr. Juan Franco DO Emergency Provider Active Team Status: Active Member Role Status Dates ROSAURA Wilson Primary Care Provider Active ROSAURA Kapoor Attending Provider Active Team Status: Active Member Role Status Dates ROSAURA Wilson Primary Care Provider, Referring Provider Active ROSAURA Kapoor Attending Provider Active Team Status: Inactive Member Role Status Dates ROSAURA Wilson Primary Care Provider Active ROSAURA Kapoor Attending Provider Active FOR RECORDS PERTAINING TO PATIENTS WHO ARE OR HAVE BEEN ENROLLED IN A CHEMICAL DEPENDENCY/SUBSTANCEABUSE PROGRAM, SOME INFORMATION MAY BE OMITTED. This clinical summary was aggregated from multiple sources. Caution should be exercised in using it in the provision of clinical care. This summary normalizes information from multiple sources, and as a consequence, information in this document may materially change the coding, format and clinical context of patient data. In addition, data may be omitted in some cases. CLINICAL DECISIONS SHOULD BE BASED ON THE PRIMARY CLINICAL RECORDS. [facility] [employer] provides no warranty or guarantee of the accuracy or completeness of information in this document.
[2024-08-11] MEDS: Metoprolol Tartrate 5 MG/5 ML Vial IV (03:18)
[2024-08-11 03:37] LABS: Anion Gap 14 (5-15); BUN 28 mg/dL (4-19); BUN/Creat Ratio 24.9 RATIO (10-20); Calcium,Total 9.9 mg/dL (7.6-11.0); Carbon Dioxide 21.2 mmol/L (21.0-32.0); Chloride 103 mmol/L (98-108); Creatinine, Serum 1.11 mg/dL (0.70-1.20); EST Glomerular Filtration Rate 51 (>60); Glucose 116 mg/dL (70-99); Potassium 3.8 mmol/L (3.3-5.1); Sodium Level 138 mmol/L (133-145)
[2024-08-11 03:45] VITALS: BP 179/99; PULSE 61; RESP 15; O2SAT 96
[2024-08-11 03:48] LABS: Magnesium 2.3 mg/dL (1.5-2.2)
--- NOTE | 2024-08-11 04:12 | EDS_ITS ---
HPI History of Present Illness Chief Complaint: Palpitations Informant: patient and spouse/S.O. Narrative Narrative: Patient is a 79-year-old female with past medical paroxysmal atrial fibrillation hypertension hyperlipidemia and thyroid disorder. She states her atrial fibrillation is very intermittent and secondary to this she is not on anticoagulation. She reports that roughly 2 hours prior to arrival she began to feel her heart racing and skipping beats which felt similar nature to her previous bouts of A-fib. She states that she checked her heart rate at home and it was approaching 200. This elevated rate with symptoms of shortness of breath concerned her and therefore she presents for evaluation. Patient denies any excessive stimulant use or illicit drug use. Patient states prior to her heart racing/palpitations she felt perfectly normal [facility] Medical History Stage 3a chronic kidney disease (CKD) Obesity Takotsubo cardiomyopathy Hypothyroidism Essential (primary) hypertension Edema leg Supraventricular tachycardia Paroxysmal atrial fibrillation Pure hypercholesterolemia Home Medications ?Medication ?Instructions ?Recorded ?Last Taken ?Type thyroid (pork) 60 mg tablet 60 mg PO DAILY 06/16/13 History diltiazem HCl 240 mg 240 mg PO DAILY heart #90 ca ps 03/15/24 Unknown Rx capsule,extended release 24 hr apixaban 5 mg tablet (Eliquis) 5 mg PO BID 30 days #60 tabs 08/11/24 Unknown Rx Allergy/AdvReac Type Severity Reaction Status Date / Time latex Allergy Unknown Verified 01/27/24 11:08 Penicillins Allergy Unknown Verified 01/27/24 11:08 Family History Mother CAD (coronary artery disease) Brother CAD (coronary artery disease) Sister CAD (coronary artery disease) Surgical History History of left heart catheterization (06/23/07) Hx of cholecystectomy History of hysterectomy H/O cardiac radiofrequency ablation (12/29/07) Social History household members: spouse housing: house current occupation: [employer] Smoking Status: Never smoker alcohol intake: never substance use type: does not use ROS ROS ED Constitutional Constitutional ED: Denies chills or fever(s) Eyes Eyes: Denies blurry vision or change in vision ENT ENT ED: Denies sore throat Cardiovascular Cardiovascular: Reports palpitations and racing heartbeat; Denies chest pain Respiratory/Chest Respiratory/Chest: Reports dyspnea; Denies cough Gastrointestinal Gastrointestinal: Denies abdominal pain, diarrhea, nausea or vomiting Genitourinary Genitourinary ED: Denies dysuria Musculoskeletal Musculoskeletal: Denies myalgias Integumentary Denies rash Neurologic Neurologic: Denies headache(s) Hematologic/Lymphatic Hematologic/Lymphatic: Reports easy bleeding and easy bruising EXAM Physical Exam Const Vital Signs: 08/11/24 01:45 08/11/24 02:48 08/11/24 03:45 Temperature 97.8 F 98.0 F Temperature Source Oral Oral Pulse Rate 117 H 88 61 Respiratory Rate 16 17 15 Blood Pressure 171/106 H 152/107 H 179/99 H Blood Pressure Mean 127 122 125 Pulse Ox 95 95 96 Oxygen Delivery Method Room Air Room Air Room Air 08/11/24 04:21 Temperature 97.8 F Temperature Source Pulse Rate 77 Respiratory Rate 16 Blood Pressure 141/78 H Blood Pressure Mean 99 Pulse Ox 94 Oxygen Delivery Method Positive well nourished and well developed General Appearance ED: well developed; Negative for pallor HEENT HEENT Narrative: No tongue or lip swelling no oral lesions no airway edema or compromise Head is normocephalic and atraumatic Eyes PERRL and EOMs intact bilaterally General Eye ED: Negative for pale conjunctiva or scleral icterus Neck supple and no JVD Neck Narrative: No nuchal rigidity or meningeal signs Resp normal respiratory effort and clear to auscultation bilaterally Cardio regular rate Rate: other Other Details: Irregularly irregular rhythm with regular rate consistent with atrial fibrillation GI normal to inspection, nondistended, normoactive bowel sounds, non-tender, non- distended and no masses Auscultation: normoactive bowel sounds Palpation: soft Extremity normal to inspection Extremity Narrative: Negative Homans' sign bilaterally Neuro oriented x3, CN's II-XII intact bilaterally and no sensory deficits noted Sensorium / Orientation: alert Motor Exam: strength 5/5 throughout Psych mental status grossly normal Skin no rashes or lesions noted and no wounds General Skin Exam: Negative for jaundice or pallor MDM MDM MDM Narrative Medical decision making narrative: Patient arrived to the ER mildly hypertensive but otherwise with stable vitals. She is in atrial fibrillation but at this time is rate controlled. In order to ensure there is no obvious cause for the breakthrough A-fib such as acute blood loss anemia acute kidney injury or electrolyte abnormality basic blood work was obtained. The patient was given IV metoprolol as she is already on oral Cardizem in the hopes that the rate was slow to the point where there was spontaneous cardioversion. Patient's blood work revealed no clinically significant finding. The heart rate reduced to approximately 65 to 70 bpm. Despite the reduction in right there was no spontaneous cardioversion. I discussed with patient the potential for electrical cardioversion in the ER as she is typically in normal sinus rhythm and has been in atrial fibrillation for just a few hours with low risk for clot formation which then could predispose to an acute stroke. However the patient is hemodynamically stable and therefore there is no need for an emergent cardioversion. However as she still remains in A-fib she needs to be anticoagulated to prevent risk for clot and potential stroke or PE. Therefore should be placed on Eliquis as her kidney function is normal but as she is hemodynamically stable with rate controlled atrial fibrillation at this time she can follow-up with her conveyor maintenance mechanic to discuss cardioversion if she does not spontaneously convert prior to that time. History & Record Review Discussion w/independent historian: Patient and Significant other Lab Data Attestation: I reviewed the patient's lab results. Labs: Laboratory Results - last 24 hr 08/11/24 02:11 WBC 7.8 RBC 4.40 Hgb 12.7 Hct 37.3 MCV 84.8 MCH 28.9 MCHC 34.0 RDW Std Deviation 44.6 H RDW Coeff of Mehdi 14.4 Plt Count 202 MPV 9.8 Immature Gran % (Auto) 0.100 Neut % (Auto) 36.4 L Lymph % (Auto) 47.2 H [place]im[place] % (Auto) 9.3 Eos % (Auto) 6.4 H Baso % (Auto) 0.6 Absolute Neuts (auto) 2.8 Absolute Lymphs (auto) 3.66 Nucleated RBC % 0 Sodium 138 Potassium 3.8 Chloride 103 Carbon Dioxide 21.2 Anion Gap 14 BUN 28 H Creatinine 1.11 Est GFR (MDRD) Non-Af 51 L BUN/Creatinine Ratio 24.9 H Glucose 116 H Calcium 9.9 Magnesium 2.3 H TSH 3.710 Discharge Plan Triage Chief Complaint: Palpitations ED Provider: Juan Franco Dx/Rx/DC Orders Clinical Impression: Atrial fibrillation, Essential (primary) hypertension, Pure hypercholesterolemia, Hypothyroidism Instructions: AFib Dc Prescriptions: New Eliquis 5 mg tablet 5 mg PO BID 30 Days Qty: 60 0RF No Action thyroid (pork) 60 MG tablet 60 mg PO DAILY Patient Comments: thyroid diltiazem HCl 240 mg capsule,extended release 24hr 240 mg PO DAILY Qty: 90 3RF Primary Care Provider: Alec Fernandez Referrals: Al Montelongo MD [Med Staff - Active Staff] - Alec Fernandez PA [Primary Care Provider] - Activity Restrictions/Additional Instructions: Please continue all of your medications as directed by your doctor. Add the Eliquis/blood thinner to prevent development of blood clot. Follow-up with your conveyor maintenance mechanic for repeat evaluation and to discuss need for cardioversion if you do not spontaneously revert to normal sinus rhythm. Return to the ER should you have any further concerns Print Language: Ukrainian Disposition Disposition: Home, Self Care Discharge Date/Time: 08/11/24 04:27
[2024-08-11 04:21] VITALS: BP 141/78; PULSE 77; RESP 16; TEMP 36.6; O2SAT 94
[2024-08-11] MEDS: APIXABAN 5 MG TABLET PO (04:25)
== END 2024-08-11 04:27 | disposition home or self-care (01) ==
PROVIDERS: Emergency Provider Emergency Medicine; PCP Physician Assistant; Visit Provider Emergency Medicine
DX: I48.0 Paroxysmal atrial fibrillation (principal); N18.31 Chronic kidney disease, stage 3a; I12.9 Hypertensive chronic kidney disease with stage 1 through stage 4 chronic kidney disease, or unspecified chronic kidney disease; E78.00 Pure hypercholesterolemia, unspecified; E03.9 Hypothyroidism, unspecified; Z79.899 Other long term (current) drug therapy
CPT/HCPCS: 80048; 83735; 84443; 85025; 93005; 96374; 99285

== ENCOUNTER 2024-12-15 05:03 | Emergency (ER) | payer OTHER, SELFPAY ==
[2024-12-15] VITALS (12 sets, daily range): BP systolic 100–162; BP diastolic 48–100; PULSE 69–118; RESP 15–20; TEMP 36.6; O2SAT 44–100; BMI 35.9
[2024-12-15 05:36] LABS: Hematocrit 40.0 % (37-47); Hemoglobin 13.5 g/dL (12.0-15.0); Immature Granulocytes Count 0.010 X10^3/uL (0.0-0.0); Mean Corp Hgb Conc 33.8 g/dL (32-36); Mean Corpuscular Volume 85.5 fL (81-99); Mean Platelet Vol. 9.9 fl (6.2-12.0); NRBC Flagged by Analyzer 0 % (0-5); Platelet Count 207 K/mm3 (150-450); RBC Distribution Width CV 14.9 % (11.6-14.6); RBC Distribution Width SD 46.5 fl (35.1-43.9); Red Blood Count 4.68 M/mm3 (4.2-5.4); White Blood Count 7.1 K/mm3 (4.4-11.0)
[2024-12-15] MEDS: 0.9% Normal Saline (500mL Bag) 500 ML 999 ML IV (05:36)
[2024-12-15 06:02] LABS: Magnesium 2.5 mg/dL (1.5-2.2)
[2024-12-15 06:30] LABS: Anion Gap 12 (5-15); BUN 28 mg/dL (4-19); BUN/Creat Ratio 27.9 RATIO (10-20); Calcium,Total 9.9 mg/dL (7.6-11.0); Carbon Dioxide 24.3 mmol/L (21.0-32.0); Chloride 102 mmol/L (98-108); Estimated Creatinine Clearance 53.67 ml/min (50-250); Glucose 112 mg/dL (70-99); Potassium 4.2 mmol/L (3.3-5.1)
[2024-12-15] MEDS: Midazolam 5 MG/ML Syringe IV (07:28)
== END 2024-12-15 09:38 | disposition home or self-care (01) ==
PROVIDERS: Emergency Provider Emergency Medicine; PCP Physician Assistant; Visit Provider Emergency Medicine
DX: R00.2 Palpitations (principal); I48.0 Paroxysmal atrial fibrillation; N18.31 Chronic kidney disease, stage 3a; E78.5 Hyperlipidemia, unspecified; Z90.710 Acquired absence of both cervix and uterus; I12.9 Hypertensive chronic kidney disease with stage 1 through stage 4 chronic kidney disease, or unspecified chronic kidney disease; Z79.899 Other long term (current) drug therapy; Z79.01 Long term (current) use of anticoagulants; Z90.49 Acquired absence of other specified parts of digestive tract; E03.9 Hypothyroidism, unspecified
CPT/HCPCS: 80048; 83735; 84443; 85025; 93005; 96361; 96374; 96376; 99152; 99153; 99285; A4216

== ENCOUNTER → 2025-01-10 | Outpatient (CLI) | payer SELFPAY, OTHER ==
--- OUTSIDE RECORDS SUMMARY | 2025-01-10 06:45 | XMS RPT_ITS | CCD ---
Author Organization [facility] ion [facility] Care Team Providers Care Computer Technology Trainer Name Role Phone RITESH Lopse, Diana Hinton Unavailable UnavailGama Brower Unavailable Unavailable RITESH Lopes, Diana Hinton Unavailable UnavailGama Brower Unavailable Unavailable RITESH Lopes, Diana Hinton Unavailable Unavailcasper Lopes RN, Phyllis M Unavailable UnavailDr. Kurt Painter Referring Provider [phone] Ramin SIN, ZOHAIB Botello Attending Provider Care Physician, No Primary Primary Care Provider Unavailable Unavailable Primary Care Provider Unavailcasper Aiken PA-C, Alec Luna Unavailable Jeni MCGUIRE, Dr. Wyatt Unavailable Candi PATIENT REGISTRATION SUPERVISOR, Malou Unavailable Saundra Hunt PA-C Unavailable [phone] Santiago MCGUIRE, David Wolf Unavailable Jaky Castillo MA Unavailable Unavailable Gogoi (scribe), Hemanta Unavailable UnavailKurt Fierro MD Unavailable Attila AWAD, Eliz Blanchard Unavailable Unavail able Isrrael MORALES, Margret Unavailable Unavailable Jt VASQUEZN, Kellee Unavailable Unavailable Kyleigh AWAD, Adela Henriquez Unavailable Unavaila ble Van PATIENT REGISTRATION SUPERVISOR, Horacio Unavailable Unavailable Mutersbaugh PATIENT REGISTRATION SUPERVISOR, Autumn K Unavailable Unavai kortney Sifuentes (Scribe), Garrett Unavailable Unavailab le Frank PATIENT REGISTRATION SUPERVISOR, Vandana Hinton Unavailable Unavailab le Danny PATIENT REGISTRATION SUPERVISOR, Nhung Epperson Unavailable Unavailab Kellee Meza MA Unavailable Unavailable Tam Fuller MD Unavailable Claudia PATIENT REGISTRATION SUPERVISOR, Dorota Unavailable Unavailabl e Ottoniel PATIENT REGISTRATION SUPERVISOR, Alondra Powell Unavailable Unavaila ble Unavailable Unavailable ROSAURA Aiken Primary Care Provider ROSAURA Aiken Referring Provider ROSAURA Damon Attending Provider Attila KAPLAN, Alec Primary Care Provider Dr. Juan Franco DO Emergency Provider Attila KAPLAN, Alec Primary Care Provider Alec Bolanos Referring Provider Rosmery Hewitt Attending Provider Dr. Isabella Giles DPM Unavailable ATTILA, LUKE E Attending Unavailable ATTILA, LUKE E Admitting Unavailable ATTILA, LUKE E Primary Care Unavailable ATTILA, LUKE E Consulting Unavailable PROVIDER, UNKNOWN Consulting Unavailable ATTILA, LUKE E Attending Unavailable ATTILA, LUKE E Admitting Unavailable ATTILA, LUKE E Primary Care Unavailable ATTILA, LUKE E Consulting Unavailable PROVIDER, UNKNOWN Consulting Unavailable ATTILA, LUKE E Attending Unavailable ATTILA, LUKE E Admitting Unavailable ATTILA, LUKE E Primary Care Unavailable ATTILA, LUKE E Consulting Unavailable PROVIDER, UNKNOWN Consulting Unavailable CHEYENNE COOK MD Admitting Unavailable CHEYENNE COOK MD Primary Care Unavailable CHEYENNE COOK MD Attending Unavailable ATTILA, LUKE E Referring Unavailable ATTILA, LUKE E Consulting Unavailable PROVIDER, UNKNOWN Consulting Unavailable NEVILLE SANTIAGO Attending Unavailable ATTILA, LUKE E Referring Unavailable NEVILLE SANTIAGO Admitting Unavailable NEVILLE SANTIAGO Primary Care Unavailable ATTILA, LUKE E Consulting Unavailable PROVIDER, UNKNOWN Consulting Unavailable Attila Alec KAPLAN Primary Care Physician [phone] Dr. Juan Franco DO Attending Physician Dr. Juan Franco DO Emergency Department Physic maria e Attila KAPLAN, Luhuey Primary Care Physician Ramin SIN-Rosmery Alvarado Attending Physician Jessi UX DESIGN MANAGER-C, Tam Farley Attending Physician Attila KAPLAN, Alec Primary Care Physician Attila PA, Luke Referring Provider Attila KAPLAN, Luke Primary Care Physician Roof UX DESIGN MANAGER-C, Tam Farley Referring Provider Kellee Damon Attending Physician Dr. Juan Franco DO Emergency Department Physic maria e Kellee Damon Attending Unavail able Attila, Luke Referring Unavailable Attila, Luke Primary Care Unavailable Juan Franco Attending Unavailable Attila, Luke Primary Care Unavailable Juan Franco Attending Unavailable Attila, Luke Primary Care Unavailable Roof UX DESIGN MANAGER, Tam Farley Referring Unavailable Attila, Luke Primary Care Unavailable Roof UX DESIGN MANAGER, Tam Farley Attending Unavailable Attila, Luke Referring Unavailable Attila, Luke Primary Care Unavailable Roof UX DESIGN MANAGER, Tam Farley Attending Unavailable Roof UX DESIGN MANAGER, Tam Farley Attending Unavailable Attila, Luke Primary Care Unavailable Attila, Luke Referring Unavailable Roof UX DESIGN MANAGER, Tam Fraley Referring Unavailable Attila, Luke Primary Care Unavailable Roof UX DESIGN MANAGER, Tam Farley Attending Unavailable Attila, Luke Primary Care Unavailable Rosmery Faustin NP Attending Unavailable Attila, Luke Referring Unavailable Attila, Luke Referring Unavailable Attila, Luke Primary Care Unavailable Roof UX DESIGN MANAGER, Tam Farley Attending Unavailable Allergies Allergy Classification Reported Allergen(s) Allergy Type Date of Onset Reaction(s) Facility Penicillins (antibiotic) (1 source) Amoxicillin Drug Allergy [facility], [facility], [facility]. (6 sources) penicillin drug allergy 05-13-2010 Joint aches [facility] Work Phone: (6 sources) simvastatin drug allergy 05-13-2010 Nausea [facility] Work Phone: (8 sources) Latex Allergy to substance 01-07-2006 Rash [facility] Work Phone: (9 sources) Penicillins; Translations: [Penicillins] Allergy to substance 07-14-2006 Intolerance [facility] Work Phone: (20 sources) [facility] ([facility]) Penicillins Drug allergy (disorder) [facility] (1 source) Latex Drug allergy (disorder) 12-22-2024 [facility] Repository Medications Current Medications Medication Drug Class(es) Dates Sig (Normalized) Sig (Original) amiodarone hydrochloride 200 mg oral tablet (1 source) Antiarrhythmic Start: 12-02-2024 Amiodarone 200 mg tablet Active 100 mg PO daily 45 3 December 02, 2024 12:00am Complies with drug therapy apixaban 5 mg oral tablet (7 sources) Factor Xa Inhibitor Start: 08-11-2024 End: 08-16-2024 Apixaban (Eliquis) 5 mg tablet Active 5 mg PO .PRN as needed for Afib 60 0 August 16, 2024 2:12pm Complies with drug therapy 24 hr dilTIAZem hydrochloride 240 mg extended release oral capsule (20 sources) Calcium Channel Ameya Start: 06-18-2023 End: 03-15-2024 take 1 capsule by mouth once daily Diltiazem Hcl 240 mg capsule,extended release 24hr Active 240 mg PO DAILY 90 3 March 15, 2024 11:33am heart Complies with drug therapy Start: 09-05-2022 End: 06-18-2023 take 1 capsule by mouth once daily Diltiazem Hcl 120 mg capsule,extended release 24hr Discontinued 120 mg PO DAILY 90 3 September 05, 2022 1:36pm June 18, 2023 2:21pm heart Start: 10-09-2021 End: 09-05-2022 take 1 capsule by mouth twice daily Diltiazem Hcl 120 mg capsule,extended release 24hr Discontinued 120 mg PO TWICE A DAY 90 3 October 09, 2021 2:23pm September 05, 2022 1:13pm heart Start: 02-01-2019 End: 10-09-2021 take 1 capsule by mouth once daily Diltiazem Hcl 120 mg capsule,extended release 24hr Discontinued 120 mg PO DAILY 90 3 March 11, 2021 11:00am October 09, 2021 2:23pm heart Start: 02-12-2018 End: 02-24-2018 take 1 capsule by mouth once daily Diltiazem Hcl 240 MG capsule,extended release 24hr Discontinued 240 mg PO DAILY 30 0 February 12, 2018 1:00am February 24, 2018 5:20pm Start: 02-03-2018 End: 12-28-2018 take 1 capsule by mouth once daily as needed Diltiazem Hcl 120 mg capsule,extended release 24hr Discontinued 120 mg PO DAILY as needed December 08, 2018 10:53am December 28, 2018 3:57pm indomethacin 25 mg oral capsule (2 sources) Nonsteroidal Anti-inflammatory Drug Start: 09-15-2024 indomethacin 25 mg capsule ; 1 Capsule 2 times per day PRN pain for 10 days Quantity: 20 {Capsule} Refills: 0 Ordered: 15-Sep-2024 REYES Aiken Start: 15-Sep-2024 sertraline 50 mg oral tablet (2 sources) Serotonin Reuptake Inhibitor Start: 12-02-2024 End: 12-02-2024 take 1 tablet by mouth once daily Sertraline 50 mg tablet Active 50 mg PO DAILY December 02, 2024 10:19am Complies with drug therapy Thyroid (Pork) (2 sources) Start: 06-16-2013 take 60 mg by mouth once daily Thyroid (Pork) Active 60 MG PO DAILY June 16, 2013 12:00am Thyroid (Pork) 60 MG tablet (2 sources) Start: 06-16-2013 take 1 tablet by mouth once daily Thyroid (Pork) 60 MG tablet Active 60 mg PO DAILY June 16, 2013 12:00am thyroid (retirement) 60 mg oral tablet (20 sources) Start: 06-03-2024 Magalia Thyroid 60 mg tablet ; 1 (one) Tablet daily for 0 days Quantity: 90 {Tablet} Refills: 0 Ordered: 03-Jun-2024 REYES Aiken Start: 03-Jun-2024 Start: 05-23-2024 [place] Thyroid 60 mg tablet ; 1 (one) Tablet daily for 0 days Quantity: 90 {Tablet} Refills: 0 Ordered: 23-May-2024 REYES Aiken Start: 23-May-2024 Start: 11-30-2023 [place] Thyroid 60 mg tablet ; 1 (one) Tablet daily for 0 days Quantity: 90 {Tablet} Refills: 1 Ordered: 30-Nov-2023 REYES Aiken Start: 30-Nov-2023 Start: 08-28-2023 [place] Thyroid 60 mg tablet ; 1 (one) Tablet daily for 0 days Quantity: 90 {Tablet} Refills: 1 Ordered: 28-Aug-2023 REYES Aiken Start: 28-Aug-2023 Start: 08-25-2023 Mag[place] Thyroid 60 mg tablet ; 1 (one) Tablet daily for 0 days Quantity: 90 {Tablet} Refills: 0 Ordered: 25-Aug-2023 REYES Aiken Start: 25-Aug-2023 Start: 11-28-2011 take 1 tablet by ivana th once daily Thyroid (Pork) 60 MG tablet Active 60 mg PO DAILY June 16, 2013 12:00am Complies with drug therapy Comment on above: Take 1 tablet by ivana th once daily. Completed/Discontinued Medications Medication Drug Class(es) [...] on above: No OARRS acute treat ment [id number] 200 actuat albuterol 0.09 mg/actuat metered dose [...] One tablet by mouth daily AMLODIPINE BESYLATE [id number] Al Montelongo MD Ascorbic Acid (1 source) Vitamin C ASCORBIC ACID (VITAMIN C ORAL) Take by mouth once daily. 0 Active Comment on above: Take by mouth once d aily. aspirin 81 mg delayed release oral tablet (20 sources) Nonsteroidal Anti-inflammatory Drug Start: 02-25-2018 End: 06-10-2018 Aspirin (Adult Low Dose Aspirin) 81 mg tablet,delayed release (DR/EC) Discontinued 81 mg PO DAILY February 25, 2018 1:00am June 10, 2018 12:06pm Start: 11-28-2011 End: 08-15-2016 take 1 tablet by mouth once daily ASPIRIN 81 MG TABS One tablet by mouth daily ASPIRIN [id number] Kellee Matos PA-C Start: 06-04-2009 End: 08-15-2016 take 1 tablet by mouth once daily ASPIRIN 81 MG TABS One tablet by mouth daily ASPIRIN [id number] Kellee Matos PA-C Comment on above: Take [...] once daily. cephalexin 500 mg oral capsule (11 sources) Cephalosporin Antibacterial Start: 02-29-2024 End: 03-10-2024 [...] Take 1 tablet by ivana once daily. lisinopril 10 mg oral tablet (20 sources) Angiotensin Converting Enzyme Inhibitor Start: 2013 End: 2020 take 1 tablet by mouth once daily Lisinopril 10 mg tablet Discontinued 10 mg PO DAILY 90 5 December 28, 2018 1:00am October 22, 2020 1:30pm Start: 11-28-2011 End: 01-01-2012 take 1 tablet by mouth once daily LISINOPRIL 10 MG TABS One tablet by mouth daily LISINOPRIL [id number] Nhung Andres RN Comment on above: Take 1 tablet by ivana once daily. losartan potassium 50 mg oral tablet (20 sources) Angiotensin 2 Receptor Ameya Start: 8 End: 9 take 1 tablet by mouth once daily as needed Losartan 50 mg tablet Discontinued 50 mg PO DAILY as needed December 08, 2018 12:00am December 28, 2018 3:57pm Start: 01-01-2012 End: 06-29-2012 take 1 tablet by mouth once daily LOSARTAN POTASSIUM 50 MG TABS One tablet by mouth daily LOSARTAN POTASSIUM [id number] Kellee Matos PA-C metoprolol tartrate 25 mg oral tablet (20 sources) beta-Adrenergic Ameya Start: 08-14-2016 take 1 tablet by mouth twice daily METOPROLOL TARTRATE 25 MG TABS One half tablet by mouth twice daily METOPROLOL TARTRATE [id number] Diana Lopes RN Start: 07-22-2016 End: 02-03-2018 Metoprolol Tartrate 25 MG ta blet Discontinued 12.5 mg PO TWICE A DAY July 22, 2016 12:00am February 03, 2018 12:57pm Start: 07-22-2016 End: 02-03-2018 take 12.5 mg [...] Nitrofuran Antibacterial Start: 11-01-2021 End: 09-05-2022 take 1 capsule by mouth twice daily Nitrofurantoin Monohyd/M-Cryst 100 mg capsule Discontinued 100 mg PO TWICE A DAY November 01, 2021 [...] 30 {Capsule} Refills: 0 Ordered: 27-Jul-2018 MD Dvaid Henderson Start: 27-Jul-2018 End: 26-Aug-2018 Status: Inactive [...] 07-14-2006 OTC PRODUCT he rbal laxative with "cascaria", 1 capsule daily 0 07/14/2006 Active Comment on above: herbal laxative with "cascaria", 1 capsule daily Soybean, Fermented (Nattokinase) 50 mg capsule (13 sources) Start: 09-05-2022 End: 06-01-2023 take 1 capsule by mouth twice daily Soybean, Fermented (Nattokinase) 50 mg capsule Discontinued 150 mg PO TWICE A DAY September 05, 2022 1:13pm June 01, 2023 10:13am Start: 09-05-2022 End: 06-01-2023 take 1 capsule by mouth twice daily Soybean, Fermented (Nattokinase) 50 mg capsule Discontinued 150 MG PO TWICE A DAY September 05, 2022 1:13pm June 01, 2023 10:13am Start: 07-31-2021 End: 09-05-2022 take 1 capsule by mouth once daily Soybean, Fermented (Nattokinase) 50 mg capsule Discontinued 100 mg PO DAILY July 31, 2021 12:00am September 05, 2022 1:13pm Start: 07-31-2021 End: 09-05-2022 take 1 capsule by mouth once daily Soybean, Fermented (Nattokinase) 50 mg capsule Discontinued 100 MG PO DAILY July 31, 2021 12:00am September 05, 2022 1:13pm Start: 07-31-2021 take 1 capsule by mo uth once daily Soybean, Fermented (Nattokinase) 50 mg capsule Active 100 MG PO DAILY July 31, 2021 12:00am Soybean, Fermented (Nattokinase) 50 mg Capsule (7 sources) Start: 10-08-2021 End: 09-05-2022 take 1 capsule by mouth at bedtime Soybean, Fermented (Nattokinase) 50 mg Capsule Discontinued 50 mg PO AT BEDTIME October 08, 2021 12:00am September 05, 2022 1:13pm Start: 10-08-2021 End: 09-05-2022 take 1 capsule [...] 01-Oct-2022 Status: Inactive Start: 10-09-2021 End: 11-01-2021 Sulfamethoxazole-Trimethopri m 800-160 mg Tablet Discontinued 1 {tbl} PO TWICE A DAY 14 7 0 October 09, 2021 12:00am November 01, 2021 2:19pm Start: 10-09-2021 End: 11-01-2021 take 1 tablet by mouth twice daily Sulfamethoxazole-Trimethoprim Discontinued 1 TABLET PO TWICE A DAY 14 7 October 09, 2021 12:00am November 01, 2021 2:19pm thyroxine (6 sources) l-Thyroxine Start: 05-13-2010 take 1 tablet by mouth once daily LEVOTHROID 100 MCG TABS One tablet by mouth daily LEVOTHYROXINE SODIUM [id number] Yoselin Reddy Vitamin B Complex (1 source) Start: 08-21-2008 vitamin b comp mirtha(B COMPLEX-VITAMIN B12 TAB) Take one(1) tablet daily. 0 08/21/2008 Active Comment on above: Take one(1) tablet d aily. Problems Active Problems Problem Classification Problem Date Documented Da te Episodic/Chronic Abdominal hernia (20 sources) Hiatal hernia; Translations: [Diaphragmatic hernia without obstruction or gangrene] 01-23-2023 Episodic Acquired foot deformities (4 sources) Hallux valgus; Translations: [Hallux valgus (acquired), unspecified foot] 09-15-2024 Chronic Acute bronchitis (20 sources) Acute bronchitis; Translations: [Acute bronchitis, unspecified] 02-06-2020 Episodic Administrative/social admission (20 sources) Issue of repeat prescriptions 03-22-2016 Episodic Cardiac dysrhythmias (20 sources) Paroxysmal atrial fibrillation; Translations: [Supraventricular tachycardia] Onset: 1 08-14-2016 Chronic Comment on above: Status post radiofre quency ablation on 12/29/2007 Cardiac dysrhythmias (20 sources) Palpitations - rapid; Translations: [Palpitations] Onset: 5 Episodic Chronic kidney disease (6 sources) Chronic kidney disease stage 3A ; [...] infarction 01-23-2023 Chronic Disorders of lipid metabolism (13 sources) Pure hypercholesterolemia; Translations: [Pure hypercholesterolemia, unspecified] Onset: 5 Chronic Essential hypertension (20 sources) Hypertensive disorder; Translations: [Essential hypertension] Onset: 7 08-14-2016 Chronic Genitourinary symptoms and ill-defined conditions (20 sources) Urinary symptoms ; Translations: [Unspecified symptoms and signs involving the genitourinary system] 01-23-2023 Episodic Heart valve disorders (20 sources) Heart murmur; Translations: [Cardiac murmur, unspecified] 01-23-2023 Episodic Malaise and fatigue (7 sources) Fatigue; Translations: [Other fatigue] 10-22-2020 Episodic Nonspecific chest pain (8 sources) Chest pain; Translations: [Chest pain, unspecified] Episodic Osteoarthritis (20 sources) Arthritis; Translations: [Unspecified osteoarthritis, unspecified site] 01-23-2023 Chronic Other aftercare (20 sources) Post-discharge follow-up; Translations: [Encounter for follow-up examination after completed treatment for conditions other than malignant neoplasm] 09-22-2022 Episodic Other and ill-defined heart disease (11 sources) Takotsubo cardiomyopathy; Translations: [Takotsubo syndrome] 12-27-2018 Chronic Other and ill-defined heart disease (5 sources) Takotsubo syndrome; Translations: [Takotsubo syndrome] Onset: 5 Chronic Other connective tissue disease (5 sources) Pain in left foot; Translations: [Pain in left foot] 09-15-2024 Episodic Other connective tissue disease (3 sources) Pain in left foot; Translations: [Pain in left foot] Onset: 5 Episodic Other ear and sense organ disorders (20 sources) Impacted cerumen; Translations: [Impacted cerumen, unspecified ear] 01-23-2023 Episodic Other ear and sense organ disorders (20 sources) Pain in pinna; Translations: [Otalgia, right ear] 01-23-2023 Episodic Other ear and sense organ disorders (20 sources) Tinnitus; Translations: [Tinnitus, unspecified ear] 01-23-2023 Episodic Other hematologic conditions (6 sources) Raised cardiac enzyme or marker; Translations: [...] falling] 01-23-2023 Episodic Other lower respiratory disease (7 sources) Dyspnea on exertion; Translations: [Shortness of [...] obesity due to excess calories] 10-27-2017 Chronic Other screening for suspected conditions (not mental disorders or infectious disease) (1 source) Other specified abnormal findings of blood chemistry; Translations: [Elevated troponin level] 10-17-2021 Episodic Other skin disorders (4 sources) Foot callus; Translations: [Corns and callosities] 09-15-2024 Episodic Iveth-; endo-; and myocarditis; cardiomyopathy (13 sources) Cardiomyopathy in diseases classified elsewhere; Translations: [Cardiomyopathy] Onset: 3 06-29-2012 Chronic Phlebitis; thrombophlebitis and thromboembolism (20 sources) Thrombophlebitis of superficial vein of right lower limb; Translations: [Phlebitis and thrombophlebitis of superficial vessels of right lower extremity] 09-14-2015 Episodic Prolapse of female genital organs (20 sources) Midline cystocele; Translations: [Cystocele, midline] 01-23-2023 Chronic Residual codes; unclassified (7 sources) Edema of lower extremity; Translations: [Localized edema] 02-03-2018 Episodic Residual codes; unclassified (20 sources) Influenza vaccination declined; Translations: [Immunization not carried out because of patient refusal] 01-23-2023 Episodic Residual codes; unclassified (20 sources) Edema of foot; Translations: [Localized edema] 01-23-2023 Episodic Residual codes; unclassified (20 sources) Edema of right lower limb; Translations: [...] overall impact. Note for Multiple chronic conditions follow-up": Patient notes mild discomfort of her external [...] from hospital stay - Name of Hospital: [facility]. Date of Admission: 12/22/21. Date of Discharge: 12/22/21. The patient was hospitalized for left wrist pain. New medications include percocet and prednisone. No post hospital therapies were ordered. Patient was discharged to home. Note for "Follow up from hospital stay": pain is tolerable with the pain pills 12-25-2021 Unclassified (20 sources) Follow up consultation - The patient is here to follow-up after Emergency Room/Urgent Care (pt was in ER for AFIB) on : (10/08/2021). Follow up visit with no current symptoms. Note for "Consultation follow-up": wants left ear checked uti? 10-24-2021 Unclassified (12 sources) Transition into care - The patient is transitioning into care from another physician (cardio 10/22/20) and a summary of care was reviewed. 12-04-2020 Unclassified (12 sources) [ADDITIONAL REASON] Follow up for multiple [...] rarely noted. Note for Multiple chronic conditions follow-up": last tsh 12/201912-04-2020 Unclassified (20 sources) [facility] Routine follow-up - The patient is [...] due to sinuses). Note for Routine chronic follow-up": ALLISON 02/06/20LROV 08/15/19last labs 01/06/20 tsh10/2017 bmp 02-14-2020 Unclassified (20 sources) Follow Up for [...] rarely noted. Note for Multiple chronic conditions follow-up": Last routine office visit 12/2018. Last TSH 10/2018. 08-15-2019 Unclassified (20 sources) [facility] Routine follow-up - The patient is here for follow-up of hypertension, a-fib, hypothyroidism and morbid obesity. The patient always takes the prescribed medications. No side effects noted. The patient has an active lifestyle but no regular program. The patient's out of office blood pressure checks occur occasionally (been kind of [id number] at home last time) and dietary compliance is fairly good usually adhering to recommendations. The patient states that there is no recent angina or dyspnea, weight has decreased (down 9 lbs) and they are still having trouble sleeping. Note for "Routine chronic follow-up": allison 07/27/18last labs 10/27/18 tsh10/30/17 bmppt is having sciatica pain 01-06-2019 Unclassified (20 sources) [facility] Routine Follow up - The patient [...] they do not have headaches. Note for "Routine chronic follow-up": ALLISON 08/05/16. Last TSH 06/2016. 10-27-2017 Unclassified (20 sources) Follow up consultation - The patient is here to follow-up after hospitalization ([facility] with diagnosis of Atrial fibrillation) on : (07-20-16 to 07-22-16). Note for "Consultation follow-up": Has occasional palpitations and continues with fatigue. 08-05-2016 Unclassified (20 sources) New Patient 12-26-2014 Unclassified (20 sources) [ADDITIONAL REASON] [facility] Routine Follow up - The patient [...] not have headaches. Note for Routine chronic follow-up": Patient declines flu shot. 12-26-2014 Unclassified (19 sources) Follow up from hospital stay - Name of Hospital: [place]. Date of Admission: 12/22/21. Date of Discharge: 12/22/21. The patient was hospitalized for left wrist pain. New medications include percocet and prednisone. No post hospital therapies were ordered. Patient was discharged to home. Note for "Follow up from hospital stay": pain is tolerable with the pain pills 12-25-2021 Unclassified (19 sources) [ADDITIONAL REASON] Transition into care - The patient is transitioning into care from an emergency room and a summary of care was reviewed. 12-25-2021 Unclassified (18 sources) Follow up for multiple chronic conditions [...] rarely noted. Note for Multiple chronic conditions follow-up": last tsh 12/201912-04-2020 Unclassified (18 sources) [ADDITIONAL REASON] Transition into care - The patient is transitioning into care from another physician (cardio 10/22/20) and a summary of care was reviewed. 12-04-2020 Unclassified (20 sources) Rapid heart rate - The rapid [...] not been associated with syncope. Note for "Rapid heart rate": Patient states that in the past she was diagnosed with AFib. 01-01-2024 Unclassified (2 sources) [facility] Routine Follow up - The patient [...] not have headaches. Note for Routine chronic follow-up": Patient declines flu shot. 12-26-2014 Unclassified (2 sources) [ADDITIONAL REASON] New Patient 12-26-2014 Urinary tract infections (20 sources) Urinary tract infectious disease; Translations: [Urinary tract infection, site not specified] 06-26-2015 Episodic Past or Other Problems Problem Classification Problem Date Documented Date Episodic/Chronic Other bone disease and musculoskeletal deformities (1 source) Disorder of skeletal system; Translations: [Disorder of bone, unspecified] Onset: 8 04-07-2007 Episodic Other connective tissue disease (1 source) Calcaneal spur; Translations: [Calcaneal spur, unspecified foot] Onset: 7 07-27-2006 Episodic Unclassified (20 sources) Cold Symptoms - Symptoms include nasal congestion, runny nose, sore throat (did have but has improved), dry cough, productive cough, wheezing (very wheezy last night, last night she felt very full in her chest and "heart went wild", heart was racing. Denies chest pain. Chest [...] urethral discharge or vaginal discharge. Note for "UTI": She had a complete hysterectomy years ago.She [...] been exposed to secondhand smoke. Note for "Upper respiratory infection": -States spouse hospitalized with covid 19 in [...] not been associated with vomiting. Note for "Abdominal pain": Had gallbladder 40 years ago. reviewed by [...] not include nausea or vomiting. 06-26-2015 Unclassified (13 sources) Edema - The edema has been occurring in a persistent pattern for 3 days . The edema is characterized as severe , and the course of the edema has been increasing. It affects the right lower extremity. The symptoms have not been relieved by any method. Note for "Edema": Patient was recently in hospital for wrist [...] Patient denies recent trauma or travel. 01-25-2024 Unclassified (2 sources) Foot pain - The pain is in the left foot. The foot pain has been occurring for 2 weeks. The pain is characterized as burning. Note for "Foot pain": Patient states that her left foot, ankle, and lower leg have become swollen over the past 2 weeks and have progressively worsened since onset. She states that the pain and swelling began circumferentially around the midfoot and has progressed to the ankle and distal portion of the lower leg over the past several days. She states that she has been wearing compression stockings but has noticed no relief with use. Patient denies injury and states that despite the swelling her symptoms are not similar to when she was seen recently for concern for DVT. Patient is using a cane to assist with ambulation. 09-15-2024 Results Test Name Value Interpretation Reference Range Facility Cardiology Visit Reporton Cardiology Visit Report [facility] [address] [place] [address] OFFICE VISIT Date of Service: 12/22/24 MR#: [id number] Acct: [id number] Name: VERONA TAY Rep #: [id number] : 1945 Provider: ZOHAIB wolf Age/Sex: 79/F Location: [facility] Status: Signed HPI HPI History of Present Illness Details: The patient is a 79-year-old female with paroxysmal atrial fibrillation, presenting for follow-up. She has a history of paroxysmal atrial fibrillation/flutter status post radiofrequency ablation on 12/29/2007 at [facility] with Dr. Day. She also has a history of hypertension as well as stress- induced cardiomyopathy/Takotsu jones cardiomyopathy. Her echocardiogram done in September 2021 demonstrated an ejection fraction of 55% with stage II diastolic dysfunction. Patient presented to the emergency room on 08/11/2024 with complaints of palpitations. She described this as a racing/skipping sensation about 2 hours prior to arrival to the ER. She was given IV metoprolol-her heart rate decreased to 65-70bpm. She was discharged to follow up with cardiology for possible cardioversion. She was evaluated [facility] 12/15/2024 for sensation of abnormal heart rhythm and racing heart. She proceeded with synchronized cardioversion. She denies chest, arm, jaw, or neck discomfort. She denies palpitations. She denies bilateral lower extremity edema. She denies claudication. She denies shortness of breath with activity, shor tness of breath at rest, orthopnea, or PND. She denies chronic cough. She denies significant, sudden weight gain. She denies lightheadedness, dizziness, near-syncope, or syncope. She denies blood in urine, blood in stool, or epistaxis. He denies fever with chills. She denies myalgia. She states weakness and fatigue. Her exercise level has remained stable. Intake Vital Signs 12/15/24 05:06 12/22/24 07:19 Height 5 ft 5 in 5 ft 5 in Weight: 204 lb BMI 33.9 BP 163/79 H Blood Pressure Location Rt brachial Position Sitting Respiration 18 Pulse 76 Pulse Source Monitor Pulse Oximetry (%) 94 Intake Visit Reasons: S/P [facility] 12/15 Film Historian Required: No Is patient in pain?: No Allergies latex Allergy (Verified 12/22/24 09:57) Unknown Penicillins Allergy (Verified 12/22/24 09:57) Unknown Medications ???Medication ???Instructions ???Recorded ???Confirmed ???Type thyroid (pork) 60 mg tablet 60 mg PO DAILY 06/16/13 12/22/24 H istory diltiazem HCl 240 mg 240 mg PO DAILY heart #90 caps 12/22/24 Rx capsule,extended release 24 hr amiodarone 200 mg tablet 100 mg (1/2 x 200 mg) PO QDAY #45 12/02/24 12/22/24 Rx tabs sertraline 50 mg tablet 50 mg PO DAILY 12/02/24 12/22/24 H istory apixaban 5 mg tablet (Eliquis) 5 mg PO BID Afib #60 tabs 12/22/24 12/22/24 Rx Ejection fraction %: 55 Have you fallen in the past year?: Yes PFSH Medical History (Updated 12/20/24 @ 04:[address] Juan Franco, DO) Stage 3a chronic kidney disease (CKD) Obesity Takotsubo cardiomyopathy Hypothyroidism Essential (primary) hypertension Edema leg Supraventricular tachycardia Paroxysmal atrial fibrillation Pure hypercholesterolemia Surgical History History of cataract surgery History of left heart catheterization (06/23/07) Hx of cholecystectomy History of hysterectomy H/O cardiac radiofrequency ablation (12/29/07) Family History Mother CAD (coronary artery disease) Brother CAD (coronary artery disease) Sister CAD (coronary artery disease) Social History household members: spouse housing: house current occupation: [employer] Smoking Status: Never smoker alcohol intake: never substance use type: does not use ROS Const Const: Positive for fatigue and weakness; Negative for headache(s) or frequent falls Eyes Eyes: Negative for blurry vision ENT ENT: Negative for headache(s), dizziness or Nosebleed/epistaxis Cardio Chest Pain: No Palpitations: No Edema: None Muscle aches with walking: None Resp Respiratory: Negative for SOB with activity, SOB at rest or SOB orthopnea SOB lying down GI GI: Negative nausea, vomiting, heartburn, bright, red blood in stools or black,tarry stools : Negative for hematuria Musc Musc: Negative for muscle aches/ myalgia Skin Skin: Negative non-healing lesions or rash Neuro Neuro: Positive for weakness; Negative for dizziness, lightheadedness, near syncope, syncope, frequent falls, headache(s) or blurry vision Endo Endo: Positive for fatigue Allergy Allergy/Immunology: Negative for rash Cardiology Exam Const Appearance: cooperative, healthy appearing, comfortab (more content not included)... [facility] 12 Lead EKGon 12-15-2024 12 Lead EKG [facility] [address] [place] [address] 12 Lead EKG 12/15/24 0510 MR#: [id number] Acct: [id number] Name: VERONA TAY Rep #: [id number] : 1945 79 From: Nataliia Hughes MD Attending Dr: Status: DEP ER Ordering Dr: Juan Franco DO Date: 12/15/24 Location: ED Sex: F C Admitted: Test Reason : DYSRHYTHMIA Blood Pressure : */* mmHG Vent. Rate : 98 BPM Atrial Rate : * BPM P-R Int : * ms QRS Dur : 90 ms QT Int : 334 ms P-R-T Axes : * 20 56 degrees QTcB Int : 426 ms Atrial fibrillation Abnormal ECG Confirmed by NATALIIA HUGHES ([id number]), medical editor MADY ORELLANA ([id number]) on 12/19/2024 6:36:53 AM Referred By: EL Confirmed By: NATALIIA HUGHES 12/19/24 0636 Date Nataliia Hughes MD CC: Juan Franco DO; ROSAURA Wilson Signed [facility] 12 Lead EKG [facility] [address] [place] [address] 12 Lead EKG 12/15/24 0748 MR#: [id number] Acct: [id number] Name: VERONA TAY Rep #: [id number] : 1945 79 From: Nataliia Hughes MD Attending Dr: Status: DEP ER Ordering Dr: Juan Franco DO Date: 12/15/24 Location: ED Sex: F C Admitted: Test Reason : CARDIOVERSION Blood Pressure : */* mmHG Vent. Rate : 72 BPM Atrial Rate : 72 BPM P-R Int : 174 ms QRS Dur : 94 ms QT Int : 408 ms P-R-T Axes : 42 9 36 degrees QTcB Int : 446 ms Normal sinus rhythm Normal ECG Confirmed by NATALIIA HUGHES ([id number]), medical editor MADY ORELLANA ([id number]) on 12/19/2024 6:36:40 AM Referred By: Confirmed By: NATALIIA HUGHES 12/19/24 0636 Date Nataliia Hughes MD CC: Juan Franco DO; ROSAURA Wilson Signed Normal [facility] Absolute lymphocyte countOrd ered By: Juan Franco on 12-15-2024 Lymphocytes Auto (Unsp spec) [#/Vol] 2.97 10*3/uL 0.83-4.51 [facility] Absolute neutrophil countOrd ered By: Juan Franco on 12-15-2024 Neutrophils (Bld) [#/Vol] 3.2 10*3/uL 2.0-7.7 [facility] Anion gap in Serum or Plasma Ordered By: Juan Franco on 12-15-2024 Anion gap [Moles/Vol] 12 mmol/L 5-15 [facility] Automated lymphocyte count a s percentage of total leukocytesOrdered By: Juan Franco on 12-15-2024 Lymphocytes/100 WBC Auto (Unsp spec) 42.1 % High - [facility] BUN/creatinine ratioOrdered By: Juan Franco on 12-15-2024 Urea nitrogen/Creatinine [Mass ratio] 27.9 mg/mg High 12-12 [facility] Basic Metabolic Profile (BMP )on 12-15-2024 BUN/CRE 27.9 RATIO High 12-12 [facility] Comment on above: Performed By: #### L 501.9520, L100.0100, L501.5200, L500.2500 #### [facility] [address] [place], [address] Calcium [Mass/Vol] 9.9 mg/dL Normal 7.6-11.0 [facility] Comment on above: Performed By: #### L 501.9520, L100.0100, L501.5200, L500.2500 #### [facility] [address] [place], [address] Chloride [Moles/Vol] 102 mmol/L Normal 98-108 [facility] Comment on above: Performed By: #### L 501.9520, L100.0100, L501.5200, L500.2500 #### [facility] [address] [place], [address] CO2 [Moles/Vol] 24.3 mmol/L Normal 21.0-32.0 [facility] Comment on above: Performed By: #### L 501.9520, L100.0100, L501.5200, L500.2500 #### [facility] [address] [place], [address] Creatinine [Mass/Vol] 1.00 mg/dL Normal 0.70-1.20 [facility] Comment on above: Performed By: #### L 501.9520, L100.0100, L501.5200, L500.2500 #### [facility] [address] [place], [address] ECRCL 53.67 ml/min Normal 50-250 [facility] Comment on above: Performed By: #### L 501.9520, L100.0100, L501.5200, L500.2500 #### [facility] [address] [place], [address] GAP 12 Normal 5-15 [facility] Comment on above: Performed By: #### L 501.9520, L100.0100, L501.5200, L500.2500 #### [facility] [address] [place], [address] GFR/1.73 sq M.predicted among non-blacks MDRD (S/P/Bld) [Vol rate/Area] 58 mL/min/{1.73_m2} Low >60 [facility] Comment on above: Result Comment: mL/m in/1.73m2 CKD-EPI Creatinine Equation (2020) Performed By: #### L 501.9520, L100.0100, L501.5200, L500.2500 #### [facility] [address] [place], [address] Glucose [Mass/Vol] 112 mg/dL High 70-99 [facility] Comment on above: Performed By: #### L 501.9520, L100.0100, L501.5200, L500.2500 #### [facility] [address] [place], [address] Potassium [Moles/Vol] 4.2 mmol/L Normal 3.3-5.1 [facility] Comment on above: Result Comment: Hemo lysis present, Results??could be affected. ?? Performed By: #### L 501.9520, L100.0100, L501.5200, L500.2500 #### [facility] [address] [place], [address] Sodium [Moles/Vol] 138 mmol/L Normal 133-145 [facility] Comment on above: Performed By: #### L 501.9520, L100.0100, L501.5200, L500.2500 #### [facility] [address] [place], [address] Urea nitrogen [Mass/Vol] 28 mg/dL High 4-19 [facility] Comment on above: Performed By: #### L 501.9520, L100.0100, L501.5200, L500.2500 #### [facility] [address] [place], [address] Basophil percentageOrdered B y: Juan Franco on 12-15-2024 Basophils/100 WBC (Bld) 0.4 % 0-[address] [facility] CBC W/Diff, Automatedon 11-24 Absolute Lymph 2.97 X10 3/uL Normal 0.83-4.51 [facility] Comment on above: Performed By: #### L 501.9520, L100.0100, L501.5200, L500.2500 #### [facility] [address] [place], [address] Absolute Neut 3.2 X10 3/uL Normal 2.0-7.7 [facility] Comment on above: Performed By: #### L 501.9520, L100.0100, L501.5200, L500.2500 #### [facility] [address] [place], [address] Basophils/100 WBC (Bld) 0.4 % Normal 0-[address] [facility] Comment on above: Performed By: #### L 501.9520, L100.0100, L501.5200, L500.2500 #### [facility] [address] [place], [address] Eosinophils/100 WBC (Bld) 1.7 % Normal 0-5 [facility] Comment on above: Performed By: #### L 501.9520, L100.0100, L501.5200, L500.2500 #### [facility] [address] [place], [address] Erythrocyte distribution width (RBC) [Ratio] 14.9 % High 11.6-14.6 [facility] Comment on above: Performed By: #### L 501.9520, L100.0100, L501.5200, L500.2500 #### [facility] [address] [place], [address] Hematocrit (Bld) [Volume fraction] 40.0 % Normal 37-47 [facility] Comment on above: Performed By: #### L 501.9520, L100.0100, L501.5200, L500.2500 #### [facility] [address] [place], [address] Hemoglobin (Bld) [Mass/Vol] 13.5 g/dL Normal 12.0-15.0 [facility] Comment on above: Performed By: #### L 501.9520, L100.0100, L501.5200, L500.2500 #### [facility] [address] [place], [address] IG% 0.100 Normal 0.0-0.9 [facility] Comment on above: Result Comment: IG% - Immature Granulocytes (promyelocytes, myelocytes and metamyelocytes) > 1% indicates that a LEFT SHIFT is Present. Performed By: #### L 501.9520, L100.0100, L501.5200, L500.2500 #### [facility] [address] [place], [address] Lymphocytes/100 WBC (Bld) 42.1 % High 19-41 [facility] Comment on above: Performed By: #### L 501.9520, L100.0100, L501.5200, L500.2500 #### [facility] [address] [place], [address] MCH (RBC) [Entitic mass] 28.8 pg Normal 27.0-32.0 [facility] Comment on above: Performed By: #### L 501.9520, L100.0100, L501.5200, L500.2500 #### [facility] [address] [place], [address] MCHC (RBC) [Mass/Vol] 33.8 g/dL Normal 32-36 [facility] Comment on above: Performed By: #### L 501.9520, L100.0100, L501.5200, L500.2500 #### [facility] [address] [place], [address] MCV (RBC) [Entitic vol] 85.5 fL Normal 81-[address] [facility] Comment on above: Performed By: #### L 501.9520, L100.0100, L501.5200, L500.2500 #### [facility] [address] [place], [address] Monocytes/100 WBC (Bld) 10.1 % High 0-10 [facility] Comment on above: Performed By: #### L 501.9520, L100.0100, L501.5200, L500.2500 #### [facility] [address] [place], [address] Neutrophils/100 WBC (Bld) 45.6 % Low 47-70 [facility] Comment on above: Performed By: #### L 501.9520, L100.0100, L501.5200, L500.2500 #### [facility] [address] [place], [address] Nucleated RBC (Bld) [#/Vol] 0 10*3/uL Normal 0-5 [facility] Comment on above: Performed By: #### L 501.9520, L100.0100, L501.5200, L500.2500 #### [facility] [address] [place], [address] Platelet mean volume (Bld) [Entitic vol] 9.9 fL Normal 6.2-12.0 [facility] Comment on above: Performed By: #### L 501.9520, L100.0100, L501.5200, L500.2500 #### [facility] [address] [place], [address] Platelets (Bld) [#/Vol] 207 10*3/uL Normal 150-450 [facility] Comment on above: Performed By: #### L 501.9520, L100.0100, L501.5200, L500.2500 #### [facility] [address] [place], [address] RBC (Bld) [#/Vol] 4.68 10*6/uL Normal 4.2-5.4 [facility] Comment on above: Performed By: #### L 501.9520, L100.0100, L501.5200, L500.2500 #### [facility] [address] [place], [address] RDW SD 46.5 fl High 35.1-43.9 [facility] Comment on above: Performed By: #### L 501.9520, L100.0100, L501.5200, L500.2500 #### [facility] [address] [place], [address] WBC (Bld) [#/Vol] 7.1 10*3/uL Normal 4.4-11.0 [facility] Comment on above: Performed By: #### L 501.9520, L100.0100, L501.5200, L500.2500 #### [facility] [address] [place], [address] Carbon dioxide, total [Moles /volume] in Central venous bloodOrdered By: Juan Franco on 12-15-2024 CO2 [Moles/Vol] 24.3 mmol/L 21.0-32.0 [facility] Chloride assayOrdered By: Salima Franco on 12-15-2024 Chloride [Moles/Vol] 102 mmol/L 98-108 [facility] Emergency Department Summary on 12-15-2024 Emergency Department Summary [facility] Medical Records Department [address] [place] [address] Emergency Department Summary 12/15/24 MR#: [id number] Acct: [id number] Name: VERONA TAY Rep #: [id number] : 1945 79 From: Juan Franco DO PCP: ROSAURA Wilson Status:DEP ER Location: ED HPI History of Present Illness Chief Complaint: Palpitations Informant: patient and spouse/S.O. Narrative Narrative: Patient is a 79-year-old female with past medical history of paroxysmal atrial fibrillation hypertension hyperlipidemia and hypothyroidism. She states she is normally in sinus rhythm. She reports has been under a great deal of stress recently as her son has recently passed. She states she went to bed and then woke up with sensation of abnormal heart rhythm and racing which she states is normal with her history of paroxysmal atrial fibrillation. She denies any excessive stimulant use or illicit drug use. She states that she took her normal medication for atrial fibrillation such as amiodarone and Cardizem as well as her Eliquis. However her heart rate was not improving and secondary to this EMS was called and she was brought in for evaluation. [facility] Medical History (Updated 12/20/24 @ 04:[address] Juan Franco DO) Stage 3a chronic kidney disease (CKD) Obesity Takotsubo cardiomyopathy Hypothyroidism Essential (primary) hypertension Edema leg Supraventricular tachycardia Paroxysmal atrial fibrillation Pure hypercholesterolemia Home Medications ???Medication ???Instructions ???Recorded ???Last Taken ???Type thyroid (pork) 60 mg tablet 60 mg PO DAILY 06/16/13 10/08/21 H istory diltiazem HCl 240 mg 240 mg PO DAILY heart #90 caps Unknown Rx capsule,extended release 24 hr apixaban 5 mg tablet (Eliquis) 5 mg PO .PRN PRN Afib #60 tabs Unknown Rx amiodarone 200 mg tablet 100 mg (1/2 x 200 mg) PO QDAY #45 12/02/24 Unknown Rx tabs sertraline 50 mg tablet 50 mg PO DAILY 12/02/24 Unknown Hi story Allergy/AdvReac Type Severity Reaction Status Date / Time latex Allergy Unknown Verified 12/15/24 05:04 Penicillins Allergy Unknown Verified 12/15/24 05:04 Family History Mother CAD (coronary artery disease) Brother CAD (coronary artery disease) Sister CAD (coronary artery disease) Surgical History History of cataract surgery History of left heart catheterization (06/23/07) Hx of cholecystectomy History of hysterectomy H/O cardiac radiofrequency ablation (12/29/07) Social History household members: spouse housing: house current occupation: [employer] Smoking Status: Never smoker alcohol intake: never substance use type: does not use ROS ROS ED Constitutional Constitutional ED: Denies chills or fever(s) Eyes Eyes: Denies blurry vision or change in vision ENT ENT ED: Denies sore throat Cardiovascular Cardiovascular: Reports palpitations and racing heartbeat; Denies chest pain Respiratory/Chest Respiratory/Chest: Denies cough or dyspnea Gastrointestinal Gastrointestinal: Denies abdominal pain, diarrhea, nausea or vomiting Musculoskeletal Musculoskeletal: Denies back pain or myalgias Integumentary Denies rash Neurologic Neurologic: Denies headache(s) Psychiatric Psychiatric: Reports anxiety and depression Hematologic/Lymphatic Hematologic/Lymphatic: Reports easy bleeding and easy bruising EXAM Physical Exam Const Vital Signs: 12/15/24 05:06 12/15/24 05:06 12/15/24 05:11 Temperature 98 F Temperature Source Oral Pulse Rate 118 H Respiratory Rate 18 Respiratory Effort Normal Blood Pressure 162/95 H Blood Pressure Mean 117 Baseline BP Pulse Ox 99 99 Oxygen Delivery Method Room Air Nasal Cannula Oxygen Flow Rate (L/min) 2 12/15/24 06:33 12/15/24 06:48 12/15/24 07:00 Temperature Temperature Source Pulse Rate 114 H 83 97 Respiratory Rate 15 18 20 H Respiratory Effort Blood Pressure 150/100 H 151/97 H 132/69 H Blood Pressure Mean 116 115 90 Baseline BP Pulse Ox 100 100 98 Oxygen Delivery Method Room Air Room Air Room Air Oxygen Flow Rate (L/min) 12/15/24 07:21 Temperature 97.9 F Temperature Source Pulse Rate 100 Respiratory Rate 18 Respiratory Effort Blood Pressure 132/69 H Blood Pressure Mean Baseline BP 132/69 Pulse Ox 99 Oxygen Delivery Method Room Air Oxygen Flow Rate (L/min) 2 Positive well nourished and well developed General Appearance ED: well developed; Negative for pallor HEENT HEENT Narrative: Normocephalic atraumatic No tongue or lip swelling no oral lesions no airway edema or compromise Ey (more content not included)... Normal [facility] Eosinophil percentageOrdered By: Juan Franco on 12-15-2024 Eosinophils/100 WBC (Bld) 1.7 % 0-5 [facility] Erythrocyte distribution wid th ratioOrdered By: Juan Franco on 12-15-2024 Erythrocyte distribution width (RBC) [Ratio] 14.9 % High 11.6-14.6 [facility] Erythrocyte distribution wid th standard deviationOrdered By: Juan Franco on 12-15-2024 Erythrocyte distribution width (RBC) [Ratio] 46.5 fl High 35.1-43.9 [facility] Glomerular filtration rate ( GFR) estimation/1.73 sq m using serum, plasma, or whole bOrdered By: Juan Franco on 12-15-2024 GFR/1.73 sq M.predicted among non-blacks MDRD (S/P/Bld) [Vol rate/Area] 58 mL/min/{1.73_m2} Low >60 [facility] Comment on above: mL/min/1.73m2 CKD-EP I Creatinine Equation (2020) Hematocrit Auto (Bld) [Volum e fraction]Ordered By: Juan Franco on 12-15-2024 Hematocrit (Bld) [Volume fraction] 40.0 % 37-47 [facility] Hemoglobin measurementOrdere d By: Juan Franco on 12-15-2024 Hemoglobin (Bld) [Mass/Vol] 13.5 g/dL 12.0-15.0 [facility] Immature granulocytes/100 WB C Auto (Bld)Ordered By: Juan Franco on 12-15-2024 Immature granulocytes/100 WBC (Bld) 0.100 % 0.0-0.9 [facility] Comment on above: IG% - Immature Granu locytes (promyelocytes, myelocytes and metamyelocytes) > 1% indicates that a LEFT SHIFT is Present. MCV (mean corpuscular volume ) determinationOrdered By: Juan Franco on 12-15-2024 MCV (RBC) [Entitic vol] 85.5 fL 81-[address] [facility] Magnesiumon 12-15-2024 Magnesium [Mass/Vol] 2.5 mg/dL High 1.5-2.2 [facility] Comment on above: Performed By: #### L 501.9520, L100.0100, L501.5200, L500.2500 #### [facility] [address] [place], [address] Magnesium measurement (mass/ volume)Ordered By: Juan Franco on 12-15-2024 Magnesium (Unsp spec) [Mass/Vol] 2.5 mg/dL High 1.5-2.2 [facility] Mean corpuscular hemoglobin (MCH) determinationOrdered By: Juan Franco on 12-15-2024 MCH (RBC) [Entitic mass] 28.8 pg 27.0-32.0 [facility] Mean corpuscular hemoglobin concentration (MCHC) determinationOrdered By: Juan Franco on 12-15-2024 MCHC (RBC) [Mass/Vol] 33.8 g/dL 32-36 [facility] Mean platelet volume determi nationOrdered By: Juan Franco on 12-15-2024 Platelet mean volume (Bld) [Entitic vol] 9.9 fL 6.2-12.0 [facility] Monocyte percentageOrdered B y: Juan Franco on 12-15-2024 Monocytes/100 WBC (Bld) 10.1 % High 0-[address] [facility] Neutrophil percentageOrdered By: Juan Franco on 12-15-2024 Neutrophils/100 WBC (Bld) 45.6 % Low 47-70 [facility] Nucleated red blood cell per centageOrdered By: Juan Franco on 12-15-2024 Nucleated RBC/100 WBC (Bld) [Ratio] 0 % 0-5 [facility] Platelet countOrdered By: Salima Franco on 12-15-2024 Platelets (Bld) [#/Vol] 207 10*3/uL 150-450 [facility] Potassium measurement (mass/ volume)Ordered By: Juan Franco on 12-15-2024 Potassium (Unsp spec) [Mass/Vol] 4.2 mmol/L 3.3-5.1 [facility] Comment on above: Hemolysis present, R esults could be affected. RBC Auto (Bld) [#/Vol]Ordere d By: Juan Franco on 12-15-2024 RBC (Bld) [#/Vol] 4.68 10*6/uL 4.2-5.4 [facility] Serum creatinine measurement (mass/volume)Ordered By: Juan Franco on 12-15-2024 Creatinine [Mass/Vol] 1.00 mg/dL 0.70-1.20 [facility] Serum glucose measurement (m ass/volume)Ordered By: Juan Franco on 12-15-2024 Glucose [Mass/Vol] 112 mg/dL High 70-99 [facility] Serum or plasma calcium darren urement (mass/volume)Ordered By: Juan Franco on 12-15-2024 Calcium [Mass/Vol] 9.9 mg/dL 7.6-11.0 [facility] Serum or plasma urea nitroge n measurement (mass/volume)Ordered By: Juan Franco on 12-15-2024 Urea nitrogen [Mass/Vol] 28 mg/dL High 4-19 [facility] Sodium levelOrdered By: Alek Franco on 12-15-2024 Sodium [Moles/Vol] 138 mmol/L 133-145 [facility] TSH DL <= 0.005 mIU/L QnOrde red By: Juan Franco on 12-15-2024 TSH Qn 2.550 uIU/mL 0.300-4.200 [facility] Thyroid Stim Hormone (TSH)on 12-15-2024 TSH 2.550 uIU/mL Normal 0.300-4.200 [facility] Comment on above: Performed By: #### L 501.9591, L100.0100, L501.5200, L500.2500 #### [facility] [address] [place], [address] White blood cell (WBC) count Ordered By: Juan Franco on 12-15-2024 WBC (Bld) [#/Vol] 7.1 10*3/uL 4.4-11.0 [facility] Cardiology Visit Reporton Cardiology Visit Report [facility] [address] [place] [address] OFFICE VISIT Date of Service: 12/02/24 MR#: [id number] Acct: [id number] Name: VERONA TAY Rep #: [id number] : 1945 Provider: ROSAURA Rob Age/Sex: 79/F Location: [facility] [place] Status: Signed HPI HPI History of Present Illness Details: The patient is a 79-year-old female with paroxysmal atrial fibrillation, presenting for follow-up of recurrent episodes. She has a history of paroxysmal atrial fibrillation/flutter status post radiofrequency ablation on 12/29/2007 at [facility] with Dr. Day. She also has a history of hypertension as well as stress-induced cardiomyopathy/Takotsu jones cardiomyopathy. Her echocardiogram done in September 2021 demonstrated an ejection fraction of 55% with stage II diastolic dysfunction. Patient presented to the emergency room on 08/11/2024 with complaints of palpitations. She described this as a racing/skipping sensation about 2 hours prior to arrival to the ER. She was given IV metoprolol-her heart rate decreased to 65-70bpm. She was discharged to follow up with cardiology for possible cardioversion. She has recently experienced two episodes: one lasting approximately 10 hours, and another lasting 6 hours, both occurring at night and waking her from sleep. The most recent episode occurred on a Thursday night about 2 weeks ago. She reports associated fatigue and a sensation of being sore after episodes, but denies chest pain or worsening dyspnea. She is currently taking diltiazem and Eliquis, but only takes a single dose of Eliquis during episodes. She is also taking nattokinase. She expresses concern about medication costs and potential side effects, particularly gastrointestinal upset. She is under significant stress due to her son's pancreatic cancer diagnosis in June. Intake Vital Signs 11/09/24 13:36 12/02/24 08:53 12/02/24 10:33 Height 5 ft 5 in 5 ft 5 in Weight: 207 lb 205 lb BMI 34.4 34.1 BP 155/77 H 174/84 H 180/84 H Blood Pressure Location Lt brachial Lt brachial Lt brachial Position Sitting Sitting Sitting Respiration 16 18 Pulse 71 69 Pulse Source NIBP Monitor Pulse Oximetry (%) 96 97 Oxygen Delivery Method room air room air Intake Visit Reasons: 4-6 WK FU/EARLY TO COME IN WITH HER Film Historian Required: No Accompanied by: Is patient in pain?: No Allergies latex Allergy (Verified 11/09/24 13:40) Unknown Penicillins Allergy (Verified 11/09/24 13:40) Unknown Medications ???Medication ???Instructions ???Recorded ???Confirmed ???Type thyroid (pork) 60 mg tablet 60 mg PO DAILY 06/16/13 12/02/24 H istory diltiazem HCl 240 mg 240 mg PO DAILY heart #90 caps 12/02/24 Rx capsule,extended release 24 hr apixaban 5 mg tablet (Eliquis) 5 mg PO .PRN PRN Afib #60 tabs 12/02/24 Rx amiodarone 200 mg tablet 100 mg (1/2 x 200 mg) PO QDAY #45 12/02/24 12/02/24 Rx tabs sertraline 50 mg tablet mg PO PRN 12/02/24 12/02/24 Histor y Ejection fraction %: 55 Have you fallen in the past year?: No Nurse's Note: Pt was wearing a monitor when she had an episode of AFIB Thursday night. She is still feeling fatigued since that episode. REPLACED BY [facility] Medical History Stage 3a chronic kidney disease (CKD) Obesity Takotsubo cardiomyopathy Hypothyroidism Essential (primary) hypertension Edema leg Supraventricular tachycardia Paroxysmal atrial fibrillation Pure hypercholesterolemia Surgical History (Updated 12/02/24 @ 10:24 by Dulce Fernandez) History of cataract surgery History of left heart catheterization (06/23/07) Hx of cholecystectomy History of hysterectomy H/O cardiac radiofrequency ablation (12/29/07) Family History Mother CAD (coronary artery disease) Brother CAD (coronary artery disease) Sister CAD (coronary artery disease) Social History household members: spouse housing: house current occupation: [employer] Smoking Status: Never smoker alcohol intake: never substance use type: does not use ROS Const Const: Positive for fatigue and weakness; Negative for headache(s) Eyes Eyes: Negative for change in vision ENT ENT: Positive for balance problems (At times she feels off-balance); Negative for headache(s), dizziness or Nosebleed/epistaxis Cardio Chest Pain: Yes (Sore after her AFIB, but it didn't last long) Palpitations: Yes feels like its: skipping Edema: Right (Right is always bigger than left) and Bilateral Resp Respiratory: Negative for SOB with activity GI GI: Positive for nausea (Parks this with her AFIB episode Thursday); Negative vomiting, heartburn or br (more content not included)... Normal [facility] TSHon 11-16-2024 TSH Qn 1.80 m[IU]/L Normal 0.40-4.50 [facility] Comment on above: Performed By: #### 8 99 #### [facility] [address], [address] [place] [id number] 3 Year Olds Preschool Teacher: Chris Beck MD Cardiology Visit Reporton Cardiology Visit Report [facility]. [address] [place] [address] OFFICE VISIT Date of Service: 11/09/24 MR#: [id number] Acct: [id number] Name: VERONA TAY Rep #: [id number] : 1945 Provider: ZOHAIB wolf Age/Sex: 79/F Location[place] [facility] Status: Signed HPI HPI History of Present Illness Details: VERONA TAY, is a 79 F who presents to the office today for a cardiovascular outpatient follow-up. She has a history of paroxysmal atrial fibrillation/flutter status post radiofrequency ablation on 12/29/2007 at [facility] with Dr. Day. She also has a history of hypertension as well as stress- induced cardiomyopathy/Takotsu jones cardiomyopathy. Her echocardiogram done in September 2021 demonstrated an ejection fraction of 55% with stage II diastolic dysfunction. Patient presented to the emergency room on 08/11/2024 with complaints of palpitations. She described this as a racing/skipping sensation about 2 hours prior to arrival to the ER. She was given IV metoprolol-her heart rate decreased to 65-70bpm. She was discharged to follow up with cardiology for possible cardioversion. She acknowledges 1 episode of chest pain that she considers to be dull during her an episode of palpitations. She describes the palpitation as fast. She states bilateral lower extremity edema with right worse than left. She denies claudication. She denies shortness of breath with activity, shortness of breath at rest, orthopnea, or PND. She denies chronic cough. She denies significant, sudden weight gain. She acknowledges lightheadedness when first getting up. She denies dizziness, near-syncope, or syncope. She denies blood in urine, blood in stool, or epistaxis. He denies fever with chills. She denies myalgia. She states fatigue. Her exercise level has remained stable. Intake Vital Signs 08/16/24 07:25 11/09/24 13:36 Height 5 ft 5 in 5 ft 5 in Weight: 208 lb 207 lb BMI 34.6 34.4 BP 143/81 H 155/77 H Blood Pressure Location Lt brachial Lt brachial Position Sitting Sitting Respiration 18 16 Pulse 79 71 Pulse Source Monitor NIBP Pulse Oximetry (%) 98 96 Oxygen Delivery Method room air Intake Visit Reasons: 3-4 M FU Film Historian Required: No Is patient in pain?: No Allergies latex Allergy (Verified 11/09/24 13:40) Unknown Penicillins Allergy (Verified 11/09/24 13:40) Unknown Medications ???Medication ???Instructions ???Recorded ???Confirmed ???Type thyroid (pork) 60 mg tablet 60 mg PO DAILY 06/16/13 11/09/24 H istory diltiazem HCl 240 mg 240 mg PO DAILY heart #90 caps 11/09/24 Rx capsule,extended release 24 hr apixaban 5 mg tablet (Eliquis) 5 mg PO .PRN PRN Afib #60 tabs 11/09/24 Rx Ejection fraction %: 55 Have you fallen [...] household members: spouse housing: house current occupation: [employer] Smoking Status: Never smoker alcohol intake: never substance use type: does not use ROS Const Const: Positive for fatigue; Negative for weakness Eyes Eyes: Negative for change in vision ENT ENT: Negative for dizziness or balance problems Cardio Chest Pain: Yes (X 1 after episode of fast heart rate) Character: dull Palpitations: Yes feels like its: fast Edema: Bilateral (Right > right) Muscle aches with walking: None Resp Respiratory: Negative for SOB with activity, SOB at rest or SOB orthopnea SOB lying down GI GI: Negative nausea or heartburn : Negative for hematuria or frequent nighttime urination/ nocturia Musc Musc: Negative for balance problems Skin Skin: Negative non-healing lesions or rash Neuro Neuro: Positive for lightheadedness (Occasionally when 1st getting up); Negative for dizziness, near syncope, syncope or weakness Endo Endo: Positive for fatigue Allergy Allergy/Immunology: Negative for rash Cardiology Exam Const Appearance: cooperative, healthy appearing, comfortable and no acute distress Nutritional Appearance: average body habitus and well nourished Orientation: alert, awake and oriented x3 Head (more content not included)... Normal [facility] URIC ACIDon 09-16-2024 Urate [Mass/Vol] 5.7 mg/dL Normal 2.5-7.0 [facility] Comment on above: Result Comment: Ther apeutic target for gout patients: <6.0 mg/dL Performed By: #### 9 05 #### [facility] [address], [address] [place] [address] 2 Year Olds Preschool Teacher: Chris Beck MD FOOT COMPLETE LTon 5 FOOT COMPLETE [address] [place], [place] [address] Patient: VERONA TAY. Phone#: : 1945 Age: 79 Gender: F Pt. Type: Out Account: [id number] Location: [facility] Ordering: ALEC AIKEN Exam Date: 09/15/2024/13:56 Family Phys: Charge Code: [id number] Physician: [place] Order #: [id number] Dose#: PROCEDURE: X-RAY FOOT LT COMPLETE MIN 3 VIEWS COMPARISON: None. INDICATIONS: Left foot pain. FINDINGS: BONES: No fracture dislocation. There is a bipartite medial 1st sesamoid. There is sclerosis at the talonavicular articulation. There is spurring of the calcaneal cuboid articulation. There is loss of the arch. Study limited in a nonweightbearing view though calcaneal pitch angle is decreased. SOFT TISSUES: Large soft tissue swelling at the dorsal aspect of the foot EFFUSION: None visible. OTHER: Negative. CONCLUSION: 1. 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 2. Joint space narrowing and osseous sclerosis and spurring of the midfoot. Dictated by: Jordyn Johnson MD on 09/15/2024 at 15:23 Approved by: Jordyn Johnson MD on 09/15/2024 at 15:25 Normal [facility] - Chemistry and C hemistry - challengeon 09-15-2024 Urate [Mass/Vol] 5.7 mg/dL Normal 2.5 - 7.0 mg/dL [facility] Cardiology Visit Reporton Cardiology Visit Report [facility] [address] [place] [address] OFFICE VISIT Date of Service: 08/16/24 MR#: [id number] Acct: [id number] Name: VERONA TAY Rep #: [id number] : 1945 Provider: ZOHAIB jones Age/Sex: 79/F Location: [facility] Status: Signed HPI HPI History of Present Illness Details: VERONA TAY, is a 79 F who presents to the office today for a cardiovascular outpatient follow-up. She has a history of paroxysmal atrial fibrillation/flutter status post radiofrequency ablation on 12/29/2007 at [facility] with Dr. Day. She also has a history of hypertension as well as stress- induced cardiomyopathy/Takotsu jones cardiomyopathy. Her echocardiogram done in September 2021 demonstrated an ejection fraction of 55% with stage II diastolic dysfunction. Patient presented to the emergency room on 08/11/2024 with complaints of palpitations. She described this as a racing/skipping sensation about 2 hours prior to arrival to the ER. She was given IV metoprolol-her heart rate decreased to 65-70bpm. She was discharged to follow up with cardiology for possible cardioversion. From a cardiac standpoint, the patient is doing well. She does acknowledge chest pain yesterday that was intermittent. She described this as an achy sensation on her left chest. She states that she is under a lot of stress, due to her son recently being diagnosed with pancreatic cancer. She denies any palpitations, pressure or heaviness. She denies SOB, Orthopnea, and PND. She does not have bleeding issues; no blood in urine, stool, or nosebleeds. She does acknowledge a decrease in energy level. She denies myalgias, or claudication. She does acknowledge bilateral lower extremity edema. She does not have sudden weight gain. She does have occasional lightheadedness. She denies dizziness, syncopal or near syncopal episodes, and headaches. Intake Vital Signs 08/11/24 01:45 08/16/24 07:25 Height 5 ft 5 in 5 ft 5 in Weight: 208 lb BMI 34.6 BP 143/81 H Blood Pressure Location Lt brachial Position Sitting Respiration 18 Pulse 79 Pulse Source Monitor Pulse Oximetry (%) 98 Intake Visit Reasons: S/P [facility] 08/10 Film Historian Required: No Is patient in pain?: No Allergies latex Allergy (Verified 08/16/24 13:59) Unknown Penicillins Allergy (Verified 08/16/24 13:59) Unknown Medications ???Medication ???Instructions ???Recorded ???Confirmed ???Type thyroid (pork) 60 mg tablet 60 mg PO DAILY 06/16/13 08/16/24 H istory diltiazem HCl 240 mg 240 mg PO DAILY heart #90 caps 08/16/24 Rx capsule,extended release 24 hr apixaban 5 mg tablet (Eliquis) 5 mg PO .PRN PRN Afib #60 tabs 08/16/24 Rx Ejection fraction %: 55 Have you fallen [...] household members: spouse housing: house current occupation: [employer] Smoking Status: Never smoker alcohol intake: never substance use type: does not use ROS Const Const: Positive for fatigue; Negative for weakness, headache(s) or frequent falls Eyes Eyes: Negative for blurry vision ENT ENT: Negative for headache(s), dizziness or Nosebleed/epistaxis Cardio Chest Pain: Yes Frequency: other Character: other (Aching) Location: left chest Palpitations: No Edema: Bilateral Muscle aches with walking: None Resp Respiratory: Negative for SOB with activity, SOB at rest or SOB orthopnea SOB lying down GI GI: Positive for nausea; Negative vomiting, heartburn, bright, red blood in stools or black,tarry stools : Negative for hematuria Neuro Neuro: Positive for lightheadedness; Negative for dizziness, near syncope, syncope, frequent falls, headache(s), weakness or blurry vision Endo Endo: Positive for fatigue Cardiology Exam Const Appearance: cooperative, no acute distress and well developed Nutritional Appearance: obese Orientation: alert, awake and oriented x3 Head Head: normal to inspection, normocephalic and atraumatic Ears: hearing grossly normal bilateral (more content not included)... Normal [facility] 12 Lead EKGon 08-11-2024 12 Lead EKG [facility] [address] [place] [address] 12 Lead EKG 08/11/24 0154 MR#: [id number] Acct: [id number] Name: VERONA TAY Rep #: [id number] : 1945 79 From: Ashley Sutton MD Attending Dr: Status: DEP ER Ordering Dr: Juan Franco DO Date: 08/11/24 Location: ED Sex: F C Admitted: Test Reason : DYSRHYTHMIA Blood Pressure : */* mmHG Vent. Rate : 93 BPM Atrial Rate : * BPM P-R Int : * ms QRS Dur : 90 ms QT Int : 344 ms P-R-T Axes : * 14 51 degrees QTcB Int : 427 ms Atrial fibrillation Nonspecific ST abnormality Abnormal ECG Confirmed by QUYEN MCGUIRE, DONNY ([id number]), medical editor MADY ORELLANA ([id number]) on 08/12/2024 1:03:09 PM Referred By: EL Confirmed By: DONNY SUTTON MD 08/12/24 1303 Date Ashley Sutton MD CC: Juan Franco DO; ROSAURA Wilson Signed Normal [facility] Absolute lymphocyte countOrd ered By: Juan Franco on 08-11-2024 Lymphocytes Auto (Unsp spec) [#/Vol] 3.66 10*3/uL 0.83-4.51 [facility] Absolute neutrophil countOrd ered By: Juan Franco on 08-11-2024 Neutrophils (Bld) [#/Vol] 2.8 10*3/uL 2.0-7.7 [facility] Anion gap in Serum or Plasma Ordered By: Juan Franco on 08-11-2024 Anion gap [Moles/Vol] 14 mmol/L 5-15 [facility] Automated lymphocyte count a s percentage of total leukocytesOrdered By: Juan Franco on 08-11-2024 Lymphocytes/100 WBC Auto (Unsp spec) 47.2 % High 19-41 [facility] BUN/creatinine ratioOrdered By: Juan Franco on 08-11-2024 Urea nitrogen/Creatinine [Mass ratio] 24.9 mg/mg High 10- [facility] Basic Metabolic Profile (BMP )on 08-11-2024 BUN/CRE 24.9 RATIO High 10- [facility] Comment on above: Performed By: #### L 500.2500, L100.0100, L501.5200, L501.9520 #### [facility] [address] [place], [address] Calcium [Mass/Vol] 9.9 mg/dL Normal 7.6-11.0 [facility] Comment on above: Performed By: #### L 500.2500, L100.0100, L501.5200, L501.9520 #### [facility] [address] [place], [address] Chloride [Moles/Vol] 103 mmol/L Normal 98-108 [facility] Comment on above: Performed By: #### L 500.2500, L100.0100, L501.5200, L501.9520 #### [facility] [address] [place], [address] CO2 [Moles/Vol] 21.2 mmol/L Normal 21.0-32.0 [facility] Comment on above: Performed By: #### L 500.2500, L100.0100, L501.5200, L501.9520 #### [facility] [address] [place], [address] Creatinine [Mass/Vol] 1.11 mg/dL Normal 0.70-1.20 [facility] Comment on above: Performed By: #### L 500.2500, L100.0100, L501.5200, L501.9520 #### [facility] [address] [place], [address] GAP 14 Normal 5-15 [facility] Comment on above: Performed By: #### L 500.2500, L100.0100, L501.5200, L501.9520 #### [facility] [address] [place], [address] GFR/1.73 sq M.predicted among non-blacks MDRD (S/P/Bld) [Vol rate/Area] 51 mL/min/{1.73_m2} Low >60 [facility] Comment on above: Result Comment: mL/m in/1.73m2 CKD-EPI Creatinine Equation (2020) Performed By: #### L 500.2500, L100.0100, L501.5200, L501.9520 #### [facility] [address] [place], [address] Glucose [Mass/Vol] 116 mg/dL High 70-99 [facility] Comment on above: Performed By: #### L 500.2500, L100.0100, L501.5200, L501.9520 #### [facility] [address] [place], [address] Potassium [Moles/Vol] 3.8 mmol/L Normal 3.3-5.1 [facility] Comment on above: Performed By: #### L 500.2500, L100.0100, L501.5200, L501.9520 #### [facility] [address] [place], [address] Sodium [Moles/Vol] 138 mmol/L Normal 133-145 [facility] Comment on above: Performed By: #### L 500.2500, L100.0100, L501.5200, L501.9520 #### [facility] [address] [place], [address] Urea nitrogen [Mass/Vol] 28 mg/dL High 4-19 [facility] Comment on above: Performed By: #### L 500.2500, L100.0100, L501.5200, L501.9520 #### [facility] [address] [place], [address] Basophil percentageOrdered B y: Juan Franco on 08-11-2024 Basophils/100 WBC (Bld) 0.6 % 0-[address] [facility] CBC W/Diff, Automatedon 07-24 Absolute Lymph 3.66 X10 3/uL Normal 0.83-4.51 [facility] Comment on above: Performed By: #### L 500.2500, L100.0100, L501.5200, L501.9520 #### [facility] [address] [place], [address] Absolute Neut 2.8 X10 3/uL Normal 2.0-7.7 [facility] Comment on above: Performed By: #### L 500.2500, L100.0100, L501.5200, L501.9520 #### [facility] [address] [place], [address] Basophils/100 WBC (Bld) 0.6 % Normal 0-[address] [facility] Comment on above: Performed By: #### L 500.2500, L100.0100, L501.5200, L501.9520 #### [facility] [address] [place], [address] Eosinophils/100 WBC (Bld) 6.4 % High 0-5 [facility] Comment on above: Performed By: #### L 500.2500, L100.0100, L501.5200, L501.9520 #### [facility] [address] [place], [address] Erythrocyte distribution width (RBC) [Ratio] 14.4 % Normal 11.6-14.6 [facility] Comment on above: Performed By: #### L 500.2500, L100.0100, L501.5200, L501.9520 #### [facility] [address] [place], [address] Hematocrit (Bld) [Volume fraction] 37.3 % Normal 37-47 [facility] Comment on above: Performed By: #### L 500.2500, L100.0100, L501.5200, L501.9520 #### [facility] [address] [place], [address] Hemoglobin (Bld) [Mass/Vol] 12.7 g/dL Normal 12.0-15.0 [facility] Comment on above: Performed By: #### L 500.2500, L100.0100, L501.5200, L501.9520 #### [facility] [address] [place], [address] IG% 0.100 Normal 0.0-0.9 [facility] Comment on above: Result Comment: IG% - Immature Granulocytes (promyelocytes, myelocytes and metamyelocytes) > 1% indicates that a LEFT SHIFT is Present. Performed By: #### L 500.2500, L100.0100, L501.5200, L501.9520 #### [facility] [address] [place], [address] Lymphocytes/100 WBC (Bld) 47.2 % High 19-41 [facility] Comment on above: Performed By: #### L 500.2500, L100.0100, L501.5200, L501.9520 #### [facility] [address] [place], [address] MCH (RBC) [Entitic mass] 28.9 pg Normal 27.0-32.0 [facility] Comment on above: Performed By: #### L 500.2500, L100.0100, L501.5200, L501.9520 #### [facility] [address] [place], [address] MCHC (RBC) [Mass/Vol] 34.0 g/dL Normal 32-36 [facility] Comment on above: Performed By: #### L 500.2500, L100.0100, L501.5200, L501.9520 #### [facility] [address] [place], [address] MCV (RBC) [Entitic vol] 84.8 fL Normal 81-99 [facility] Comment on above: Performed By: #### L 500.2500, L100.0100, L501.5200, L501.9520 #### [facility] [address] [place], [id number] Monocytes/100 WBC (Bld) 9.3 % Normal 0-10 [facility] Comment on above: Performed By: #### L 500.2500, L100.0100, L501.5200, L501.9520 #### [facility] [address] [place], [address] Neutrophils/100 WBC (Bld) 36.4 % Low 47-70 [facility] Comment on above: Performed By: #### L 500.2500, L100.0100, L501.5200, L501.9520 #### [facility] [address] [place], [address] Nucleated RBC (Bld) [#/Vol] 0 10*3/uL Normal 0-5 [facility] Comment on above: Performed By: #### L 500.2500, L100.0100, L501.5200, L501.9520 #### [facility] [address] [place], [address] Platelet mean volume (Bld) [Entitic vol] 9.8 fL Normal 6.2-12.0 [facility] Comment on above: Performed By: #### L 500.2500, L100.0100, L501.5200, L501.9520 #### [facility] [address] [place], [address] Platelets (Bld) [#/Vol] 202 10*3/uL Normal 150-450 [facility] Comment on above: Performed By: #### L 500.2500, L100.0100, L501.5200, L501.9520 #### [facility] [address] [place], [address] RBC (Bld) [#/Vol] 4.40 10*6/uL Normal 4.2-5.4 [facility] Comment on above: Performed By: #### L 500.2500, L100.0100, L501.5200, L501.9520 #### [facility] [address] [place], [address] RDW SD 44.6 fl High 35.1-43.9 [facility] Comment on above: Performed By: #### L 500.2500, L100.0100, L501.5200, L501.9520 #### [facility] [address] [place], [address] WBC (Bld) [#/Vol] 7.8 10*3/uL Normal 4.4-11.0 [facility] Comment on above: Performed By: #### L 500.2500, L100.0100, L501.5200, L501.9520 #### [facility] [address] [place], [address] Carbon dioxide, total [Moles /volume] in Central venous bloodOrdered By: Juan Franco on 08-11-2024 CO2 [Moles/Vol] 21.2 mmol/L 21.0-32.0 [facility] Chloride assayOrdered By: Salima Franco on 08-11-2024 Chloride [Moles/Vol] 103 mmol/L 98-108 [facility] Emergency Department Summary on 08-11-2024 Emergency Department Summary [facility] Medical Records Department [address] [place] [address] Emergency Department Summary 08/11/24 MR#: [id number] Acct: [id number] Name: VERONA TAY Rep #: [id number] : 1945 79 From: Juan Franco DO PCP: ROSAURA Wilson Status:DEP ER Location: ED HPI History of Present Illness Chief Complaint: Palpitations Informant: patient and spouse/S.O. Narrative Narrative: Patient is a 79-year-old female with past medical paroxysmal atrial fibrillation hypertension hyperlipidemia and thyroid disorder. She states her atrial fibrillation is very intermittent and secondary to this she is not on anticoagulation. She reports that roughly 2 hours prior to arrival she began to feel her heart racing and skipping beats which felt similar nature to her previous bouts of A-fib. She states that she checked her heart rate at home and it was approaching 200. This elevated rate with symptoms of shortness of breath concerned her and therefore she presents for evaluation. Patient denies any excessive stimulant use or illicit drug use. Patient states prior to her heart racing/palpitations she felt perfectly normal PFSH REPLACED BY [facility] Medical History Stage 3a chronic kidney disease (CKD) Obesity Takotsubo cardiomyopathy Hypothyroidism Essential (primary) hypertension Edema leg Supraventricular tachycardia Paroxysmal atrial fibrillation Pure hypercholesterolemia Home Medications ???Medication ???Instructions ???Recorded ???Last Taken ???Type thyroid (pork) 60 mg tablet 60 mg PO DAILY 06/16/13 10/08/21 H istory diltiazem HCl 240 mg 240 mg PO DAILY heart #90 caps Unknown Rx capsule,extended release 24 hr apixaban 5 mg tablet (Eliquis) 5 mg PO BID 30 days #60 tabs 08/11 Unknown Rx Allergy/AdvReac Type Severity Reaction Status Date / Time latex Allergy Unknown Verified 01/27/24 11:08 Penicillins Allergy Unknown Verified 01/27/24 11:08 Family History Mother CAD (coronary artery disease) Brother CAD (coronary artery disease) Sister CAD (coronary artery disease) Surgical History History of left heart catheterization (06/23/07) Hx of cholecystectomy History of hysterectomy H/O cardiac radiofrequency ablation (12/29/07) Social History household members: spouse housing: house current occupation: [employer] Smoking Status: Never smoker alcohol intake: never substance use type: does not use ROS ROS ED Constitutional Constitutional ED: Denies chills or fever(s) Eyes Eyes: Denies blurry vision or change in vision ENT ENT ED: Denies sore throat Cardiovascular Cardiovascular: Reports palpitations and racing heartbeat; Denies chest pain Respiratory/Chest Respiratory/Chest: Reports dyspnea; Denies cough Gastrointestinal Gastrointestinal: Denies abdominal pain, diarrhea, nausea or vomiting Genitourinary Genitourinary ED: Denies dysuria Musculoskeletal Musculoskeletal: Denies myalgias Integumentary Denies rash Neurologic Neurologic: Denies headache(s) Hematologic/Lymphatic Hematologic/Lymphatic: Reports easy bleeding and easy bruising EXAM Physical Exam Const Vital Signs: 08/11/24 01:45 08/11/24 02:48 08/11/24 03:45 Temperature 97.8 F 98.0 F Temperature Source Oral Oral Pulse Rate 117 H 88 61 Respiratory Rate 16 17 15 Blood Pressure 171/106 H 152/107 H 179/99 H Blood Pressure Mean 127 122 125 Pulse Ox 95 95 96 Oxygen Delivery Method Room Air Room Air Room Air 08/11/24 04:21 Temperature 97.8 F Temperature Source Pulse Rate 77 Respiratory Rate 16 Blood Pressure 141/78 H Blood Pressure Mean 99 Pulse Ox 94 Oxygen Delivery Method Positive well nourished and well developed General Appearance ED: well developed; Negative for pallor HEENT HEENT Narrative: No tongue or lip swelling no oral lesions no airway edema or compromise Head is normocephalic and atraumatic Eyes PERRL and EOMs intact bilaterally General Eye ED: Negative for pale conjunctiva or scleral icterus Neck supple and no JVD Neck Narrative: No nuchal rigidity or meningeal signs Resp normal respiratory effort and clear to auscultation bilaterally Cardio regular rate Rate: other Other Details: Irregularly irregular rhythm with regular rate consistent with atrial fibrillation GI normal to inspection, nondistended, normoactive bowel sounds, non-tender, non-distended and no masses Auscultation: normoactive bowel sounds Palpation: soft Extremity normal to inspection Extremity Narrative: Negative Homans' sign bilaterally Neuro oriented x3, CN's II-XII intact bilaterally and no s (more content not included)... Normal [facility] Eosinophil percentageOrdered By: Juan Franco on 08-11-2024 Eosinophils/100 WBC (Bld) 6.4 % High 0-5 [facility] Erythrocyte distribution wid th ratioOrdered By: Juan Franco on 08-11-2024 Erythrocyte distribution width (RBC) [Ratio] 14.4 % 11.6-14.6 [facility] Erythrocyte distribution wid th standard deviationOrdered By: Juan Franco on 08-11-2024 Erythrocyte distribution width (RBC) [Ratio] 44.6 fl High 35.1-43.9 [facility] Glomerular filtration rate ( GFR) estimation/1.73 sq m using serum, plasma, or whole bOrdered By: Juan Franco on 08-11-2024 GFR/1.73 sq M.predicted among non-blacks MDRD (S/P/Bld) [Vol rate/Area] 51 mL/min/{1.73_m2} Low >60 [facility] Comment on above: mL/min/1.73m2 CKD-EP I Creatinine Equation (2020) Hematocrit Auto (Bld) [Volum e fraction]Ordered By: Juan Franco on 08-11-2024 Hematocrit (Bld) [Volume fraction] 37.3 % 37-47 [facility] Hemoglobin measurementOrdere d By: Juan Franco on 08-11-2024 Hemoglobin (Bld) [Mass/Vol] 12.7 g/dL 12.0-15.0 [facility] Immature granulocytes/100 WB C Auto (Bld)Ordered By: Juan Franco on 08-11-2024 Immature granulocytes/100 WBC (Bld) 0.100 % 0.0-0.9 [facility] Comment on above: IG% - Immature Granu locytes (promyelocytes, myelocytes and metamyelocytes) > 1% indicates that a LEFT SHIFT is Present. MCV (mean corpuscular volume ) determinationOrdered By: Juan Franco on 08-11-2024 MCV (RBC) [Entitic vol] 84.8 fL 81-[address] [facility] Magnesiumon 08-11-2024 Magnesium [Mass/Vol] 2.3 mg/dL High 1.5-2.2 [facility] Comment on above: Performed By: #### L 500.2500, L100.0100, L501.5200, L501.9520 #### [facility] [address] [place], [address] Magnesium measurement (mass/ volume)Ordered By: Juan Franco on 08-11-2024 Magnesium (Unsp spec) [Mass/Vol] 2.3 mg/dL High 1.5-2.2 [facility] Mean corpuscular hemoglobin (MCH) determinationOrdered By: Juan Franco on 08-11-2024 MCH (RBC) [Entitic mass] 28.9 pg 27.0-32.0 [facility] Mean corpuscular hemoglobin concentration (MCHC) determinationOrdered By: Juan Franco on 08-11-2024 MCHC (RBC) [Mass/Vol] 34.0 g/dL 32-36 [facility] Mean platelet volume determi nationOrdered By: Juan Franco on 08-11-2024 Platelet mean volume (Bld) [Entitic vol] 9.8 fL 6.2-12.0 [facility] Monocyte percentageOrdered B y: Juan Franco on 08-11-2024 Monocytes/100 WBC (Bld) 9.3 % 0-[address] [facility] Neutrophil percentageOrdered By: Juan Franco on 08-11-2024 Neutrophils/100 WBC (Bld) 36.4 % Low 47-70 [facility] Nucleated red blood cell per centageOrdered By: Juan Franco on 08-11-2024 Nucleated RBC/100 WBC (Bld) [Ratio] 0 % 0-5 [facility] Platelet countOrdered By: Salima Franco on 08-11-2024 Platelets (Bld) [#/Vol] 202 10*3/uL 150-450 [facility] Potassium measurement (mass/ volume)Ordered By: Juan Franco on 08-11-2024 Potassium (Unsp spec) [Mass/Vol] 3.8 mmol/L 3.3-5.1 [facility] RBC Auto (Bld) [#/Vol]Ordere d By: Juan Franco on 08-11-2024 RBC (Bld) [#/Vol] 4.40 10*6/uL 4.2-5.4 [facility] Serum creatinine measurement (mass/volume)Ordered By: Juan Frnaco on 08-11-2024 Creatinine [Mass/Vol] 1.11 mg/dL 0.70-1.20 [facility] Serum glucose measurement (m ass/volume)Ordered By: Juan Franco on 08-11-2024 Glucose [Mass/Vol] 116 mg/dL High 70-99 [facility] Serum or plasma calcium darren urement (mass/volume)Ordered By: Juan Franco on 08-11-2024 Calcium [Mass/Vol] 9.9 mg/dL 7.6-11.0 [facility] Serum or plasma urea nitroge n measurement (mass/volume)Ordered By: Juan Franco on 08-11-2024 Urea nitrogen [Mass/Vol] 28 mg/dL High 4-19 [facility] Sodium levelOrdered By: Alek Franco on 08-11-2024 Sodium [Moles/Vol] 138 mmol/L 133-145 [facility] TSH DL <= 0.005 mIU/L QnOrde red By: Juan Franco on 08-11-2024 TSH Qn 3.710 uIU/mL 0.300-4.200 [facility] Thyroid Stim Hormone (TSH)on 08-11-2024 TSH 3.710 uIU/mL Normal 0.300-4.200 [facility] Comment on above: Performed By: #### L 500.2500, L100.0100, L501.5200, L501.9520 #### [facility] [address] [place], [address] White blood cell (WBC) count Ordered By: Juan Franco on 08-11-2024 WBC (Bld) [#/Vol] 7.8 10*3/uL 4.4-11.0 [facility] CBC + DIFFon 03-12-2024 Baso # 0.03 x10EE3/UL Normal 0.00 - 0.10 [facility] Comment on above: Performed By: #### 2 09052 #### [facility],[address] [place] [address] Basophils/100 WBC (Bld) 0.3 % Normal 0.0 - 2.0 [facility] Comment on above: Performed By: #### 2 44935 #### [facility],[address] [place] [address] CBC + DIFF Normal [facility] Comment on above: Result Comment: CBC- COMPLETE BLOOD COUNT Performed By: #### 2 44298 #### [facility],[address] [place] [address] EO # 0.04 x10EE3/UL Normal 0.00 - 0.50 [facility] Comment on above: Performed By: #### 2 80261 #### [facility],[address] [place] [address] Eosinophils/100 WBC (Bld) 0.4 % Normal 0.0 - 7.0 [facility] Comment on above: Performed By: #### 2 29595 #### [facility],[address] [place] [address] Erythrocyte distribution width (RBC) [Ratio] 13.9 % Normal 12.0 - 15.6 [facility] Comment on above: Performed By: #### 2 54801 #### [facility],[address] [place] [address] Hematocrit (Bld) [Volume fraction] 42.7 % Normal 34.0 - 46.0 [facility] Comment on above: Performed By: #### 2 99523 #### [facility],[address] [place], [place] [id number] Hemoglobin (Bld) [Mass/Vol] 14.4 g/dL Normal 12.0 - 16.0 [facility] Comment on above: Performed By: #### 2 87807 #### [facility],[address] [place] [address] Lymph # 4.65 x10EE3/UL High 0.80 - 2.80 [facility] Comment on above: Performed By: #### 2 80038 #### [facility],[address] [place], [place] [id number] Lymphocytes/100 WBC (Bld) 47.8 % High 20.0 - 45.0 [facility] Comment on above: Performed By: #### 2 71959 #### [facility],[address] [place] [address] MANUAL DIFF N/A Normal [facility] Comment on above: Performed By: #### 2 99837 #### [facility],[address] [place] [address] MCH (RBC) [Entitic mass] 30 pg Normal 27 - 33 [facility] Comment on above: Performed By: #### 2 33928 #### [facility],[address] [place] [address] MCHC 34 X10 3 Normal 32 - 36 [facility] Comment on above: Performed By: #### 2 04250 #### [facility],[address] [place], [place] [id number] MCV (RBC) [Entitic vol] 87 fL Normal 80 - 99 [facility] Comment on above: Performed By: #### 2 91822 #### [facility],[address] [place] [address] [place] # 0.77 x10EE3/UL Normal 0.20 - 1.00 [facility] Comment on above: Performed By: #### 2 33089 #### [facility],[address] [place] [address] MONOS % 8.0 % Normal 0.0 - 10.0 [facility] Comment on above: Performed By: #### 2 78758 #### [facility],[address] [place] [address] Morphology [place] (Bld) [Interp] N/A Normal [facility] Comment on above: Performed By: #### 2 96193 #### [facility],[address] [place] [address] Neut # 4.25 x10EE3/UL Normal 1.50 - 7.10 [facility] Comment on above: Performed By: #### 2 78583 #### [facility],[address] [place] [address]140 Neutrophils/100 WBC (Bld) 43.6 % Low 46.0 - 76.0 [facility] Comment on above: Performed By: #### 2 47715 #### [facility],[address] [place] [address] PLATELET 215 x10EE3/UL Normal 150 - 450 [facility] Comment on above: Performed By: #### 2 23186 #### [facility],[address] [place] [address] Platelet mean volume (Bld) [Entitic vol] 7.9 fL Normal 6.6 - 10.5 [facility] Comment on above: Result Comment: AUTO MATED DIFFERENTIAL Performed By: #### 2 07002 #### [facility],[address] [place] [address]5950 RBC 4.88 x 10EE6/UL Normal 4.10 - 5.30 [facility] Comment on above: Performed By: #### 2 24058 #### [facility],[address] [place] [address] WBC 9.7 x 10EE3/UL Normal 4.5 - 10.8 [facility] Comment on above: Performed By: #### 2 91736 #### [facility],[address] [place] [address] 16446 CMP with eGFRon 03-12-2024 AGE 79 years Normal [facility] Comment on above: Performed By: #### 2 32141 #### [facility],[address] [place] [address]30 Albumin [Mass/Vol] 2.7 g/dL Low 3.4 - 5.0 [facility] Comment on above: Performed By: #### 2 64262 #### [facility],[address] [place] [address] 87158 Albumin/Globulin [Mass ratio] 0.6 {ratio} Low 0.9 - 1.6 [facility] Comment on above: Performed By: #### 2 59936 #### [facility],[address] [place] [address] 60874 ALK PHOS 79 U/L Normal 46 - 116 [facility] Comment on above: Performed By: #### 2 55540 #### [facility],[address] [place] [address] 07892 ALT [Catalytic activity/Vol] 15 U/L Low 16 - 63 [facility] Comment on above: Performed By: #### 2 30455 #### [facility],[address] [place] [address] 22661 Anion gap [Moles/Vol] 11 mmol/L Normal 10 - 20 [facility] Comment on above: Performed By: #### 2 99480 #### [facility],[address] [place] [address] 31384 AST [Catalytic activity/Vol] 26 U/L Normal 13 - 39 [facility] Comment on above: Performed By: #### 2 54858 #### [facility],[address] [place] [address] 40862 B/C RATIO 11 ratio Normal 0 - 30 [facility] Comment on above: Performed By: #### 2 81506 #### [facility],[address] [place] [address]8518 Bilirubin [Mass/Vol] 0.4 mg/dL Normal 0.2 - 1.0 [facility] Comment on above: Performed By: #### 2 11102 #### [facility],[address] [place] [address]133 Calcium [Mass/Vol] 8.9 mg/dL Normal 8.5 - 10.1 [facility] Comment on above: Performed By: #### 2 24915 #### [facility],[address] [place] [address] 38380 Chloride [Moles/Vol] 100 mmol/L Normal 98 - 107 [facility] Comment on above: Performed By: #### 2 65612 #### [facility],[address] [place] [address]39[address] CMP with eGFR Normal [facility] Comment on above: Result Comment: COMP REHENSIVE METABOLIC PANEL Performed By: #### 2 77040 #### [facility],[address] [place] [address]199 CO2 [Moles/Vol] 28.1 mmol/L Normal 21.0 - 32.[address] [facility] Comment on above: Performed By: #### 2 80598 #### [facility],[address] [place] [address]484 Creatinine [Mass/Vol] 0.89 mg/dL Normal 0.55 - 1.02 [facility] Comment on above: Performed By: #### 2 06996 #### [facility],[address] [place] [address]296 GFR/1.73 sq M.predicted among non-blacks MDRD (S/P/Bld) [Vol rate/Area] mL/min/{1.73_m2} Normal 60 - 999 [facility] Comment on above: Performed By: #### 2 11908 #### [facility],[address] [place] [address] Result Comment: ACCO RDING TO THE NATIONAL KIDNEY DISEASE EDUCATION PROGRAM(NKDE), A NORMAL eGFR IS A VALUE GREATER THAN OR EQUAL TO 60 ML/MIN/1.73 SQ METERS. CHRONIC KIDNEY DISEASE: <60mL/MIN/1.73 SQ METERS KIDNEY FAILURE: <15mL/MIN/1.73 SQ METERS THIS TEST SHOULD ONLY BE USED FOR PATIENTS 18 YEARS OF AGE AND OLDER. Globulin (S) [Mass/Vol] 4.3 g/dL High 1.5 - 3.8 [facility] Comment on above: Performed By: #### 2 42589 #### [facility],[address] [place] [address]806 Glucose [Mass/Vol] 99 mg/dL Normal 74 - 106 [facility] Comment on above: Performed By: #### 2 55916 #### [address] [address] Potassium [Moles/Vol] 3.9 mmol/L Normal 3.5 - 5.1 [facility] Comment on above: Performed By: #### 2 92245 #### [address] [address] Protein [Mass/Vol] 7.0 g/dL Normal 6.4 - 8.2 [facility] Comment on above: Performed By: #### 2 13548 #### [address] [address] Sodium [Moles/Vol] 135 mmol/L Low 136 - 145 [facility] Comment on above: Performed By: #### 2 54648 #### [address] [address] Urea nitrogen [Mass/Vol] 10 mg/dL Normal 7 - 18 [facility] Comment on above: Performed By: #### 2 98577 #### [address] [address] ED MED ADMINISTRATION DETAIL on 03-12-2024 ED MED ADMINISTRATION DETAIL [employer] Medication Administration Record [address] [address] [id number] 03/11/2024 Patient: VERONA TAY Sex: Female : 1945 Age: 79y [...] site checked: no pain, redness, Varsha Light R.NLinda or swelling. IV flushed thoroughly pre-medication administration. [...] 13:19 Varsha Light R.N. 1 of 2 [employer] Medication Ordered Medication Administration Date/Time cefTRIAXone 15:03/11 cefTRIAXone (Rocephin) IVPB 1gm/50ml NS 1 g Started (Rocephin) IVPB started at 100 mL/hr diluted in sodium chloride IVPB 0.9 % 15:03/11/2024 1gm/50ml NS 1 g Minibag+ 50 mL via Site# 1. Allergies verified and confirmed 5 Sonia DerasNLinda diluted in sodium rights. Via IV pump. IV patency established. IV site checked: no Stopped chloride IVPB 0.9 % pain, redness, or swelling. IV flushed thoroughly pre-medication 15:03/11/2024 Minibag+ 50 mL at administration. Information reviewed with patient including reason Sonia DerasNLinda 100 mL/hr (NOW x1) for taking this medication, signs of allergic reaction and precautions. Scanned Verbalizes understanding. - 15:07 Varsha Light R.N. 15:03/11 Medication Discontinued: IV infused. Total amount infused: 50 mL. IV patency established. IV site checked: no pain, redness, or swelling. IV flushed thoroughly post-medication administration. - 15:41 Varsha Light R.N. Azithromycin 15:07 03/11 Azithromycin (Zithromax) IVPB 500 mg started at 250 Started (Zithromax) IVPB mL/hr diluted in dextrose 5 % in water IVPB 250 mL and VIAL 15:07 03/11/2024 500 mg diluted in MATE 1 ea [...] Light R.N. Scanned 2 of 2 Normal [facility] ED NURSES CLINICAL NOTEon ED NURSES CLINICAL NOTE Nurse Narrative Nurse Clinical Narrative [address] [place] [address] [id number] 03/11/2024 Patient: VERONA TAY Sex: Female : 1945 Age: 79y Disposition: Admit to [facility] Disposition Decision Time: 16:00 03/11/2024 Departure Time: 16:30 03/11/2024 TRIAGE Arrived by EMS. Historian: patient. Patient has a primary care physician. Primary physician (Alec). Triage time: 11:03/11/2024. Acuity: LEVEL 3. Chief Complaint: NAUSEA, VOMITING and DIARRHEA and FEVER. ( Pt has complaints of a bad cough as well). SEPSIS SCREEN: NEGATIVE. SIRS criteria negative. No possible sources of infection. -- 11:35 03/11/24 JOSELINE Mishra R.N. 11:34 03/11/24. BP: 142/76 MAP: 98. HR: 78. RR: 18. O2 saturation: 89% on room air. Temperature: 98.2 F. Pain level now 0/10. -- 11:35 03/11/24 JOSELINE Mishra R.N. Measurements: 11:34 03/11/24 Wt: 92.1 kg, Ht/Cedrick: 64.0 in, BMI: 34.84 -- 11:34 03/11/24 JOSELINE Mishra R.N. Medications: diltiazem CD 240 mg capsule,extended release 24 hr: TAKE ONE CAPSULE BY MOUTH DAILY FOR heart -- 11:39 03/11/24 JOSELINE Mishra R.N. [place] Thyroid 60 mg tablet: TAKE ONE TABLET BY MOUTH ONCE DAILY -- 11:39 03/11/24 JOSELINE Mishra R.N. 1 of 4 Nurse Narrative Allergies: Penicillins -- 11:32 03/11/24 JOSELINE Mishra R.N. Problems: Atrial Fibrillation -- 11:32 03/11/24 JOSELINE Mishra R.N. Hypothyroidism -- 11:33 03/11/24 JOSELINE Mishra R.N. ADDITIONAL SURGERIES: Hysterectomy -- 11:32 03/11/24 JOSELINE Mishra R.N. Thyroidectomy -- 11:32 03/11/24 JOSELINE Mishra R.N. Tonsillectomy Adenoidectomy -- 11:32 03/11/24 JOSELINE Mishra R.N. History 11:29 03/11/24. SOCIAL HX: Never smoker. No alcohol use or drug use. The patient has not traveled outside the [place] Infectious disease exposure: No infectious disease exposure. ABUSE ASSESSMENT: The patient answered "yes" to the question(s) "Do you feel safe in your home?" and "no" to the question(s) "Are you afraid to go home?". SELF HARM ASSESSMENT: Self harm assessment was performed. The patient answered "no" to the question(s) "Have you recently felt down, depressed, or hopeless?" and "Do you have thoughts of harming or killing yourself?". FALL RISK ASSESSMENT: Fall risk assessment completed. Risk factors identified include patient age greater than 65 years. Fall interventions initiated. Side rails up x2. Bed in low position. Brakes on. Patient identified as a fall risk. -- 11:35 03/11/24 JOSELINE Mishra R.N. Interventions 11:29 03/11/24. Advanced care plan discussed with patient. Patient does not have advanced directive. -- 11:03/11/24 JOSELINE Mishra R.N. 2 of 4 Nurse Narrative PHYSICAL ASSESSMENT 11:40 03/11/24. GENERAL / NEURO / PSYCH: Alert. Oriented [...] SKIN: Skin is warm and dry. -- 12:20 03/11/24 JOSELINE Light R.N. 11:40 03/11/24. Pain level [...] Tanja Barrientos (more content not included)... Normal [facility] ED ORDER SHEET (CPOE ONLY)on 03-12-2024 ED ORDER SHEET (CPOE ONLY) Order Sheet Order Sheet [address] [place] [address] [id number] 03/11/2024 Patient: VERONA TAY Sex: Female : 1945 Age: 79y MEASUREMENTS: Wt: 92.1 kg, Ht/Cedrick: 64.0 in, BMI: 34.84 ALLERGIES: Penicillins MEDICATION/IV/DRIP/FLU ID ORDERS Order Description Priority Entered Acknowledged Completed IV NS 0.9 %1000 mL at 999 11:50 03/11/2024 12:14 12:23 mL/hr (NOW x1) Isaiah Mayorga M.D. 03/11/2024 03/11/2024 Varsha Deras R.N. R.N. cefTRIAXone (Rocephin) IVPB 14:55 03/11/2024 14:57 15:07 1gm/50ml NS1 g diluted in Isaiah Mayorga M.D. 03/11/2024 03/11/2024 sodium chloride IVPB 0.9 % Varsha Deras, Minibag+ 50 mL at 100 mL/hr R.N. R.N. (NOW x1) Reason for ordering with alerts: Clinical consideration given --14:55 03/11/2024 Isaiah Mayorga M.D. Azithromycin (Zithromax) 14:55 03/11/2024 14:57 15:08 [id number] mg diluted in dextrose 5 Isiaah Mayorga M.D. 03/11/2024 03/11/2024 % in water [...] Varsha Salinas Katelyn Horst, M.D. R.N. R.N. EKG - ED Stat Stat 11:50 03/11/2024 12:13 03/11/2024 12:29 03/11/2024 Varsha Salinas Katelyn Horst, M.D. R.N. R.N. Troponin-I Stat Stat 13:54 03/11/2024 14:11 03/11/2024 14:11 03/11/2024 Varsha Salinas Katelyn Horst, M.D. R.N. R.N. Flu Swab (Influenzae Stat 13:54 03/11/2024 14:11 03/11/2024 14:11 03/11/2024 AAg) Stat Varsha Salinas Katelyn Horst, M.D. R.N. R.NLinda Rapid COVID (SARS) Stat 13:54 03/11/2024 14:11 [...] (03/12/2024 11:16 EST)] 3 of 3 Normal [facility] ED PHYSICIAN CLINICAL REPORT on 03-12-2024 ED PHYSICIAN CLINICAL REPORT Narrative Physician Clinical Narrative [address] [address] [phone] 03/11/2024 Patient: VERONA TAY Sex: Female : 1945 Age: 79y Disposition: Admit to [facility] Disposition Decision Time: 16:00 03/11/2024 Departure Time: [...] Hypothyroidism Surgeries: Hysterectomy Thyroidectomy Tonsillectomy Adenoidectomy Medications: Frank[place] Thyroid 60 mg tablet: TAKE ONE TABLET [...] noted. LABS, X-RAYS, AND EKG 2 of 14 Narrative 12-LEAD EKG: Rhythm is sinus with 1 P wave for every QRS 1 QRS for every P wave. FL, QRS, QT intervals are unremarkable. No axis [...] 1.50 - 7.10 Final EST 03/11/2024 12:58 [place] # 0.76 x10/UL 0.20 - 1.00 Final EST 03/11/2024 12:58 EO # 0.04 x10/UL 0.00 - 0.50 Final EST 03/11/2024 12:58 Baso # 0.02 x10/UL 0.00 - 0.10 Final EST 03/11/2024 12:58 MANUAL DIFF N/A New Order EST 03/11/2024 12:58 MORPHOLOGY N/A New Order EST CMP with eGFR Final 4 of 14 Narrative DAVID: 03/11/2024 12:10:00 EST MsgRcvd: 03/11/2024 [...] mmol/L 21.0 (more content not included)... Normal [facility] ED SUPER BILLon 03-12-2024 ED SUPER BILL [facility] [address] [place] [address] [phone] 03/11/2024 Patient: VERONA TAY Sex: Female : 1945 Age: 79y Item Facility Professional Category Description Code Code Quantity Fee Total Nurse/E/M EMERGENCY 624223 1 $0.00 $0.00 DEPARTMENT VISIT HIGH/URGENT SEVERITY (88371-14) Nurse/IV/IM/Infusions Drip/IVPB 889974 1 $0.00 $0.00 concurrent (21453) Nurse/IV/IM/Infusions Drip/IVPB initial 156889 1 $0.00 $0.00 (27860) Nurse/IV/IM/Infusions Hydration 867487 1 $0.00 $0.00 additional hour (95447) Grand Total $0.00 Providers Isaiah Mayorga M.D. 1 of 2 Superbill Chief Complaint DYSPNEA. Principal Diagnosis Pneumonia, Influenza A. 2 of 2 Normal [facility] ED VISIT SUMMARYon ED VISIT SUMMARY Visit Overview Visit Overview [facility] [address] [place] [address] [phone] 03/11/2024 Patient: VERONA TAY Sex: Female : 1945 Age: 79y 03/12/2024 11:16 AM EST ED Arrival:11:26 03/11/2024 EST Status: Recent Travel:no Language:eng Adv Directive:No Isolation Status: Ethnicity:N Fall Risk:risk Infectious Disease Exposure:no Measurements:5'4" / 162.6 Self-Harm Status:risk Sepsis Screen:negative cm 203.0 lb / 92.1 kg Chief Complaint:DIARRHEA, FEVER, NAUSEA, VOMITING, (Luke), and (Pt has complaints of a bad cough as well) ALLERGIES Penicillins HOME MEDICATIONS [place] Thyroid 60 mg tablet: TAKE ONE TABLET [...] Troponin-I CLINICAL IMPRESSION 3 of 3 Normal [facility] ED VITALS FLOW SHEETon 03-12 ED VITALS FLOW SHEET Vitals Vital Sign Flow Sheet [address] [place] [address] [phone] 03/11/2024 Patient: VERONA TAY Sex: Female : 1945 Age: 79y [...] 11:30 03/11/2024 91% 4 of 4 Normal [facility] CBC + DIFFon 03-11-2024 Baso # 0.02 x10EE3/UL Normal 0.00 - 0.10 [facility] Comment on above: Performed By: #### 2 70764 #### [facility],[address] [place] [address] Basophils/100 WBC (Bld) 0.3 % Normal 0.0 - 2.0 [facility] Comment on above: Performed By: #### 2 39135 #### [facility],[address] [place] [address] CBC + DIFF Normal [facility] Comment on above: Result Comment: CBC- COMPLETE BLOOD COUNT Performed By: #### 2 53926 #### [facility],[address] [place], [place] [address] EO # 0.04 x10EE3/UL Normal 0.00 - 0.50 [facility] Comment on above: Performed By: #### 2 51176 #### [facility],[address] [place] [address] 16199 Eosinophils/100 WBC (Bld) 0.5 % Normal 0.0 - 7.0 [facility] Comment on above: Performed By: #### 2 46359 #### [facility],[address] [place] [address] Erythrocyte distribution width (RBC) [Ratio] 14.1 % Normal 12.0 - 15.6 [facility] Comment on above: Performed By: #### 2 35401 #### [facility],[address] [place] [address] Hematocrit (Bld) [Volume fraction] 44.3 % Normal 34.0 - 46.0 [facility] Comment on above: Performed By: #### 2 98065 #### [facility],[address] [place] [address] Hemoglobin (Bld) [Mass/Vol] 14.8 g/dL Normal 12.0 - 16.0 [facility] Comment on above: Performed By: #### 2 59928 #### [facility],[address] [place] [address] 28429 Lymph # 1.81 x10EE3/UL Normal 0.80 - 2.80 [facility] Comment on above: Performed By: #### 2 12168 #### [facility],[address] [place] [address] 89788 Lymphocytes/100 WBC (Bld) 21.8 % Normal 20.0 - 45.0 [facility] Comment on above: Performed By: #### 2 20321 #### [facility],[address] [place], [place] [id number] MANUAL DIFF N/A Normal [facility] Comment on above: Performed By: #### 2 27236 #### [facility],[address] [place] [address] MCH (RBC) [Entitic mass] 29 pg Normal 27 - 33 [facility] Comment on above: Performed By: #### 2 15022 #### [facility],[address] [place] [address] MCHC 33 X10 3 Normal 32 - 36 [facility] Comment on above: Performed By: #### 2 98509 #### [facility],[address] [place] [address] MCV (RBC) [Entitic vol] 87 fL Normal 80 - 99 [facility] Comment on above: Performed By: #### 2 42812 #### [facility],[address] [place] [address] [place] # 0.76 x10EE3/UL Normal 0.20 - 1.00 [facility] Comment on above: Performed By: #### 2 00669 #### [facility],[address] [place] [address] MONOS % 9.1 % Normal 0.0 - 10.0 [facility] Comment on above: Performed By: #### 2 15630 #### [facility],[address] [place] [address] Morphology Landry (Bld) [Interp] N/A Normal [facility] Comment on above: Performed By: #### 2 60694 #### [facility],[address] [place] [address] Neut # 5.68 x10EE3/UL Normal 1.50 - 7.10 [facility] Comment on above: Performed By: #### 2 10743 #### [facility],[address] [place] [address] Neutrophils/100 WBC (Bld) 68.4 % Normal 46.0 - 76.0 [facility] Comment on above: Performed By: #### 2 33143 #### [facility],[address] [place] [address] 15764 PLATELET 217 x10EE3/UL Normal 150 - 450 [facility] Comment on above: Performed By: #### 2 07089 #### [facility],[address] [place] [address] 46039 Platelet mean volume (Bld) [Entitic vol] 7.6 fL Normal 6.6 - 10.5 [facility] Comment on above: Result Comment: AUTO MATED DIFFERENTIAL Performed By: #### 2 46586 #### [facility],[address] [place] [address] 51355 RBC 5.11 x 10EE6/UL Normal 4.10 - 5.30 [facility] Comment on above: Performed By: #### 2 97907 #### [facility],[address] [place] [address] 27017 WBC 8.3 x 10EE3/UL Normal 4.5 - 10.8 [facility] Comment on above: Performed By: #### 2 98862 #### [facility],[address] [place] [address] 34147 CHEST 1 VIEWon 03-11-2024 CHEST [address] [address] Patient: IRENE TAYNITA Saavedra Phone#: : 1945 Age: 79 Gender: F Pt. Type: ER Account: [id number] Location: [facility] Ordering: DR. ISAIAH MAYORGA Exam Date: 03/11/2024/13:56 Family Phys: ALEC AIKEN Charge Code: 314000 Physician: [place] Order #: [id number] Dose#: PROCEDURE: X-RAY CHEST 1 VIEW COMPARISON: [...] Johnson MD on 03/11/2024 at 14:21 Normal [facility] CMP with eGFRon 03-11-2024 AGE 79 years Normal [facility] Comment on above: Performed By: #### 2 92583 #### [facility],[address] [place] [address] 32669 Albumin [Mass/Vol] 3.3 g/dL Low 3.4 - 5.0 [facility] Comment on above: Performed By: #### 2 37211 #### [facility],[address] [place] [address] 92264 Albumin/Globulin [Mass ratio] 0.7 {ratio} Low 0.9 - 1.6 [facility] Comment on above: Performed By: #### 2 51044 #### [facility],[address] [place] [address] 22294 ALK PHOS 94 U/L Normal 46 - 116 [facility] Comment on above: Performed By: #### 2 43501 #### [facility],[address] [place] [address] 09975 ALT [Catalytic activity/Vol] 25 U/L Normal 16 - 63 [facility] Comment on above: Performed By: #### 2 06688 #### [facility],[address] [place] [address] 95571 Anion gap [Moles/Vol] 15 mmol/L Normal 10 - 20 [facility] Comment on above: Performed By: #### 2 93455 #### [facility],[address] [place] [address] 92282 AST [Catalytic activity/Vol] 31 U/L Normal 13 - 39 [facility] Comment on above: Performed By: #### 2 55700 #### [facility],[address] [place] [address] 55644 B/C RATIO 11 ratio Normal 0 - 30 [facility] Comment on above: Performed By: #### 2 11053 #### [facility],[address] [place] [address] 20100 Bilirubin [Mass/Vol] 0.5 mg/dL Normal 0.2 - 1.0 [facility] Comment on above: Performed By: #### 2 61638 #### [facility],[address] [place] [address] 42331 Calcium [Mass/Vol] 9.5 mg/dL Normal 8.5 - 10.1 [facility] Comment on above: Performed By: #### 2 47754 #### [facility],[address] [place] [address] 12213 Chloride [Moles/Vol] 93 mmol/L Low 98 - 107 [facility] Comment on above: Performed By: #### 2 76987 #### [facility],[address] [place] [address] 63329 CMP with eGFR Normal [facility] Comment on above: Result Comment: COMP REHENSIVE METABOLIC PANEL Performed By: #### 2 01312 #### [facility],[address] [place] [address] 15251 CO2 [Moles/Vol] 29.3 mmol/L Normal 21.0 - 32.[address] [facility] Comment on above: Performed By: #### 2 10584 #### [facility],[address] [place] [address] 81023 Creatinine [Mass/Vol] 1.12 mg/dL High 0.55 - 1.02 [facility] Comment on above: Performed By: #### 2 18211 #### [facility],[address] [place] [address] 80504 eGFR 47 ML/MINUTE Low 60 - 999 [facility] Comment on above: Performed By: #### 2 03332 #### [facility],[address] [place] [address] 27737 eGFR(AA) 57 ML/MINUTE Low 60 - 999 [facility] Comment on above: Result Comment: ACCO RDING TO THE NATIONAL KIDNEY DISEASE EDUCATION PROGRAM(NKDE), A NORMAL eGFR IS A VALUE GREATER THAN OR EQUAL TO 60 ML/MIN/1.73 SQ METERS. CHRONIC KIDNEY DISEASE: <60mL/MIN/1.73 SQ METERS KIDNEY FAILURE: <15mL/MIN/1.73 SQ METERS THIS TEST SHOULD ONLY BE USED FOR PATIENTS 18 YEARS OF AGE AND OLDER. Performed By: #### 2 47285 #### [facility],[address] [place] [address] 26201 Globulin (S) [Mass/Vol] 5.0 g/dL High 1.5 - 3.8 [facility] Comment on above: Performed By: #### 2 20552 #### [facility],[address] [place] [address] 94693 Glucose [Mass/Vol] 113 mg/dL High 74 - 106 [facility] Comment on above: Performed By: #### 2 82423 #### [facility],[address] [place] [address] 55833 Potassium [Moles/Vol] 3.6 mmol/L Normal 3.5 - 5.1 [facility] Comment on above: Performed By: #### 2 57939 #### [facility],[address] [place] [address] 31601 Protein [Mass/Vol] 8.3 g/dL High 6.4 - 8.2 [facility] Comment on above: Performed By: #### 2 49281 #### [facility],[address] [place] [address] 00566 Sodium [Moles/Vol] 134 mmol/L Low 136 - 145 [facility] Comment on above: Performed By: #### 2 57146 #### [facility],[address] [place] [address] Urea nitrogen [Mass/Vol] 12 mg/dL Normal 7 - 18 [facility] Comment on above: Performed By: #### 2 20464 #### [facility],[address] [place] [address] CORONAVIRUS (SARS) ANTIGEN T ESTon 03-11-2024 EXTERNAL QC DONE? YES Normal [facility] Comment on above: Performed By: #### 2 78418 #### [facility],[address] [place] [address] INTERNAL CONTROL PASS Normal [facility] Comment on above: Performed By: #### 2 96864 #### [facility],[address] [place] [address] SARS ANTIGEN Negative Normal NORMAL: NEGATIVE [facility] Comment on above: Performed By: #### 2 79907 #### [facility],[address] [place] [address] SEND TO ? NO Normal [facility] Comment on above: Result Comment: SARS -CoV-2 THIS TEST IS BEING USED UNDER THE FDA EUA PROCEDURE. THIS ASSAY HAS BEEN VALIDATED AT [facility] FOR USE WITH NASAL AND NASOPHARYNGEAL SWAB [...] PUBLIC HEALTH AUTHORITIES. Performed By: #### 2 96533 #### [facility],[address] [place] [address] 82858 D-DIMER, QUANTITATIVEon 02-23 D-DIMER QUANT 420 ng/ml High 0 - 230 [facility] Comment on above: Performed By: #### 2 71513 #### [facility],[address] [place] [address] 25757 D-DIMER, QUANTITATIVE Normal [facility] Comment on above: Result Comment: EDWIN T D-DIMER Performed By: #### 2 29294 #### [facility],[address] [place] [address] 34001 INFLUENZA VIRUS RAPID A/Bon 03-11-2024 INFLUENZA VIRUS RAPID A/B INFLUENZA A POSITIVE INFLUENZA B NEGATIVE INTERNAL NEG QC PASS INTERNAL POS QC PASS EXTERNAL QC DONE? YES SEND TO ? YES A NEGATIVE TEST RESULT DOES NOT [...] .RN { READ BACK BY .RN Normal [facility] Comment on above: Performed By: #### 2 99398 #### [facility],[address] [place] [address] 06997 LIPASEon 03-11-2024 Lipase [Catalytic activity/Vol] 18.0 U/L Normal 15.0 - 78.0 [facility] Comment on above: Result Comment: *PLE ASE NOTE THAT RANGES FOR LIPASE HAVE CHANGED OF 02/20/23 DUE TO AN ASSAY UPDATE BY THE HEAD ATHLETIC TRAINER/STRENGTH COACH.THE NEW ASSAY RANGE IS 6-250 U/L, WITH A REFERENCE RANGE OF 16-77 U/L. Performed By: #### 2 60528 #### [facility],[address] [place] [address] 53398 TROPONINon 03-11-2024 HS TROPONIN 48.1 pg/mL Normal 0.0 - 51.4 [facility] Comment on above: Performed By: #### 2 38378 #### [address] [address] Cardiology Visit Reporton Cardiology Visit Report [facility] [address] [place] [id number] OFFICE VISIT Date of Service: 01/27/24 MR#: [id number] Acct: [id number] Name: VERONA TAY Rep #: [id number] : 1945 Provider: ZOHAIB wolf Age/Sex: 78/F Location: [facility] Status: Signed HPI HPI History of Present Illness Details: VERONA TAY, is a 78 F who presents to the office today for a cardiovascular outpatient follow-up. She has a history of paroxysmal atrial fibrillation/flutter status post radiofrequency ablation on 12/29/2007 at [facility] with Dr. Day. She also has a history of hypertension as well as stress- induced cardiomyopathy/Takotsu jones cardiomyopathy. 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 Normal [facility] CV VENOUS LEG RTon CV VENOUS LEG RT [address] [address] Patient: VERONA TAY Phone#: : 1945 Age: 78 Gender: F Pt. Type: Out Account: [id number] Location: 052 Ordering: ALEC AIKEN Exam Date: 01/25/2024/13:46 Family Phys: Charge Code: 099893 Physician: [place] Order #: [id number] Dose#: PROCEDURE: VENOUS DOPPLER RT LEG COMPARISON: None. INDICATIONS: EDEMA, pain TECHNIQUE: Color duplex Doppler ultrasound evaluation analysis was performed in the usual manner. BUSINESS ADVISOR: DOROTA MISHRA RVT [facility] RISK FACTORS FOR VENOUS DISEASE: Varicose veins [...] PERONEAL V + GSV GASTROC SOLEAL V BUSINESS ADVISOR'S NOTES: Multiple thrombus filled varicosities are noted in the right medial calf. FINDINGS: THROMBI: No deep vein thrombus. Thrombosed varicosities in the right medial calf. Continued Report - Page 2 of 2 Patient: VERONA TAY Phone#: : 1945 Age: 78 Gender: F Pt. Type: Out Account: [id number] Location: [facility] Ordering: ALEC AIKEN Exam Date: 01/25/2024/13:46 Family Phys: Charge Code: [id number] Physician: [place] Order #: [id number] Dose#: COMPRESSIBILITY: Deep veins are compressible. Noncompressible varicosities of the right medial calf. OTHER: Negative. CONCLUSION: 1. No deep vein thrombus 2. Thrombosed varicosities of the right medial calf Dictated by: Jordyn Johnson MD on 01/25/2024 at 16:28 Approved by: Jordyn Johnson MD on 01/25/2024 at 16:30 Normal [facility] C-REACTIVE PROTEINon 024 CRP 1.40 mg/dl High 0.00 - 0.90 [facility] Comment on above: Performed By: #### 2 22086 #### [facility],[address] [place] [address] CBC + DIFFon 01-03-2024 Baso # 0.05 x10EE3/UL Normal 0.00 - 0.10 [facility] Comment on above: Performed By: #### 2 79390 #### [facility],[address] [place], [place] [id number] Basophils/100 WBC (Bld) 0.7 % Normal 0.0 - 2.0 [facility] Comment on above: Performed By: #### 2 39203 #### [facility],[address] [place] [address] CBC + DIFF Normal [facility] Comment on above: Result Comment: CBC- COMPLETE BLOOD COUNT Performed By: #### 2 83746 #### [facility],[address] [place] [address] EO # 0.07 x10EE3/UL Normal 0.00 - 0.50 [facility] Comment on above: Performed By: #### 2 69809 #### [facility],[address] [place] [address] Eosinophils/100 WBC (Bld) 1.0 % Normal 0.0 - 7.0 [facility] Comment on above: Performed By: #### 2 66547 #### [facility],[address] [place] [address] Erythrocyte distribution width (RBC) [Ratio] 14.0 % Normal 12.0 - 15.6 [facility] Comment on above: Performed By: #### 2 81484 #### [facility],[address] [place] [address] Hematocrit (Bld) [Volume fraction] 40.7 % Normal 34.0 - 46.0 [facility] Comment on above: Performed By: #### 2 39882 #### [facility],[address] [place] [address] Hemoglobin (Bld) [Mass/Vol] 14.0 g/dL Normal 12.0 - 16.0 [facility] Comment on above: Performed By: #### 2 38824 #### [facility],[address] [place] [address] Lymph # 2.43 x10EE3/UL Normal 0.80 - 2.80 [facility] Comment on above: Performed By: #### 2 83533 #### [facility],[address] [place] [address] Lymphocytes/100 WBC (Bld) 33.5 % Normal 20.0 - 45.0 [facility] Comment on above: Performed By: #### 2 69196 #### [facility],[address] [place] [address] MANUAL DIFF N/A Normal [facility] Comment on above: Performed By: #### 2 03312 #### [facility],[address] [place] [address] MCH (RBC) [Entitic mass] 30 pg Normal 27 - 33 [facility] Comment on above: Performed By: #### 2 49192 #### [facility],[address] [place] [address] MCHC 34 X10 3 Normal 32 - 36 [facility] Comment on above: Performed By: #### 2 97778 #### [facility],[address] [place] [address] MCV (RBC) [Entitic vol] 88 fL Normal 80 - 99 [facility] Comment on above: Performed By: #### 2 87676 #### [facility],[address] [place] [address] [place] # 0.59 x10EE3/UL Normal 0.20 - 1.00 [facility] Comment on above: Performed By: #### 2 90345 #### [facility],[address] [place] [address] MONOS % 8.2 % Normal 0.0 - 10.0 [facility] Comment on above: Performed By: #### 2 27055 #### [facility],[address] [place], [place] [id number] Morphology Landry (Bld) [Interp] N/A Normal [facility] Comment on above: Performed By: #### 2 08474 #### [facility],[address],[place] [address] Neut # 4.11 x10EE3/UL Normal 1.50 - 7.10 [facility] Comment on above: Performed By: #### 2 09291 #### [facility],[address] [place] [address] 43394 Neutrophils/100 WBC (Bld) 56.7 % Normal 46.0 - 76.0 [facility] Comment on above: Performed By: #### 2 87138 #### [facility],[address] [place] [address] 03235 PLATELET 193 x10EE3/UL Normal 150 - 450 [facility] Comment on above: Performed By: #### 2 70904 #### [facility],[address] [place] [address] 42751 Platelet mean volume (Bld) [Entitic vol] 8.0 fL Normal 6.6 - 10.5 [facility] Comment on above: Result Comment: AUTO MATED DIFFERENTIAL Performed By: #### 2 87550 #### [facility],[address] [place] [address] 54615 RBC 4.64 x 10EE6/UL Normal 4.10 - 5.30 [facility] Comment on above: Performed By: #### 2 18917 #### [facility],[address] [place] [address] 67879 WBC 7.3 x 10EE3/UL Normal 4.5 - 10.8 [facility] Comment on above: Performed By: #### 2 22078 #### [facility],[address] [place] [address] 76060 CMP with eGFRon 01-03-2024 AGE 78 years Normal [facility] Comment on above: Performed By: #### 2 33021 #### [facility],[address] [place] [address] 61259 Albumin [Mass/Vol] 3.5 g/dL Normal 3.4 - 5.0 [facility] Comment on above: Performed By: #### 2 97637 #### [facility],[address] [place] [address] 79504 Albumin/Globulin [Mass ratio] 0.7 {ratio} Low 0.9 - 1.6 [facility] Comment on above: Performed By: #### 2 00513 #### [facility],[address] [place] [address] 39156 ALK PHOS 95 U/L Normal 46 - 116 [facility] Comment on above: Performed By: #### 2 33122 #### [facility],[address] [place] [address] 32538 ALT [Catalytic activity/Vol] 26 U/L Normal 16 - 63 [facility] Comment on above: Performed By: #### 2 69095 #### [facility],[address] [place] [address] 51174 Anion gap [Moles/Vol] 12 mmol/L Normal 10 - 20 [facility] Comment on above: Performed By: #### 2 70008 #### [facility],[address] [place] [address] 11376 AST [Catalytic activity/Vol] 21 U/L Normal 13 - 39 [facility] Comment on above: Performed By: #### 2 18562 #### [facility],[address] [place] [address] 53712 B/C RATIO 23 ratio Normal 0 - 30 [facility] Comment on above: Performed By: #### 2 92118 #### [facility],[address] [place] [address] 19757 Bilirubin [Mass/Vol] 0.4 mg/dL Normal 0.2 - 1.0 [facility] Comment on above: Performed By: #### 2 75183 #### [facility],[address] [place] [address] 50247 Calcium [Mass/Vol] 9.6 mg/dL Normal 8.5 - 10.1 [facility] Comment on above: Performed By: #### 2 24426 #### [facility],[address] [place] [address] 19929 Chloride [Moles/Vol] 101 mmol/L Normal 98 - 107 [facility] Comment on above: Performed By: #### 2 48350 #### [facility],[address] [place] [address] 87345 CMP with eGFR Normal [facility] Comment on above: Result Comment: COMP REHENSIVE METABOLIC PANEL Performed By: #### 2 79140 #### [facility],[address] [place] [address] 40623 CO2 [Moles/Vol] 29.5 mmol/L Normal 21.0 - 32.[address] [facility] Comment on above: Performed By: #### 2 79421 #### [facility],[address] [place] [address] 41134 Creatinine [Mass/Vol] 1.05 mg/dL High 0.55 - 1.02 [facility] Comment on above: Performed By: #### 2 98100 #### [facility],[address] [place] [address] 85026 eGFR 51 ML/MINUTE Low 60 - 999 [facility] Comment on above: Performed By: #### 2 68576 #### [facility],[address] [place] [address] 10197 GFR/1.73 sq M.predicted among non-blacks MDRD (S/P/Bld) [Vol rate/Area] mL/min/{1.73_m2} Normal 60 - 999 [facility] Comment on above: Result Comment: ACCO RDING TO THE NATIONAL KIDNEY DISEASE EDUCATION PROGRAM(NKDE), A NORMAL eGFR IS A VALUE GREATER THAN OR EQUAL TO 60 ML/MIN/1.73 SQ METERS. CHRONIC KIDNEY DISEASE: <60mL/MIN/1.73 SQ METERS KIDNEY FAILURE: <15mL/MIN/1.73 SQ METERS THIS TEST SHOULD ONLY BE USED FOR PATIENTS 18 YEARS OF AGE AND OLDER. Performed By: #### 2 41246 #### [facility],[address] [place] [address] 67017 Globulin (S) [Mass/Vol] 5.0 g/dL High 1.5 - 3.8 [facility] Comment on above: Performed By: #### 2 99339 #### [facility],[address] [place] [address] 73749 Glucose [Mass/Vol] 107 mg/dL High 74 - 106 [facility] Comment on above: Performed By: #### 2 55967 #### [facility],[address] [place] [address] 59539 Potassium [Moles/Vol] 4.3 mmol/L Normal 3.5 - 5.1 [facility] Comment on above: Performed By: #### 2 16201 #### [facility],[address] [place] [address] 26104 Protein [Mass/Vol] 8.5 g/dL High 6.4 - 8.2 [facility] Comment on above: Performed By: #### 2 96495 #### [facility],[address] [place] [address] 26811 Sodium [Moles/Vol] 138 mmol/L Normal 136 - 145 [facility] Comment on above: Performed By: #### 2 51507 #### [facility],[address] [place] [address] 89136 Urea nitrogen [Mass/Vol] 24 mg/dL High 7 - 18 [facility] Comment on above: Performed By: #### 2 45910 #### [facility],[address] [place] [address] 63779 CULTURE, URINE, ROUTINEon CULTURE, URINE, ROUTINE SEE NOTE Abnormal [facility] Comment on above: Result Comment: CULTURE, URINE, ROUTINE Micro Number: [id number] Test Status: Final Specimen Source: Urine Specimen [...] Performed By: #### 3 95 #### [facility] [address], [address] [place] [id number] 3 Year Olds Preschool Teacher: Chris Beck MD ED MED ADMINISTRATION DETAIL on 01-03-2024 ED MED ADMINISTRATION DETAIL 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 [address] [id number] 01/03/2024 Patient: VERONA TAY Sex: Female : 1945 Age: 78y MEASUREMENTS: Wt: 93.4 kg, Ht/Cedrick: 65.0 in, BMI: 34.28 ALLERGIES: Penicillins Medication Ordered Medication Administration Date/Time Fentanyl IVP 25 11:01/02 Fentanyl IVP 25 mcg given via Site# 1. Allergies Given mcg (NOW x1, HIGH verified and confirmed 5 rights. IV patency established. IV site 11:01/03/2024 ALERT checked: no pain, redness, or swelling. IV flushed thoroughly Jose Salcedo R.NLinda MEDICATION) pre-medication administration. IVP given by nurse. Information Scanned reviewed with patient including sedative warning. Verbalizes understanding. Medication Wastage: 75 mcg wasted. - 11:09 Sonia MurrayNLinda Ondansetron IVP 4 11:10 11 Ondansetron IVP 4 mg given via Site# 1. Allergies Given mg (NOW x1) verified and confirmed 5 rights. IV patency established. IV site 11:10 01/03/2024 checked: no pain, redness, or swelling. IV flushed thoroughly Sonia MurrayNLinda pre-medication administration. IVP given by nurse. Information Scanned reviewed with patient. Verbalizes understanding. - 11:10 Jose Salcedo R.N. Fentanyl IVP 50 12:00 01/02 Fentanyl IVP 50 mcg given via Site# 1. Allergies Given mcg (NOW x1, HIGH verified and confirmed 5 rights. IV patency established. IV site 12:00 01/03/2024 ALERT checked: no pain, redness, or swelling. IV flushed thoroughly Jose Salcedo RLindaNLinda MEDICATION) pre-medication administration. IVP given by nurse. Information Scanned reviewed with patient. Verbalizes understanding. Medication Wastage: 50 mcg wasted. - 12:00 Jose Salcedo R.N. 1 of 2 Wet [employer] Medication Ordered Medication Administration Date/Time Ondansetron IVP 4 12:00 01/02 Ondansetron IVP 4 mg given via Site# 1. Allergies Given mg (NOW x1) verified and confirmed 5 rights. IV patency established. IV site 12:00 01/03/2024 checked: no pain, redness, or swelling. IV flushed thoroughly Jose Salcedo R.N. pre-medication administration. IVP given by nurse. Information Scanned reviewed with patient. Verbalizes understanding. - 12:00 Jose Salcedo R.N. PredniSONE PO 40 12:34 01/02 PredniSONE PO 40 mg given. Allergies verified and Given mg confirmed 5 rights. Information reviewed with patient. Verbalizes 12:34 01/03/2024 understanding. - 12:35 Jose DenisseShira lora R.N. Scanned 2 of 2 Normal [facility] ED NURSES CLINICAL NOTEon ED NURSES CLINICAL NOTE Nurse Narrative Nurse Clinical Narrative [place] [address] [place] [address] [phone] 01/03/2024 Patient: VERONA TAY Sex: Female : 1945 Age: 78y [...] of infection. -- 10:01/03/24 JOSELINE Segal R.N. 09:01/03/24. BP: 177/84 MAP: 115. HR: 80. RR: 16. O2 saturation: 98% Temperature: 98.4 F. Pain level now 10/10. Describes the pain as sharp. -- 01/03/24 JOSELINE Segal R.N. Measurements: 01/03/24 Wt: 93.4 kg, Ht/Cedrick: 65.0 in, BMI: 34.28 -- 01/03/24 JOSELINE Segal R.N. Medications: dilTIAZem CD 240 mg capsule,extended release 24 hr -- 10:05 01/03/24 JOSELINE Segal R.N. 1 of 4 Nurse Narrative Allergies: Penicillins -- 10:02 01/03/24 JOSELINE Segal R.N. Problems: Atrial Fibrillation -- 10:04 01/03/24 EST Santhosh Edinger, R.N. ADDITIONAL SURGERIES: Hysterectomy -- 10:02 01/03/24 JOSELINE Segal R.N. Thyroidectomy -- 10:03 01/03/24 JOSELINE Segal R.N. Tonsillectomy Adenoidectomy -- 10:03 01/03/24 JOSELINE Segal R.N. History 09:59 01/03/24. SOCIAL HX: Never smoker. No alcohol use or drug use. The patient has not traveled outside the [place] Infectious disease exposure: No infectious disease exposure. ABUSE ASSESSMENT: The patient answered "yes" to the question(s) "Do you feel safe in your home?" and "no" to the question(s) "Are you afraid to go home?", Are you afraid of your partner or someone close to you?", Has your partner or someone close to you emotionally, physically, or sexually assaulted you?", "Has your partner or someone close to you threatened to harm/ kill you?", "Did your partner or someone close to you cause the presenting injury(s)?", "Has your partner or someone close to you ever used a weapon towards you?", "Have children witnessed violence in the home?" and "Has your partner or someone close to you physically abused children?". No report of abuse. SELF HARM ASSESSMENT: Self harm assessment was performed. The patient answered "no" to the question(s) "Have you recently felt down, depressed, or hopeless?", "Do you have thoughts of harming or killing yourself?", "Do you have a plan for harming or killing yourself?", "Have you recently had thoughts about harming or killing others?", Do you have any dangerous items in your possession?", Have you noticed less interest or pleasure in doing things?", "Are you here because you tried to hurt yourself?" and Have you ever tried to hurt yourself before today?". NUTRITIONAL RISK ASSESSMENT: The nutritional risk assessment revealed no deficiencies. FUNCTIONAL ASSESSMENT: Functional assessment: no impairments noted. 2 of 4 Nurse Narrative LEARNING NEEDS ASSESSMENT: The learning needs assessment revealed no barriers. FALL RISK ASSESSMENT: Fall risk assessment completed. No risk factors identified. SKIN INTEGRITY ASSESSMENT: Skin integrity risk assessment completed. No skin integrity risk identified. -- 10:01/03/24 JOSELINE Segal R.N. Assessment 09:59 01/03/24. The patient states feels the same. -- 10:01/03/24 JOSELINE Segal R.N. Interventions 09:59 01/03/24. Identification [...] saline. -- 11:08 01/03/24 JOSELINE Salcedo R.N. 11:01/03/24. Fentanyl IVP 25 mcg given via Site# 1. Allergies verified and confirmed 5 rights. IV patency established. IV site checked: no pain, redness, or swelling. (more content not included)... Normal [facility] ED ORDER SHEET (CPOE ONLY)on 01-03-2024 ED ORDER SHEET (CPOE ONLY) Order Sheet Order Sheet [facility] [address] [place] [address] [place] [address] [id number] 01/03/2024 Patient: VERONA TAY Sex: Female : 1945 Age: 78y MEASUREMENTS: Wt: 93.4 kg, Ht/Cedrick: 65.0 in, BMI: 34.28 ALLERGIES: Penicillins MEDICATION/IV/DRIP/FLU ID ORDERS Order Description Priority Entered Acknowledged Completed Fentanyl IVP25 mcg (NOW x1, 10:17 01/03/2024 10:20 11:09 HIGH ALERT MEDICATION) Neville Santiago M.D. 01/03/2024 01/03/2024 Jose Murray, Shira R.NLinda Reason for ordering with alerts: Clinical consideration given --10:17 01/03/2024 Neville Santiago M.D. Ondansetron IVP4 mg (NOW x1) 10:17 01/03/2024 10:20 11:10 Neville Santiago M.D. 01/03/2024 01/03/2024 Jose Murray, Tanja.N. R.NLinda Fentanyl IVP50 mcg (NOW x1, 11:49 01/03/2024 11:50 12:00 HIGH ALERT MEDICATION) Neville Santiago M.D. 01/03/2024 01/03/2024 Jose Murary, Shira R.NLinda Reason for ordering with alerts: [...] 12:35 Neville Santiago M.D. 01/03/2024 01/03/2024 Jose Murray R.N. R.NLinda LAB ORDERS Order Description Priority Entered Acknowledged Collected Completed CBC w Diff Stat Stat 10:17 01/03/2024 10:20 01/03/2024 11:03 01/03/2024 Paul Bartholomew Jamie Burgett, R.N. R.N. CMP Stat Stat 10:17 01/03/2024 10:20 01/03/2024 11:03 01/03/2024 Paul Bartholomew Jamie Burgett, R.N. R.Andrew CRP Stat Stat 10:17 01/03/2024 10:20 01/03/2024 11:03 01/03/2024 Paul Bartholomew Jamie Burgett, R.N. R.NLinda Uric Acid Stat Stat 12:24 01/03/2024 12:24 01/03/2024 12:25 01/03/2024 Paul Bartholomew Jamie Burgett, R.N. R.Andrew DIAGNOSTIC STUDY ORDERS Order Description Priority Entered Acknowledged Completed Wrist R 3V Stat Stat 10:17 01/03/2024 10:20 11:03 Neville Santiago M.D. 01/03/2024 01/03/2024 Jose Murray R.N. R.Andrew Reason for Study: Pain STAFF ORDERS 2 of 3 Order Sheet Order Description Priority Entered Acknowledged Collected Completed IV Saline Lock 10:17 01/03/2024 10:20 01/03/2024 11:03 01/03/2024 Paul Bartholomew Jamie Burgett, R.N. R.Andrew [Electronically signed by Neville Santiago M.D. (01/03/2024 15:08 EST)] 3 of 3 Normal [facility] ED PHYSICIAN CLINICAL REPORT on 01-03-2024 ED PHYSICIAN CLINICAL REPORT Narrative Physician Clinical [address] [address] [phone] 01/03/2024 Patient: VERONA TAY Sex: Female : 1945 Age: 78y [...] tobacco. No drug use. Marital status: . Jain and culture: (Art). Advanced care plan. ADDITIONAL NOTES The nursing [...] 1.50 - 7.10 Final EST 01/03/2024 11:09 [place] # 0.59 x10/UL 0.20 - 1.00 Final [...] PANEL 01/03/2024 (more content not included)... Normal [facility] ED SUPER BILLon 01-03-2024 ED [place] [address] [place] [address] [phone] 01/03/2024 Patient: VERONA TAY Sex: Female : 1945 Age: 78y Item Facility Professional Category Description Code Code Quantity Fee Total Nurse/E/M EMERGENCY 700871 1 $0.00 $0.00 DEPARTMENT VISIT HIGH/URGENT SEVERITY (11329-47) Nurse/IV/IM/Infusions IVP additional 458264 1 $0.00 $0.00 push (47064) Nurse/IV/IM/Infusions IVP initial 244816 1 $0.00 $0.00 (36472) Nurse/IV/IM/Infusions IVP same med 748692 2 $0.00 $0.00 (31 min apart) (38533) Grand Total $0.00 Providers Neville Santiago M.D. Chief Complaint 1 of 2 [facility] UPPER EXTREMITY PAIN and SWELLING. Principal Diagnosis Acute upper extremity pain involving the right wrist (arthritis flare vs hematoma). ICD-10 Codes M25.531: Pain in right wrist 2 of 2 Normal [facility] ED VISIT SUMMARYon ED VISIT SUMMARY Visit Overview Visit Overview [facility] [address] [place] [address] [phone] 01/03/2024 Patient: VERONA TAY Sex: Female : 1945 Age: 78y 01/03/2024 03:08 PM EST ED Arrival:09:48 01/03/2024 EST Status: Recent Travel:no Language:eng Adv Directive: Isolation Status: Ethnicity:N Fall Risk:no risk Infectious Disease Exposure:no Measurements:5'5" / 165.1 Self-Harm Status:risk Sepsis Screen:negative cm 206.0 lb / 93.4 kg Chief Complaint:RIGHT UPPER EXTREMITY PAIN, RIGHT UPPER EXTREMITY SWELLING, (Thursday), (Alec Aiken), and (Patient had a blood draw at the Dr's office on Thursday and since then has had swelling and pain to her right wrist around the site of the draw.) ALLERGIES Penicillins HOME MEDICATIONS 1 3 Visit Overview dilTIAZem CD 240 mg [...] 98.4 F Temp 13:02 01/03/24 BP 09:57 01/03/24 177/84 BP 13:02 01/03/24 HR 09:57 01/03/24 [...] FLARE VS HEMATOMA) 3 of 3 Normal [facility] ED VITALS FLOW SHEETon 01-02 ED VITALS FLOW SHEET Vitals Vital Sign Flow Sheet [place] [address] [place] [address] [phone] 01/03/2024 Patient: VERONA TAY Sex: Female : 1945 Age: 78y [...] 98.4 F 10 2 of 2 Normal [facility] URIC ACIDon 01-03-2024 Urate [Mass/Vol] 3.8 mg/dL Normal 2.6 - 6.0 [facility] Comment on above: Performed By: #### 2 51512 #### [facility],[address] [place], [place] [phone] WRIST COMPLETE RTon 01-03-20 24 WRIST COMPLETE RT [place] [id number] Patient: VERONA TAY Phone#: : 1945 Age: 78 Gender: F Pt. Type: ER Account: [id number] Location: [facility] Ordering: NEVILLE SANTIAGO Exam Date: 01/03/2024/10:23 Family Phys: ALEC AIKEN Charge Code: 849673 Physician: [place] Order #: [id number] Dose#: PROCEDURE: X-RAY WRIST RT COMPLETE MIN [...] Ness MD on 01/03/2024 at 17:52 Normal [facility] TSHon 01-02-2024 TSH Qn 2.25 m[IU]/L Normal 0.40-4.50 [facility] Comment on above: Performed By: #### 8 99 #### [facility] [address], [address] [place] [phone] 3 Year Olds Preschool Teacher: Chris Beck MD Laboratory - Chemistry and C hemistry - challengeon 01-01-2024 Bilirubin Ql (U) Negative [facility] [employer] Ketones Ql (U) Negative Normal [facility] [place] [employer]. pH (U) 7.0 [pH] Normal [facility] [employer]. Specific gravity (U) [Rel density] 1.020 Normal [place] [employer] [facility].; [facility] [employer]. TSH Qn 2.25 m[IU]/L Normal 0.40 - 4.50 {mIU/L} [facility].; [employer] Urobilinogen Qn (U) 0.2 mg/dL Normal [facility].; [employer]. Laboratory - Hematology and Cell countson 01-01-2024 Hemoglobin Ql (U) trace, intact Normal [facility] [employer].; [employer]. Laboratory - Specimen inform ationon 01-01-2024 Appearance (U) cloudy Abnormal [facility] [employer].; [employer]. Color (U) Yellow Normal [place] [employer].; [employer]. Laboratory - Urinalysison Glucose Test strip (U) [Mass/Vol] Negative Normal [place] [employer].; [employer]. Leukocyte esterase Test strip Ql (U) large Abnormal [facility] [employer]. Nitrite Ql (U) Positive Abnormal [facility] [place] [employer]. Protein Ql (U) Negative Normal [facility] [employer]. No Panel Informationon 12-31 CULTURE, URINE, ROUTINE SEE NOTE Abnormal [facility] [employer]. Absolute lymphocyte countOrd ered By: Juan Franco on 06-12-2023 Lymphocytes Auto (Unsp spec) [#/Vol] 2.51 10*3/uL 0.83-4.51 [facility] Automated lymphocyte count a s percentage of total leukocytesOrdered By: Juan Franco on 06-12-2023 Lymphocytes/100 WBC Auto (Unsp spec) 40.1 % 19-41 [facility] Basophil percentageOrdered B y: Juan Franco on 06-12-2023 Basophils/100 WBC (Bld) 0.8 % 0-[address] [facility] Chloride [Moles/Vol] 107 mmol/L 98-107 [facility] Eosinophils/100 WBC (Bld) 7.3 % 0-5 [facility] Glucose [Mass/Vol] 118 mg/dL 74-106 [facility] Comment on above: Fasting Glucose resu lt from 100 to 125 mg/dL suggests IMPAIRED HOMEOSTASIS per A.D.A. criteria. Hemoglobin (Bld) [Mass/Vol] 12.3 g/dL 12.0-15.0 [facility] Monocytes/100 WBC (Bld) 11.8 % 0-[address] [facility] Neutrophils (Bld) [#/Vol] 2.5 10*3/uL 2.0-7.7 [facility] Neutrophils/100 WBC (Bld) 39.7 % 47-70 [facility] Potassium [Moles/Vol] 4.1 mmol/L 3.5-5.1 [facility] Sodium [Moles/Vol] 138 mmol/L 136-145 [facility] WBC (Bld) [#/Vol] 6.3 10*3/uL 4.4-11.0 [facility] Determination of erythrocyte mean corpuscular volume (MCV)Ordered By: Juan Franco on 06-12-2023 MCV (RBC) [Entitic vol] 88.1 fL 81-[address] [facility] Erythrocyte distribution wid th ratioOrdered By: Juan Franco on 06-12-2023 Erythrocyte distribution width (RBC) [Ratio] 14.5 % 11.6-14.6 [facility] Erythrocyte distribution wid th standard deviationOrdered By: Juan Franco on 06-12-2023 Erythrocyte distribution width (RBC) [Entitic vol] 46.5 fL 35.1-43.9 [facility] Hematocrit Auto (Bld) [Volum e fraction]Ordered By: Juan Franco on 06-12-2023 Hematocrit (Bld) [Volume fraction] 37.9 % 37-47 [facility] Immature granulocytes/100 WB C Auto (Bld)Ordered By: Juan Franco on 06-12-2023 Immature granulocytes/100 WBC (Bld) 0.300 % 0.0-0.9 [facility] Comment on above: IG% - Immature Granu locytes (promyelocytes, myelocytes and metamyelocytes) > 1% indicates that a LEFT SHIFT is Present. Laboratory - Chemistry and C hemistry - challengeOrdered By: Juan Franco on 06-12-2023 CO2 [Moles/Vol] 27.0 mmol/L 21.0-32.0 [facility] Magnesium [Mass/Vol] 2.3 mg/dL 1.6-2.6 [facility] Urea nitrogen/Creatinine [Mass ratio] 30.2 mg/mg 10-20 [facility] Laboratory - Hematology and Cell countsOrdered By: Juan Franco on 06-12-2023 MCH (RBC) [Entitic mass] 28.6 pg 27.0-32.0 [facility] MCHC (RBC) [Mass/Vol] 32.5 g/dL 32-36 [facility] Nucleated RBC/100 WBC (Bld) [Ratio] 0 % 0-5 [facility] Platelet mean volume (Bld) [Entitic vol] 10.1 fL 6.2-12.0 [facility] Platelets (Bld) [#/Vol] 214 10*3/uL 150-450 [facility] No Panel InformationOrdered By: Juan Franco on 06-12-2023 Estimated Creatinine Clearance Calc 55.14 ml/min [facility] Estimated GFR (MDRD) Amer 70 mL/min >60 [facility] Comment on above: GFR Calc Estimated GFR (MDRD) Non-Af Amer 58 mL/min >60 [facility] Comment on above: Non- GFR Calc RBC Auto (Bld) [#/Vol]Ordere d By: Juan Franco on 06-12-2023 RBC (Bld) [#/Vol] 4.30 10*6/uL 4.2-5.4 [facility] Serum or plasma calcium darren urement (mass/volume)Ordered By: Juan Franco on 06-12-2023 Calcium [Mass/Vol] 9.7 mg/dL 8.5-10.1 [facility] Serum or plasma creatinine m easurement (mass/volume)Ordered By: Juan Franco on 06-12-2023 Creatinine [Mass/Vol] 0.99 mg/dL 0.55-1.02 [facility] Comment on above: The validity of the calculated GFR & GFRAA in patients over 70 years has not been determined. Clinical correlation is essential. Serum or plasma thyroid stim ulating hormone (TSH) measurement (units/volume)Ordered By: Juan Franco on 06-12-2023 TSH Qn 3.31 uIU/mL 0.358-3.74 [facility] Serum or plasma urea nitroge n measurement (mass/volume)Ordered By: Juan Franco on 06-12-2023 Urea nitrogen [Mass/Vol] 30 mg/dL 7-18 [facility] Thin prep Papanicolaou smear with manual screeningOrdered By: Juan Franco on 06-12-2023 Thin prep Papanicolaou smear with manual screening 4 - [facility] Laboratory - Chemistry and C hemistry - challengeon 01-06-2023 TSH Qn 2.31 m[IU]/L Normal 0.40 - 4.50 {mIU/L} [facility], [facility].; [facility], [facility]. CULTURE, URINE, ROUTINEon CULTURE, URINE, ROUTINE SEE NOTE [facility]normal [facility] Comment on above: Result Comment: CULTURE, URINE, ROUTINE Micro Number: [id number] Test Status: Final Specimen Source: Not given [...] Performed By: #### 3 95 #### [facility] [address], [address] [place] [address] 3 Year Olds Preschool Teacher: Chris Beck MD Laboratory - Chemistry and C hemistry - challengeon 09-22-2022 Bilirubin Ql (U) Negative Normal [facility] [employer]. Ketones Ql (U) Negative Normal [facility] [employer].; [employer]. pH (U) 6.0 [pH] Normal [employer]. Specific gravity (U) [Rel density] 1.015 Normal [employer]. Urobilinogen Qn (U) 0.2 mg/dL Normal [facility] [employer].; [employer]. Laboratory - Hematology and Cell countson 09-22-2022 Hemoglobin Ql (U) small Abnormal [employer].; [employer]. Laboratory - Specimen inform ationon 09-22-2022 Appearance (U) cloudy Abnormal [facility].; [employer]. Color (U) yellow Normal [employer].; [employer]. Laboratory - Urinalysison Glucose Test strip (U) [Mass/Vol] Negative Normal [employer]. Leukocyte esterase Test strip Ql (U) large Abnormal [employer].; [employer]. Nitrite Ql (U) Negative Normal [facility] [employer]. Protein Ql (U) trace Normal [facility] [employer].; [employer], [employer]. No Panel Informationon 09-22 CULTURE, URINE, ROUTINE SEE NOTE Abnormal [facility] [employer]. CNPNon 12-23-2021 CNPN Telephone (WALKWA) VERONA TAY ([id number]) 1945 F Date Time Provider Department 12/23/21 [...] Intolerance Comments: states ached all over and "very sick" when she took, denies rash, GI or SOB Date Reviewed: 06/27/2013 Reviewed by: Aida Escamilla Vp Software Support - Fully Assessed Reason for Visit: Outside Lab Results [123] Cmt: Dr. Arnulfo Diego [place], [place] Prescriptions as of 12/23/2021 - thyroid, pork, [...] daily. 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 CULTURE, URINE, ROUTINEon CULTURE, URINE, ROUTINE SEE NOTE Abnormal Q uest Diagnostics Comment on above: Result Comment: CULTURE, URINE, ROUTINE Micro Number: [id number] Test Status: Final Specimen Source: Urine Specimen [...] Performed By: #### 3 [id number] #### [facility] [address] [place] [address], [address] [place] [address] 3 Year Olds Preschool Teacher: Chris Beck MD Laboratory - Chemistry and C hemistry - challengeon 10-24-2021 Bilirubin Ql (U) Negative Normal [facility] [employer], [employer]. Ketones Ql (U) Negative [facility] [employer], [employer]. pH (U) 7.0 [pH] Normal [employer], [employer]. Specific gravity (U) [Rel density] 1.015 Normal [employer].; [employer], [employer]. Urobilinogen Qn (U) 0.2 mg/dL [facility] [employer], [employer]. Laboratory - Hematology and Cell countson 10-24-2021 Hemoglobin Ql (U) Negative Normal [facility] [employer], [employer]. Laboratory - Specimen inform ationon 10-24-2021 Appearance (U) Cloudy Abnormal [facility] [employer], [employer]. Color (U) yellow Normal [employer], [employer]. Laboratory - Urinalysison Glucose Test strip (U) [Mass/Vol] Negative Normal [employer].; [employer], [employer]. Leukocyte esterase Test strip Ql (U) moderate Abnormal [employer].; [employer] Nitrite Ql (U) Negative Normal [facility] [employer], [employer]. Protein Ql (U) Negative Normal [facility] [employer], [employer]. No Panel Informationon 10-24 CULTURE, URINE, ROUTINE SEE NOTE Abnormal H [facility] Absolute lymphocyte counton 10-08-2021 Lymphocytes Auto (Unsp spec) [#/Vol] 2.54 10*3/uL 0.83-4.51 [facility] Work Phone: Basophil percentageon 2021 Basophils/100 WBC (Bld) 0.6 % 0-[address] [facility] Work Phone: Chloride [Moles/Vol] 109 mmol/L 98-107 [facility] Work Phone: [phone] Eosinophils/100 WBC (Bld) 1.7 % 0-5 [facility] Work Phone: [phone] Glucose [Mass/Vol] 121 mg/dL 74-106 [facility] Work Phone: [phone] Comment on above: Fasting Glucose resu lt from 100 to 125 mg/dL suggests IMPAIRED HOMEOSTASIS per A.D.A. criteria. Neutrophils (Bld) [#/Vol] 3.8 10*3/uL 2.0-7.7 [facility] Work Phone: Neutrophils/100 WBC (Bld) 52.7 % 47-70 [facility] Work Phone: [phone] Potassium [Moles/Vol] 4.0 mmol/L 3.5-5.1 [facility] Work Phone: [phone] Comment on above: Slight Hemolysis, Re sult may be falsely increased. Sodium [Moles/Vol] 137 mmol/L 136-145 [facility] Work Phone: [phone] WBC (Bld) [#/Vol] 7.1 10*3/uL 4.4-11.0 [facility] Work [phone] Blood erythrocytes count (nu mber/volume)on 10-08-2021 RBC (Bld) [#/Vol] 4.75 10*6/uL 4.2-5.4 [facility] Work Phone: [phone] Blood hemoglobin measurement (mass/volume)on 10-08-2021 Hemoglobin (Bld) [Mass/Vol] 13.8 g/dL 12.0-15.0 [facility] Work Phone: Blood lymphocytes/100 leukoc yteson 10-08-2021 Lymphocytes/100 WBC (Bld) 35.7 % 19-41 [facility] Work Phone: Blood monocytes/100 leukocyt eson 10-08-2021 Monocytes/100 WBC (Bld) 9.0 % 0-[address] [facility] Work Phone: Blood platelet mean volumeon 10-08-2021 Platelet mean volume (Bld) [Entitic vol] 10.1 fL 6.2-12.0 [facility] Work Phone: Determination of erythrocyte mean corpuscular volume (MCV)on 10-08-2021 MCV (RBC) [Entitic vol] 89.5 fL 81-[address] [facility] Work Phone: Hematocrit Auto (Bld) [Volum e fraction]on 10-08-2021 Hematocrit (Bld) [Volume fraction] 42.5 % 37-47 [facility] Work Phone: Laboratory - Chemistry and C hemistry - challengeon 10-08-2021 CO2 [Moles/Vol] 23.0 mmol/L 21.0-32.0 [facility] Work Phone: Urea nitrogen/Creatinine [Mass ratio] 23.6 mg/mg 10-20 [facility] Work Phone: Laboratory - Hematology and Cell countson 10-08-2021 Erythrocyte distribution width (RBC) [Entitic vol] 48.1 fL 35.1-43.9 [facility] Work Phone: Erythrocyte distribution width (RBC) [Ratio] 14.7 % 11.6-14.6 [facility] Work Phone: Immature granulocytes/100 WBC (Bld) 0.300 % 0.0-0.9 [facility] Work Phone: Comment on above: IG% - Immature Granu locytes (promyelocytes, myelocytes and metamyelocytes) > 1% indicates that a LEFT SHIFT is Present. MCH (RBC) [Entitic mass] 29.1 pg 27.0-32.0 [facility] Work Phone: Nucleated RBC/100 WBC (Bld) [Ratio] 0 % 0-5 [facility] Work Phone: MCHC Auto (RBC) [Mass/Vol]on 10-08-2021 MCHC (RBC) [Mass/Vol] 32.5 g/dL 32-36 [facility] Work Phone: No Panel Informationon 10-08 Troponin I High Sensitivity 75 pg/mL 3.0-54.0 [facility] Work Phone: Comment on above: Please Note: New Jenna t Units and Gender Specific Reference Ranges. For more information see Policy Stat Procedure [place] High Sensitivity Troponin (TNIH) and attachments. Estimated Creatinine Clearance Calc 38.16 ml/min [facility] Work Phone: Estimated GFR (MDRD) Amer 62 mL/min >60 [facility] Work Phone: Comment on above: GFR Calc Estimated GFR (MDRD) Non-Af Amer 51 mL/min >60 [facility] Work Phone: Comment on above: Non- GFR Calc Platelets bldon 10-08-2021 Platelets (Bld) [#/Vol] 211 10*3/uL 150-450 [facility] Work Phone: Serum or plasma calcium darren urement (mass/volume)on 10-08-2021 Calcium [Mass/Vol] 9.9 mg/dL 8.5-10.1 [facility] Work Phone: Serum or plasma creatinine m easurement (mass/volume)on 10-08-2021 Creatinine [Mass/Vol] 1.10 mg/dL 0.55-1.02 [facility] Work Phone: Comment on above: The validity of the calculated GFR & GFRAA in patients over 70 years has not been determined. Clinical correlation is essential. Serum or plasma urea nitroge n measurement (mass/volume)on 10-08-2021 Urea nitrogen [Mass/Vol] 26 mg/dL -18 [facility] Work Phone: Thin prep Papanicolaou smear with manual screeningon 10-08-2021 Thin prep Papanicolaou smear with manual screening 06 27-15 [facility] Work Phone: No Panel Informationon 12-04 TSH W/REFLEX TO FT4 2.14 {mIU/L} Normal 0.40 - 4 .50 {mIU/L} [facility].; [facility], [facility] Laboratory - Chemistry and C hemistry - challengeon 01-06-2020 TSH Qn 2.17 m[IU]/L Normal 0.35 - 3.74 {uIU/ml} [facility].; [place] [employer], [facility]. Laboratory - Chemistry and C hemistry - challengeon 11-02-2018 TSH Qn 2.24 m[IU]/L Normal 0.34 - 5.60 {uIU/ml} [place] [employer] [facility], [facility].; [employer], [employer]. Laboratory - Chemistry and C hemistry - challengeon 10-30-2017 Anion gap [Moles/Vol] 13 mmol/L Normal 10 - 2 0 mmol/L [facility], [facility].; [employer], [employer] Basic metabolic 2000 panel BMP with eGFR Normal [place] [employer] [facility], [facility].; [employer], [facility] Calcium [Mass/Vol] 9.9 mg/dL Normal 8.6 - 10. 2 mg/dL [place] [employer] [facility], [facility].; [employer], [employer]. Chloride [Moles/Vol] 104 mmol/L Normal 98 - 10 7 mmol/L [place] [employer] [facility], [facility].; [employer] [facility], [employer]. CO2 [Moles/Vol] 24.2 mmol/L Normal 21.0 - 31.0 mmol/L [facility], [facility].; [employer], [employer]. Creatinine [Mass/Vol] 1.0 mg/dL Normal 0.6 - 1.2 mg/dL [employer].; [employer]. GFR/1.73 sq M.predicted among blacks MDRD (S/P/Bld) [Vol rate/Area] mL/min/{1.73_m2} Normal 60 - 999 {ML/MINUTE} [employer].; [employer]. GFR/1.73 sq M.predicted MDRD (S/P/Bld) [Vol rate/Area] 55 {ML/MINUTE} Abnormal 60 - 999 {ML/MINUTE} [employer].; [employer]. Glucose [Mass/Vol] 91 mg/dL Normal 74 - 106 mg/dL [employer].; [employer]. Potassium [Moles/Vol] 3.9 mmol/L Normal 3.5 - 5.1 mmol/L [employer].; [employer]. Sodium [Moles/Vol] 137 mmol/L Normal 136 - 145 mmol/L [employer].; [employer]. TSH Qn 1.94 m[IU]/L Normal 0.34 - 5.60 {uIU/ml} [employer].; [employer]. Urea nitrogen [Mass/Vol] 32 mg/dL Abnormal 6 - 20 mg/dL [employer].; [employer]. No Panel Informationon 10-30 AGE 72 {years} Normal [employer].; [employer]. Lab Report: Basic Metabolic Profile (BMP)on 08-15-2016 Anion gap 7 mmol/L Invalid Interpretation Code - [email or web address] Work Phone: [phone] Anion gap molar conc 7 mmol/L 5- [employer] Work Phone: [phone] BUN/Creatinine Ratio 21.1 RATIO High - [employer] Work Phone: [phone] Calcium 9.5 mg/dL Invalid Interpretation Code 8.5-10.1 [email or web address] Work Phone: [phone] Chloride 104 mmol/L Invalid Interpretation Code 98-107 [email or web address] Work Phone: [phone] CO2 27.0 mmol/L Invalid Interpretation Code 21.0-32.0 [facility] Work Phone: [phone] CO2 ppres (BldV) 27.0 mmol/L 21.0-32.0 [facility] Work Phone: [phone] Creatinine 0.76 mg/dL Invalid Interpretation Code 0.55-1.02 [facility] Work Phone: [phone] eGFR (non-black) 80 mL/min/{1.73_m2} Invalid Interpretation Code >60 [facility] Work Phone: [phone] eGFR (non-black) 97 mL/min/{1.73_m2} Invalid Interpretation Code >60 [facility] Work Phone: [phone] EST GFR - AA 97 mL/min >60 [facility] Work Phone: [phone] Glucose 87 mg/dL Invalid Interpretation Code 70-110 [facility] Work Phone: [phone] Glucose mass conc 87 mg/dL 70-110 [facility] Work Phone: [phone] Potassium 3.8 mmol/L Invalid Interpretation Code 3.5-5.1 [facility] Work Phone: [phone] Sodium 138 mmol/L Invalid Interpretation Code 136-145 [facility] Work Phone: [phone] Urea nitrogen 16 mg/dL Invalid Interpretation Code 7-18 [facility] Work Phone: [phone] Lab Report: CBC W/Diff, Auto matedon 08-15-2016 Basophils/100 leukocytes 0.3 % Invalid Interpretation Code 0-1 [facility] Work Phone: [phone] Basophils/100 WBC (Bld) 0.3 % 0-1 [facility] Work Phone: [phone] Eosinophils/100 leukocytes 3.0 % Invalid Interpretation Code 0-5 [facility] Work Phone: [phone] Eosinophils/100 WBC (Bld) 3.0 % 0-5 [facility] Work Phone: [phone] Erythrocyte distribution width Ratio (RBC) 46.0 fL High 35.1-43.9 [facility] Work Phone: [phone] Erythrocyte distribution width Ratio (RBC) 13.9 % 11.6-14.6 [facility] Work Phone: [phone] Erythrocytes (RBC) 4.38 10*6/uL Invalid Interpretation Code 4.2-5.4 [facility] Work Phone: [phone] Hematocrit (HCT) 39.5 % Invalid Interpretation Code 37-47 [facility] Work [phone] Hematocrit Volume Fraction (Bld) 39.5 % 37-47 [facility] Work Phone: [phone] Hemoglobin (HGB) 12.9 g/dL Invalid Interpretation Code 12.0-15.0 [facility] Work Phone: [phone] Immature granulocytes #/vol (Bld) 0.000 % 0.0-0.9 [facility] Work Phone: [phone] immature granulocytes, percentage of total cells, blood 0.000 % Invalid Interpretation Code 0.0-0.9 [facility] Work Phone: [phone] Lymphocytes 3.02 X10 3/UL Invalid Interpretation Code 0.83-4.51 [facility] Work Phone: [phone] Lymphocytes #/vol (Bld) 3.02 X10 3/UL 0.83-4.51 [facility] Work Phone: [phone] Lymphocytes/100 leukocytes 41.0 % Invalid Interpretation Code 19-41 [facility] Work Phone: [phone] Lymphocytes/100 WBC (Bld) 41.0 % 19-41 [facility] Work Phone: [phone] MCH 29.5 pg Invalid Interpretation Code 27.0-32.0 [facility] Work Phone: [phone] MCH Entitic mass (RBC) 29.5 pg 27.0-32.0 [facility] Work Phone: [phone] MCHC 32.7 G/GL Invalid Interpretation Code 32-36 [facility] Work Phone: [phone] MCHC mass conc (RBC) 32.7 G/GL 32-[address] [facility] Work Phone: [phone] MCV 90.2 fL Invalid Interpretation Code 81-99 [facility] Work Phone: [phone] MCV Entitic volume (RBC) 90.2 fL 81-99 [facility] Work Phone: [phone] Monocytes/100 leukocytes 9.4 % Invalid Interpretation Code 0-10 [facility] Work Phone: [phone] Monocytes/100 WBC (Bld) 9.4 % 0-10 [facility] Work Phone: [phone] neutrophil count, blood 3.4 X10 3/UL Invalid Interpretation Code 2.0-7.7 [facility] Work Phone: [phone] Neutrophils #/vol (Bld) 3.4 X10 3/UL 2.0-7.7 [facility] Work Phone: [phone] Neutrophils/100 leukocytes 46.3 % Low 47-70 [facility] Work Phone: [phone] Neutrophils/100 WBC (Bld) 46.3 % Low 47-70 [facility] Work Phone: [phone] Platelet mean volume Entitic volume (Bld) 10.2 fL 6.2-12.0 [facility] Work Phone: [phone] Platelets 223 10*3/mm3 Invalid Interpretation Code 150-450 [facility] Work Phone: [phone] Platelets #/vol (Bld) 223 10*3/mm3 150-450 [facility] Work Phone: [phone] PMV by Reese 10.2 fL Invalid Interpretation Code 6.2-12.0 [facility] Work Phone: [phone] RBC #/vol (Bld) 4.38 10*6/uL 4.2-5.4 [facility] Work Phone: [phone] RDW-CA 13.9 % Invalid Interpretation Code 11.6-14.6 [facility] Work Phone: [phone] red blood cell distribution width, size density 46.0 fL High 35.1-43.9 [facility] Work Phone: [phone] WBC #/vol (Bld) 7.4 10*3/uL 4.4-11.0 [facility] Work Phone: [phone] WBC (Leukocytes) 7.4 10*3/uL Invalid Interpretation Code 4.4-11.0 [facility] Work Phone: [phone] Office Visiton 08-15-2016 Dietary management education, guidance, and counseling (procedure) yes Invalid Interpretation Code [facility] Work Phone: [phone] Documentation of current medications (procedure) Done Invalid Interpretation Code [facility] Work Phone: [phone] Fall risk assessment No Invalid Interpretation Code [facility] Work Phone: [phone] Protein mass conc Done [facility] Work Phone: [phone] Clinical Lists Update: 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 Left ventricular Ejection fraction 60 % Invalid Interpretation Code [facility] Work Phone: [phone] Clinical Lists Update: Prelo 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 Anion gap 12 mmol/L Invalid Interpretation Code [facility] Work Phone: [phone] Anion gap molar conc 12 mmol/L [facility] Work Phone: [phone] Calcium 9.7 mg/dL Invalid Interpretation Code [facility] Work Phone: [phone] Chloride 102 mmol/L Invalid Interpretation Code [facility] Work Phone: [phone] CO2 27.4 mmol/L Invalid Interpretation Code [facility] Work Phone: [phone] CO2 ppres (BldV) 27.4 mmol/L [facility] Work Phone: [phone] Creatinine 0.9 mg/dL Invalid Interpretation Code [facility] Work Phone: [phone] Glucose 91 mg/dL Invalid Interpretation Code [facility] Work Phone: [phone] Glucose mass conc 91 mg/dL [facility] Work Phone: [phone] Potassium 4.7 mmol/L Invalid Interpretation Code [facility] Work Phone: [phone] Sodium 137 mmol/L Invalid Interpretation Code [facility] Work Phone: [phone] Urea nitrogen 24 mg/dL High [facility] Work Phone: [phone] Laboratory - Chemistry and C hemistry - challengeon 10-31-2015 TSH Qn 1.42 m[IU]/L Normal 0.34 - 5.60 {uIU/ml} [employer] Laboratory - Chemistry and C hemistry - challengeon 06-26-2015 Bilirubin Ql (U) Negative Normal [facility] [employer]. Ketones Ql (U) Negative Normal [facility].; [employer]. pH (U) 5.5 [pH] Normal [employer]. Specific gravity (U) [Rel density] 1.015 Normal [employer]; [employer]. Urobilinogen Qn (U) 0.2 mg/dL Normal [facility] [employer].; [employer]. Laboratory - Hematology and Cell countson 06-26-2015 Hemoglobin Ql (U) trace-lysed Normal [employer]. Laboratory - Specimen inform ationon 06-26-2015 Appearance (U) cloudy Abnormal [facility]; [employer]. Color (U) yellow Normal [employer].; [employer]. Laboratory - Urinalysison Glucose Test strip (U) [Mass/Vol] Negative Normal [employer]. Leukocyte esterase Test strip Ql (U) moderate Abnormal [employer].; [employer]. Protein Ql (U) Negative Normal [facility] [employer]. Laboratory - UrinalysisOrder ed By: Alondra Alcazar on 06-26-2015 Nitrite Ql (U) Positive Abnormal [employer] [facility]; [employer]. Office Visiton 12-28-2012 Documentation of current medications (procedure) Done Invalid Interpretation Code [facility] Work Phone: Protein mass conc Done [facility] Work Phone: EKG Report: Midmark ECG Obse rvationson 06-29-2012 GE use only - for [employer] import when terms are not otherwise specified 399 ms Invalid Interpretation Code [facility] Work Phone: QTc Herman 399 ms [facility] Work Phone: Replaced Document: [employer] E CG Observationson 06-29-2012 EKG QRS axis 7 deg [facility] Work Phone: [phone] electrocardiogram interpretation Sinus Rhythm WITHIN NORMAL LIMITS Invalid Interpretation Code [facility] Work Phone: [phone] Interpretation Sinus Rhythm WITHIN NORMAL LIMITS [facility] Work Phone: [phone] [employer] 56 deg [facility] Work Phone: [phone] P wave axis, electrocardiogram 56 deg Invalid Interpretation Code [facility] Work Phone: [phone] FL Interval 156 ms [facility] Work Phone: [phone] FL interval, electrocardiogram 156 ms Invalid Interpretation Code [facility] Work Phone: [phone] Pulse (Heart Rate) 72 /min Invalid Interpretation Code [facility] Work Phone: [phone] Pulse (Heart Rate) 400 ms Invalid Interpretation Code [facility] Work Phone: QRS axis, electrocardiogram 7 deg Invalid Interpretation Code [facility] Work Phone: QRS Duration 102 ms [facility] Work Phone: QRS duration, electrocardiogram 102 ms Invalid Interpretation Code [facility] Work Phone: QT Interval new path ms [facility] Work Phone: QT interval, electrocardiogram new path ms Invalid Interpretation Code [facility] Work Phone: [employer] 19 deg [facility] Work Phone: T wave axis, electrocardiogram 19 deg Invalid Interpretation Code [facility] Work Phone: Office Visiton 11-28-2011 Tobacco smoking status NHIS never smoker [facility] Work Phone: Tobacco use CPHS never smoker Invalid Interpretation Code [facility] Work Phone: [phone] Vital Signs Date Time Vital Sign Value Performing Clinician Facility 12-15-2024 09:04-0400 Body temperature 97.9 [degF] Luke Attila PA Work Phone: [facility] 12-15-2024 09:04-0400 Diastolic blood pressure 86 mm[Hg] Luke Attila PA Work Phone: [facility] 12-15-2024 09:04-0400 Heart rate 73 /min Luke Attila PA Work Phone: [facility] 12-15-2024 09:04-0400 Respiratory rate 18 /min Luke Attila PA Work Phone: [facility] 12-15-2024 09:04-0400 SaO2% (BldA) [Mass fraction] 98 % Luke Attila PA Work Phone: [facility] 12-15-2024 09:04-0400 Systolic blood pressure 147 mm[Hg] Luke Attila PA Work Phone: [facility] 12-15-2024 07:31-0400 Inhaled oxygen concentration 5 % Luke Attila PA Work Phone: [facility] 12-15-2024 07:31-0400 Inhaled oxygen flow rate 3 L/min Luke Attila PA Work Phone: [facility] 12-15-2024 05:06-0400 Body height 165.1 cm Luke Attila PA Work Phone: [facility] 12-15-2024 05:06-0400 Body mass index (BMI) [Ratio] 35.9 kg/m2 Luke Attila PA Work Phone: [facility] 12-15-2024 05:06-0400 Body weight 97.8 kg Luke Attila PA Work Phone: [facility] 12-02-2024 10:33-0400 Diastolic blood pressure 84 mm[Hg] Luke Attila PA Work Phone: [facility] 12-02-2024 10:33-0400 Systolic blood pressure 180 mm[Hg] Luke Attila PA Work Phone: [facility] 12-02-2024 08:53-0400 Body mass index (BMI) [Ratio] 34.1 kg/m2 Luke Attila PA Work Phone: [facility] 12-02-2024 08:53-0400 Body weight 92.98 kg Luke Attila PA Work Phone: [facility] 12-02-2024 08:53-0400 Heart rate 69 /min Luke Attila PA Work Phone: [facility] 12-02-2024 08:53-0400 Respiratory rate 18 /min Luke Attila PA Work Phone: [facility] 12-02-2024 08:53-0400 SaO2% (BldA) [Mass fraction] 97 % Luke Attila PA Work Phone: [facility] 11-09-2024 13:36-0400 Body height 165.1 cm Luke Attila PA Work Phone: [facility] 11-09-2024 13:36-0400 Body mass index (BMI) [Ratio] 34.4 kg/m2 Luke Attila PA Work Phone: [facility] 11-09-2024 13:36-0400 Body weight 93.89 kg Luke Attila PA Work Phone: [facility] 11-09-2024 13:36-0400 Diastolic blood pressure 77 mm[Hg] Luke Attila PA Work Phone: [facility] 11-09-2024 13:36-0400 Heart rate 71 /min Luke Attila PA Work Phone: [facility] 11-09-2024 13:36-0400 Respiratory rate 16 /min Luke Attila PA Work Phone: [facility] 11-09-2024 13:36-0400 SaO2% (BldA) [Mass fraction] 96 % Alec Aiken PA Work Phone: [facility] 11-09-2024 13:36-0400 Systolic blood pressure 155 mm[Hg] Alec Aiken PA Work Phone: [facility] 09-15-2024 13:04-0400 Body height 160.02 cm Horacio Araujo LPN [facility], [facility].; [facility] 09-15-2024 13:04-0400 Body mass index (BMI) [Ratio] 37.38 kg/m2 Horacio Araujo LPN [facility], [facility].; [facility], [facility]. 09-15-2024 13:04-0400 Body surface area Derived from formula 1.98 m2 Horacio Araujo PATIENT REGISTRATION SUPERVISOR [facility], [facility].; [facility], [facility]. 09-15-2024 13:04-0400 Body weight 95.71 kg Horacio Araujo PATIENT REGISTRATION SUPERVISOR [facility], [facility].; [facility], [facility]. 09-15-2024 13:04-0400 Diastolic blood pressure 67 mm[Hg] Horacio Araujo PATIENT REGISTRATION SUPERVISOR [facility], [facility].; [facility] Comment on above: Patient Position: Sitting; Cuff Location : Left Arm; Cuff Size: Standard 09-15-2024 13:04-0400 Heart rate 77 /min Horacio Araujo LPN [facility], [facility].; [facility] Comment on above: Pattern: Regular 09-15-2024 13:04-0400 Systolic blood pressure 115 mm[Hg] Horacio Araujo PATIENT REGISTRATION SUPERVISOR [facility], [facility].; [place] [employer] [facility] Comment on above: Patient Position: Sitting; Cuff Location : Left Arm; Cuff Size: Standard 08-16-2024 07:25-0400 Body height 165.1 cm Alec Aiken PA Work Phone: [facility] 08-16-2024 07:25-0400 Body mass index (BMI) [Ratio] 34.6 kg/m2 Luke Attila PA Work Phone: [facility] 08-16-2024 07:25-0400 Body weight 94.34 kg Luke Attila PA Work Phone: [facility] 08-16-2024 07:25-0400 Diastolic blood pressure 81 mm[Hg] Luke Attila PA Work Phone: [facility] 08-16-2024 07:25-0400 Heart rate 79 /min Luke Attila PA Work Phone: [facility] 08-16-2024 07:25-0400 Respiratory rate 18 /min Luke Attila PA Work Phone: [facility] 08-16-2024 07:25-0400 SaO2% (BldA) [Mass fraction] 98 % Luke Attila PA Work Phone: [facility] 08-16-2024 07:25-0400 Systolic blood pressure 143 mm[Hg] Luke Attila PA Work Phone: [facility] 08-11-2024 04:21-0400 Body temperature 97.8 [degF] Luke Attila PA Work Phone: [facility] 08-11-2024 04:21-0400 Diastolic blood pressure 78 mm[Hg] Luke Attila PA Work Phone: [facility] 08-11-2024 04:21-0400 Heart rate 77 /min Luke Attila PA Work Phone: [facility] 08-11-2024 04:21-0400 Respiratory rate 16 /min Luke Attila PA Work Phone: [facility] 08-11-2024 04:21-0400 SaO2% (BldA) [Mass fraction] 94 % Luke Attila PA Work Phone: [facility] 08-11-2024 04:21-0400 Systolic blood pressure 141 mm[Hg] Alec KAPLAN Work Phone: [facility] 08-11-2024 01:45-0400 Body height 165.1 cm Alec KAPLAN Work Phone: [facility] 01-25-2024 09:59-0500 Body height 160.02 cm Horacio Vanmaurizio PARSONS [facility] [employer] [facility] 01-25-2024 09:59-0500 Body mass index (BMI) [Ratio] 37.2 kg/m2 Horacio Vanmaurizio PARSONS [facility] [employer] [facility], [employer]. 01-25-2024 09:59-0500 Body surface area Derived from formula 1.97 m2 Horacio Vanmaurizio PARSONS [facility], [facility].; [employer] [facility] 01-25-2024 09:59-0500 Body temperature 98.3 [degF] Horacio Vanmaurizio PARSONS [facility] [employer] [facility], [employer]. 01-25-2024 09:59-0500 Body weight 95.26 kg Horacio Vanmaurizio PARSONS [facility] [employer] [facility], [employer]. 01-25-2024 09:59-0500 Diastolic blood pressure 73 mm[Hg] Horacio Vanmaurizio PARSONS [facility] [employer] [facility], [employer]. Comment on above: Patient Position: Sitting; Cuff Location : Left Arm; Cuff Size: Standard 01-25-2024 09:59-0500 Heart rate 70 /min Horacio Araujo LPN [facility] [employer]. Comment on above: Pattern: Regular 01-25-2024 09:59-0500 Inhaled oxygen concentration 21 % Horacio Araujo PATIENT REGISTRATION SUPERVISOR [facility] [employer], [employer]. Comment on above: Room air 01-25-2024 09:59-0500 SaO2% (BldA) [Mass fraction] 98 % Horacio Araujo LPN [facility] [employer] 01-25-2024 09:59-0500 Systolic blood pressure 131 mm[Hg] Horacio Araujo LPN [facility].; [facility]. Comment on above: Patient Position: Sitting; Cuff Location : Left Arm; Cuff Size: Standard 01-01-2024 09:29-0500 Body height 160.02 cm Adela Arizmendi RN [facility].; [facility] 01-01-2024 09:29-0500 Body mass index (BMI) [Ratio] 37.73 kg/m2 Adela Arizmendi RN [facility].; [facility]. 01-01-2024 09:29-0500 Body surface area Derived from formula 1.99 m2 Adela Arizmendi RN [facility].; [facility], [facility]. 01-01-2024 09:29-0500 Body temperature 97.8 [degF] Adela Ariz[facility]endi [facility] [place] [employer] [facility]. Comment on above: Method: Tympanic 01-01-2024 09:29-0500 Body weight 96.62 kg Adela Arizmendi RN [facility].; [facility]. 01-01-2024 09:29-0500 Diastolic blood pressure 74 mm[Hg] Adela Arizmendi RN [facility].; [place] [employer] [facility], [employer]. Comment on above: Patient Position: Sitting; Cuff Location : Left Arm; Cuff Size: Standard 01-01-2024 09:29-0500 Heart rate 70 /min Adela Arizmendi RN [facility].; [place] [employer] [facility]. Comment on above: Pattern: Regular 01-01-2024 09:29-0500 Systolic blood pressure 130 mm[Hg] Adela Arizmendi RN [facility].; [place] [employer] [facility]. Comment on above: Patient Position: Sitting; Cuff Location : Left Arm; Cuff Size: Standard 06-18-2023 13:51-0400 Body height 165.1 cm ROSAURA Aiken Work Phone: [facility] 06-18-2023 13:51-0400 Body mass index (BMI) [Ratio] 35.2 kg/m2 ROSAURA Mirandastetler Work Phone: [facility] 06-18-2023 13:51-0400 Body weight 96.16 kg PA Luke Attila Work Phone: [facility] 06-18-2023 13:51-0400 Diastolic blood pressure 85 mm[Hg] PA Luke Attila Work Phone: [facility] 06-18-2023 13:51-0400 Heart rate 81 /min PA Luke Attila Work Phone: [facility] 06-18-2023 13:51-0400 Respiratory rate 20 /min PA Luke Attila Work Phone: [facility] 06-18-2023 13:51-0400 SaO2% (BldA) [Mass fraction] 97 % PA Luke Attila Work Phone: [facility] 06-18-2023 13:51-0400 Systolic blood pressure 160 mm[Hg] PA Luke Attila Work Phone: [facility] 06-12-2023 03:27-0400 Body temperature 97.4 [degF] PA Luke Attila Work Phone: [facility] 06-12-2023 03:27-0400 Diastolic blood pressure 77 mm[Hg] PA Luke Attila Work Phone: [facility] 06-12-2023 03:27-0400 Heart rate 80 /min PA Luke Attila Work Phone: [facility] 06-12-2023 03:27-0400 Respiratory rate 20 /min PA Luke Attila Work Phone: [facility] 06-12-2023 03:27-0400 SaO2% (BldA) [Mass fraction] 97 % PA Luke Attila Work Phone: [facility] 06-12-2023 03:27-0400 Systolic blood pressure 174 mm[Hg] PA Luke Attila Work Phone: [facility] 06-12-2023 02:03-0400 Body height 165.1 cm PA Luke Attila Work Phone: [facility] 06-12-2023 02:03-0400 Body mass index (BMI) [Ratio] 35.9 kg/m2 PA Luke Attila Work Phone: [facility] 06-12-2023 02:03-0400 Body weight 98 kg PA Luke Attila Work Phone: [facility] 06-01-2023 10:51-0400 Diastolic blood pressure 85 mm[Hg] PA Luke Attila Work Phone: [facility] 06-01-2023 10:51-0400 Systolic blood pressure 170 mm[Hg] PA Luke Attila Work Phone: [facility] 06-01-2023 10:11-0400 Body mass index (BMI) [Ratio] 34.9 kg/m2 PA Luke Attila Work Phone: [facility] 06-01-2023 10:11-0400 Body weight 95.25 kg PA Luke Attila Work Phone: [facility] 06-01-2023 10:11-0400 Heart rate 78 /min PA Luke Attila Work Phone: [facility] 06-01-2023 10:11-0400 Respiratory rate 18 /min PA Luke Attila Work Phone: [facility] 06-01-2023 10:11-0400 SaO2% (BldA) [Mass fraction] 97 % PA Luke Attila Work Phone: [facility] 01-23-2023 10:40-0500 Body height 160.02 cm Adela Arizmendi RN [facility], [facility].; [facility], [facility]. 12-01-2023 10:40-0500 Body mass index (BMI) [Ratio] 37.2 kg/m2 Adela Ariz[facility]endi RN [facility] [employer] [facility]. 01-23-2023 10:40-0500 Body surface area Derived from formula 1.97 m2 Adela [facility]mendi RN [facility].; [employer]. 01-23-2023 10:40-0500 Body temperature 98.4 [degF] Adela Arizmendi RN [facility].; [employer]. Comment on above: Method: Tympanic 01-23-2023 10:40-0500 Body weight 95.26 kg Adela [facility]mendi RN [facility] [employer] [facility]. 01-23-2023 10:40-0500 Diastolic blood pressure 79 mm[Hg] Adela [facility]mendi RN [facility].; [employer]. Comment on above: Patient Position: Sitting; Cuff Location : Left Arm; Cuff Size: Standard 01-23-2023 10:40-0500 Heart rate 78 /min Adela Arizmendi RN [place] [employer] [facility].; [employer]. Comment on above: Pattern: Regular 01-23-2023 10:40-0500 Inhaled oxygen concentration 21 % Adela Arizmendi RN [place] [employer] [facility].; [employer]. Comment on above: Room air 01-23-2023 10:40-0500 SaO2% (BldA) [Mass fraction] 97 % Adela Arizmendi RN [place] [employer] [facility].; [employer]. 01-23-2023 10:40-0500 Systolic blood pressure 139 mm[Hg] Adela Arizmendi RN [place] [employer] [facility].; [employer]. Comment on above: Patient Position: Sitting; Cuff Location : Left Arm; Cuff Size: Standard 01-06-2023 09:57-0500 Body weight 96.16 kg Horacio Araujo LPN [facility].; [place] [employer] [facility]. 01-06-2023 09:57-0500 Diastolic blood pressure 83 mm[Hg] Horacio Araujo LPN [facility], [facility].; [employer] [facility]. Comment on above: Patient Position: Sitting; Cuff Location : Left Arm; Cuff Size: Standard 01-06-2023 09:57-0500 Heart rate 78 /min Horacio Araujo LPN [facility], [facility].; [employer] [facility], [employer]. Comment on above: Pattern: Regular 01-06-2023 09:57-0500 Systolic blood pressure 135 mm[Hg] Horacio Vanmaurizio PARSONS [facility], [facility].; [employer], [employer]. Comment on above: Patient Position: Sitting; Cuff Location : Left Arm; Cuff Size: Standard 09-22-2022 09:06-0400 Body height 160.02 cm Adela Arizmendi RN [facility], [facility].; [employer] [facility], [facility]. 09-22-2022 09:06-0400 Body mass index (BMI) [Ratio] 37.2 kg/m2 Adela Arizmendi RN [facility], [facility].; [place] [employer] [facility], [facility]. 09-22-2022 09:06-0400 Body surface area Derived from formula 1.97 m2 Adela Arizmendi RN [facility], [facility].; [employer] [facility], [facility]. 09-22-2022 09:06-0400 Body temperature 97.4 [degF] Adela Arizmendi RN [facility], [facility].; [employer], [employer]. Comment on above: Method: Tympanic 09-22-2022 09:06-0400 Body weight 95.26 kg Adela Arizmendi RN [facility], [facility].; [employer], [employer]. 09-22-2022 09:06-0400 Diastolic blood pressure 73 mm[Hg] Adela Arizmendi RN [facility], [facility].; [employer]. Comment on above: Patient Position: Sitting; Cuff Location : Left Arm; Cuff Size: Large 09-22-2022 09:06-0400 Heart rate 73 /min Adela Arizmendi RN [facility], [facility].; [employer]. Comment on above: Pattern: Regular 09-22-2022 09:06-0400 Systolic blood pressure 128 mm[Hg] Adela [facility]mendi RN [facility] [employer] [facility]. Comment on above: Patient Position: Sitting; Cuff Location : Left Arm; Cuff Size: Large 12-25-2021 14:28-0400 Body height 160.02 cm Kellee Feliciano MA [facility] [employer] 12-25-2021 14:28-0400 Body mass index (BMI) [Ratio] 37.55 kg/m2 Kellee Feliciano MA [facility] [employer]. 12-25-2021 [id number] Body surface area Derived from formula 1.98 m2 Kellee Feliciano MA [facility].; [employer], [employer] 12-25-2021 14:040 Body weight 96.16 kg Kellee Feliciano MA [facility].; [employer], [employer]. 12-25-2021 [id number] Diastolic blood pressure 70 mm[Hg] Kellee Feliciano MA [facility].; [employer]. Comment on above: Patient Position: Sitting; Cuff Location : Right Arm; Cuff Size: Large 12-25-2021 14:28-0400 Heart rate 69 /min Kellee Feliciano MA [facility].; [employer]. Comment on above: Pattern: Regular 12-25-2021 14:28-0400 Systolic blood pressure 130 mm[Hg] Kellee Feliciano MA [facility] [employer], [employer]. Comment on above: Patient Position: Sitting; Cuff Location : Right Arm; Cuff Size: Large 10-24-2021 [id number]:020400 Body weight 95.85 kg Margret Arcos [facility].; [employer]. 10-24-2021 14:02-0400 Diastolic blood pressure 80 mm[Hg] Margret Arcos MA [facility] [employer], [employer]. Comment on above: Patient Position: Sitting; Cuff Location : Left Arm; Cuff Size: Standard 10-24-2021 14:02-0400 Heart rate 71 /min Margret Arcos [facility] Comment on above: Pattern: Regular 10-24-2021 14:02-0400 Systolic blood pressure 136 mm[Hg] Margret Arcos MA [facility] Comment on above: Patient Position: Sitting; Cuff Location : Left Arm; Cuff Size: Standard 10-08-2021 17:32-0400 Body temperature 98 [degF] Dr. Kurt Moreno Work Phone: [facility] Work Phone: 10-08-2021 17:32-0400 Diastolic blood pressure 67 mm[Hg] Dr. Kurt Moreno Work Phone: [facility] Work Phone: 10-08-2021 17:32-0400 Heart rate 73 /min Dr. Kurt Moreno Work Phone: [facility] Work Phone: 10-08-2021 17:32-0400 Respiratory rate 19 /min Dr. Kurt Moreno Work Phone: [facility] Work Phone: 10-08-2021 17:32-0400 SaO2% (BldA) [Mass fraction] 98 % Dr. Kurt Moreno Work Phone: [facility] Work Phone: 10-08-2021 17:32-0400 Systolic blood pressure 152 mm[Hg] Dr. Kurt Moreno Work Phone: [facility] Work Phone: 10-08-2021 14:00-0400 Body height 162.[address] Kurt Moreno Work Phone: [facility] Work Phone: 10-08-2021 14:00-0400 Body mass index (BMI) [Ratio] 36.7 kg/m2 Dr. Kurt Moreno Work Phone: [facility] Work Phone: 10-08-2021 14:00-0400 Body weight 97.[address] Kurt Moreno Work Phone: [facility] Work Phone: 07-31-2021 13:32-0400 Body mass index (BMI) [Ratio] 34.3 kg/m2 Dr. Kurt Moreno Work Phone: [facility] Work Phone: 07-31-2021 13:32-0400 Body weight 96.[address] Kurt Moreno Work Phone: [facility] Work Phone: 07-31-2021 13:32-0400 Diastolic blood pressure 88 mm[Hg] Dr. Kurt Moreno Work Phone: [facility] Work Phone: 07-31-2021 13:32-0400 Heart rate 71 /min Dr. Kurt Moreno Work Phone: [facility] Work Phone: 07-31-2021 13:32-0400 Respiratory rate 18 /min Dr. Kurt Moreno Work Phone: [facility] Work Phone: 07-31-2021 13:32-0400 SaO2% (BldA) [Mass fraction] 97 % Dr. Kurt Moreno Work Phone: [facility] Work Phone: 07-31-2021 13:32-0400 Systolic blood pressure 115 mm[Hg] Dr. Kurt Moreno Work Phone: [facility] Work Phone: 12-04-2020 15:05-0400 Body height 160.02 cm Kellee Waters LPN [facility], [facility].; [facility], [facility]. 12-04-2020 15:05-0400 Body mass index (BMI) [Ratio] 36.85 kg/m2 Kellee Waters LPN [facility], [facility]. 12-04-2020 15:05-0400 Body surface area Derived from formula 1.97 m2 Kellee Waters PATIENT REGISTRATION SUPERVISOR [facility], [facility].; [facility], [facility]. 12-04-2020 15:05-0400 Body weight 94.35 kg Kellee Waters LPN [facility], [facility].; [employer], [facility]. 12-04-2020 15:05-0400 Diastolic blood pressure 79 mm[Hg] Kellee Waters LPN [facility] [employer], [employer]. Comment on above: Patient Position: Sitting; Cuff Location : Left Arm; Cuff Size: Standard 12-04-2020 15:05-0400 Heart rate 68 /min Kellee Waters LPN [facility], [facility].; [employer], [employer]. Comment on above: Pattern: Regular 12-04-2020 15:05-0400 Systolic blood pressure 133 mm[Hg] Kellee Waters LPN [facility], [facility].; [employer], [employer]. Comment on above: Patient Position: Sitting; Cuff Location : Left Arm; Cuff Size: Standard 02-14-2020 14:24-0500 Body height 160.02 cm Kellee Waters LPN [facility], [facility].; [employer], [employer]. 02-14-2020 14:24-0500 Body mass index (BMI) [Ratio] 35.07 kg/m2 Kellee Waters LPN [facility], [facility].; [employer], [employer]. 02-14-2020 14:24-0500 Body surface area Derived from formula 1.93 m2 Kellee Waters LPN [facility], [facility].; [employer] [facility], [facility]. 02-14-2020 14:24-0500 Body weight 89.81 kg Kellee Waters LPN [facility], [facility].; [employer], [employer]. 02-14-2020 14:24-0500 Diastolic blood pressure 74 mm[Hg] Kellee Waters LPN [facility], [facility].; [employer], [employer]. Comment on above: Patient Position: Sitting; Cuff Location : Left Arm; Cuff Size: Standard 02-14-2020 14:24-0500 Heart rate 86 /min Kellee Waters LPN [facility], [facility].; [employer], [employer]. Comment on above: Pattern: Regular 02-14-2020 14:24-0500 Systolic blood pressure 126 mm[Hg] Kellee Waters LPN [place] [employer] [facility] [employer]. Comment on above: Patient Position: Sitting; Cuff Location : Left Arm; Cuff Size: Standard 02-06-2020 16:30-0500 Body height 160.02 cm Malou Christopher [facility] Work Phone: [employer] Work Phone: 02-06-2020 16:30-0500 Body mass index (BMI) [Ratio] 34.72 kg/m2 [facility] Work Phone: [employer] Work Phone: 02-06-2020 16:30-0500 Body surface area Derived from formula 1.92 m2 Malou Candi [facility] Work Phone: [facility]; [employer]. Work Phone: 02-06-2020 16:30-0500 Body temperature 100.6 [degF] Malou Candi [facility] Work Phone: [employer]; [employer]. Work Phone: Comment on above: Method: Tympanic 02-06-2020 16:30-0500 Body weight 88.91 kg Malou Christopher [facility] Work Phone: [facility]; [employer]. Work Phone: 02-06-2020 16:30-0500 Diastolic blood pressure 78 mm[Hg] Malou Candi [facility] Work Phone: [facility]; [employer]. Work Phone: Comment on above: Patient Position: Sitting; Cuff Location : Left Arm; Cuff Size: Standard 02-06-2020 16:30-0500 Heart rate 98 /min [facility] Work Phone: [employer]; [employer]. Work Phone: Comment on above: Pattern: Regular 02-06-2020 16:30-0500 Inhaled oxygen concentration 21 % Malou Christopher LPN Work Phone: [facility]; [employer]. Work Phone: Comment on above: Room air 02-06-2020 16:30-0500 SaO2% (BldA) [Mass fraction] 95 % Malou Christopher LPN Work Phone: [employer]. Work Phone: 02-06-2020 16:30-0500 Systolic blood pressure 161 mm[Hg] Malou Christopher LPN Work Phone: [employer].; [employer]. Work Phone: Comment on above: Patient Position: Sitting; Cuff Location : Left Arm; Cuff Size: Standard 08-15-2019 13:22-0400 Body height 160.02 cm Kurt Moreno MD Work Phone: [employer]. 08-15-2019 13:22-0400 Body mass index (BMI) [Ratio] 35.78 kg/m2 Kurt Moreno MD Work Phone: [employer]. 08-15-2019 13:22-0400 Body surface area Derived from formula 1.94 m2 Kurt Moreno MD Work Phone: [employer].; [employer]. 08-15-2019 13:22-0400 Body weight 91.63 kg Kurt Moreno MD Work Phone: [employer].; [employer]. 08-15-2019 13:22-0400 Diastolic blood pressure 72 mm[Hg] Kurt Moreno MD Work Phone: [employer].; [employer]. Comment on above: Patient Position: Sitting; Cuff Location : Left Arm; Cuff Size: Large 08-15-2019 13:22-0400 Heart rate 71 /min Kurt Moreno MD Work Phone: [employer].; [employer]. Comment on above: Pattern: Regular 08-15-2019 13:22-0400 Systolic blood pressure 134 mm[Hg] Kurt Moreno MD Work Phone: [employer].; [employer]. Comment on above: Patient Position: Sitting; Cuff Location : Left Arm; Cuff Size: Large 01-06-2019 13:17-0500 Body height 160.02 cm Kurt Moreno MD Work Phone: [employer].; [employer]. 01-06-2019 13:17-0500 Body mass index (BMI) [Ratio] 36.49 kg/m2 Kurt Moreno MD Work Phone: [employer].; [employer]. 01-06-2019 13:17-0500 Body surface area Derived from formula 1.96 m2 Kurt Moreno MD Work Phone: [employer].; [employer]. 01-06-2019 13:17-0500 Body weight 93.44 kg Kurt Moreno MD Work Phone: [employer].; [employer]. 01-06-2019 13:17-0500 Diastolic blood pressure 82 mm[Hg] Kurt Moreno MD Work Phone: [employer].; [employer]. Comment on above: Patient Position: Sitting; Cuff Location : Left Arm; Cuff Size: Standard 01-06-2019 13:17-0500 Heart rate 82 /min Kurt Moreno MD Work Phone: [employer].; [employer]. Comment on above: Pattern: Regular 01-06-2019 13:17-0500 Systolic blood pressure 156 mm[Hg] Kurt Moreno MD Work Phone: [employer].; [employer]. Comment on above: Patient Position: Sitting; Cuff Location : Left Arm; Cuff Size: Standard 07-27-2018 13:20-0400 Body height 160.02 cm Nhung Delgado LPN [employer] [facility] [employer], [employer]. 07-27-2018 13:20-0400 Body mass index (BMI) [Ratio] 38.09 kg/m2 Nhung Delgado LPN [employer] [facility] [employer] 07-27-2018 13:20-0400 Body surface area Derived from formula 1.[address] [facility] [employer] [facility] [employer], [employer]. 07-27-2018 13:20-0400 Body temperature 98.8 [degF] Nhung Delgado [facility] [employer] [facility] [employer], [employer]. Comment on above: Method: Tympanic 07-27-2018 13:20-0400 Body weight 97.52 kg Nhung Delgado PATIENT REGISTRATION SUPERVISOR [employer] [facility] [employer] 07-27-2018 13:20-0400 Diastolic blood pressure 84 mm[Hg] Nhung Delgado PATIENT REGISTRATION SUPERVISOR [employer] [facility] [employer], [employer]. Comment on above: Patient Position: Sitting; Cuff Location : Left Arm; Cuff Size: Large 07-27-2018 13:20-0400 Heart rate 83 /min Nhung Delgado PATIENT REGISTRATION SUPERVISOR [employer] [facility] [employer] Comment on above: Pattern: Regular 07-27-2018 13:20-0400 Systolic blood pressure 167 mm[Hg] Nhung Delgado [facility] [employer] [facility] [employer]. Comment on above: Patient Position: Sitting; Cuff Location : Left Arm; Cuff Size: Large 02-01-2018 14:49-0500 Body height 160.[address] [facility] [employer] [facility] [employer] 02-01-2018 14:49-0500 Body mass index (BMI) [Ratio] 38.44 kg/m2 Nhung Delgado [facility] [employer] [facility] [employer] 02-01-2018 14:49-0500 Body surface area Derived from formula 2 m2 Nhung Delgado [facility] [employer], [employer]. 02-01-2018 14:49-0500 Body temperature 97.9 [degF] Nhung Delgado [facility] [employer], [employer]. Comment on above: Method: Tympanic 02-01-2018 14:49-0500 Body weight 98.43 kg Nhung Delgado [facility] [employer]. 02-01-2018 14:49-0500 Diastolic blood pressure 85 mm[Hg] Nhung Delgado [facility] [employer], [employer]. Comment on above: Patient Position: Sitting; Cuff Location : Left Arm; Cuff Size: Large 02-01-2018 14:49-0500 Heart rate 83 /min Nhung Delgado [facility] [employer]. Comment on above: Pattern: Regular 02-01-2018 14:49-0500 Inhaled oxygen concentration 21 % AshleyZeenat Delgado [facility] [employer]. Comment on above: Room air 02-01-2018 14:49-0500 SaO2% (BldA) [Mass fraction] 96 % [facility] Danny [facility] [employer], [employer]. 02-01-2018 14:49-0500 Systolic blood pressure 171 mm[Hg] Nhung Delgado [facility] [employer]. Comment on above: Patient Position: Sitting; Cuff Location : Left Arm; Cuff Size: Large 10-27-2017 11:37-0400 Body height 160.02 cm Autumn K Mutersbavan [facility] [employer]. 10-27-2017 11:37-0400 Body mass index (BMI) [Ratio] 40.03 kg/m2 Autumn K Mutersbaugh [facility] just[employer]me [facility] [employer]. 10-27-2017 11:37-0400 Body surface area Derived from formula 2.04 m2 Autumn K Mutersbaugh PATIENT REGISTRATION SUPERVISOR [facility] 10-27-2017 11:37-0400 Body weight 102.51 kg Autumncon Baronbaugh PATIENT REGISTRATION SUPERVISOR [facility] 10-27-2017 11:37-0400 Diastolic blood pressure 70 mm[Hg] Autumn Lisette Aranaersbaugh PATIENT REGISTRATION SUPERVISOR [facility] Comment on above: Patient Position: Sitting; Cuff Location : Left Arm; Cuff Size: Standard 10-27-2017 11:37-0400 Heart rate 75 /min Autumn Lisette Baronbaugh PATIENT REGISTRATION SUPERVISOR [facility] [place] [employer] [facility] Comment on above: Pattern: Regular 10-27-2017 11:37-0400 Systolic blood pressure 137 mm[Hg] Autumn Lisette Baronbavan PATIENT REGISTRATION SUPERVISOR [facility] Comment on above: Patient Position: Sitting; [...] 11:15-0400 Body height 160.02 cm Nhung Delgado PATIENT REGISTRATION SUPERVISOR [employer] [facility] [employer], [employer]. 08-05-2016 11:15-0400 Body mass index (BMI) [Ratio] 37.73 kg/m2 Nhung Delgado [facility] [employer] 08-05-2016 11:15-0400 Body surface area Derived from formula 1.99 m2 Nhung Delgado PATIENT REGISTRATION SUPERVISOR [employer]. 08-05-2016 11:15-0400 Body weight 96.62 kg Nhung Delgado [facility] [employer]. 08-05-2016 11:15-0400 Diastolic blood pressure 80 mm[Hg] Nhung Delgado [facility] [employer]. Comment on above: Patient Position: Sitting; Cuff Location : Left Arm; Cuff Size: Large 08-05-2016 11:15-0400 Heart rate 60 /min Nhung Delgado [facility] [employer]. Comment on above: Pattern: Regular 08-05-2016 11:15-0400 Systolic blood pressure 139 mm[Hg] Nhung Delgado PATIENT REGISTRATION SUPERVISOR [employer], [employer]. Comment on above: Patient Position: Sitting; Cuff Location : Left Arm; Cuff Size: Large 09-13-2015 10:40-0400 Body height 160.02 cm Autumn Lisette Estrada LPN [employer], [employer]. 09-13-2015 10:40-0400 Body mass index (BMI) [Ratio] 37.2 kg/m2 Autumn Lisette Mutersbaugh PATIENT REGISTRATION SUPERVISOR [employer] 09-13-2015 10:40-0400 Body surface area Derived from formula 1.97 m2 Autumn Lisette Mutersbavan PATIENT REGISTRATION SUPERVISOR [employer], [employer]. 09-13-2015 10:40-0400 Body weight 95.26 kg Autumn Estrada PATIENT REGISTRATION SUPERVISOR [employer] [facility].; [employer]. 09-13-2015 10:40-0400 Diastolic blood pressure 81 mm[Hg] Autumn Estrada PATIENT REGISTRATION SUPERVISOR [facility] [employer] [facility].; [employer]. Comment on above: Patient Position: Sitting; Cuff Location : Left Arm; Cuff Size: Standard 09-13-2015 10:40-0400 Heart rate 76 /min Autumn Lisette Pennugh PATIENT REGISTRATION SUPERVISOR [employer]. Comment on above: Pattern: Regular 09-13-2015 10:40-0400 Systolic blood pressure 172 mm[Hg] Autumn Baronbavan PATIENT REGISTRATION SUPERVISOR [place] [employer]. Comment on above: Patient Position: Sitting; Cuff Location : Left Arm; Cuff Size: Standard 06-26-2015 09:51-0400 Body height 160.02 cm Kurt Moreno MD Work Phone: [employer]. 06-26-2015 09:51-0400 Body mass index (BMI) [Ratio] 36.85 kg/m2 Kurt Moreno MD Work Phone: [employer]. 06-26-2015 09:51-0400 Body surface area Derived from formula 1.97 m2 Kurt Moreno MD Work Phone: [employer]. 06-26-2015 09:51-0400 Body temperature 97.5 [degF] Kurt Moreno MD Work Phone: [employer]. Comment on above: Method: Tympanic 06-26-2015 09:51-0400 Body weight 94.35 kg Kurt Moreno MD Work Phone: [employer]. 06-26-2015 09:51-0400 Diastolic blood pressure 90 mm[Hg] Kurt Moreno MD Work Phone: [employer]. Comment on above: Patient Position: Sitting; Cuff Location : Right Arm; Cuff Size: Large 06-26-2015 09:51-0400 Heart rate 72 /min Kurt Moreno MD Work Phone: [employer]. Comment on above: Pattern: Regular 06-26-2015 09:51-0400 Systolic blood pressure 166 mm[Hg] Kurt Moreno MD Work Phone: [employer]. Comment on above: Patient Position: Sitting; Cuff Location : Right Arm; Cuff Size: Large 12-25-2014 14:52-0500 Body height 160.02 cm Kurt Moreno MD Work Phone: [employer]. 12-25-2014 14:52-0500 Body mass index (BMI) [Ratio] 38.26 kg/m2 Kurt Moreno MD Work Phone: [employer]. 12-25-2014 14:52-0500 Body surface area Derived from formula 2 m2 Kurt Moreno MD Work Phone: [employer]. 12-25-2014 14:52-0500 Body weight 97.98 kg Kurt Moreno MD Work Phone: [employer]. 12-25-2014 14:52-0500 Diastolic blood pressure 82 mm[Hg] Kurt Moreno MD Work Phone: [employer]. Comment on above: Patient Position: Sitting; Cuff Location : Right Arm; Cuff Size: Large 12-25-2014 14:52-0500 Heart rate 75 /min Kurt Moreno MD Work Phone: [employer]. Comment on above: Pattern: Regular 12-25-2014 14:52-0500 Systolic blood pressure 170 mm[Hg] Kurt Moreno MD Work Phone: [facility], [employer].; [facility]. Comment on above: Patient Position: Sitting; Cuff Location : Right Arm; Cuff Size: Large 12-28-2012 13:04-0500 BMI (Body Mass Index) 34.34 kg/m2 Harumi Ajubeo [employer] Work Phone: 12-28-2012 13:04-0500 BP Diastolic 80 mm[Hg] Harumi DeFinis [facility] Work Phone: 12-28-2012 13:04-0500 BP Systolic 152 mm[Hg] Harumi DeFinis [facility] Work Phone: 12-28-2012 13:04-0500 Pulse (Heart Rate) 64 /min Harumi DeFinis [facility] Work Phone: 12-28-2012 13:04-0500 Respiratory Rate 20 /min Harumi DeFinis [facility] Work Phone: 12-28-2012 13:04-0500 Weight 96.16 kg Harumi DeFinis [facility] Work Phone: 06-29-2012 10:11-0400 Heart rate 72 /min Diana Lopes RN [facility] Work Phone: 06-29-2012 10:11-0400 Heart rate 400 ms Diana Lopes RN [facility] Work Phone: 11-28-2011 11:42-0400 Height 167.64 cm Harumi DeFinComplexa [facility] Work Phone: Encounters Encounter Date Encounter Type Care Provider Facility Start: 01-10-2025 ambulatory Tam Bowen NP Facility :[facility] Start: 12-22-2024 End: 12-22-2024 ambulatory Alec Aiken Facility:[facility] Start: 12-15-2024 End: 12-15-2024 Emergency department patient visit Juan Franco Facility:[facility] Start: 12-02-2024 End: 12-02-2024 Patient encounter procedure Kellee Matos PA -[facility] Work Phone: Start: 12-02-2024 End: 12-02-2024 ambulatory Amandake Attila PA Work Phone: -[facility] Start: 11-19-2024 ambulatory Tam Bowen UX DESIGN MANAGER Facility :[facility] Start: 11-19-2024 Registered Referred Tam Bowen UX DESIGN MANAGER-C -Cardiovascular Services Work Phone: Start: 11-09-2024 End: 11-09-2024 Patient encounter procedure Tam Bowen UX DESIGN MANAGER-C -[facility] Work Phone: Start: 11-09-2024 End: 11-09-2024 ambulatory Alec Barlowetler PA Work Phone: -[facility] Start: 09-16-2024 Review Alec magallanes PA-C Work Phone: [employer] Start: 09-16-2024 End: 09-16-2024 Orders Alec Aiken PA-C Work Phone: [employer]. Start: 09-15-2024 End: 09-15-2024 ambulatory ALEC AIKEN [facility] Start: 09-15-2024 End: 09-15-2024 Office outpatient visit 15 minutes Alec Barlowetler PA-C Work Phone: [employer]. Start: 08-16-2024 End: 08-16-2024 Patient encounter procedure Rosmery Faustin UX DESIGN MANAGER-C -[facility] Work Phone: Start: 08-16-2024 End: 08-16-2024 ambulatory Alec Barlowetler PA Work Phone: [facility] Work Phone: Start: 08-12-2024 End: 08-12-2024 Telephone follow-up Alec Barlowetler PA-C Work Phone: [employer] Start: 08-11-2024 End: 08-11-2024 Emergency department patient visit Luke Attila PA Work Phone: -Emergency Department Work Phone: Start: 03-14-2024 Review Luke Hochstetl er PA-C Work Phone: [employer]. Start: 03-11-2024 [facility] Start: 03-11-2024 End: 03-13-2024 [facility] Start: 02-29-2024 End: 02-29-2024 Medication Luke Attila PA-C Work Phone: [employer]. Start: 01-27-2024 End: 01-27-2024 ambulatory Tam Bowen NP Facility:[facility] Start: 01-25-2024 End: 01-25-2024 [facility] Start: 01-25-2024 End: 01-25-2024 Office outpatient visit 15 minutes Luke Attila PA-C Work Phone: [employer]. Start: 01-04-2024 End: 01-04-2024 Telephone follow-up Luke Attila PA-C Work Phone: [employer]. Start: 01-04-2024 End: 01-04-2024 Medication Luke Attila PA-C Work Phone: [employer]. Start: 01-03-2024 End: 01-03-2024 Emergency department patient visit NEVILLE SANTIAGO [facility] Start: 01-01-2024 Review Luke Hochstetl er PA-C Work Phone: [employer]. Start: 01-01-2024 End: 01-01-2024 Office outpatient visit 25 minutes Luke Attila PA-C Work Phone: [employer]. Start: 01-01-2024 Review Luke Hochstetl er PA-C Work Phone: [facility] Start: 06-18-2023 Patient encounter procedure ROSAURA Aiken Work Phone: [facility] Work Phone: Start: 06-15-2023 End: 06-15-2023 Telephone follow-up Alec Aiken PA-C Work Phone: [facility] Start: 06-12-2023 End: 06-12-2023 ambulatory PA Alec Aiken Work Phone: [facility] Work Phone: Start: 06-12-2023 End: 06-12-2023 Departed Referred ROSAURA Aiken Work Phone: [facility] Work Phone: Start: 06-12-2023 Registered Referred ROSAURA starr Work Phone: [facility] Work Phone: Start: 06-12-2023 End: 06-12-2023 Emergency department patient visit ROSAURA Aiken Work Phone: [facility]-Emergency Department Work Phone: Start: 06-01-2023 End: 06-01-2023 Patient encounter procedure ROSAURA Aiken Work Phone: [facility] Work Phone: Start: 01-23-2023 End: 01-23-2023 Office outpatient visit 15 minutes Alec Aiken PA-C [facility] Start: 01-08-2023 End: 01-08-2023 Orders Alec Aiken PA-C [facility] Phone[facility] Start: 01-06-2023 End: 01-08-2023 Patient encounter procedure Luke Attila PA-C Work Phone: [employer] Start: 09-26-2022 End: 09-26-2022 Medication Luke Attila PA-C Work Phone: [employer]. Start: 09-22-2022 End: 09-22-2022 Office outpatient visit 15 minutes Luke Attila PA-C Work Phone: [employer]. Start: 12-25-2021 End: 12-25-2021 Office outpatient visit 25 minutes Luke Attila PA-C Work Phone: [employer] Start: 12-23-2021 Telephone encounter Belen Miramontes MD Work Phone: [facility] Comment on above: Outside Lab Results (Dr. Arnulfo [place], [place]) Start: 10-24-2021 End: 10-24-2021 Office outpatient visit 25 minutes Luke Attila PA-C Work Phone: [employer] Start: 10-08-2021 Evaluation and management of inpatient Dr. Kurt Moreno Work Phone: [facility]-Progressive Care Unit Start: 07-31-2021 End: 07-31-[address] Kurt Moreno Work Phone: [facility] Start: 12-05-2020 End: 12-05-2020 Phone Encounter Luke Attila PA-C Work Phone: [employer] Start: 12-04-2020 End: 12-04-2020 Office outpatient visit 15 minutes Luke Attila PA-C Work Phone: [employer] Start: 02-14-2020 End: 02-14-2020 Office outpatient visit 15 minutes Luke Attila PA-C Work Phone: [employer] Start: 02-06-2020 End: 02-06-2020 Patient encounter procedure Luke Attila PA-C Work Phone: [employer]. Start: 08-15-2019 End: 08-15-2019 Office outpatient visit 15 minutes Luke Attila PA-C Work Phone: [employer]. Start: 02-02-2019 End: 02-02-2019 Telephone follow-up Luke Attila PA-C Work Phone: [employer]. Start: 01-06-2019 End: 01-06-2019 Office outpatient visit 25 minutes Luke Attila PA-C Work Phone: [employer]. Start: 10-28-2018 End: 10-28-2018 Orders Luke Attila PA-C Work Phone: [employer]. Start: 10-04-2018 End: 10-05-2018 Orders Luke Attila PA-C Work Phone: [employer]. Start: 07-27-2018 End: 07-27-2018 Office outpatient visit 15 minutes Luke Attila PA-C Work Phone: [employer]. Start: 02-18-2018 End: 02-18-2018 Telephone follow-up Luke Attila PA-C Work Phone: [employer] Start: 02-01-2018 End: 02-01-2018 Office outpatient visit 15 minutes Luke Attila PA-C Work Phone: [employer]. Start: 10-27-2017 End: 10-27-2017 Office outpatient visit 15 minutes Luke Attila PA-C Work Phone: [employer]. Start: 08-05-2016 End: 08-05-2016 Office outpatient visit 15 minutes Luke Attila PA-C Work Phone: [employer] Start: 03-22-2016 End: 03-22-2016 Office outpatient visit 15 minutes Luke Attila PA-C Work Phone: [employer] Start: 10-30-2015 End: 10-30-2015 Orders Alec Barlowetler PA-C Work Phone: [employer] Start: 09-13-2015 End: 09-14-2015 Patient encounter procedure Alec MirandaAttila PA-C Work Phone: [employer] Start: 06-26-2015 End: 06-26-2015 Office outpatient visit 15 minutes Luke Attila PA-C Work Phone: [employer] Start: 12-25-2014 End: 12-26-2014 Office outpatient new 30 minutes Luke Attila PA-C Work Phone: [employer] Start: 12-22-2014 End: 12-22-2014 Historical Summary Alec Attila PA-C Work Phone: [employer] Start: 11-07-2014 End: 11-07-2014 Medication Alec MirandaAttila PA-C Work Phone: [employer] Procedures Date Procedure Procedure Detail Performing Clinician Start: 12-15-2024 Estimated creatinine clearance Alec Barlowetler PA Work Phone: Start: 09-15-2024 End: 09-16-2024 Radex foot complete minimum 3 views Alec Barlowetler PA-C Work Phone: Start: 01-25-2024 End: 01-26-2024 Dup-scan lxtr art/artl bpgs uni/lmtd study Luke Cheryl MirandaAttila PA-C Work Phone: Start: 01-01-2024 End: 01-01-2024 Ecg routine ecg w/least 12 lds w/i&r Luke E Attila PA-C Work Phone: Start: 01-06-2023 End: 01-09-2023 Ecg routine ecg w/least 12 lds w/i&r Luke E Attila PA-C Work Phone: Start: 10-08-2021 Plain chest X-ray Dr. Tanja Moreno Work Phone: Start: 12-04-2020 End: 12-04-2020 Removal impacted cerumen instrumentation unilat Alec Aiken PA-C Work Phone: Start: 02-14-2020 End: 02-14-2020 Flu imm no admin doc monty Kurt Soares Work Phone: Start: 01-06-2019 End: 01-06-2019 [...] Al Montelongo MD Start: 12-28-2012 End: 12-28-2012 TRAUMA COUNSELLOR Al Montelongo MD Start: 12-28-2012 End: 12-28-2012 Follow Up Appt 1 year Al Montelongo MD Start: 06-29-2012 End: 06-29-2012 TRAUMA COUNSELLOR Kellee Matos PA-C Work Phone: Start: 06-29-2012 End: 07-30-2012 Echocardiography Kellee Matos PA-C Work Phone: Start: 06-29-2012 End: 06-29-2012 Electrocardiogram, complete Kellee Howard PA-C Work Phone: Start: 06-29-2012 End: 06-29-2012 Follow Up Appt 6 months Kellee pacheco PA-C Work Phone: Start: 11-28-2011 End: 11-28-2011 Follow Up Appt 6 months Mary Jane Frausto Start: 02-23-2011 End: 02-23-2011 Subtotal thyroidectomy Adela rainey RN Comment on above: half removed Start: 02-23-2009 End: 02-23-2009 Cardiac Ablation Adela Arizmendi RN Comment on above: [facility] Start: 02-23-1990 End: 02-23-1990 Hysterectomy Adela Arizmendi RN Start: 02-23-1957 End: 02-23-1957 Tonsillectomy Adela Arizmendi RN Laparoscopy Adela duarte RN Laparoscopy Adela duarte RN Plan of Treatment Date Care Activity Detail Author Start: 12-15-2024 End: 12-15-2024 Emergency department patient visit Departed Emergency -Emergency Department Work Phone: Start: 11-09-2024 End: 11-09-2024 Evaluation of diagnostic study results [facility] Start: 11-09-2024 Cardiac event recording [facility] Start: 09-15-2024 Radex foot complete minimum 3 views Foot, Left Complete x-ray ([id number]) Start: 15-Sep-2024 Intent [employer] Start: 09-15-2024 Assay of blood/uric acid URIC ACID BLOOD ([id number]) Start: 15-Sep-2024 13:24-04:00 Request [employer] Start: 08-11-2024 [facility] Start: 01-25-2024 End: 01-25-2024 Dup-scan lxtr art/artl bpgs uni/lmtd study Venous Doppler Lower Extremity, RIGHT ([id number]) Date: 25-Jan-2024 [employer] Start: 01-01-2024 Culture bacterial quanttative colony count urine Urine Culture ([id number]) Start: 01-Jan-2024 12:05-05:00 Request [employer]; [employer]. Start: 01-01-2024 Assay of thyroid stimulating hormone tsh TSH (THYROID STIMULATING HORMONE) ([id number]) Start: 01-Jan-2024 10:58-05:00 Request [employer]; [employer]. Start: 06-12-2023 [facility] Start: 06-12-2023 Ambulatory ECG [facility] Start: 10-24-2021 Influenza vaccination INFLUENZA (#1) [facility] Start: 10-08-2021 Verification routine [facility] Work Phone: Start: 10-08-2021 Admission procedure [facility] Work Phone: Start: 10-08-2021 [facility] Work Phone: Start: 02-23-2021 ADVANCE DIRECTIVE DISCUSSION ADVANCE DIRECTIVE DISCUSSION [facility] Start: 02-23-2021 DEPRESSION ASSESSMENT DEPRESSION ASSESSMENT [facility] Start: 05-24-2018 LIPID SCREEN LIPID SCREEN [facility] Start: 02-06-2017 End: 02-06-2017 Appointment [facility] Work Phone: Start: 08-15-2016 End: 08-15-2016 Appointment Appointment [facility] Work Phone: Start: 08-15-2016 End: 08-15-2016 *BMP *BMP [facility] Work Phone: Start: 08-15-2016 End: 08-15-2016 *CBC with Differential *CBC with Differential [facility] Work Phone: Start: 08-15-2016 End: 08-15-2016 Follow Up Appt 6 months Follow Up Appt 6 months [facility] Work Phone: Start: 08-15-2016 End: 08-15-2016 Follow Up Appt Other Follow Up Appt Other [facility] Work Phone: Start: 05-24-2016 DIABETES SCREEN DIABETES SCREEN [facility] Start: 07-28-2013 COLORECTAL CANCER SCREENING COLORECTAL CANCER SCREENING [facility] Start: 07-28-2013 FECAL OCCULT BLOOD FECAL OCCULT BLOOD [facility] Start: 12-28-2012 End: 12-28-2012 TRAUMA COUNSELLOR TRAUMA COUNSELLOR [facility] Work Phone: Start: 12-28-2012 End: 12-28-2012 Follow Up Appt 1 year Follow Up Appt 1 year [facility] Work Phone: Start: 06-29-2012 End: 06-29-2012 TRAUMA COUNSELLOR TRAUMA COUNSELLOR [facility] Work Phone: Start: 06-29-2012 End: 06-29-2012 Echocardiography Echocardiogram (complete) [facility] Work Phone: Start: 06-29-2012 End: 06-29-2012 Electrocardiogram, complete EKG (In office) [facility] Work Phone: Start: 06-29-2012 End: 06-29-2012 Follow Up Appt 6 months Follow Up Appt 6 months [facility] Work Phone: Start: 11-28-2011 End: 11-28-2011 Follow Up Appt 6 months Follow Up Appt 6 months [facility] Work Phone: Start: 2011 PNEUMOCOCCAL: 65+ (1 - PCV) PNEUMOCOCCAL: 65+ (1 - PCV) [facility] Start: 02-17-1996 SHINGRIX VACCINE (1 of 2) SHINGRIX VACCINE (1 of 2) [facility] Start: 1991 COLOGUARD (FIT-DNA) COLOGUARD (FIT-DNA) [facility] Start: 1991 Colonoscopy COLONOSCOPY [facility] Start: [address] COLONOGRAPHY [facility] Start: 1991 SIGMOIDOSCOPY SIGMOIDOSCOPY [facility] Start: 1965 Urine microalbumin profile DTAP,TDAP,TD (1 - Tdap) [facility] Start: 02-17-1964 HEPATITIS C SCREENING HEPATITIS C SCREENING [facility] Start: 1946 COVID-19 VACCINE (#1) COVID-19 VACCINE (#1) [facility] Lipid 1996 panel - S paramjit or Plasma [facility] Work Phone: Patient Education [facility] Work Phone: Patient referral [facility] Work Phone: Payers Date Payer Category Payer Self-pay [id number] 2023 Unknown [id number] 1945 Unknown [id number] 2.16.8 [id number] 1946 Unknown [id number] 2.16.8 [id number] 1946 Unknown [id number] 2.16.8 [id number] 1946 Unknown [id number] 2.16.8 [id number] 1946 Unknown [id number] 2.16.8 [id number] Unknown [id number] Unknown Unknown [id number] 2.16.8 [id number] Unknown [id number] 2.16.8 [id number] Unknown [id number] 2.16.8 [id number] Unknown [id number] 2.16.8 [id number] Unknown [id number] 2.16.8 [id number] Unknown [id number] 2.16.8 [id number] Unknown [id number] 2.16.8 [id number] Unknown [id number] 2.16.8 [id number] Unknown [id number] 2.16.8 [id number] Social History Date Type Detail Facility Start: 10-08-2021 End: 06-12-2023 Tobacco smoking status NHIS Unknown if ever smoked [facility] Start: 07-21-2016 None [facility] Start: 07-21-2016 Spouse/ Signif icant Other [facility] Start: 09-25-2020 Non-smoker [facility] Start: 1945 Sex Assigned At Female 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 Tobacco Use: Tobacco Use: ; N ever smoker. [employer] Tobacco/Smoke Exposure: Tobacco/Smoke Exposure: ; Frequent. [employer] Frequent [employer] Work Phone: Sex Female [facility] Mental Status Date Assessment Result Facility 12-15-2024 Cognitive function Awake [facility] Work Phone: 12-15-2024 Cognitive function Arousable To Voice/Nam e [facility] Work Phone: 08-11-2024 Cognitive function Voice/Name [facility] Work Phone: 06-12-2023 Cognitive function Voice/Name [facility] Work Phone: 10-08-2021 Cognitive function Level Of Cons ciousness Awake;Alert [facility] Work Phone: Clinical Notes 04-22-2005 to 12-02-2024 Note Date & Type Note Facility 12-02-2024 Progress note [facility] 11-09-2024 Evaluation note Diagnosis Onset Date Resolution Essential (primary) hypertension chronic November 09, 2024 1:21pm Paroxysmal atrial fibrillation chronic November 09, 2024 1:21pm Pure hypercholesterolemia chronic November 09, 2024 1:21pm Takotsubo cardiomyopathy resolved November 09, 2024 1:21pm Essential (primary) hypertension chronic December 02, 2024 10:05am Paroxysmal atrial fibrillation chronic December 02, 2024 10:05am Pure hypercholesterolemia chronic December 02, 2024 10:05am [facility] Work Phone: [phone] Evaluation note* Diagnosis Onset Date Resolution Status Admit Date Paroxysmal atrial fibrillation chron ic August 16, 2024 1:36pm Takotsubo cardiomyopathy resolved August 16, 2024 1:36pm Essential (primary) hypertension chr onic November 09, 2024 1:21pm Paroxysmal atrial fibrillation chron ic November 09, 2024 1:21pm Pure hypercholesterolemia chronic November 09, 2024 1:21pm Takotsubo cardiomyopathy resolved November 09, 2024 1:21pm [facility] Work Phone: 1(672) 176-822501-18-2025 NoteDischarge Instructions Discharge Summary [address] [place] [address] [id number] 03/11/2024 Patient: VERONA TAY Sex: Female : 1945 Age: 79y Thank you for visiting [facility]. You have been evaluated today by Isaiah Mayorga M.D. for the following condition(s): Principal Diagnosis Pneumonia, Influenza A. Patient Signature Facility Order Checker Packer Processer Date/Time General Instructions with [address] [address] [id number] 03/11/2024 Patient: VERONA TAY Sex: Female : 1945 Age: 79y Thank you for visiting [facility]. You have been evaluated today by Isaiah Mayorga M.D. for the following condition(s): 1 of 2 Discharge Instructions Principal Diagnosis Pneumonia, Influenza A. 2 [facility] NoteDischarge Instructions Discharge Summary [address] [address] [id number] 01/03/2024 Patient: VERONA TAY Sex: Female : 1945 Age: 78y Thank you for visiting [facility]. You have been evaluated today by Neville [...] Signature 1 of 4 Discharge Instructions Facility Order Checker Packer Processer Date/Time General Instructions with [address] [address] [id number] 01/03/2024 Patient: VERONA TAY Sex: Female : 1945 Age: 78y Thank you for visiting [facility]. You have been evaluated today by Neville [...] your pain. Follow the directions on all [id number] medicines. Talk with your healthcare provider about [...] bear weight on the joint [address] [place], [place] 3855310-31-2022 Miscellaneous Notes* Telephone Encounter - Lynette Burnett - 12/23/2021 11:23 AM EDT Received labs from Dr. Diego. Placed in provider's inbox for review. Route to MA scanning. [facility] History of Past illness Narrative* Problem Noted Date Resolved Date Open wound(s) (multiple) of unspecified site(s), without mention of complication 04/22/2005 11/05/2010 documented as of this encounter (statuses as of 12/23/2021) [facility] Author Juan Franco [facility] June 12, 2023 3:22am Note Date/Time June 12, 2023 2:3 5am [facility] Medical Records Department [address] [place] [address] Emergency Department Summary 06/12/23 MR#: [id number] Acct: [id number] Name: VERONA TAY Rep #:[id number] : 1945 78 From: Juan Franco DO PCP: ROSAURA Wilson Status:REG E R Location: ED HPI History of Present Illness Chief Complaint: Palpitations Informant: patient, spouse/S.O. and EMS Narrative Narrative: Patient is a 78-year-old female with past medical history of paroxysmal atrial fibrillation and hypertension and Takotsubo cardiomyopathy. She previously underwent an ablation in 2007 at [facility]. She states that she has been [...] time EMS arrived the symptoms had spontaneouslyresolved [facility] Medical History Edema leg Essential (primary) [...] household members: spouse housing: house current occupation: [employer] Smoking Status: Never smoker alcohol intake: never [...] clinically significantfindings. Patient was kept on the registered nurse cardiac telemetry and there was an occasional PVC but [...] (Auto) 39.7 L Lymph % (Auto) 40.1 [place] % (Auto) 11.8 H Eos % (Auto) [...] rhythms. Follow-up with your family doctor and/or violin teacher for repeat evaluation. Also if you have breakthrough events follow your action plan as directed by your violin teacher and return to the ER should you have any further concerns. Disposition Disposition: Home, Self Care What to do if you have Problems For any increased pain, shortness of breath, bleeding, nausea or vomiting, chestpain, or any unexpected problems, contact your Primary Care Provider. Call [facility] ([phone]) or report to the closest Emergency Room. Call 911 if necessary. 06/12/23 0322 <Electronically signed by Juan Franco DO> Cosigner Signature (if applicable): CC: ROSAURA Wilson ~ Signed [facility] Work Phone: Evaluation note* Diagnosis Onset Date Resolution Status Chest pain acute Essential (primary) hypertension chronic Paroxysmal atrial fibrillation chronic Pure hypercholesterolemia ch ronic Takotsubo cardiomyopathy res olved Elevated troponin acute Rapid palpitations acute Paroxysmal atrial fibrillation chronic [facility] Work Phone: Evaluation note* Diagnosis Onset Date Resolution Status Paroxysmal atrial fibrillation chronic Takotsubo cardiomyopathy res olved [facility] Work Phone: Evaluation noteNo assessment information available [facility] Work Phone: Evaluation note* Diagnosis Onset Date Resolution Status Admit Date Paroxysmal atrial fibrillation chron ic August 16, 2024 1:36pm Takotsubo cardiomyopathy resolved August 16, 2024 1:36pm [facility] Work Phone: Hospital Discharge instructions Additional Instructions Please continue all of your medications as directed by your doctor. Add the Eliquis/blood thinner to prevent development of blood clot. Follow-up with your violin teacher for repeat evaluation and to discuss need for cardioversion if you do not spontaneously revert to normal sinus rhythm. Return to the ER should you have any further concernsWSt. Elizabeth Hospital Work Phone: Progress note Author Kellee Matos [facility] Note Date/Time December 02, 2024 1 1:21am [facility] [address] [place], [place] [address]cheryl. [address] [place] [address] OFFICE VISIT Date of Service: 12/02/24 MR#: [id number] Acct: [id number] Name: VERONA TAY Rep #: [id number] : 1945 Provider: ROSAURA Jackson Age/Sex: 79/F Location: [facility] Status: Signed HPI HPI History of Present Illness Details: The patient is a 79-year-old female with paroxysmal atrial fibrillation, presenting for follow-up of recurrent episodes. She has a history of paroxysmal atrial fibrillation/flutter status post radiofrequency ablation on 12/29/2007 at [facility] with Dr. Day. She also has a history of hypertension as well as stress-induced cardiomyopathy/Takotsubo cardiomyopathy. Her echocardiogram donein September 2021 demonstrated an ejection fraction of 55% with stage II diastolic dysfunction. Patient presented to the emergency room on 08/11/2024 with complaints of palpitations. She described this as a racing/skipping sensation about 2 hours prior to arrival to the ER. She was given IV metoprolol-her heartrate decreased to 65-70bpm. She was discharged to follow up with cardiology for possible cardioversion. She has recently experienced two episodes: one lasting approximately 10 hours, and another lasting 6 hours, both occurring at night and waking her from sleep. The most recent episode occurred on a Thursday night about 2 weeks ago. She reports associated fatigue and a sensation of being "sore" after episodes, but denies chest pain or worsening dyspnea. She is currently taking diltiazem and Eliquis, but only takes a single dose of Eliquis during episodes. She is also taking nattokinase. She expresses concern about medication costs and potential side effects, particularly gastrointestinalupset. She is under significant stress due to her son's pancreatic cancer diagnosis in June. Intake Vital Signs 11/09/24 13:36 12/02/24 08:53 12/02/24 10:33 Height 5 ft 5 in 5 ft 5 in Weight: 207 lb 205 lb BMI 34.4 34.1 BP 155/77 H 174/84 H 180/84 H Blood Pressure Location Lt brachial Lt brachial Lt brachial Position Sitting Sitting Sitting Respiration 16 18 Pulse 71 69 Pulse Source NIBP Monitor Pulse Oximetry (%) 96 97 Oxygen Delivery Method room air room air Intake Visit Reasons: 4-6 WK FU/EARLY TO COME IN WITH HER Film Historian Required: No Accompanied by: Is patient in pain?: No Allergies latex Allergy (Verified 11/09/24 13:40) Unknown Penicillins Allergy (Verified 11/09/24 13:40) Unknown Medications ?Medication ?Instructions ?Recorded ?Confirmed ?Type thyroid (pork) 60 mg tablet 60 mg PO DAILY 06/16/13 History diltiazem HCl 240 mg 240 mg PO DAILY heart #90 ca ps 03/15/24 12/02/24 Rx capsule,extended release 24 hr apixaban 5 mg tablet (Eliquis) 5 mg PO .PRN PRN Afib # 60 tabs 08/16/24 12/02/24 Rx amiodarone 200 mg tablet 100 mg (1/2 x 200 mg) PO QDA Y #45 12/02/24 12/02/24 Rx tabs sertraline 50 mg tablet mg PO PRN 12/02/24 12/02/24 History Ejection fraction %: 55 Have you fallen in the past year?: No Nurse's Note: Pt was wearing a monitor when she had an episode of AFIB Thursday night. She is still feeling fatigued since that episode. REPLACED BY [facility] Medical History Stage 3a chronic kidney disease (CKD) Obesity Takotsubo cardiomyopathy Hypothyroidism Essential (primary) hypertension Edema leg Supraventricular tachycardia Paroxysmal atrial fibrillation Pure hypercholesterolemia Surgical History (Updated 12/02/24 @ 10:24 by Dulce Fernandez) History of cataract surgery History of left heart catheterization (06/23/07) Hx of cholecystectomy History of hysterectomy H/O cardiac radiofrequency ablation (12/29/07) Family History Mother CAD (coronary artery disease) Brother CAD (coronary artery disease) Sister CAD (coronary artery disease) Social History household members: spouse housing: house current occupation: [employer] Smoking Status: Never smoker alcohol intake: never substance use type: does not use ROS Const Const: Positive for fatigue and weakness; Negative for headache(s) Eyes Eyes: Negative for change in vision ENT ENT: Positive for balance problems (At times she feels off-balance); Negative for headache(s), dizziness or Nosebleed/epistaxis Cardio Chest Pain: Yes (Sore after her AFIB, but it didn't last long) Palpitations: Yes feels like its: skipping Edema: Right (Right is always bigger than left) and Bilateral Resp Respiratory: Negative for SOB with activity GI GI: Positive for nausea (Parks this with her AFIB episode Thursday); Negative vomiting, heartburn or bright, red blood in stools : Negative for hematuria Musc Musc: Positive for balance problems (At times she feels off-balance) Neuro Neuro: Positive for lightheadedness and weakness; Negative for dizziness, syncope or headache(s) Endo Endo: Positive for fatigue Cardiology Exam Const Appearance: cooperative, healthy appearing, comfortable and no acute distress Nutritional Appearance: average body habitus and well nourished Orientation: alert, awake and oriented x3 Head Head: normal to inspection Ears: hearing grossly normal bilaterally Nose: external nose normal Face and Sinus: face symmetric Mouth: moist mucous membranes Eyes General: appearance normal, both eyes and all related structures Eyelids: eyelids normal EOM: EOM intact bilaterally Neck Neck: normal visual inspection and no JVD Carotids: normal carotid upstroke Chest Chest inspection: normal inspection of the chest, symmetric chest movement and normal respiratory effort; Negative cough Auscultation: Bilateral: Clear to Auscultation Cardio Rate: regular rate Rhythm: regular rhythm Heart sounds: S1 normal and S2 normal; Negative rub, gallop or murmur GI GI: normal to inspection Neuro General: patient alert, patient awake, patient oriented x3 and CN's II-XI intactbilaterally Skin Skin: no rashes or lesions noted Extremities Pulses: Normal: Right Posterior Tibial Pulse, Left Posterior Tibial Pulse, RightRadial Pulse and Left Radial Pulse Lower Extremity Edema: None: Bilateral Psych Psychological: normal affect Supplemental Info Supplemental Information ECHOCARDIOGRAM 10/09/2021 Interpretation Summary Normal LV size. Left ventricular systolic function is normal. The estimated ejection fraction is 55 %. Stage 2 diastolic dysfunction. ? ECHOCARDIOGRAM 11/05/2020: Interpretation Summary Normal LV size. Left ventricular systolic function is normal. Mild concentric left ventricular hypertrophy. The estimated ejection fraction is 60 %. Moderate atherosclerosis of the ascending aorta. Assessment and Plan Assessment and Plan (1) Paroxysmal atrial fibrillation: Status: Chronic Comment: Status post radiofrequency ablation on 12/29/2007 (2) Pure hypercholesterolemia: Status: Chronic (3) Essential (primary) hypertension: Status: Chronic Medications: New amiodarone 100 mg (1/2 x 200 mg) PO QDAY 45 tabs 3RF Plan 1. Paroxysmal atrial fibrillation: - Recurrent episodes documented on registered nurse cardiac telemetry, each lasting several hours with associated palpitations and fatigue. - Discussed possible repeat atrial fibrillation ablation with original administrative medical director (Dr. Kerns) if episodes become more troublesome. - Initiated low-dose amiodarone 200 mg (half tablet) once daily in addition to current diltiazem therapy to reduce arrhythmic burden; instructed to obtain follow-up EKG in 2 weeks. - Advised patient to report any new or worsening symptoms, such as marked bradycardia, dizziness, or visual changes. 2. intermediate manager (current) use of anticoagulants: - Patient has been taking only single doses of Eliquis rather than a continuous regimen; educated that brief sporadic dosing does not provide effective stroke prophylaxis. - Recommended transition to rivaroxaban (Xarelto) once daily; discussed benefitsof stroke prevention and potential gastrointestinal side effects. - Agreed to pursue pharmaceutical assistance program to address cost concerns; will reassess medication tolerance and effectiveness at upcoming follow-up. 3. Hypertension: Patient Instructions: Lets try pt assistance for your xarelto Lets start amiodarone at 100 mg a day, I need you to come back in 1-2 weeks for an EKG Think about going back to see EP for a second ablation Plan Details Additional Comments: Thank you for allowing me to participate in the care of your patient. Please donot hesitate to call if any issues arise. This note was generated using a voice recognition system and there may be incorrect words, spelling, or punctuation that were not noted when reviewing theoffice note prior to saving. Portions of this documentation were copied and pasted from previous office visitnotes to provide cohesive continuity of the history. The note has been reviewed,edited, and updated, as necessary. Follow Up: 12/02/24 (1-2 weeks for an EKG. Looks like [facility] has some openings ) Coding Level of Care Code Off vis,est,level 4 Diagnoses Paroxysmal atrial fibrillation I48.0 Pure hypercholesterolemia E78.00 Essential (primary) hypertension I10 Coding Level of Care Code Off vis,est,level 4 Diagnoses Paroxysmal atrial fibrillation I48.0 Pure hypercholesterolemia E78.00 Essential (primary) hypertension I10 Clinical Quality Measures Falls Risk Screening/Assistive Devices Have you fallen in the past year?: No Cardiac Ejection fraction %: 55 12/06/24 1544 <Electronically signed by Kellee Collins> Date _ Kellee KAPLAN [facility] Signature: Date (if applicable) CC: ROSAURA Wilson ~ [facility] Work Phone: Reason for referral (narrative)No reason for referral information availableWSt. Elizabeth Hospital Work Phone: Chief Complaint and Reason [...] atrial fi brillation Takotsubo cardiomyopathy Chief Complaint Admit Date AFIB August 11, 2024 1:44 am Chief Complaint Admit Date AFIB August 11, 2024 1:44 am S/P [facility] 08/10August 16, 2024 1:36 pm Reason for Visit Admit Date Paroxysmal atrial fibrillation July 1:36pm Takotsubo cardiomyopathy August 16, 2024 1:36pm Chief Complaint Admit Date AFIB August 11, 2024 1:44 am S/P [facility] 08/10August 16, 2024 1:36 pm 3-4 M FU November 09, 2024 1:21pm Reason for Visit Admit Date Paroxysmal atrial fibrillation July 1:36pm Takotsubo cardiomyopathy August 16, 2024 1:36pm Essential (primary) hypertension Septemb 2024 1:21pm Paroxysmal atrial fibrillation November 09, 2024 1:21pm Pure hypercholesterolemia October 1:21pm Takotsubo cardiomyopathy November 09, 2024 1:21pm Chief Complaint Admit Date 3-4 M FU November 09, 2024 1:21pm TAKOTSUBO CARDIOMYPATHY, PAROXYMSAL AFIB November 19, 2024 10:08am 4-6 WK FU/EARLY TO COME IN WITH HER HUSB AND December 02, 2024 10:05am PALPITATIONS December 15, 2024 5 :03am Reason for Visit Admit Date Essential (primary) hypertension Septemb er 2024 1:21pm Paroxysmal atrial fibrillation November 09, 2024 1:21pm Pure hypercholesterolemia October 1:21pm Takotsubo cardiomyopathy November 09, 2024 1:21pm Essential (primary) hypertension December 02, 2024 10:05am Paroxysmal atrial fibrillation November 232024 10:05am Pure hypercholesterolemia December 02, 2024 10:05am Family History No Family History Records Found Relationship Condition Age at Onset Recorded Date/T [...] :Mother. Hypertension Status:Active Hypothyroidism Status:Active Advance Directives No Advanced Directives Records Found Advance Directive Response Recorded Date/ Time Living Will No October 08 2:02pm Power of Embedded Linux Engineer No October 08 022 2:02pm Advance Directive Response Recorded Date/ Time Living Will No June 12, 2023 2:03am Power of Embedded Linux Engineer No June 11 2:03am Advance Directive Response Recorded Date/ Time Do you have a Healthcare Power of Embedded Linux Engineer? No August 11, 2024 2:01am Advance Directive Response Recorded Date/ Time Do you have a Healthcare Power of Embedded Linux Engineer? No December 15, 2024 5:06am Summary Purpose Additional Source Comments Goals (unrecognized [...] or prosecute any alcohol or drug abuse patient.[facility] Reason for Visit (unrecogniz ed section and content) Reason Comments Outside Lab Results Dr. Arnulfo Diego [place], [place] INFORMATION SOURCE (unrecogn ized section and content) DATE CREATED AUTHOR 12/24/2021 [facility] DATE CREATED AUTHOR AUTHOR'S ORGANIZ ATION 09/26/2022 [facility] DATE CREATED AUTHOR AUTHOR'S ORGANIZ ATION 09/24/2024 [facility] DATE CREATED AUTHOR AUTHOR'S ORGANIZ ATION 11/17/2024 [facility] DATE CREATED AUTHOR AUTHOR'S ORGANIZ ATION [facility]/31/[facility] Care Teams (unrecognized sec tion and content) Team Status: Active Member Role Status Dates Dr. Kurt Moreno MD Family Provider Active ROSAURA Wilson Primary Care Provider Active Team Status: Inactive Member Role Status Dates ROSAURA Wilson Primary Care Provider, Referring Provider Active Kellee KAPLAN, PA Attending Provider Active Team Status: Inactive Member Role Status Dates ROSAURA Wilson Primary Care Provider Active Dr. Juan Franco DO Emergency Provider Active Team Status: Active Member Role Status Dates ROSAURA Wilson Primary Care Provider Active Kellee KAPLAN PA Attending Provider Active Team Status: Active Member Role Status Dates ROSAURA Wilson Primary Care Provider, Referring Provider Active Kellee KAPLAN, PA Attending Provider Active Team Status: Inactive Member Role Status Dates ROSAURA Wilson Primary Care Provider Active Kellee KAPLAN PA Attending Provider Active Team Status: Active Member Role Status Dates ROSAURA Wilson Primary Care Provider Active Team Status: Inactive Member Role Status Dates ROSAURA Wilson Primary Care Provider Active Start: August 11, 2024 End: August 11, 2024 Dr. Juan Franco DO Emergency Provider Active Start: August 11, 2024 End: August 11, 2024 Team Status: Inactive Member Role Status Dates ROSAURA Wilson Primary Care Provider Active Start: August 16, 2024 End: August 16, 2024 ROSAURA Wilson Referring Provider Active Start: August 16, 2024 End: August 16, 2024 Rosmery Faustin UX DESIGN MANAGER, UX DESIGN MANAGER-C Attending Provider Active Start: August 16, 2024 End: August 16, 2024 Team Status: Active Member Role/Relationship Status Dates ROSAURA Wilson Primary care physician Active Team Status: Inactive Member Role/Relationship Status Dates ROSAURA Wilson Primary care physician Active Start: August 11, 2024 End: August 11, 2024 Dr. Juan Franco DO Attending physician Active Start: August 11, 2024 End: August 11, 2024 Dr. Juan Franco DO Emergency Department Physician A ctive Start: August 11, 2024 End: August 11, 2024 Team Status: Inactive Member Role/Relationship Status Dates ROSAURA Wilson Primary care physician Active Start: August 16, 2024 End: August 16, 2024 ROSAURA Wilson Referring Provider Active Start: August 16, 2024 End: August 16, 2024 Rosmery Faustin UX DESIGN MANAGER, UX DESIGN MANAGER-C Attending physician Active Start: August 16, 2024 End: August 16, 2024 Team Status: Inactive Member Role/Relationship Status Dates ROSAURA Wilson Primary care physician Active Start: November 09, 2024 End: November 09, 2024 ROSAURA Wilson Referring Provider Active Start: November 09, 2024 End: November 09, 2024 Tam Bowen UX DESIGN MANAGER, UX DESIGN MANAGER-C Attending physician Active Start: November 09, 2024 End: November 09, 2024 Team Status: Inactive Member Role/Relationship Status Dates ROSAURA Wilson Primary care physician Active Start: November 09, 2024 End: November 09, 2024 ROSAURA Wilson Referring Provider Active Start: November 09, 2024 End: November 09, 2024 Tam Bowen UX DESIGN MANAGER, UX DESIGN MANAGER-C Attending physician Active Start: November 09, 2024 End: November 09, 2024 Team Status: Active Member Role/Relationship Status Dates ROSAURA Wilson Primary care physician Active Start: November 19, 2024 Tam Bowen UX DESIGN MANAGER, UX DESIGN MANAGER-C Attending physician Active Start: November 19, 2024 Tam Bowen UX DESIGN MANAGER, UX DESIGN MANAGER-C Referring Provider Active S tart: November 19, 2024 Team Status: Inactive Member Role/Relationship Status Dates ROSAURA Wilson Primary care physician Active Start: December 02, 2024 End: December 02, 2024 ROSAURA Wilson Referring Provider Active Start: December 02, 2024 End: December 02, 2024 Kellee Matos PA, PA Attending physician Active Start: December 02, 2024 End: December 02, 2024 Team Status: Inactive Member Role/Relationship Status Dates ROSAURA Wilson Primary care physician Active Start: December 15, 2024 End: December 15, 2024 Dr. Juan Franco DO Emergency Department Physician A ctive Start: December 15, 2024 End: December 15, 2024 FOR RECORDS PERTAINING TO PATIENTS WHO ARE [...] BE BASED ON THE PRIMARY CLINICAL RECORDS. [employer] provides no warranty or guarantee of the accuracy or completeness of information in this document.
--- NOTE | 2025-01-10 06:47 | ECHOD_ITS ---
Reason For Study Reason For Study: AFIB Procedure This was a 2D Doppler, Color Flow transthoracic echocardiogram. Exam performed in department. Left Ventricle Normal LV size. Left ventricular systolic function is normal. The left ventricular ejection fraction is 60 %. No regional wall motion abnormalities noted. Right Ventricle Normal RV size. Normal systolic function. Atria Normal left atrium. Normal right atrium. Mitral Valve There is moderate mitral annular calcification. Mild (1+) eccentric mitral valve insufficiency. Tricuspid Valve Normal tricuspid valve. Aortic Valve Trisinus/trileaflet aortic valve. Moderate focal aortic valve calcification. Pulmonic Valve Normal pulmonic valve. Great Vessels Normal aortic root. The pulmonary artery is normal size. Inferior vena cava collapse with respiration. Pericardium/Pleural No pericardial effusion. MMode/2D Measurements & Calculations LVIDd: 4.8 cm IVSd: 1.1 cm LVOT diam: 1.9 cm LVIDs: 3.0 cm LVPWd: 1.0 cm LVOT area: 2.9 cm2 RVDd: 3.9 cm FS: 36.7 % Ao root diam: 3.0 cm asc Aorta Diam: 3.1 cm LAV(MOD- bp): 47.2 ml LAV(MOD- bp) Indexed: 24.3 ml/m2 LAV(MOD- sp2): 48.3 ml LAV(MOD- sp4): 44.4 ml SV(MOD- sp4): 40.0 ml LVAd ap4: 24.4 cm2 LVAd ap2: 22.3 cm2 LVLd ap4: 7.5 cm LVLd ap2: 7.5 cm SI(MOD- sp4): 20.5 ml/m2 EDV(MOD-sp4): 66.3 ml EDV(MOD-sp2): 58.7 ml EDV(sp4-el): 67.1 ml EDV(sp2-el): 56.8 ml LVAs ap4: 13.9 cm2 LVAs ap2: 12.8 cm2 LVLs ap4: 6.2 cm LVLs ap2: 6.4 cm ESV(MOD-sp4): 26.3 ml ESV(MOD-sp2): 23.4 ml ESV(sp4-el): 26.2 ml ESV(sp2-el): 21.8 ml EF(MOD-sp4): 60.3 % EF(MOD-sp2): 60.1 % EF(sp4-el): 61.0 % SV(MOD-sp2): 35.2 ml SV(sp4-el): 40.9 ml Ao sinus diam: 2.8 cm SI(MOD-sp2): 18.1 ml/m2 Ao ST Junction: 2.2 cm LA dimension(2D): 4.0 cm LA A4 area: 19.3 cm2 TAPSE: 1.8 cm RA A4 area: 15.2 cm2 Time Measurements MV dec time: 0.17 sec Doppler Measurements & Calculations MV E max miguel ángel: 103.7 cm/sec Lat Peak E' Miguel Ángel: 12.7 cm/sec Med Peak E' Miguel Ángel: 9.4 cm/sec MV A max miguel ángel: 87.7 cm/sec E/E' lat: 8.2 E/E' med: 11.0 MV E/A: 1.2 MV dec slope: 625.1 cm/sec2 Ao V2 max: 177.6 cm/sec LV V1 max: 106.7 cm/sec Ao max P.6 mmHg LV V1 max P.6 mmHg Ao V2 mean: 121.5 cm/sec LV V1 mean P.0 mmHg Ao mean P.8 mmHg LV V1 mean: 81.3 cm/sec Ao V2 VTI: 45.1 cm LV V1 VTI: 31.1 cm AV (velocity ratio): 0.69 EDDI(I,D): 2.0 cm2 EDDI(V,D): 1.7 cm2 SV(LVOT): 90.5 ml PA V2 max: 91.3 cm/sec TR max miguel ángel: 247.8 cm/sec TR max P.6 mmHg ECHO/Echo Complete Interpretation Summary Left ventricular systolic function is normal. The left ventricular ejection fraction is 60 %. Normal LV size. There is moderate mitral annular calcification. Mild (1+) eccentric mitral valve insufficiency. Ordering Physician: Tam Bowen Referring Physician: Tam Bowen Performed By: Sabrina Llanos RDCS
--- NOTE | 2025-01-10 17:26 | STRESSREP ---
Stress Test Report Pharmacologic myocardial perfusion stress test. 79-year-old female with a history of Afib. Resting EKG demonstrates normal sinus rhythm with a rate of 67 bpm. Resting blood pressure is 140/82 mmHg. 0.4 mg of regadenoson was infused per usual protocol followed by rapid intravenous saline flush injection. Continuous EKG monitoring was performed. The maximum heart rate was 87 bpm which was 61% of max impacted heart rate the maximum workload was 1 metabolic equivalent. At rest there were no ST or T wave changes noted to suggest ischemia and at peak infusion nonspecific ST changes were noted which did not meet the criteria for ischemia. No clinical angina is noted. The final blood pressure was 136/70 mmHg. Myocardial perfusion protocol. 11.8 mCi of technetium 99m sestamibi was injected at rest. 0.4 mg of regadenoson was infused per usual protocol. At peak infusion 34.3 mCi of technetium 99m sestamibi was injected stress images were obtained stress and rest images were reconstructed and compared in the short axis vertical long and horizontal long axis. Gated images were also obtained. Perfusion SPECT analysis: Review of the stress images demonstrate normal uptake of tracer noted in all areas of the myocardium. The resting images similar demonstrated normal uptake of tracer noted in all areas of the myocardium. No areas of reversibility are noted to suggest ischemia and no previous infarct is noted. Gated SPECT analysis: The gated ejection fraction is 69%. Conclusion: Normal pharmacologic myocardial perfusion stress test. Preserved ejection fraction.
== END | disposition home or self-care (01) ==
PROVIDERS: PCP Physician Assistant; Referring Provider Nurse Practitioner Family; Visit Provider Nurse Practitioner Family
DX: I48.0 Paroxysmal atrial fibrillation (principal); I51.81 Takotsubo syndrome; I10 Essential (primary) hypertension; E78.00 Pure hypercholesterolemia, unspecified; Z82.49 Family history of ischemic heart disease and other diseases of the circulatory system
CPT/HCPCS: 78452; 93017; 93306; A9500; A4216; J2785